=== PATIENT | male | born 1940 | race Caucasian/White ===

== ENCOUNTER 2018-12-28 01:49 | Inpatient (IN) | payer MEDICARE ==
[2018-12-28] MEDS ORDERED: Furosemide 40 MG/4 ML VIAL ONE (02:03)
[2018-12-28] MEDS ORDERED: Aspirin Chewable 81 MG TAB ONE (02:03)
[2018-12-28 02:07] LABS: Actual Bicarbonate (HCO3a) 22.3 mEq/L (22-28); Analyzer IN Cardio ER; Base Excess (BEa) -2.2 mEq/L (-2.0 to +3.0); CO2 Tension 37.5 mmHg (35.0-45.0); Calcium, Ionized 1.13 mmol/L (1.12-1.30); Carboxyhemoglobin (COHb) 0.7 gm% (0.0-3.0); O2 Tension (PaO2) 67.7 mmHg (> 70.0); Potassium - ABG Lab 4.01 mmol/L (3.70-5.30); pH, Arterial 7.39 (7.35-7.45)
[2018-12-28 02:10] LABS: ALV-art Gradient 134.975 (0-20); Puncture Site RRA
[2018-12-28 02:16] LABS: #Eosinphils 0.1 thou/uL (0.0-0.7); #Lymphocytes 1.1 thou/uL (1.20-3.40); #Monocytes 1.1 thou/uL (0.11-0.59); %Basophils 0.3 % (0.0-1.0); %Eosinophils 0.9 % (0.0-10.0); %Lymphocytes 10.3 % (21.0-51.0); %Monocytes 10.6 % (0.0-10.0); %Neutrophils 77.9 % (42.0-75.0); Hemoglobin 13.8 g/dL (14.0-18.0); Mean Corpuscular HGB CONC 33.7 g/dL (32.0-36.0); Mean Corpuscular Hemoglobin 34.3 pg (27.0-31.0); Mean Platelet Volume 7.3 fL (7.4-10.4); Platelet Count 270 thou/uL (130-400); RBC Distribution Width 12.3 % (11.5-14.5); Red Blood Cell (RBC) Count 4.01 mill/uL (4.70-6.10); White Blood Cell (WBC) Count 10.2 thou/uL (4.8-10.8)
[2018-12-28 02:34] LABS: ALT (SGPT) 30 U/L (8-55); AST (SGOT) 29 U/L (5-34); Albumin 3.3 g/dL (3.4-4.8); Alkaline Phosphatase 99 U/L (40-150); Anion Gap 15 mmol/L (10-20); BUN (Urea Nitrogen) 20 mg/dL (8.4-25.7); Bilirubin, Total 0.8 mg/dL (0.2-1.2); Calc. Creatinine Clearance 0 mL/min (70-130); Calcium 8.6 mg/dL (7.8-10.44); Carbon Dioxide 21 mmol/L (23-31); Chloride 99 mmol/L (98-107); Estimated GFR-MDRD 58; Globulin 2.6 g/dL (2.4-3.5); Glucose 185 mg/dL (83-110); Potassium 4.4 mmol/L (3.5-5.1); Protein, Total 5.9 g/dL (5.8-8.1); Sodium 131 mmol/L (136-145)
[2018-12-28] MEDS ORDERED: Enoxaparin Sodium 60 MG/0.6 ML SYRINGE ONE (02:55)
[2018-12-28] MEDS ORDERED: Enoxaparin Sodium 30 MG/0.3 ML SYRINGE ONE (02:55)
[2018-12-28 03:01] LABS: CKMB 2.1 ng/mL (0-6.6)
[2018-12-28] MEDS ORDERED: Acetaminophen 325 MG TAB PO PRN (03:49)
--- NOTE | 2018-12-28 04:17 | HP ---
CHIEF COMPLAINT: Shortness of breath. HISTORY OF PRESENT ILLNESS: The patient is a 78-year-old male with past medical history of hypertension and hyperlipidemia, who presents to the hospital with complaints of shortness of breath. The patient states that yesterday he started noticing worsening swelling to his bilateral lower extremities and also worsening shortness of breath. Denies any fevers or chills. He denies any chest pain or chest pressure. The patient states that he works as a security operations center operator and has had not been having any issues. Denies any orthopnea or PND. The patient did state that he has been having some shortness of breath on minimal exertion. PAST MEDICAL HISTORY: All from the records, hyperlipidemia and hypertension. PAST SURGICAL HISTORY: He has had some abdominal surgeries. SOCIAL HISTORY: He denies any alcohol use or drug use, however, occasionally smokes a cigar. The patient is a full code. Lives alone. FAMILY HISTORY: No history of heart disease or cancer. ALLERGIES: HE IS ALLERGIC TO MORPHINE. MEDICATIONS: The patient does not have a current medication list. I have asked him to bring a provider pharmacy, so we can get his medication list. REVIEW OF SYSTEMS: All negative except the ones mentioned above in the HPI. PHYSICAL EXAMINATION: VITAL SIGNS: Temperature 98.5, respirations of 20, blood pressure 120/61, pulse 69, oxygen saturation 96% while he was on BiPAP. GENERAL: He is awake, alert, and oriented x3. He is a little hard of hearing, appears in minimal distress. HEENT: Normocephalic, atraumatic. No lymphadenopathy noted. Pupils are equal and reactive to light. CV: S1 and S2 present. No murmurs, rubs, or gallops. LUNGS: Mild crackles to bilateral lower bases. ABDOMEN: Obese, soft. Bowel sounds are present x2. No pain upon palpation. EXTREMITIES: He has significant +2 to +3 pitting edema. NEUROVASCULAR: No focal deficits noted. SKIN: He has some chronic venous changes, otherwise no cuts, lesions, or bruises noted. LABORATORY RESULTS: WBCs of 10.2, hemoglobin 13.3, hematocrit of 40.8, platelets of 270. Chemistry; sodium of 131, potassium of 4.4, BUN of 20, creatinine 1.20. His troponin was 0.46. His BNP was 999. Chest x-ray indicated significant amount of fluid in the bilateral lung area. ASSESSMENT AND PLAN: The patient is a very pleasant 78-year-old male who presents to the hospital with shortness of breath. 1. Shortness of breath, most likely secondary to heart failure versus [id number] myocardial infarction. He does not have any acute EKG changes; however, does have an elevated troponin. The patient denies any chest pain or chest pressure. This could also could be secondary to demand ischemia from the heart failure. We will start the patient on IV Lasix. We will get an echocardiogram. Cardiology has been consulted. We will also check a TSH and continue to monitor. 2. Hypertension. We will continue his home medications. 3. Elevated troponins. This could be secondary to demand ischemia versus [id number] myocardial infarction. We will start the patient on Lovenox and also Cardiology has been consulted. 4. DVT prophylaxis. The patient is already on Lovenox for possible [id number] myocardial infarction. Job ID: [id number]
[2018-12-28 05:49] LABS: Troponin I 0.999 ng/mL (< 0.028)
--- NOTE | 2018-12-28 07:46 | RAD ---
EXAM: Single view of the chest HISTORY: Shortness of breath COMPARISON: 05/06/2005 FINDINGS: Single view of the chest shows an enlarged cardiomediastinal silhouette. Bilateral pulmonar y vascular congestion is seen with increased infiltrates in the perihilar region. A large calcified granuloma is seen in the right lung. There may be small bilateral pleural effusions blunting the cost ophrenic angles. IMPRESSION: Findings are most likely secondary to congestive heart failure with volume overload.
[2018-12-28] MEDS ORDERED: Allopurinol 300 MG TAB PO SCH (09:00)
[2018-12-28] MEDS ORDERED: Enoxaparin Sodium 100 MG/ML SYRINGE SC SCH (09:00)
[2018-12-28] MEDS ORDERED: Atenolol 50 MG TAB PO SCH (09:00)
[2018-12-28] MEDS ORDERED: Furosemide 40 MG/4 ML VIAL SLOW IVP SCH (09:00)
[2018-12-28 09:03] LABS: Troponin I 2.348 ng/mL (< 0.028)
[2018-12-28] MEDS ORDERED: Iopamidol 370 76% 100 ML VIAL ONE (09:13)
[2018-12-28] MEDS ORDERED: Atenolol 25 MG TAB PO SCH (09:45)
[2018-12-28] MEDS ORDERED: Labetalol HCl 100 MG/20 ML VIAL SLOW IVP PRN (09:49)
[2018-12-28] MEDS ORDERED: Carvedilol 3.125 MG TAB PO SCH (10:00)
[2018-12-28] MEDS: Allopurinol 300 MG TAB PO SCH (10:16)
[2018-12-28] MEDS ORDERED: Communication Order-Pharmacy FS SCH (13:00)
[2018-12-28] MEDS ORDERED: Fentanyl 100 MCG/2 ML VIAL ONE (13:40)
[2018-12-28] MEDS ORDERED: Midazolam HCl 2 mg/2 ml Vial ONE (13:40)
--- NOTE | 2018-12-28 13:46 | CON ---
DATE OF CONSULTATION: 12/28/2018 REASON FOR CONSULTATION: Non-STEMI. HISTORY OF PRESENT ILLNESS: Mr. Rao is a pleasant 78-year-old white gentleman, who comes to the hospital for shortness of breath. Yesterday, he suddenly started noticing lower extremity swelling and increased shortness of breath. He has had to come into the hospital, was found to be clinically in heart failure, given a dose of Lasix and admitted for further evaluation. He had troponins drawn and they did come to the positive range, so Cardiology is being consulted for all of this. Currently, Mr. Rao is pain-free. His shortness of breath is much better. PAST MEDICAL HISTORY: 1. Hyperlipidemia. 2. Hypertension. 3. Gout. PAST SURGICAL HISTORY: Abdominal surgeries in the past. SOCIAL HISTORY: No alcohol or drugs. Smokes a cigar occasionally. FAMILY HISTORY: No early coronary artery disease. OUTPATIENT MEDICATIONS: 1. Atenolol 50 mg a day. 2. Norvasc 10 mg a day. 3. Zocor half tablet a day. 4. Hydrochlorothiazide 25 mg a day. 5. Multivitamin daily. 6. daily. REVIEW OF SYSTEMS: A 12-point review of systems was done and was all negative unless stated in the history of present illness. PHYSICAL EXAMINATION: VITAL SIGNS: Temperature 97.9, pulse 61, respiratory rate 22, saturations 92% on 3 L, and blood pressure 124/60. GENERAL: Awake, alert, and oriented x3, in no distress. HEENT: Normocephalic and atraumatic. NECK: Supple. LUNGS: Clear. CARDIOVASCULAR: S1 and S2. No S3 or S4. No murmurs. ABDOMEN: Soft. Positive bowel sounds. EXTREMITIES: There is 2+ edema pitting edema. SKIN: Warm and dry. LABORATORY DATA: Laboratory work was reviewed. CBC with a white count of 10, hemoglobin 13, hematocrit 40, and platelet count of 270. ABG was reviewed. Chemistries were reviewed, unremarkable except for a sodium of 131. Troponin went from 0.46 to 0.99 to 2.3 and now 3.0 with a CK-MB of 2.1 up to 10. BNP was 999. Albumin of 3.3. EKG was reviewed. ASSESSMENT: 1. Yne-QA-zmwlpllcv myocardial infarction. 2. Tjizw-yg-ocscpsa systolic versus diastolic heart failure. 3. Hypertension. PLAN: 1. He is much better now. He is able to breathe better, able to lay flat. We will plan on further risk stratification with a heart catheterization. We spoke about the risks and benefits of the procedure. Risks included, but are not limited to stroke, RI, , bleeding, need for blood transfusion, limb loss, organ loss, need for emergent bypass surgery. The patient understands and verbalized understanding of this and agrees to proceed. We will do right groin access and drug-eluting stents if needed. 2. Further recommendations per results of coronary angiogram. 3. Echocardiogram, pending. Job ID: [id number]
[2018-12-28] MEDS ORDERED: Sodium Chloride 0.9% 200 ML IV PRN (14:00)
[2018-12-28] MEDS ORDERED: Nitroglycerin 0.4 MG TAB (25 Tab Bottle) SL PRN (14:15)
[2018-12-28] MEDS ORDERED: Sodium Chloride 0.9% 1,000 ML IV SCH (14:30)
--- NOTE | 2018-12-28 19:21 | CON ---
DATE OF CONSULTATION: 12/28/2018 PRIMARY CARE PHYSICIAN: Blake Osullivan MD CHIEF COMPLAINT: Shortness of breath. HISTORY OF PRESENT ILLNESS: The patient is a 78-year-old man who is a somewhat difficult historian in large part because of how hard of hearing he is. Apparently, over the last couple of weeks, he was noticed some chest discomfort and shortness of breath when he walks and over the last couple of days prior to presentation, he noticed that his legs were swelling. On the day of presentation, he had sudden onset of shortness of breath, and when EMS arrived, he was diaphoretic, and so-called tripoding. He had O2 sats in the low 90s and then improved to 100% on BiPAP. On presentation here, he had a chest x-ray consistent with florid pulmonary edema. He had a BNP of approximately 1000, and he had an elevated troponin that clarice slightly over the course of the ensuing 8 or 9 hours. He was given aspirin, Lovenox, and IV Lasix and has diuresed with some improvement in his breathing, although he remains orthopneic and has a dry cough. PAST MEDICAL HISTORY: Significant for hypertension and hyperlipidemia. He occasionally smokes cigars. MEDICATIONS: 1. Hydrochlorothiazide 25 mg a day. 2. Atenolol 50 mg a day. 3. Norvasc 10 mg a day. 4. Unspecified dose of Zocor and allopurinol and a multivitamin a day. 5. He currently is on Coreg 3.125 mg b.i.d. 6. Lisinopril 2.5 mg a day. 7. Adult aspirin a day. 8. Lipitor 40 mg at bedtime. 9. Allopurinol 150 mg a day. 10. His IV Lasix has been increased to 40 mg IV b.i.d. ALLERGIES: HE HAS AN UNSPECIFIED REACTION TO MORPHINE. REVIEW OF SYSTEMS: Notable for the sudden onset of shortness of breath consistent with PND with orthopnea and dependent edema and chest pain. PHYSICAL EXAMINATION: GENERAL: He is quite hard of hearing. He is 5 feet 7 inches, weighs 196.25 pounds. VITAL SIGNS: In the emergency room, his heart rate was 83, blood pressure 137/69, respirations are 24, 96% sat on 35% BiPAP, and temperature was 98.5. On the srivastava, his heart rate is now 62, blood pressure 137/66, temperature 98.4, respirations 20, and on 4 L nasal cannula, O2 saturation is in 92% to 93% range. NECK: He has no obvious JVD. No xanthelasma. No carotid bruits. CHEST: Clear to auscultation. HEART: He has regular rate and rhythm without murmur or gallops. ABDOMEN: Soft and nontender. EXTREMITIES: He has palpable radial, femoral, and dorsalis pedis pulses. He has 2+ or perhaps even 3+ pretibial edema. NEUROLOGIC: He is quite hard of hearing. Otherwise, neurologic exam is grossly normal. LABORATORY DATA: Showed a white count of 10.2, hemoglobin of 13.8, hematocrit of 40.8, and platelets of 270,000. Electrolytes were normal with the exception of a minimally depressed sodium at 131. Glucose is 185, BUN 20, creatinine 1.20, albumin 3.3, and calcium 8.6. LFTs were normal. His initial troponin was 0.466 that over the next 9 to 10 hours, clarice to 0.999 and then 2.348 and the last check was set about noon today 3.071. BNP was 999.2. Blood gas at 2 in the morning on 35% BiPAP. The pH is 7.39, pCO2 of 38, PO2 of 68, base excess of -2.2, and O2 sats calculated 92.6%. DIAGNOSTIC STUDIES: His EKG showed T-wave inversions and ST depressions in leads I, aVL, V4, V5, and V6. His chest x-ray shows florid pulmonary edema and small effusions bilaterally. Chest x-ray from about 2-1/2 years ago showed some prominent pulmonary markings and aortic knob calcifications, but a normal cardiac silhouette. His cardiac catheterization shows a right dominant system. He has a long high-grade left main lesion approaching 90% or 95%. He has irregularity in his LAD, but no obvious focal stenoses. He has high diagonal with an 80% to 90% ostial lesion in it. He has what appears to be a small ramus type OM with a high-grade lesion in the ostium, but appears arborized quickly into the tiny branches. He has a subtotal lesion on a fairly large circumflex that leads out to a bifurcated area approaching the apex, and he appears to have some disease at that bifurcation point. He has some very mild proximal RCA disease, but then he has proximal disease and branch vessels distally. His PDA appears to be somewhat small caliber. Dr. Mota told me that he was unable to negotiate a 5-Armenian catheter crossed the aortic valve to measure ventricular pressures or do a ventriculogram. Aortic pressure was 117/46 with a mean of 73 and 118/39 with a mean of 68. Echocardiography was suboptimal, but did not appear to show any significant aortic stenosis with a peak gradient being less than 10 and a calculated aortic valve gradient and calculated aortic valve area of 1.76 squared centimeter. IMPRESSION AND RECOMMENDATIONS: Left main coronary artery disease with overt failure. Left ventricular ejection fraction was estimated at 35% according to Dr. Mota's view of the echocardiogram, although calculation described, it is 21.4%. The patient has edema and failure such that he needs diuresis prior to considering revascularization. I am going to repeat a chest x-ray tomorrow to see how well he clears his edema. He may or may not be ready by Wednesday. My initial impression is that he probably does not need aortic valve replacement as well. Intraop RICKIE and perhaps intraop measurements of transvalvular gradients may be of some help in making that decision. Job ID: [id number]
[2018-12-28] MEDS: Atorvastatin Calcium 40 MG TAB PO SCH (20:09)
[2018-12-28] MEDS: Carvedilol 3.125 MG TAB PO SCH (20:09)
[2018-12-28] MEDS ORDERED: Atorvastatin Calcium 10 MG TAB PO SCH (21:00)
[2018-12-28] MEDS ORDERED: Simvastatin 40 MG TAB PO SCH (21:00)
[2018-12-29] MEDS: Furosemide 40 MG/4 ML VIAL SLOW IVP SCH ×2 (05:24→15:02)
[2018-12-29 05:27] LABS: #Eosinphils 0.1 thou/uL (0.0-0.7); #Lymphocytes 1.3 thou/uL (1.20-3.40); #Monocytes 1.2 thou/uL (0.11-0.59); #Neutrophils 7.6 thou/uL (1.40-6.50); %Basophils 0.2 % (0.0-1.0); %Eosinophils 1.3 % (0.0-10.0); %Lymphocytes 12.5 % (21.0-51.0); %Monocytes 11.6 % (0.0-10.0); %Neutrophils 74.4 % (42.0-75.0); Mean Corpuscular HGB CONC 33.2 g/dL (32.0-36.0); Mean Corpuscular Hemoglobin 33.6 pg (27.0-31.0); Mean Platelet Volume 7.4 fL (7.4-10.4); Platelet Count 264 thou/uL (130-400); RBC Distribution Width 12.6 % (11.5-14.5); Red Blood Cell (RBC) Count 3.86 mill/uL (4.70-6.10); White Blood Cell (WBC) Count 10.2 thou/uL (4.8-10.8)
[2018-12-29 05:41] LABS: ALT (SGPT) 23 U/L (8-55); AST (SGOT) 25 U/L (5-34); Albumin 2.9 g/dL (3.4-4.8); Alkaline Phosphatase 78 U/L (40-150); Anion Gap 12 mmol/L (10-20); BUN (Urea Nitrogen) 19 mg/dL (8.4-25.7); Bilirubin, Total 0.6 mg/dL (0.2-1.2); Calc. Creatinine Clearance 68 mL/min (70-130); Carbon Dioxide 27 mmol/L (23-31); Cardiac Risk 3.1 (Less than 4.5); Chloride 101 mmol/L (98-107); Cholesterol 113 mg/dl (< 200 Desired); Estimated GFR-MDRD 69; Globulin 2.8 g/dL (2.4-3.5); Glucose 96 mg/dL (83-110); HDL Cholesterol 37 mg/dL (>60 Neg Risk); LDL Cholesterol, Calculated 66 mg/dL; Potassium 3.9 mmol/L (3.5-5.1); Protein, Total 5.7 g/dL (5.8-8.1); Sodium 136 mmol/L (136-145); Triglycerides 50 mg/dL (Less than 150)
--- NOTE | 2018-12-29 08:04 | RAD ---
XR Chest Pa Lat STANDARD HISTORY: Shortness of breath COMPARISON: 07/10/2016 study also a 12/28/2018 study.. FINDINGS: Heart size is within normal limits there is marked improvement to the pulmonary edema corrales es as compared to the prior examination still with residual small effusions. IMPRESSION: Resolving pulmonary edema.
[2018-12-29] MEDS ORDERED: Communication Order-Pharmacy FS SCH (09:32)
[2018-12-29] MEDS: Lisinopril 2.5 MG TAB PO SCH (09:41)
[2018-12-29] MEDS: Allopurinol 300 MG TAB PO SCH (09:42)
[2018-12-29] MEDS: Aspirin 325 mg Enteric Coated Tablet PO SCH (09:43)
[2018-12-29] MEDS: Carvedilol 3.125 MG TAB PO SCH ×2 (09:43→21:31)
--- NOTE | 2018-12-29 11:58 | PDOC.CTH ---
Cardiology Progress Note - Subjective Doing better today. breathing better. - Objective Vital Signs Temp Pulse Resp BP BP Pulse Ox 12/29/18 11:31 97.9 F 63 20 130/57 L 95 12/29/18 09:41 62 12/29/18 07:25 98.7 F 65 20 147/65 H 93 L 12/29/18 03:41 97.9 F 63 16 143/60 H 93 L Weight 184 lb 12/28/18 12/29/18 12/30/18 06:59 06:59 06:59 Intake Total 0 910 Output Total 2310 285 Balance 0 -1400 -285 - Physical Examination General/Neuro: alert & oriented x3, NAD Neck: no JVD present Lungs: CTA, unlabored respirations Heart: RRR Abdomen: NT/ND Extremities: + edema B (trace) - Telemetry Telemetry Rhythm: NSR - Labs Result Diagrams: 12/29/18 05:10 12/29/18 05:10 Troponin/CKMB CK-MB (CK-2) 10.0 ng/mL (0-6.6) H* 12/28/18 11:52 Troponin I 3.071 ng/mL (< 0.028) H* 12/28/18 11:52 - Assessment/Plan 1. Severe multivessel CAD, including Left main. 2. Aortic stenosis. 3. NSTEMI PLAN: - Will get a repeat echo focused more on the Aortic valve. if cannot get an accurate assessment than will need RICKIE to evaluate to see if his AV needs replacement as well. - Plan to do CABG once his valve situation settled. - No PT or CR until after surgery. Bed rest with bathroom privileges for now.
--- NOTE | 2018-12-29 16:02 | PDOC.PN ---
- Subjective Encounter Start Date: 12/29/18 Encounter Start Time: 15:00 Patient seen and examined for CHF. No CP. SOB improving. No new complaints. No overnight events - Objective Resuscitation Status - Order Detail: 12/28/18 03:49 Resuscitation Status Routine Resuscitation Status: FULL: Full Resuscitation MAR Reviewed: Yes Vital Signs & Weight: Vital Signs (12 hours) Temp Pulse Pulse Pulse Resp BP BP 12/29/18 11:31 97.9 F 63 20 12/29/18 10:18 91 73 159/67 H 141/66 H 12/29/18 09:41 62 12/29/18 08:20 12/29/18 07:25 98.7 F 65 20 BP Pulse Ox 12/29/18 11:31 130/57 L 95 12/29/18 10:18 12/29/18 09:41 12/29/18 08:20 93 L 12/29/18 07:25 147/65 H 93 L Weight Weight 184 lb I&O: 12/28/18 12/29/18 12/30/18 06:59 06:59 06:59 Intake Total 0 910 480 Output Total 2310 285 Balance 0 -1400 195 Result Diagrams: 12/29/18 05:10 12/29/18 05:10 Radiology Reviewed by me: Yes (CXR - CHF) EKG Reviewed by me: Yes (Tele SR) Phys Exam - Physical Examination Constitutional: NAD Respiratory: no wheezing Bibasilar rales, few rhonchi at bases, Symmetrical Cardiovascular: RRR, no rub no heaves/pulsations Gastrointestinal: soft, non-tender, no distention, positive bowel sounds Musculoskeletal: pulses present, edema present (improving) Neurological: non-focal, normal sensation, moves all 4 limbs Psychiatric: normal affect, A&O x 3 Dx/Plan - Plan DVT proph w/SCDs IMPRESSION: Acute hypoxic respiratory failure s/p NIPPV Acute Systolic/Diastolic heart failure - ACC stage C NSTEMI HTN HLD Obesity BMI 30.7 CKD 3 Hyponatremia Macrocytic Anemia PLAN: Cont diuresis AM labs Cont ASA/BB/ACEI/Statins Cardio/CT following need CABG Review of Systems - Review of Systems Respiratory: negative: Cough, Dry, Shortness of Breath, Hemoptysis, SOB with Excertion, Pleuritic Pain, Sputum, Wheezing Cardiovascular: negative: chest pain, palpitations, orthopnea, paroxysmal nocturnal dyspnea, edema, light headedness, other - Medications/Allergies Allergies/Adverse Reactions: Allergies Allergy/AdvReac Type Severity Reaction Status Date / Time morphine Allergy Verified 12/28/18 05:18 Medications: Current Medications Acetaminophen (Tylenol) 650 mg PO Q4H PRN PRN Reason: Headache/Fever/Mild Pain (1-3) Stop: 12/30/18 08:59 Allopurinol (Zyloprim) 150 mg PO DAILY [facility] Stop: 12/30/18 08:59 Last Admin: 12/29/18 09:42 Dose: 150 mg Aspirin (Ecotrin) 325 mg PO DAILY [facility] Stop: 12/30/18 08:59 Last Admin: 12/29/18 09:43 Dose: 325 mg Atorvastatin Calcium (Lipitor) 40 mg PO HS [facility] Stop: 12/30/18 08:59 Last Admin: 12/28/18 20:09 Dose: 40 mg Carvedilol (Coreg) 3.125 mg PO BID [facility] Last Admin: 12/29/18 09:43 Dose: 3.125 mg Furosemide (Lasix) 40 mg SLOW IVP 0600,1400 [facility] Stop: 12/30/18 08:59 Last Admin: 12/29/18 15:02 Dose: 40 mg Sodium Chloride (Normal Saline 0.9%) 200 mls @ 0 mls/hr IV 1400 PRN PRN Reason: SBP < 90 Stop: 12/30/18 08:59 Cefazolin Sodium/Dextrose 2 gm (/ Device) 50 mls @ 100 mls/hr IVPB 0700 [facility] Stop: 12/30/18 12:00 Labetalol HCl (Normodyne) 10 mg SLOW IVP Q4H PRN PRN Reason: Systolic BP > 180 Stop: 12/30/18 08:59 Lisinopril (Zestril) 2.5 mg PO DAILY [facility] Last Admin: 12/29/18 09:41 Dose: 2.5 mg Miscellaneous Information (Communication Order-Pharmacy) 1 each FS ONE [facility] Stop: 12/30/18 12:00 Nitroglycerin (Nitrostat) 0.4 mg SL Q5MIN PRN PRN Reason: Chest Pain Stop: 12/30/18 08:59 Sodium Chloride (Flush - Normal Saline) 10 ml IVF Q12HR [facility] Stop: 12/30/18 08:59 Last Admin: 12/29/18 09:44 Dose: 10 ml Sodium Chloride (Flush - Normal Saline) 10 ml IVF PRN PRN PRN Reason: Saline Flush Stop: 12/30/18 08:59
[2018-12-29] MEDS: Atorvastatin Calcium 40 MG TAB PO SCH (21:31)
[2018-12-30 05:22] LABS: Anion Gap 11 mmol/L (10-20); BUN (Urea Nitrogen) 20 mg/dL (8.4-25.7); Calc. Creatinine Clearance 72 mL/min (70-130); Calcium 8.9 mg/dL (7.8-10.44); Carbon Dioxide 30 mmol/L (23-31); Chloride 99 mmol/L (98-107); Estimated GFR-MDRD 76; Glucose 91 mg/dL (83-110); Magnesium 1.8 mg/dL (1.6-2.6); Potassium 3.6 mmol/L (3.5-5.1); Sodium 136 mmol/L (136-145)
[2018-12-30] MEDS: Furosemide 40 MG/4 ML VIAL SLOW IVP SCH ×2 (05:44→14:01)
[2018-12-30] MEDS ORDERED: CEFAZOLIN 2 GM in Premix Bag 1 BAG IVPB SCH (07:00)
[2018-12-30] MEDS: Carvedilol 3.125 MG TAB PO SCH ×2 (09:24→20:49)
[2018-12-30] MEDS: Allopurinol 300 MG TAB PO SCH (09:24)
[2018-12-30] MEDS: Lisinopril 2.5 MG TAB PO SCH (09:24)
[2018-12-30] MEDS: Aspirin 325 mg Enteric Coated Tablet PO SCH (09:24)
--- NOTE | 2018-12-30 11:12 | PDOC.PN ---
- Subjective Encounter Start Date: 12/30/18 Encounter Start Time: 11:10 Mr. Rao was seen today in follow-up of CAD. He does not have any complaints today. He denies chest pain or shortness of breath. - Objective Resuscitation Status - Order Detail: 12/28/18 03:49 Resuscitation Status Routine Resuscitation Status: FULL: Full Resuscitation MAR Reviewed: Yes Vital Signs & Weight: Vital Signs (12 hours) Temp Pulse Resp BP BP Pulse Ox 12/30/18 09:24 57 L 124/59 L 12/30/18 07:51 97.9 F 57 L 16 124/59 L 95 12/30/18 07:20 95 12/30/18 04:00 97.9 F 60 16 148/64 H 94 L 12/29/18 23:34 97.8 F 64 16 129/60 94 L Weight Weight 180 lb 4.8 oz I&O: 12/29/18 12/30/18 12/31/18 06:59 06:59 06:59 Intake Total 910 1580 300 Output Total 2310 1185 950 Balance -1400 395 -650 Result Diagrams: 12/29/18 05:10 12/30/18 04:39 Phys Exam - Physical Examination HEENT: PERRLA Respiratory: no wheezing, no rales, no rhonchi Cardiovascular: RRR, no significant murmur, no rub Gastrointestinal: soft, non-tender, no distention, positive bowel sounds Musculoskeletal: pulses present, edema present trace pedal edema Dx/Plan (1) Unstable angina Status: Acute (2) Hypertension Code(s): I10 - ESSENTIAL (PRIMARY) HYPERTENSION Status: Chronic (3) Dyslipidemia Code(s): E78.5 - HYPERLIPIDEMIA, UNSPECIFIED Status: Chronic - Plan * Unstable Angina- patient is clinically stable at this time, Cardiology recommendations noted. He has multi-vessel CAD and mild- moderate * Plan is for CABG on Wednesday. * HTN- blood pressure is stable * Dyslipidemia- continue Lipitor
--- NOTE | 2018-12-30 13:47 | PRG ---
DATE OF SERVICE: 12/30/2018 SUBJECTIVE: Mr. Rao is doing well. He has no complaints. He is breathing okay. OBJECTIVE: VITAL SIGNS: His blood pressure is 119/56, pulse 60. LUNGS: Clear. CARDIAC: Normal S1, normal S2. ASSESSMENT: Multivessel coronary disease including left main stenosis. PLAN: Plan for surgery on Wednesday. Job ID: [id number]
[2018-12-30] MEDS: Atorvastatin Calcium 40 MG TAB PO SCH (20:49)
[2018-12-31 00:29] LABS: #Eosinphils 0.1 thou/uL (0.0-0.7); #Lymphocytes 1.1 thou/uL (1.20-3.40); #Monocytes 1.3 thou/uL (0.11-0.59); #Neutrophils 8.5 thou/uL (1.40-6.50); %Basophils 0.4 % (0.0-1.0); %Eosinophils 1.3 % (0.0-10.0); %Lymphocytes 10.3 % (21.0-51.0); %Monocytes 11.5 % (0.0-10.0); %Neutrophils 76.5 % (42.0-75.0); Hemoglobin 13.6 g/dL (14.0-18.0); Mean Corpuscular Hemoglobin 33.4 pg (27.0-31.0); Mean Platelet Volume 7.1 fL (7.4-10.4); Platelet Count 281 thou/uL (130-400); RBC Distribution Width 12.2 % (11.5-14.5); Red Blood Cell (RBC) Count 4.06 mill/uL (4.70-6.10); White Blood Cell (WBC) Count 11.1 thou/uL (4.8-10.8)
[2018-12-31 00:53] LABS: ALT (SGPT) 18 U/L (8-55); AST (SGOT) 23 U/L (5-34); Alkaline Phosphatase 78 U/L (40-150); Anion Gap 12 mmol/L (10-20); BUN (Urea Nitrogen) 26 mg/dL (8.4-25.7); Bilirubin, Total 0.4 mg/dL (0.2-1.2); Calc. Creatinine Clearance 68 mL/min (70-130); Carbon Dioxide 29 mmol/L (23-31); Chloride 98 mmol/L (98-107); Estimated GFR-MDRD 70; Glucose 92 mg/dL (83-110); Sodium 135 mmol/L (136-145)
[2018-12-31 05:20] LABS: Anion Gap 10 mmol/L (10-20); BUN (Urea Nitrogen) 23 mg/dL (8.4-25.7); Calc. Creatinine Clearance 76 mL/min (70-130); Carbon Dioxide 31 mmol/L (23-31); Chloride 99 mmol/L (98-107); Estimated GFR-MDRD 80; Glucose 93 mg/dL (83-110); Potassium 3.7 mmol/L (3.5-5.1); Sodium 136 mmol/L (136-145)
[2018-12-31] MEDS: Furosemide 40 MG/4 ML VIAL SLOW IVP SCH ×2 (06:44→13:11)
[2018-12-31] MEDS: Lisinopril 2.5 MG TAB PO SCH (08:56)
[2018-12-31] MEDS: Allopurinol 300 MG TAB PO SCH (08:56)
[2018-12-31] MEDS: Aspirin 325 mg Enteric Coated Tablet PO SCH (08:57)
[2018-12-31] MEDS: Carvedilol 3.125 MG TAB PO SCH ×2 (08:57→20:53)
--- NOTE | 2018-12-31 14:50 | PDOC.PN ---
- Subjective Encounter Start Date: 12/31/18 Encounter Start Time: 14:48 Mr. Rao was seen today in follow-up of Acute coronary syndrome. He does not have any complaints today He denies feeling short of breath, and denies chest pain. - Objective Resuscitation Status - Order Detail: 12/28/18 03:49 Resuscitation Status Routine Resuscitation Status: FULL: Full Resuscitation MAR Reviewed: Yes Vital Signs & Weight: Vital Signs (12 hours) Temp Pulse Resp BP Pulse Ox 12/31/18 11:49 99.2 F 63 16 131/60 98 12/31/18 08:56 66 12/31/18 08:00 96 12/31/18 07:34 97.8 F 66 18 143/67 H 96 12/31/18 04:00 97.7 F 64 18 129/61 98 Weight Weight 176 lb 9 oz I&O: 12/30/18 12/31/18 01/01/19 06:59 06:59 06:59 Intake Total 1580 1380 720 Output Total 1185 1650 1000 Balance 395 -270 -280 Result Diagrams: 12/31/18 00:15 12/31/18 04:48 Phys Exam - Physical Examination HEENT: PERRLA Respiratory: no wheezing, no rales, no rhonchi, clear to auscultation bilateral Cardiovascular: RRR, no significant murmur, no rub Gastrointestinal: soft, non-tender, no distention, positive bowel sounds Musculoskeletal: no edema, pulses present Dx/Plan (1) Unstable angina Status: Acute (2) Hypertension Code(s): I10 - ESSENTIAL (PRIMARY) HYPERTENSION Status: Chronic (3) Dyslipidemia Code(s): E78.5 - HYPERLIPIDEMIA, UNSPECIFIED Status: Chronic - Plan * Acute Coronary Syndrome/[place]- he was found to have 3 vessel CAD, and CABG is planned for Wednesday * HTN- blood pressure is stable * Dyslipidemia- Continue Lipitor.
[2018-12-31] MEDS: Atorvastatin Calcium 40 MG TAB PO SCH (20:53)
[2019-01-01] MEDS: Furosemide 40 MG/4 ML VIAL SLOW IVP SCH (07:07)
[2019-01-01] MEDS: Lisinopril 2.5 MG TAB PO SCH (10:49)
[2019-01-01] MEDS: Allopurinol 300 MG TAB PO SCH (10:50)
[2019-01-01] MEDS: Aspirin 325 mg Enteric Coated Tablet PO SCH (10:50)
[2019-01-01] MEDS: Carvedilol 3.125 MG TAB PO SCH ×2 (10:51→22:10)
--- NOTE | 2019-01-01 11:22 | PDOC.PN ---
- Subjective Encounter Start Date: 01/01/19 Encounter Start Time: 11:20 Mr. Rao was seen today in follow-up of acute coronary syndrome. He does not have any complaints this morning. - Objective Resuscitation Status - Order Detail: 12/28/18 03:49 Resuscitation Status Routine Resuscitation Status: FULL: Full Resuscitation MAR Reviewed: Yes Vital Signs & Weight: Vital Signs (12 hours) Temp Pulse Resp BP Pulse Ox 01/01/19 10:49 67 01/01/19 08:00 97.7 F 66 18 154/70 H 98 01/01/19 05:11 95 01/01/19 03:56 98.3 F 61 18 121/60 95 01/01/19 00:00 98.0 F 63 18 132/63 97 Weight Weight 172 lb 5 oz I&O: 12/31/18 01/01/19 01/02/19 06:59 06:59 06:59 Intake Total 1380 960 580 Output Total 1650 3300 Balance -270 -2340 580 Result Diagrams: 12/31/18 00:15 12/31/18 04:48 Phys Exam - Physical Examination HEENT: PERRLA Respiratory: no wheezing, no rales, no rhonchi, clear to auscultation bilateral Cardiovascular: RRR, no significant murmur, no rub Gastrointestinal: soft, non-tender, no distention, positive bowel sounds Musculoskeletal: no edema, pulses present Dx/Plan (1) Unstable angina Status: Acute (2) Hypertension Code(s): I10 - ESSENTIAL (PRIMARY) HYPERTENSION Status: Chronic (3) Dyslipidemia Code(s): E78.5 - HYPERLIPIDEMIA, UNSPECIFIED Status: Chronic - Plan * Acute Coronary Syndrome- plan is for CABG tomorrow * He was volume overloaded on admission, but now appears euvolemic- will discontinue IV Lasix, and re-start as needed after surgery * HTN- blood pressure is stable * Dyslipidemia- continue Lipitor.
[2019-01-01] MEDS: Atorvastatin Calcium 40 MG TAB PO SCH (22:10)
[2019-01-02] MEDS: Lisinopril 2.5 MG TAB PO SCH (05:59)
[2019-01-02] MEDS: Carvedilol 3.125 MG TAB PO SCH (05:59)
[2019-01-02] MEDS ORDERED: Heparin 10,000 UNITS/1 ML VIAL 30,000 UNITS in Sodium Chloride 0.9% 1,000 ML FS SCH (06:30)
[2019-01-02] MEDS ORDERED: Dexmedetomidine 200 MCG/2 ML VIAL ONE (06:33)
[2019-01-02] MEDS ORDERED: Midazolam HCl 5 mg/5 ml Vial ONE (06:33)
[2019-01-02] MEDS ORDERED: Midazolam HCl 2 mg/2 ml Vial ONE (06:33)
[2019-01-02] MEDS ORDERED: Vecuronium 10 MG VIAL ONE ×2 (06:33→11:45)
[2019-01-02] MEDS ORDERED: Fentanyl 100 MCG/2 ML VIAL ONE (06:33)
[2019-01-02] MEDS ORDERED: CEFAZOLIN 2 GM in Premix Bag 1 BAG IVPB SCH (07:00)
[2019-01-02] MEDS ORDERED: Insulin Regular 300 UNITS/3 ML VIAL ONE (10:52)
[2019-01-02] MEDS ORDERED: Albumin 5% 500 ML ONE (10:52)
[2019-01-02] MEDS ORDERED: Ketorolac Tromethamine 30 MG/ML VIAL ONE (11:45)
[2019-01-02] MEDS ORDERED: Cardioplegic Soln 1,000 ML BAG ONE (11:45)
[2019-01-02] MEDS ORDERED: Nitroglycerin 50 MG/250 ML BOT ONE (11:45)
[2019-01-02] MEDS ORDERED: Papaverine 60 MG/2 ML VIAL ONE (11:45)
[2019-01-02] MEDS ORDERED: Lidocaine 2% PF 100 mg/5 ml Syringe ONE (11:45)
[2019-01-02] MEDS ORDERED: PHENYLEPHRINE-NS 100 MCG/ML 10 ML SYRINGE ONE ×2 (11:45→12:03)
[2019-01-02] MEDS ORDERED: Protamine Sulfate 250 MG/25 ML VIAL ONE (11:45)
[2019-01-02] MEDS ORDERED: Thrombin 5000 UNITS/5 ML VIAL ONE (11:45)
[2019-01-02] MEDS ORDERED: Calcium Chloride 1 GM/10 ML Abboject SYRINGE ONE (11:45)
[2019-01-02] MEDS ORDERED: Heparin 5,000 UNITS/ML VIAL ONE (11:45)
[2019-01-02] MEDS ORDERED: Heparin 30,000 units/30 ml VIAL ONE (11:45)
[2019-01-02] MEDS ORDERED: Potassium Chloride 60 MEQ/30 ML VIAL ONE (11:45)
[2019-01-02] MEDS ORDERED: Ondansetron PF 4 MG/2 ML Vial ONE (11:45)
[2019-01-02] MEDS ORDERED: ePHEDrine 50 MG/ML VIAL ONE (11:45)
[2019-01-02] MEDS ORDERED: Magnesium 5 GM/10 ML VIAL ONE (11:45)
[2019-01-02] MEDS ORDERED: Aminocaproic Acid 5 GM/20 ML VIAL ONE (11:45)
[2019-01-02] MEDS ORDERED: Sodium Bicarb 50 MEQ/50 ML VIAL ONE (11:45)
[2019-01-02] MEDS ORDERED: Mannitol 12.5 GM/50 ML ONE (11:45)
[2019-01-02] MEDS ORDERED: Phenylephrine HCL 10 MG/ML VIAL ONE (13:06)
[2019-01-02] MEDS ORDERED: ePHEDrine/0.9% NaCl/PF SYRINGE 50 mg/10 ml ONE (13:06)
[2019-01-02] MEDS ORDERED: Promethazine HCl 25 MG/ML VIAL IM PRN (14:10)
[2019-01-02] MEDS ORDERED: Fentanyl 100 MCG/2 ML VIAL SLOW IVP PRN ×2 (14:10)
[2019-01-02] MEDS ORDERED: Mag-Al 1200 mg/1200 mg/30 ML UDCUP PO PRN (14:10)
[2019-01-02] MEDS ORDERED: Norepinephrine 8 MG/0.9% NS 250 ML IVPB PRN (14:10)
[2019-01-02] MEDS ORDERED: Acetaminophen 325 MG TAB PO PRN (14:10)
[2019-01-02] MEDS ORDERED: Ondansetron PF 4 MG/2 ML Vial IVP PRN (14:10)
[2019-01-02] MEDS ORDERED: Post-Op Insulin Drip Protocol IVPB ONE (14:10)
[2019-01-02] MEDS ORDERED: hydrALAZINE 20 MG/ML VIAL SLOW IVP PRN (14:10)
[2019-01-02] MEDS ORDERED: Bisacodyl 10 MG SUPP PR PRN (14:10)
[2019-01-02] MEDS ORDERED: Potassium Chloride 20 MEQ/100 ML PREMIX BAG IVPB PRN (14:10)
[2019-01-02] MEDS ORDERED: Hetastarch 6% 500 ML 500 ML IVPB PRN (14:10)
[2019-01-02] MEDS ORDERED: HYDROcodone/Acetaminophen 5/325 mg Tablet PO PRN (14:10)
[2019-01-02] MEDS ORDERED: Bisacodyl 5 MG TAB PO PRN (14:10)
[2019-01-02] MEDS ORDERED: Nitroglycerin 50 MG/250 ML BOT 250 ML IVPB PRN (14:10)
[2019-01-02] MEDS ORDERED: Guaifenesin DM 100-10/5 ML UDCUP PO PRN (14:10)
[2019-01-02] MEDS ORDERED: Dextrose 50% Abboject 50 ML SYRINGE SLOW IVP PRN (14:21)
[2019-01-02] MEDS ORDERED: Dextrose 5% in Water 1,000 ML IV PRN (14:21)
[2019-01-02] MEDS ORDERED: HUMULIN R 100 UNITS in Sodium Chloride 0.9% 100 ML IVPB SCH (14:21)
[2019-01-02 14:33] LABS: Hemoglobin 12.2 g/dL (14.0-18.0); Mean Corpuscular HGB CONC 32.3 g/dL (32.0-36.0); Mean Corpuscular Hemoglobin 32.9 pg (27.0-31.0); Mean Platelet Volume 7.1 fL (7.4-10.4); Platelet Count 232 thou/uL (130-400); RBC Distribution Width 11.9 % (11.5-14.5); Red Blood Cell (RBC) Count 3.72 mill/uL (4.70-6.10); White Blood Cell (WBC) Count 25.3 thou/uL (4.8-10.8)
[2019-01-02 14:36] LABS: PTT 30.1 SEC (22.9-36.1)
[2019-01-02 14:37] LABS: INR-International Normal Ratio 1.4; Prothrombin Time 17.1 SEC (12.0-14.7)
[2019-01-02 14:43] LABS: Anion Gap 13 mmol/L (10-20); BUN (Urea Nitrogen) 20 mg/dL (8.4-25.7); Calc. Creatinine Clearance 80 mL/min (70-130); Calcium 8.6 mg/dL (7.8-10.44); Carbon Dioxide 25 mmol/L (23-31); Chloride 105 mmol/L (98-107); Estimated GFR-MDRD 86; Glucose 137 mg/dL (83-110); Potassium 4.3 mmol/L (3.5-5.1); Sodium 139 mmol/L (136-145)
[2019-01-02] MEDS: Sodium Chloride 0.9% 1,000 ML IV SCH (14:43)
[2019-01-02 14:47] LABS: Band 21 % (5-11); Eosinophils 3 % (0-10); Lymphocytes 1 % (21-51); MDiff Complete? YES; Macrocytosis SLIGHT = 6-15 cells (100X) (0-5/hpf); Monocytes 6 % (0-10); Neutrophil 68 % (42-75); Platelet Morphology Comment Appears Adequate; Polychromasia SLIGHT = 2-3 cells (100X) (0-2/hpf); Reactive Lymphocytes 1 % (0-10)
[2019-01-02] MEDS: Insulin Regular 300 UNITS/3 ML VIAL SC PRN ×3 (14:48→20:21)
[2019-01-02 14:55] LABS: Actual Bicarbonate (HCO3a) 23.6 mEq/L (22-28); Analyzer IN Cardio OR; CO2 Tension 43.9 mmHg (35.0-45.0); Calcium, Ionized 1.17 mmol/L (1.12-1.30); Carboxyhemoglobin (COHb) 1.1 gm% (0.0-3.0); Hemoglobin (Hb) 12.6 g/dL (14.0-18.0); O2 Tension (PaO2) 121.6 mmHg (> 70.0); Potassium - ABG Lab 4.08 mmol/L (3.70-5.30); pH, Arterial 7.35 (7.35-7.45)
[2019-01-02 14:56] LABS: ALV-art Gradient 251.325 (0-20); Puncture Site ALINE
--- NOTE | 2019-01-02 14:57 | RAD ---
CHEST 1 VIEW: Date: 01/02/19 HISTORY: Post open heart surgery. COMPARISON: Radiograph dated 12/29/18. FINDINGS: Patient intubated; endotracheal tube tip just below level of clavicles in good position. Multiple med iastinal drains, left thoracostomy drain. Small effusions. Compressive atelectasis left lung base. No large pneumothorax. IMPRESSION: Expected postoperative findings without complication. POS: [facility]
[2019-01-02] MEDS: Ketorolac Tromethamine 30 MG/ML VIAL IVP SCH ×2 (15:53→20:20)
[2019-01-02 16:03] LABS: Actual Bicarbonate (HCO3a) 27.6 mEq/L (22-28); Analyzer IN Cardio OR; CO2 Tension 34.3 mmHg (35.0-45.0); Calcium, Ionized 1.17 mmol/L (1.12-1.30); Carboxyhemoglobin (COHb) 0.7 gm% (0.0-3.0); Hemoglobin (Hb) 14.2 g/dL (14.0-18.0); O2 Tension (PaO2) 382.7 mmHg (> 70.0); Potassium - ABG Lab 3.99 mmol/L (3.70-5.30); pH, Arterial 7.52 (7.35-7.45)
[2019-01-02 16:04] LABS: Actual Bicarbonate (HCO3a) 23.7 mEq/L (22-28); Analyzer IN Cardio OR; Base Excess (BEa) 1.9 mEq/L (-2.0 to +3.0); CO2 Tension 29.2 mmHg (35.0-45.0); Calcium, Ionized 1.13 mmol/L (1.12-1.30); Carboxyhemoglobin (COHb) 0.2 gm% (0.0-3.0); Hemoglobin (Hb) 13.7 g/dL (14.0-18.0); O2 Tension (PaO2) 273.8 mmHg (> 70.0); Potassium - ABG Lab 3.69 mmol/L (3.70-5.30); pH, Arterial 7.53 (7.35-7.45)
[2019-01-02 16:04] LABS: Actual Bicarbonate (HCO3a) 25.8 mEq/L (22-28); Analyzer IN Cardio OR; Base Excess (BEa) 3.1 mEq/L (-2.0 to +3.0); CO2 Tension 32.8 mmHg (35.0-45.0); Calcium, Ionized 0.92 mmol/L (1.12-1.30); Carboxyhemoglobin (COHb) 0.3 gm% (0.0-3.0); Hemoglobin (Hb) 10.4 g/dL (14.0-18.0); O2 Tension (PaO2) 469.3 mmHg (> 70.0); Potassium - ABG Lab 3.92 mmol/L (3.70-5.30); pH, Arterial 7.51 (7.35-7.45)
[2019-01-02 16:05] LABS: Actual Bicarbonate (HCO3v) 24 mEq/L (22-28); Analyzer IN Cardio OR; Base Excess 0.5 mEq/L (-2.0 to +3.0); Calcium, Ionized 1.02 mmol/L (1.16-1.32); Chloride (ABG LAB) 102 mmol/L (98-106); Hemoglobin (Hb) 10.2 g/dL (12.6-17.4); Potassium - ABG Lab 4.35 mmol/L (3.70-5.30); Sodium 133.9 mmol/L (133-146); pH (venous) 7.46 (7.32-7.43)
[2019-01-02 16:05] LABS: Actual Bicarbonate (HCO3a) 26.2 mEq/L (22-28); Analyzer IN Cardio OR; Base Excess (BEa) 1.6 mEq/L (-2.0 to +3.0); CO2 Tension 40.9 mmHg (35.0-45.0); Calcium, Ionized 1.03 mmol/L (1.12-1.30); Hemoglobin (Hb) 10.7 g/dL (14.0-18.0); Potassium - ABG Lab 4.26 mmol/L (3.70-5.30); pH, Arterial 7.42 (7.35-7.45)
[2019-01-02 16:05] LABS: Actual Bicarbonate (HCO3a) 23.7 mEq/L (22-28); Analyzer IN Cardio OR; Base Excess (BEa) 1.9 mEq/L (-2.0 to +3.0); CO2 Tension 27.9 mmHg (35.0-45.0); Carboxyhemoglobin (COHb) 0.3 gm% (0.0-3.0); Hemoglobin (Hb) 10.4 g/dL (14.0-18.0); Potassium - ABG Lab 4.37 mmol/L (3.70-5.30)
[2019-01-02 16:06] LABS: Actual Bicarbonate (HCO3a) 25.7 mEq/L (22-28); Analyzer IN Cardio OR; Base Excess (BEa) 0.9 mEq/L (-2.0 to +3.0); Calcium, Ionized 1.06 mmol/L (1.12-1.30); Hemoglobin (Hb) 9.6 g/dL (14.0-18.0); Potassium - ABG Lab 4.06 mmol/L (3.70-5.30); pH, Arterial 7.41 (7.35-7.45)
[2019-01-02 16:06] LABS: Puncture Site ALINE
[2019-01-02 16:06] LABS: Actual Bicarbonate (HCO3a) 25.9 mEq/L (22-28); Analyzer IN Cardio OR; Base Excess (BEa) 0.4 mEq/L (-2.0 to +3.0); CO2 Tension 45.3 mmHg (35.0-45.0); Calcium, Ionized 1.19 mmol/L (1.12-1.30); Carboxyhemoglobin (COHb) 0.5 gm% (0.0-3.0); Hemoglobin (Hb) 11.1 g/dL (14.0-18.0); O2 Tension (PaO2) 81.3 mmHg (> 70.0); Potassium - ABG Lab 4.05 mmol/L (3.70-5.30); pH, Arterial 7.38 (7.35-7.45)
[2019-01-02 16:07] LABS: Puncture Site ALINE
[2019-01-02 16:07] LABS: Puncture Site ALINE
[2019-01-02 16:08] LABS: pH, Arterial 7.55 (7.35-7.45)
[2019-01-02 16:09] LABS: O2 Tension (PaO2) 568.3 mmHg (> 70.0); Puncture Site ALINE
[2019-01-02 16:09] LABS: Puncture Site ALINE
[2019-01-02 16:10] LABS: Puncture Site ALINE
[2019-01-02 16:10] LABS: Puncture Site ALINE
--- NOTE | 2019-01-02 17:21 | PRG ---
PULMONARY CONSULT NOTE DATE OF SERVICE: 01/02/2019 SERVICE: Pulmonary Medicine. REASON FOR CONSULT: ICU patient. HISTORY OF PRESENT ILLNESS: The patient is a 78-year-old white male with past medical history significant for coronary artery disease. The patient presented to the hospital 3 days ago with shortness of breath. Ultimately, they were discovered to have non ST-elevation myocardial infarction. Subsequent evaluation demonstrated operable disease. The patient went up for a semi-urgent procedure this morning. He is postop day zero. He is currently intubated and cannot provide me with any additional elements of the history. PAST MEDICAL HISTORY: 1. Coronary artery disease. 2. Hypertension. 3. Dyslipidemia. PAST SURGICAL HISTORY: 1. Coronary artery bypass graft. 2. Abdominal surgeries, multiple. SOCIAL HISTORY: Negative for alcohol, tobacco, or illicit drug use. He will smoke occasional cigar but otherwise, he does not have an extensive pack-year history of smoking. FAMILY HISTORY: Noncontributory. ALLERGIES: MORPHINE. MEDICATIONS: List of the patient's inpatient medications were reviewed. No specific updates were made at this time. REVIEW OF SYSTEMS: General, head, ears, eyes, nose, throat, cardiovascular, respiratory, GI, , musculoskeletal, neurologic, and skin are negative except as mentioned in the HPI. PHYSICAL EXAMINATION: VITAL SIGNS: Afebrile, pulse 65, blood pressure 130/60, respirations 16, and saturation 97% on 2 L nasal cannula. GENERAL: The patient is awake and alert, in no apparent distress. LUNGS: Excellent air entry. No prolonged expiratory phase. There is no wheezing, crackles, or rhonchi. HEART: Normal rate, regular. ABDOMEN: Soft, nontender, and nondistended. Bowel sounds are positive. MUSCULOSKELETAL: No cyanosis or clubbing. No pitting in the bilateral lower extremities. NEUROLOGIC: Grossly nonfocal. LABORATORY DATA: WBC 25.3, hemoglobin 12.2, platelets 232,000. Neutrophil count is 68% on top of 21% bands. INR 1.4. PH 7.35, pCO2 of 43, PO2 of 121. Basic metabolic profile is completely unremarkable. Ionized calcium 1.02 intraoperatively. IMAGING: Echocardiogram demonstrates aortic valve area of 1.17 cm2. Mean gradient is 5 mmHg with a velocity of 1.5. AI is only mild. Chest x-ray demonstrates improving pulmonary edema. ASSESSMENT: 1. Acute hypoxic respiratory failure, improving. 2. Acute on chronic systolic and diastolic heart failure. 3. Coronary artery disease, status post coronary artery bypass graft. 4. Non ST-elevation myocardial infarction. DISCUSSION AND PLAN: We will give him a spontaneous breathing trial. If he meets criteria, extubation will be considered. Pulmonary Critical Care will continue to follow along while the patient remains in this location. CRITICAL CARE TIME: 30 minutes. Job ID: [id number] MTDD
--- NOTE | 2019-01-02 17:43 | PDOC.PN ---
- Subjective Encounter Start Date: 01/02/19 Encounter Start Time: 17:41 Mr. Rao was seen today in follow-up of acute coronary syndrome. He is s/p CABG. He is intubated. - Objective Resuscitation Status - Order Detail: 12/28/18 03:49 Resuscitation Status Routine Resuscitation Status: FULL: Full Resuscitation MAR Reviewed: Yes Vital Signs & Weight: Vital Signs (12 hours) Temp Pulse Resp BP 01/02/19 16:00 98.8 F 9 L 01/02/19 14:31 77 76/40 L 01/02/19 14:10 98.0 F 9 L 01/02/19 05:59 65 Weight Weight 179 lb 7 oz Most Recent Monitor Data Heart Rate from ECG 66 NIBP 99/52 NIBP BP-Mean 67 Respiration from ECG 13 SpO2 100 I&O: 01/01/19 01/02/19 01/03/19 06:59 06:59 06:59 Intake Total 960 1250 Output Total 3300 2600 600 Balance -2340 -1350 -600 Result Diagrams: 01/02/19 14:12 01/02/19 14:12 Additional Labs: Accuchecks 01/02/19 01/02/19 01/02/19 13:37 12:25 11:52 POC Glucose 136 H 133 H 136 H 01/02/19 01/02/19 01/02/19 11:12 10:59 10:27 POC Glucose 125 H 124 H 123 H 01/02/19 08:01 POC Glucose 103 Phys Exam - Physical Examination HEENT: PERRLA Respiratory: no wheezing, no rales, no rhonchi, clear to auscultation bilateral Cardiovascular: RRR, no significant murmur, no rub Gastrointestinal: soft, non-tender, positive bowel sounds Musculoskeletal: no edema, pulses present Dx/Plan (1) Unstable angina Status: Acute (2) Hypertension Code(s): I10 - ESSENTIAL (PRIMARY) HYPERTENSION Status: Chronic (3) Dyslipidemia Code(s): E78.5 - HYPERLIPIDEMIA, UNSPECIFIED Status: Chronic - Plan * Acute coronary syndrome- he is s/p CABG * He is hemodynamically stable * HTN- blood pressure is stable * Continue post-op management as per CV-surgery and PCCM.
--- NOTE | 2019-01-02 18:23 | PRG ---
DATE OF SERVICE: 01/02/2019 SUBJECTIVE: Mr. Rao did well with his coronary bypass grafting today. He is currently on the ventilator. OBJECTIVE: VITAL SIGNS: Blood pressure is in the one teens systolic, pulse is in the 70 range, sinus. LUNGS: Clear. CARDIAC: Normal S1, normal S2. ASSESSMENT: Status post coronary bypass grafting, doing well. PLAN: Continue supportive care. Dr. Mota to return tomorrow. Job ID: [id number]
[2019-01-02 19:54] LABS: Hemoglobin 10.9 g/dL (14.0-18.0)
[2019-01-02 20:11] LABS: Potassium 4.2 mmol/L (3.5-5.1)
[2019-01-02] MEDS: Famotidine/PF 20 mg/2ml Vial SLOW IVP SCH (20:19)
[2019-01-02 20:20] LABS: Actual Bicarbonate (HCO3a) 24.2 mEq/L (22-28); CO2 Tension 41.9 mmHg (35.0-45.0); Calcium, Ionized 1.15 mmol/L (1.12-1.30); Hemoglobin (Hb) 11.5 g/dL (14.0-18.0); O2 Tension (PaO2) 106.8 mmHg (> 70.0); Potassium - ABG Lab 4.18 mmol/L (3.70-5.30); pH, Arterial 7.38 (7.35-7.45)
[2019-01-02 20:52] LABS: ALV-art Gradient 90.375 (0-20); Puncture Site ALINE
[2019-01-02] MEDS: Atorvastatin Calcium 40 MG TAB PO SCH (20:54)
[2019-01-02] MEDS: Docusate 100 MG CAP PO SCH (20:54)
[2019-01-02] MEDS: HYDROcodone/Acetaminophen 5/325 mg Tablet PO PRN (23:30)
--- NOTE | 2019-01-03 01:25 | OP ---
DATE OF PROCEDURE: 01/02/2019 PROCEDURE PERFORMED: Coronary artery bypass grafting x5 with left internal mammary artery to the distal LAD and reverse greater saphenous vein graft from the aorta to the obtuse marginal, aorta to the PDA. Sequential reverse greater saphenous vein graft from the aorta to the ramus intermedius to the diagonal. PREOPERATIVE DIAGNOSES: Left main coronary artery disease, status post myocardial infarction with acute systolic heart failure. POSTOPERATIVE DIAGNOSES: Left main coronary artery disease, status post myocardial infarction with acute systolic heart failure. BOLT MACHINE OPERATOR: Dr. Marcial Ozuna. ANESTHESIA: General endotracheal anesthesia. INDICATIONS: The patient is a 78-year-old man with few days of dependent edema, who presented to the hospital significantly short of breath. He was found to be in florid pulmonary edema and had elevation of his troponin. Cardiac catheterization demonstrated severe coronary artery disease including a very high-grade left main lesion. He has been diuresed and is now taken to the operating room for revascularization. FINDINGS: Pump time 124 minutes. Cross-clamp time 52 minutes. Good quality ANDREA and saphenous vein. The LAD was about a 1.5 to 2 mm diffusely diseased vessel. The obtuse marginal was a diffusely diseased vessel. The posterior branch near terminal bifurcation was of fairly good quality and was about to 2 and 2.5 mm in diameter. The diagonal was about 1.5 to 2 mm. The ramus was about 2 mm. The PDA was about 1 to 1.5 mm. The pericardium was closed. DESCRIPTION OF PROCEDURE: After informed consent was obtained, the patient was taken to the operating room, placed in supine position on the operating table. After the induction of general anesthesia, the patient's left upper chest was prepped and draped in sterile fashion. A triple lumen central line kit was used to place a subclavian central line while the patient was in Trendelenburg. All 3 ports easily aspirated and flushed. The line was secured. Ultrasonographic mapping of the patient's left greater saphenous vein was then undertaken. The patient's torso, groins, and lower extremities were prepped and draped in sterile fashion. Saphenous vein was exposed a little above the left knee and isolated. It was then endoscopically dissected from that point up to the saphenofemoral junction. Upon initially dividing branches, a small arterial bleeder was encountered near the saphenofemoral junction that was controlled with direct pressure. While additional side branches were divided at about the mid thigh, another small arterial bleeder was encountered at that point, a small incision was made in the mid thigh and the vein exposed. The arterial bleeding was controlled with the electrocautery. An oblique incision was then made a little below the groin crease, exposing the saphenous near the saphenofemoral junction and a small arterial bleeder deep and medial to the saphenous vein was controlled with hemoclips. A few remaining side branches were ligated and divided. The vein was doubly ligated and divided at the saphenofemoral junction and withdrawn down to the groin wound. Blunt dissection down to the ankle had already been performed. It was harvested from a little above the ankle and delivered from the wound using a small stab wound distally. The vein was prepared for use as a graft and the harvest sites were closed in layers of subcutaneous and subcuticular Vicryl. A median sternotomy was performed and an initial attempt at extrapleural exposure of the mammary was undertaken, but the pleura was quite thin and it quickly became evident that it would not be feasible. The left ANDREA was mobilized as a skeletonized in-situ graft from the level of the xiphoid beyond the level of the subclavian vein. The patient was heparinized. The mammary was ligated and divided distally. There was good flow through the mammary which was then instilled intraluminally with papaverine solution. The mammary bed was inspected for hemostasis. The ANDREA retractor was replaced with a [place] retractor. The pericardium was opened and marsupialized. The aorta was palpated and was soft. A double concentric pursestring of 2-0 Eth[place] was placed in ascending aorta at the base of the arch. A single pursestring was placed in the right atrial appendage. Aortic and venous cannulae were inserted and secured by the pursestrings. Cardiopulmonary bypass was instituted and the patient was systemically cooled. The heart was examined and the vessel to be bypassed was identified. A longitudinal slit was made in the pericardium anterior to the left phrenic nerve through which the mammary could be passed. An aortic cross-clamp was applied and cardioplegia was administered through an aortic root needle. When arrest had been achieved, attention was turned to the circumflex system. The longer 2 terminal bifurcation branches that appeared to have minimal angiographic compromise from communicating with each other was a diffusely diseased hard vessel. The more posterior branch was fairly good size in fact probably larger caliber and was of good quality. It was opened with a [place] blade and [place] scissors and reverse greater saphenous vein was anastomosed there end-to-side with running Prolene. The PDA was then opened and grafted in a similar fashion. The ramus was opened and a [id number] anastomosis was constructed from the remaining vein to the ramus and then, the diagonal was opened and that vein graft was anastomosed end-to-side to the diagonal. The mammary was opened at a relative soft spot distally and the mammary was anastomosed there with running 7-0 Prolene and tacked to the epicardium. The aortic cross-clamp was replaced with partial occluding clamp and aortotomy was made in the ascending aorta with a scalpel and punch incorporating the root needle site into one of those aortotomies. The PDA graft was anastomosed to the most proximal aortotomy. The sequential ramus diagonal graft was anastomosed to the middle aortotomy and the OM graft to the distal aortotomy. The vein grafts were occluded and the partial occluding clamp was removed. The vein grafts were de-aired. The anastomoses were inspected for hemostasis. The sequential graft was slightly slack with the heart decompressed, but allowing the heart to fill up, became clear that it was rather tight. Full bypass was reinstituted and a segment of reserved vein was brought to the field. It measured about 3 or 3.5 cm in length. Orientation was confirmed. The ramus graft was isolated between bulldogs. Small venotomy was made and what would represent the reversed end of the vein was anastomosed there. In close proximity, a second venotomy was made and the other of that graft segment of vein was anastomosed there. The vein was divided between those 2 anastomoses and stumps oversewn in 2 layers of Prolene in effect creating an interposition graft lengthening the vein. It was de-aired and the bulldogs removed from them, and a test stripping of the graft showed flow through it. The patient was allowed to fill and graft length was acceptable. Posterior pericardial and left pleural drains were brought out through separate incisions and secured with suture. Right atrial and right ventricular temporary epicardial pacing wires were placed. The patient was then easily from cardiopulmonary bypass. Aortic and venous cannulae were removed and the pursestring secured. Protamine was administered. When hemostasis was adequate, an anterior mediastinal drain was placed. The pericardium was easily closed over with running Vicryl. The cut surfaces of the sternum were treated with vancomycin paste and platelet rich GPS. The sternum was then reapproximated with #7 stainless steel wires. The soft tissues were irrigated and treated with platelet poor GPS. The fascia was closed over the wires with #1 Vicryl. Subcutaneous tissue was reapproximated with 2-0 Vicryl and skin was closed with a 3-0 Vicryl subcuticular suture. The wounds were dressed and the patient was taken to the intensive care unit in stable condition. Job ID: [id number]
[2019-01-03] MEDS: Ketorolac Tromethamine 30 MG/ML VIAL IVP SCH ×3 (02:03→15:28)
[2019-01-03] MEDS: Sodium Chloride 0.9% 1,000 ML IV SCH (02:07)
[2019-01-03 03:36] LABS: #Lymphocytes 0.4 thou/uL (1.20-3.40); #Monocytes 0.9 thou/uL (0.11-0.59); #Neutrophils 12.8 thou/uL (1.40-6.50); %Eosinophils 0.1 % (0.0-10.0); %Lymphocytes 2.8 % (21.0-51.0); %Monocytes 6.6 % (0.0-10.0); %Neutrophils 90.5 % (42.0-75.0); Hemoglobin 9.7 g/dL (14.0-18.0); Mean Corpuscular HGB CONC 32.5 g/dL (32.0-36.0); Mean Corpuscular Hemoglobin 33.2 pg (27.0-31.0); Mean Platelet Volume 7.2 fL (7.4-10.4); Platelet Count 144 thou/uL (130-400); RBC Distribution Width 12.2 % (11.5-14.5); Red Blood Cell (RBC) Count 2.92 mill/uL (4.70-6.10); White Blood Cell (WBC) Count 14.2 thou/uL (4.8-10.8)
[2019-01-03 03:40] LABS: Anion Gap 13 mmol/L (10-20); BUN (Urea Nitrogen) 27 mg/dL (8.4-25.7); Calc. Creatinine Clearance 61 mL/min (70-130); Calcium 8.1 mg/dL (7.8-10.44); Carbon Dioxide 21 mmol/L (23-31); Chloride 107 mmol/L (98-107); Estimated GFR-MDRD 63; Glucose 124 mg/dL (83-110); Potassium 4.1 mmol/L (3.5-5.1); Sodium 137 mmol/L (136-145)
[2019-01-03] MEDS: Insulin Regular 300 UNITS/3 ML VIAL SC PRN (03:58)
[2019-01-03] MEDS ORDERED: Furosemide 40 MG/4 ML VIAL SLOW IVP SCH ×2 (07:45→17:15)
[2019-01-03] MEDS ORDERED: Metolazone 5 MG TAB PO SCH ×2 (07:45→17:00)
--- NOTE | 2019-01-03 08:04 | RAD ---
SINGLE VIEW OF THE CHEST: COMPARISON: 01/02/2019. HISTORY: Status post open heart surgery. FINDINGS: A single view of the chest shows an enlarged but stable cardiomediastinal silhouette. The patient is status post sternotomy. The central venous catheter is unchanged in position. The endotracheal tub e has been removed. There is a left-sided chest tube. No pneumothorax is seen. There is a large ca lcified granuloma projecting over the right thorax. IMPRESSION: Stable exam status post extubation. POS: OSWALDO
[2019-01-03] MEDS: Docusate 100 MG CAP PO SCH ×2 (09:03→19:50)
[2019-01-03] MEDS: Famotidine/PF 20 mg/2ml Vial SLOW IVP SCH (09:03)
[2019-01-03] MEDS: Aspirin 325 MG TAB PO SCH (09:03)
--- NOTE | 2019-01-03 13:27 | PRG ---
DATE OF SERVICE: 01/03/2019 SERVICE: Pulmonary Medicine. INTERVAL HISTORY: The patient is doing really well from a respiratory standpoint. He is actually recovering very nicely from his bypass graft. He had a little touch of delirium last night. At this point, he is confused and does not quite know where he is, but he is at least still pleasant. He denies any current fevers, chills, nausea, or vomiting. He is not coughing. He indicates having no discomfort with deep breathing or coughing. He continues to have chest tubes, Thomas catheter, and left subclavian central venous catheter in place. PHYSICAL EXAMINATION: VITAL SIGNS: Afebrile, pulse 82, blood pressure 104/73, respirations 24, saturation 96% on 2 L nasal cannula. GENERAL: The patient is awake and alert, in no apparent distress. LUNGS: Decent air entry. Minimal crackles are present in bibasilar region. No prolonged expiratory phase or wheezing is appreciated. HEART: Normal rate and regular. ABDOMEN: Soft, nontender, nondistended. Bowel sounds are positive. MUSCULOSKELETAL: No cyanosis or clubbing. There is trace pitting in the bilateral lower extremities. NEUROLOGIC: Grossly nonfocal. LABORATORY DATA: WBC 14.2, hemoglobin 9.7, and platelets 144,000. PH 7.3, pCO2 of 42, pO2 of 106. Creatinine 1.13, which is gently up trending. Basic metabolic profile is otherwise unremarkable. Bicarb 21. Blood cultures x2 are unremarkable to date. IMAGING DATA: Chest x-ray demonstrates stable exam. No infiltrate is noted. Mediastinal, and chest tube is in good position. Left subclavian is also in good position. Interval extubation has been performed. ASSESSMENT: 1. Acute hypoxic respiratory failure, improving. 2. [id number] systolic and diastolic heart failure. 3. Coronary artery disease, status post coronary artery bypass graft, postop day 1. 4. [id number] myocardial infarction. 5. Delirium. DISCUSSION AND PLAN: The patient is doing absolutely fantastic from a respiratory standpoint. We will initiate our mobilization efforts. I will give him p.r.n. Seroquel to be used at night just in case he has some increasing agitation this evening. He does have a delirium and hopefully, this will not prevent the patient from recovering expediently. We will try to minimize interventions through time, and distractions at night. We will promote mobility and wakefulness during the daytime. Job ID: [id number] MTDD
[2019-01-03] MEDS ORDERED: Bisacodyl 10 MG SUPP PR PRN (17:23)
[2019-01-03] MEDS ORDERED: Artificial Tears 18 DROP/0.9 ML EA EYE PRN (17:23)
[2019-01-03] MEDS ORDERED: diphenhydrAMINE 25 MG CAP PO PRN (17:23)
[2019-01-03] MEDS ORDERED: Mag-Al 1200 mg/1200 mg/30 ML UDCUP PO PRN (17:23)
[2019-01-03] MEDS ORDERED: Nitroglycerin 0.4 MG TAB (25 Tab Bottle) SL PRN (17:23)
[2019-01-03] MEDS ORDERED: Mineral Oil ENEMA PR PRN (17:23)
[2019-01-03] MEDS ORDERED: Guaifenesin DM 100-10/5 ML UDCUP PO PRN (17:23)
[2019-01-03] MEDS ORDERED: Bisacodyl 5 MG TAB PO PRN (17:23)
--- NOTE | 2019-01-03 18:32 | PDOC.CTH ---
Cardiology Progress Note - Subjective He had surgery yesterday and is doing well. He is passing gas but no BM yet. - Objective Vital Signs Temp Pulse Ox 01/03/19 16:00 98.0 F 01/03/19 11:51 97.9 F 01/03/19 08:00 98.0 F 94 L Weight 182 lb 5.156 oz 01/02/19 01/03/19 01/04/19 06:59 06:59 06:59 Intake Total 1250 2908 1146 Output Total 2600 1510 730 Balance -1350 1398 416 - Physical Examination General/Neuro: alert & oriented x3, NAD Neck: no JVD present Lungs: CTA, unlabored respirations Heart: RRR Abdomen: NT/ND Extremities: + edema B (1+) - Telemetry Telemetry Rhythm: NSR - Labs Result Diagrams: 01/03/19 03:06 01/03/19 03:06 Troponin/CKMB CK-MB (CK-2) 10.0 ng/mL (0-6.6) H* 12/28/18 11:52 Troponin I 3.071 ng/mL (< 0.028) H* 12/28/18 11:52 - Assessment/Plan 1. Severe multivessel CAD, including Left main. 2. Aortic stenosis, mild 3. NSTEMI 4. S/P CABG x 5, DENNIS to LAD, SVG to OM, SVg to PDA, SVG to Ramus sequential to Diagonal. PLAN: - Doing well. - Increase PT as tolerated. - ASA and statin for life. - BB and ACEI in next few days once BP allows. - Will follow.
[2019-01-03] MEDS: Atorvastatin Calcium 40 MG TAB PO SCH (19:50)
--- NOTE | 2019-01-03 20:01 | PDOC.PN ---
- Subjective Encounter Start Date: 01/03/19 Encounter Start Time: 10:30 Patient seen and examined for Resp failure/NSTEMI. No CP. No new complaints. No overnight events - Objective Resuscitation Status - Order Detail: 12/28/18 03:49 Resuscitation Status Routine Resuscitation Status: FULL: Full Resuscitation MAR Reviewed: Yes Vital Signs & Weight: Vital Signs (12 hours) Temp 01/03/19 19:00 98.3 F 01/03/19 16:00 98.0 F 01/03/19 11:51 97.9 F Weight Weight 182 lb 5.156 oz Most Recent Monitor Data Heart Rate from ECG 79 NIBP 106/57 NIBP BP-Mean 73 Respiration from ECG 18 SpO2 100 I&O: 01/02/19 01/03/19 01/04/19 06:59 06:59 06:59 Intake Total 1250 2908 1146 Output Total 2600 1510 815 Balance -1350 1398 331 Result Diagrams: 01/03/19 03:06 01/03/19 03:06 Additional Labs: Accuchecks 01/03/19 01/02/19 01/02/19 08:13 23:06 20:02 POC Glucose 132 H 104 131 H EKG Reviewed by me: Yes (Tele SR) Phys Exam - Physical Examination Constitutional: NAD Respiratory: no wheezing, no rhonchi Cardiovascular: RRR, no rub Gastrointestinal: soft, non-tender, positive bowel sounds Musculoskeletal: no edema Neurological: moves all 4 limbs Dx/Plan - Plan DVT proph w/SCDs IMPRESSION: Acute hypoxic respiratory failure s/p NIPPV Acute Systolic/Diastolic heart failure - ACC stage C NSTEMI/CAD s/p CABG 01/02 HTN HLD Obesity BMI 30.7 CKD 3 Hyponatremia Macrocytic Anemia PLAN: Cont ASA/Statins Cont supportive care AM labs Resume BB and Statins once BP improves Review of Systems - Review of Systems Respiratory: negative: Cough, Dry, Shortness of Breath, Hemoptysis, SOB with Excertion, Pleuritic Pain, Sputum, Wheezing Cardiovascular: negative: chest pain, palpitations, orthopnea, paroxysmal nocturnal dyspnea, edema, light headedness, other - Medications/Allergies Allergies/Adverse Reactions: Allergies Allergy/AdvReac Type Severity Reaction Status Date / Time morphine Allergy Verified 12/28/18 05:18 Medications: Current Medications Hydrocodone Bitart/Acetaminophen ([place] 5/325) 1 tab PO Q4H PRN PRN Reason: Moderate Pain (4-6) Last Admin: 01/02/19 23:30 Dose: 1 tab Hydrocodone Bitart/Acetaminophen ([place] 5/325) 2 tab PO Q4H PRN PRN Reason: Severe Pain (7-10) Al Hydroxide/Mg Hydroxide (Maalox) 30 ml PO Q4H PRN PRN Reason: Indigestion Albuterol/Ipratropium (Duoneb) 3 ml NEB [id number] PRN PRN Reason: SHORTNESS OF BREATH Artificial Tears (Tears Naturale) 0 drop EA EYE PRN PRN PRN Reason: Dry Eyes Aspirin (Aspirin) 325 mg PO DAILY [facility] Last Admin: 01/03/19 09:03 Dose: 325 mg Atorvastatin Calcium (Lipitor) 80 mg PO HS [facility] Last Admin: 01/03/19 19:50 Dose: 80 mg Bisacodyl (Dulcolax) 10 mg PO Q12H PRN PRN Reason: Constipation Bisacodyl (Dulcolax) 10 mg HI Q12H PRN PRN Reason: Constipation Diphenhydramine HCl (Benadryl) 25 mg PO Q6H PRN PRN Reason: Itching & Insomnia or Danny Gerson Docusate Sodium (Colace) 100 mg PO BID [facility] Last Admin: 01/03/19 19:50 Dose: 100 mg Guaifenesin/Dextromethorphan (Robitussin Dm) 15 ml PO Q4H PRN PRN Reason: Cough Mineral Oil (Fleet Mineral Oil) 133 ml HI DAILYPRN PRN PRN Reason: Constipation Nitroglycerin (Nitrostat) 0.4 mg SL Q5MIN PRN PRN Reason: Chest Pain Ondansetron HCl (Zofran) 4 mg IVP Q6H PRN PRN Reason: Nausea/Vomiting Promethazine HCl (Phenergan) 6.25 mg IM Q4H PRN PRN Reason: Nausea/Vomiting Quetiapine Fumarate (Seroquel) 25 mg PO HS PRN PRN Reason: Agitation Sodium Chloride (Flush - Normal Saline) 10 ml IVF Q12HR [facility] Last Admin: 01/03/19 09:03 Dose: 10 ml
[2019-01-03] MEDS ORDERED: Eucerin (Mineral Oil/Petrolatum,White) 30 gm Jar TOP PRN (20:06)
[2019-01-03] MEDS: Senokot S 8.6-50 MG TAB PO SCH (20:19)
--- NOTE | 2019-01-03 23:03 | EKG ---
Test Reason : POST CABG Blood Pressure : / mmHG Vent. Rate : 074 BPM Atrial Rate : 074 BPM P-R Int : 184 ms QRS Dur : 120 ms QT Int : 420 ms P-R-T Axes : 064 -59 089 degrees QTc Int : 466 ms Normal sinus rhythm Left axis deviation Pulmonary disease pattern Non-specific intra-ventricular conduction delay T wave abnormality, consider lateral ischemia Abnormal ECG When compared with ECG of 28-DEC-2018 10:43, (Unconfirmed) QRS duration has increased Confirmed by CASEY HERBERT ([id number]) on 01/03/2019 11:02:44 PM Referred By: SHEYLA Confirmed By:CASEY HERBERT
[2019-01-04] MEDS: HYDROcodone/Acetaminophen 5/325 mg Tablet PO PRN ×2 (00:26→22:01)
[2019-01-04 04:46] LABS: #Lymphocytes 0.6 thou/uL (1.20-3.40); #Monocytes 1.3 thou/uL (0.11-0.59); #Neutrophils 8.3 thou/uL (1.40-6.50); %Basophils 0.2 % (0.0-1.0); %Eosinophils 0.4 % (0.0-10.0); %Lymphocytes 5.8 % (21.0-51.0); %Monocytes 12.6 % (0.0-10.0); Hemoglobin 9.3 g/dL (14.0-18.0); Mean Corpuscular HGB CONC 33.2 g/dL (32.0-36.0); Mean Corpuscular Hemoglobin 33.6 pg (27.0-31.0); Mean Platelet Volume 8.2 fL (7.4-10.4); Platelet Count 132 thou/uL (130-400); RBC Distribution Width 12.1 % (11.5-14.5); Red Blood Cell (RBC) Count 2.77 mill/uL (4.70-6.10); White Blood Cell (WBC) Count 10.2 thou/uL (4.8-10.8)
[2019-01-04 05:09] LABS: Anion Gap 10 mmol/L (10-20); BUN (Urea Nitrogen) 45 mg/dL (8.4-25.7); Calc. Creatinine Clearance 31 mL/min (70-130); Carbon Dioxide 24 mmol/L (23-31); Chloride 99 mmol/L (98-107); Estimated GFR-MDRD 29; Glucose 110 mg/dL (83-110); Potassium 4.1 mmol/L (3.5-5.1); Sodium 129 mmol/L (136-145)
--- NOTE | 2019-01-04 07:48 | RAD ---
EXAM: CHEST ONE VIEW HISTORY: Post CABG. COMPARISON: 01/03/2019 FINDINGS: Postsurgical changes related to CABG are again noted. Left subclavian central venous catheter, medias tinal drains, and left-sided thoracostomy tube remain unchanged in position. The cardiac silhouette is magnified by projection but does appear enlarged. There is bibasilar atelec tasis present. No pneumothorax or pleural effusion is appreciated. Subcutaneous emphysema seen at the left lateral chest. There has been no significant interval change when compared to the prior exam. IMPRESSION: Stable chest with lines and tubes again noted in place.
[2019-01-04] MEDS: Docusate 100 MG CAP PO SCH ×2 (08:00→21:48)
[2019-01-04] MEDS: Senokot S 8.6-50 MG TAB PO SCH ×2 (08:00→21:48)
[2019-01-04] MEDS: Aspirin 325 MG TAB PO SCH (08:00)
[2019-01-04] MEDS ORDERED: Sodium Chloride 0.9% 1,000 ML IV SCH (08:15)
[2019-01-04] MEDS: Polyethylene Glycol 3350 17 GM Packet PO SCH (09:49)
--- NOTE | 2019-01-04 12:13 | PRG ---
DATE OF SERVICE: 01/04/2019 SUBJECTIVE: The patient is doing okay from respiratory standpoint. Denies any current chest discomfort, nausea, vomiting, fevers, or chills. Otherwise, there has been no interval change to his condition. He did not have any significant mentation issues overnight. He has chest tubes in place as well as a Thomas catheter. Interestingly, he does not have any discomfort associated with these things. OBJECTIVE: VITAL SIGNS: Afebrile, pulse 83, blood pressure 103/57, respirations 27, saturation 98% on 2 L nasal cannula. GENERAL: The patient is awake and alert, in no apparent distress. HEART: Normal rate. LUNGS: Excellent air entry. Dependent crackles are present. HEART: Normal rate. Regular. ABDOMEN: Soft, nontender, and nondistended. Bowel sounds are positive. MUSCULOSKELETAL: No cyanosis or clubbing. There is 1+ pitting in the bilateral lower extremities, which is increasing. NEUROLOGIC: Grossly nonfocal. LABORATORY DATA: WBC 10.2, hemoglobin 9.3, and platelets 132,000. Creatinine 2.22, BUN 45. Basic metabolic profile is otherwise unremarkable except for sodium of 129. Blood cultures x2 are unremarkable. IMAGING DATA: Chest x-ray demonstrates thoracostomy tube and mediastinal drain are in good position. Minimal pulmonary vascular cephalization is present. Low lung volumes are noted. Likely bilateral pleural effusions are small. Atelectasis is also present. Otherwise, tubes are stable. ASSESSMENT: 1. Acute hypoxic respiratory failure. 2. [id number] systolic and diastolic heart failure. 3. Coronary artery disease, status post coronary artery bypass graft, postop day #2. 4. [id number] myocardial infarction. 5. Acute kidney injury with improving urine output. DISCUSSION AND PLAN: The patient is currently volume up. If his oxygen requirement starts to go up, we should interrupt his IV fluids. The kidney injury is likely from the surgery than a couple of days ago, and is simply going to evolve through time. Pulmonary/Critical Care will continue to follow along. Once his kidney injury starts to improve, we will need to initiate diuretics. Job ID: [id number]
--- NOTE | 2019-01-04 16:22 | PDOC.PN ---
- Subjective Encounter Start Date: 01/04/19 Encounter Start Time: 09:45 Patient seen and examined for CAD/CABG. No new complaints. No overnight events - Objective Resuscitation Status - Order Detail: 12/28/18 03:49 Resuscitation Status Routine Resuscitation Status: FULL: Full Resuscitation MAR Reviewed: Yes Vital Signs & Weight: Vital Signs (12 hours) Pulse Pulse BP BP Pulse Ox Pulse Ox 01/04/19 14:11 78 72 118/62 107/52 L 91 L 01/04/19 09:48 83 81 97/57 L 94/50 L 99 95 Weight Weight 181 lb 7.047 oz Most Recent Monitor Data Heart Rate from ECG 78 NIBP 96/39 NIBP BP-Mean 58 Respiration from ECG 20 SpO2 95 I&O: 01/03/19 01/04/19 01/05/19 06:59 06:59 06:59 Intake Total 2908 1626 Output Total 1510 1575 Balance 1398 51 Result Diagrams: 01/05/19 04:00 01/05/19 04:00 EKG Reviewed by me: Yes (Tele SR) Phys Exam - Physical Examination Constitutional: NAD Respiratory: no wheezing, no rhonchi Cardiovascular: RRR, no rub Gastrointestinal: soft, non-tender, positive bowel sounds Musculoskeletal: no edema Neurological: moves all 4 limbs Dx/Plan - Plan DVT proph w/SCDs IMPRESSION: Acute hypoxic respiratory failure s/p NIPPV Acute Systolic/Diastolic heart failure - ACC stage C NSTEMI/CAD s/p CABG 01/02 HTN HLD Obesity BMI 30.7 ROBERT on CKD 3 Hyponatremia Macrocytic Anemia PLAN: Cont ASA Cont Statins Hold diuretics On Gentle IVF Cont supportive care AM labs Resume BB and ACEI once BP improves Review of Systems - Review of Systems Respiratory: negative: Cough, Dry, Shortness of Breath, Hemoptysis, SOB with Excertion, Pleuritic Pain, Sputum, Wheezing Cardiovascular: negative: chest pain, palpitations, orthopnea, paroxysmal nocturnal dyspnea, edema, light headedness, other - Medications/Allergies Allergies/Adverse Reactions: Allergies Allergy/AdvReac Type Severity Reaction Status Date / Time morphine Allergy Verified 12/28/18 05:18 Medications: Current Medications Hydrocodone Bitart/Acetaminophen ([place] 5/325) 1 tab PO Q4H PRN PRN Reason: Moderate Pain (4-6) Last Admin: 01/04/19 00:26 Dose: 1 tab Hydrocodone Bitart/Acetaminophen ([place] 5/325) 2 tab PO Q4H PRN PRN Reason: Severe Pain (7-10) Al Hydroxide/Mg Hydroxide (Maalox) 30 ml PO Q4H PRN PRN Reason: Indigestion Albuterol/Ipratropium (Duoneb) 3 ml NEB [id number] PRN PRN Reason: SHORTNESS OF BREATH Artificial Tears (Tears Naturale) 0 drop EA EYE PRN PRN PRN Reason: Dry Eyes Aspirin (Aspirin) 325 mg PO DAILY [facility] Last Admin: 01/04/19 08:00 Dose: 325 mg Atorvastatin Calcium (Lipitor) 80 mg PO HS [facility] Last Admin: 01/03/19 19:50 Dose: 80 mg Bisacodyl (Dulcolax) 10 mg PO Q12H PRN PRN Reason: Constipation Bisacodyl (Dulcolax) 10 mg OR Q12H PRN PRN Reason: Constipation Diphenhydramine HCl (Benadryl) 25 mg PO Q6H PRN PRN Reason: Itching & Insomnia or Danny Gerson Docusate Sodium (Colace) 100 mg PO BID [facility] Last Admin: 01/04/19 08:00 Dose: 100 mg Guaifenesin/Dextromethorphan (Robitussin Dm) 15 ml PO Q4H PRN PRN Reason: Cough Last Admin: 01/04/19 02:08 Dose: 15 ml Sodium Chloride (Normal Saline 0.9%) 1,000 mls @ 100 mls/hr IV .Q10H [facility] Last Admin: 01/04/19 08:25 Dose: 1,000 mls Mineral Oil (Fleet Mineral Oil) 133 ml OR DAILYPRN PRN PRN Reason: Constipation Mineral Oil/White Petrolatum (Eucerin Cream) 0 gm TOP BIDPRN PRN PRN Reason: Dry Skin Nitroglycerin (Nitrostat) 0.4 mg SL Q5MIN PRN PRN Reason: Chest Pain Ondansetron HCl (Zofran) 4 mg IVP Q6H PRN PRN Reason: Nausea/Vomiting Polyethylene Glycol (Miralax) 17 gm PO DAILY [facility] Last Admin: 01/04/19 09:49 Dose: Not Given Promethazine HCl (Phenergan) 6.25 mg IM Q4H PRN PRN Reason: Nausea/Vomiting Quetiapine Fumarate (Seroquel) 25 mg PO HS PRN PRN Reason: Agitation Senna/Docusate Sodium (Senokot S) 1 tab PO BID [facility] Last Admin: 01/04/19 08:00 Dose: 1 tab Sodium Chloride (Flush - Normal Saline) 10 ml IVF Q12HR [facility] Last Admin: 01/04/19 09:49 Dose: Not Given
--- NOTE | 2019-01-04 18:00 | PDOC.CTH ---
Cardiology Progress Note - Subjective No new issues. He is urinating better after IV fluids. Passing gas but no BM yet. No abdominal discomfort. - Objective Vital Signs Pulse Pulse BP BP Pulse Ox Pulse Ox 01/04/19 14:11 78 72 118/62 107/52 L 91 L 01/04/19 09:48 83 81 97/57 L 94/50 L 99 95 Weight 181 lb 7.047 oz 01/03/19 01/04/19 01/05/19 06:59 06:59 06:59 Intake Total 2908 1626 Output Total 1510 1575 Balance 1398 51 - Physical Examination General/Neuro: alert & oriented x3, NAD Neck: no JVD present Lungs: unlabored respirations, other: (Mild crackles at bases.) Heart: RRR Abdomen: NT/ND Extremities: + edema B (Trace) - Telemetry Telemetry Rhythm: NSR - Labs Result Diagrams: 01/04/19 04:23 01/04/19 04:23 Troponin/CKMB CK-MB (CK-2) 10.0 ng/mL (0-6.6) H* 12/28/18 11:52 Troponin I 3.071 ng/mL (< 0.028) H* 12/28/18 11:52 - Assessment/Plan 1. Severe multivessel CAD, including Left main. 2. Aortic stenosis, mild 3. NSTEMI 4. S/P CABG x 5, DENNIS to LAD, SVG to OM, SVg to PDA, SVG to Ramus sequential to Diagonal. 5. ROBERT on CKD. PLAN: - Increase PT as tolerated. - ASA and statin for life. - BB and ACEI in next few days once BP allows, currently still too low. - Will stop IV fluids. - Likely his creatinine bump related to episodes of low BP which are resolved now. - 30 min critical care time.
[2019-01-04] MEDS: Atorvastatin Calcium 40 MG TAB PO SCH (21:48)
[2019-01-05 04:17] LABS: #Eosinphils 0.1 thou/uL (0.0-0.7); #Lymphocytes 0.9 thou/uL (1.20-3.40); #Monocytes 1.2 thou/uL (0.11-0.59); #Neutrophils 5.8 thou/uL (1.40-6.50); %Basophils 0.3 % (0.0-1.0); %Lymphocytes 11.2 % (21.0-51.0); %Monocytes 14.5 % (0.0-10.0); %Neutrophils 72.9 % (42.0-75.0); Mean Corpuscular HGB CONC 33.2 g/dL (32.0-36.0); Mean Corpuscular Hemoglobin 33.4 pg (27.0-31.0); Mean Platelet Volume 8.3 fL (7.4-10.4); Platelet Count 140 thou/uL (130-400); RBC Distribution Width 12.1 % (11.5-14.5); White Blood Cell (WBC) Count 7.9 thou/uL (4.8-10.8)
[2019-01-05 04:38] LABS: Anion Gap 10 mmol/L (10-20); BUN (Urea Nitrogen) 50 mg/dL (8.4-25.7); Calc. Creatinine Clearance 35 mL/min (70-130); Calcium 7.7 mg/dL (7.8-10.44); Carbon Dioxide 24 mmol/L (23-31); Chloride 97 mmol/L (98-107); Estimated GFR-MDRD 33; Glucose 97 mg/dL (83-110); Potassium 3.8 mmol/L (3.5-5.1); Sodium 127 mmol/L (136-145)
[2019-01-05] MEDS ORDERED: Diltiazem HCl 125 MG, Admixture Fee 1 EACH in Sodium Chloride 0.9% 100 ML IVPB SCH (04:45)
--- NOTE | 2019-01-05 07:53 | RAD ---
Chest AP view INDICATION: Status post CABG COMPARISON: January 04, 2019 at 4:49 AM FINDINGS: Lungs:Central edema pattern has worsened. Cardiac silhouette pulmonary vasculature:There is worsening moderate cardiomegaly. There is worsening pulmonary vascular congestion. Pleural spaces: There are small bilateral pleural effusions. No pneumothorax. Upper abdomen:No abnormality seen. Osseous structures: Midline sternotomy changes are stable. Tubes and lines: Left-sided thoracostomy tube, left subclavian central venous catheter and midline me diastinal drain are unchanged. IMPRESSION: Worsening CHF or volume overload. No pneumothorax.
[2019-01-05] MEDS: Docusate 100 MG CAP PO SCH ×2 (08:11→20:00)
[2019-01-05] MEDS: HYDROcodone/Acetaminophen 5/325 mg Tablet PO PRN ×2 (08:11→19:58)
[2019-01-05] MEDS: Senokot S 8.6-50 MG TAB PO SCH ×2 (08:12→20:00)
[2019-01-05] MEDS: Polyethylene Glycol 3350 17 GM Packet PO SCH (08:12)
[2019-01-05] MEDS: Aspirin 325 MG TAB PO SCH (08:12)
[2019-01-05] MEDS ORDERED: Norepinephrine 8 MG/0.9% NS 250 ML ONE (10:45)
[2019-01-05] MEDS ORDERED: Norepinephrine 8 MG/250 ML BAG IVPB PRN (11:24)
--- NOTE | 2019-01-05 13:07 | PRG ---
DATE OF SERVICE: 01/05/2019 SERVICE: Pulmonary Medicine. INTERVAL HISTORY: The patient is doing okay from respiratory standpoint. Breathing comfortably. Denies any current chest pain, fevers, or chills. He went into atrial fibrillation with RVR, and got initiated on Cardizem drip. He subsequently converted back into sinus rhythm. Blood pressures were marginal, but adequate. Urine output has been okay. PHYSICAL EXAMINATION: VITAL SIGNS: Afebrile, pulse 86, blood pressure 109/57, respirations 17, and saturation 98% on 2 L nasal cannula. GENERAL: The patient is awake and alert, in no apparent distress. LUNGS: Decent air entry. There is no prolonged expiratory phase. Minimal dependent crackles are present. Rhonchi are also there, but clear with cough. No wheezing. HEART: Normal rate. Regular. ABDOMEN: Soft, nontender, and nondistended. Bowel sounds are positive. MUSCULOSKELETAL: No cyanosis or clubbing. There is 2 to 3+ pitting in the left lower extremity and 1+ pitting in the right lower extremity. NEUROLOGIC: Grossly nonfocal. LABORATORY DATA: WBC 7.9 and downtrending, hemoglobin 9.0 and stable, and platelets 140,000. INR 1.4. Creatinine 1.99, starting to trend downward, though the sodium is 127. IMAGING: Chest x-ray from this morning shows increasing pulmonary edema, and cephalization. Lung volumes remain quite small. Otherwise, mediastinal and thoracostomy tube are in good position and unchanged. ASSESSMENT: 1. Acute hypoxic respiratory failure, resolved. 2. Coronary artery disease status post coronary artery bypass graft, postop day 3. 3. Acute on chronic systolic and diastolic heart failure. 4. Atrial fibrillation with rapid ventricular rate, returned to normal sinus rhythm. 5. Non-ST elevation myocardial infarction. 6. Acute kidney injury, resolving. DISCUSSION AND PLAN: We will switch the Cardizem over to p.o., since the patient is back into a sinus rhythm. We will mobilize the patient as much as tolerated. Thomas catheter will be removed today if okay by Surgery. I will continue to follow so long as the patient remains in this location. Job ID: [id number] MTDD
--- NOTE | 2019-01-05 15:25 | EKG ---
Test Reason : SOB Blood Pressure : / mmHG Vent. Rate : 080 BPM Atrial Rate : 080 BPM P-R Int : 158 ms QRS Dur : 096 ms QT Int : 374 ms P-R-T Axes : 010 -55 142 degrees QTc Int : 431 ms Normal sinus rhythm Left axis deviation Marked ST abnormality, possible lateral subendocardial injury Abnormal ECG Confirmed by MAXIM BLACK D.O. ([id number]), manuscript editor DOROTHY SUNG ([id number] on 01/05/2019 3:24:41 PM Referred By: Confirmed By:MAXIM BLACK D.O.
--- NOTE | 2019-01-05 18:14 | PDOC.CTH ---
Cardiology Progress Note - Subjective He went into afib overnight. He was started on a diltiazem drip and his BP earlier this morning was low so this was stopped. He is currently back in sinus. - Objective Vital Signs Temp Pulse Pulse BP BP Pulse Ox Pulse Ox 01/05/19 16:00 97.9 F 01/05/19 13:31 89 78 112/55 L 98/46 L 99 96 01/05/19 12:00 97.9 F 01/05/19 09:42 76 83 97/44 L 104/56 L 92 L 100 01/05/19 07:00 98.6 F Weight 184 lb 4.903 oz 01/04/19 01/05/19 01/06/19 06:59 06:59 06:59 Intake Total 1626 2055 507.3 Output Total 1575 1915 1045 Balance 51 140 -537.7 - Physical Examination General/Neuro: alert & oriented x3, NAD Neck: no JVD present Lungs: unlabored respirations Heart: RRR Abdomen: NT/ND Extremities: + edema B (1+) - Telemetry Telemetry Rhythm: Afib --> NSR - Labs Result Diagrams: 01/05/19 04:00 01/05/19 04:00 Troponin/CKMB CK-MB (CK-2) 10.0 ng/mL (0-6.6) H* 12/28/18 11:52 Troponin I 3.071 ng/mL (< 0.028) H* 12/28/18 11:52 - Assessment/Plan 1. Severe multivessel CAD, including Left main. 2. Aortic stenosis, mild 3. NSTEMI 4. S/P CABG x 5, DENNIS to LAD, SVG to OM, SVg to PDA, SVG to Ramus sequential to Diagonal. 5. ROBERT on CKD. 6. Post op afib. PLAN: - Increase PT as tolerated. - ASA and statin for life. - Will stop diltiazem PO and start on amiodarone load. - Creatinine bump related to low BP, currently on levophed . - Wean levophed down as BP allows. - 45 min critical care time.
--- NOTE | 2019-01-05 19:14 | PDOC.PN ---
- Subjective Encounter Start Date: 01/05/19 Encounter Start Time: 11:00 Patient seen and examined for NSTEMI. No CP. No new complaints. No overnight events - Objective Resuscitation Status - Order Detail: 12/28/18 03:49 Resuscitation Status Routine Resuscitation Status: FULL: Full Resuscitation MAR Reviewed: Yes Vital Signs & Weight: Vital Signs (12 hours) Temp Pulse Pulse BP BP Pulse Ox Pulse Ox 01/05/19 16:00 97.9 F 01/05/19 13:31 89 78 112/55 L 98/46 L 99 01/05/19 12:00 97.9 F 01/05/19 09:42 76 83 97/44 L 104/56 L 92 L 01/05/19 09:30 98 Pulse Ox 01/05/19 16:00 01/05/19 13:31 96 01/05/19 12:00 01/05/19 09:42 100 01/05/19 09:30 Weight Weight 184 lb 4.903 oz Most Recent Monitor Data Heart Rate from ECG 70 NIBP 140/69 NIBP BP-Mean 92 Respiration from ECG 22 SpO2 95 I&O: 01/04/19 01/05/19 01/06/19 06:59 06:59 06:59 Intake Total 1626 2055 832.6 Output Total 1575 1915 1225 Balance 51 140 -392.4 Result Diagrams: 01/05/19 04:00 01/05/19 04:00 EKG Reviewed by me: Yes (Tele SR. Afib earlier) Phys Exam - Physical Examination Constitutional: NAD On Levophed drip Respiratory: no wheezing, no rhonchi chest tube+ Cardiovascular: RRR, no rub Gastrointestinal: soft, non-tender, positive bowel sounds Neurological: moves all 4 limbs Dx/Plan - Plan DVT proph w/SCDs IMPRESSION: Acute hypoxic respiratory failure s/p NIPPV Acute Systolic/Diastolic heart failure - ACC stage C NSTEMI/CAD s/p CABG 01/02 Post CABG transient Afib HTN HLD Obesity BMI 30.7 ROBERT on CKD 3 Hyponatremia Macrocytic Anemia PLAN: Cont ASA/Statins On Levophed drip Cardizem drip dced due to low BP Cont supportive care AM labs Resume BB and Statins once BP improves Review of Systems - Review of Systems Respiratory: negative: Cough, Dry, Shortness of Breath, Hemoptysis, SOB with Excertion, Pleuritic Pain, Sputum, Wheezing Cardiovascular: negative: chest pain, palpitations, orthopnea, paroxysmal nocturnal dyspnea, edema, light headedness, other - Medications/Allergies Allergies/Adverse Reactions: Allergies Allergy/AdvReac Type Severity Reaction Status Date / Time morphine Allergy Verified 12/28/18 05:18 Medications: Current Medications Hydrocodone Bitart/Acetaminophen ([place] 5/325) 1 tab PO Q4H PRN PRN Reason: Moderate Pain (4-6) Last Admin: 01/05/19 08:11 Dose: 1 tab Hydrocodone Bitart/Acetaminophen ([place] 5/325) 2 tab PO Q4H PRN PRN Reason: Severe Pain (7-10) Al Hydroxide/Mg Hydroxide (Maalox) 30 ml PO Q4H PRN PRN Reason: Indigestion Albuterol/Ipratropium (Duoneb) 3 ml NEB [id number] PRN PRN Reason: SHORTNESS OF BREATH Amiodarone HCl (Cordarone) 400 mg PO BID [facility] Artificial Tears (Tears Naturale) 0 drop EA EYE PRN PRN PRN Reason: Dry Eyes Aspirin (Aspirin) 325 mg PO DAILY [facility] Last Admin: 01/05/19 08:12 Dose: 325 mg Atorvastatin Calcium (Lipitor) 80 mg PO HS [facility] Last Admin: 01/04/19 21:48 Dose: 80 mg Bisacodyl (Dulcolax) 10 mg PO Q12H PRN PRN Reason: Constipation Bisacodyl (Dulcolax) 10 mg IA Q12H PRN PRN Reason: Constipation Diphenhydramine HCl (Benadryl) 25 mg PO Q6H PRN PRN Reason: Itching & Insomnia or Danny Gerson Docusate Sodium (Colace) 100 mg PO BID [facility] Last Admin: 01/05/19 08:11 Dose: 100 mg Guaifenesin/Dextromethorphan (Robitussin Dm) 15 ml PO Q4H PRN PRN Reason: Cough Last Admin: 01/04/19 02:08 Dose: 15 ml Norepinephrine Bitartrate (Levophed) 250 mls @ 0 mls/hr IVPB INF PRN; Protocol PRN Reason: Blood Pressure Mineral Oil (Fleet Mineral Oil) 133 ml IA DAILYPRN PRN PRN Reason: Constipation Mineral Oil/White Petrolatum (Eucerin Cream) 0 gm TOP BIDPRN PRN PRN Reason: Dry Skin Nitroglycerin (Nitrostat) 0.4 mg SL Q5MIN PRN PRN Reason: Chest Pain Ondansetron HCl (Zofran) 4 mg IVP Q6H PRN PRN Reason: Nausea/Vomiting Polyethylene Glycol (Miralax) 17 gm PO DAILY [facility] Last Admin: 01/05/19 08:12 Dose: 17 gm Promethazine HCl (Phenergan) 6.25 mg IM Q4H PRN PRN Reason: Nausea/Vomiting Quetiapine Fumarate (Seroquel) 25 mg PO HS PRN PRN Reason: Agitation Last Admin: 01/05/19 00:20 Dose: 25 mg Senna/Docusate Sodium (Senokot S) 1 tab PO BID [facility] Last Admin: 01/05/19 08:12 Dose: 1 tab Sodium Chloride (Flush - Normal Saline) 10 ml IVF Q12HR [facility] Last Admin: 01/05/19 08:12 Dose: 10 ml
[2019-01-05] MEDS: Atorvastatin Calcium 40 MG TAB PO SCH (20:00)
[2019-01-05] MEDS: Amiodarone 200 MG TAB PO SCH (20:00)
[2019-01-06 05:02] LABS: #Eosinphils 0.1 thou/uL (0.0-0.7); #Lymphocytes 0.9 thou/uL (1.20-3.40); #Monocytes 1.3 thou/uL (0.11-0.59); #Neutrophils 6.8 thou/uL (1.40-6.50); %Basophils 0.4 % (0.0-1.0); %Eosinophils 1.6 % (0.0-10.0); %Lymphocytes 9.2 % (21.0-51.0); %Monocytes 14.6 % (0.0-10.0); %Neutrophils 74.2 % (42.0-75.0); Hemoglobin 9.4 g/dL (14.0-18.0); Mean Corpuscular HGB CONC 33.3 g/dL (32.0-36.0); Mean Corpuscular Hemoglobin 33.4 pg (27.0-31.0); Mean Platelet Volume 8.3 fL (7.4-10.4); Platelet Count 179 thou/uL (130-400); Red Blood Cell (RBC) Count 2.81 mill/uL (4.70-6.10); White Blood Cell (WBC) Count 9.2 thou/uL (4.8-10.8)
[2019-01-06 05:27] LABS: Anion Gap 10 mmol/L (10-20); BUN (Urea Nitrogen) 50 mg/dL (8.4-25.7); Calc. Creatinine Clearance 47 mL/min (70-130); Calcium 7.9 mg/dL (7.8-10.44); Carbon Dioxide 25 mmol/L (23-31); Chloride 99 mmol/L (98-107); Estimated GFR-MDRD 45; Glucose 92 mg/dL (83-110); Magnesium 2.2 mg/dL (1.6-2.6); Sodium 130 mmol/L (136-145)
--- NOTE | 2019-01-06 07:17 | EKG ---
Test Reason : Blood Pressure : / mmHG Vent. Rate : 106 BPM Atrial Rate : 111 BPM P-R Int : 000 ms QRS Dur : 076 ms QT Int : 334 ms P-R-T Axes : 000 -45 153 degrees QTc Int : 443 ms Atrial fibrillation with rapid ventricular response Left axis deviation Low voltage QRS Inferior infarct , age undetermined Cannot rule out Anterior infarct , age undetermined Abnormal ECG When compared with ECG of 02-JAN-2019 14:22, Significant changes have occurred Confirmed by CASEY HERBERT ([id number]) on 01/06/2019 7:16:48 AM Referred By: ALEKSANDR Confirmed By:CASEY HERBERT
[2019-01-06] MEDS ORDERED: Furosemide 40 MG/4 ML VIAL SLOW IVP SCH ×2 (08:30→18:30)
[2019-01-06] MEDS ORDERED: Metolazone 5 MG TAB PO SCH (08:30)
[2019-01-06] MEDS: Amiodarone 200 MG TAB PO SCH ×2 (08:58→20:43)
[2019-01-06] MEDS: Aspirin 325 MG TAB PO SCH (08:59)
[2019-01-06] MEDS: Senokot S 8.6-50 MG TAB PO SCH ×2 (08:59→20:43)
[2019-01-06] MEDS: Polyethylene Glycol 3350 17 GM Packet PO SCH (08:59)
[2019-01-06] MEDS: Docusate 100 MG CAP PO SCH ×2 (08:59→20:43)
--- NOTE | 2019-01-06 09:11 | RAD ---
Portable frontal chest radiograph: 01/06/2019 COMPARISON: 01/05/2019 HISTORY: Evaluate chest following CABG FINDINGS: Stable left-sided chest tube. There is small volume subcutaneous gas within the left chest wall inferiorly. Stable left subclavian vascular catheter and midline sternotomy wires. Mild increased linear density noted in the medial right lung base. No lobar consolidation or alveolar edema. IMPRESSION: Lines and tubes as detailed above. No lobar consolidation or alveolar edema.
--- NOTE | 2019-01-06 12:57 | PRG ---
DATE OF SERVICE: 01/06/2019 SERVICE: Pulmonary Medicine. INTERVAL HISTORY: The patient is doing really well from respiratory standpoint. Breathing comfortably. Remains on room air. Denies any current chest pain, fevers, or chills. He is coughing a little bit, but not bringing up any sputum. He got multiple chest tubes out today and he feels significantly improved. He has one that remains in place. Thomas catheter is still present. He did not have any events overnight. His blood pressure seems to be firming up ever so slightly. PHYSICAL EXAMINATION: VITAL SIGNS: Afebrile, pulse 84, blood pressure 91/54, respirations 23, saturation 97% on room air. GENERAL: The patient is awake and alert, in no apparent distress. LUNGS: Decent air entry. Rhonchi and crackles are present. There is no prolonged expiratory phase or wheezing appreciated. HEART: Normal rate and regular. ABDOMEN: Soft, nontender, nondistended. Bowel sounds are positive. MUSCULOSKELETAL: No cyanosis or clubbing. There is 2 to 3+ pitting in the left lower extremity and 1+ pitting in the right lower extremity. : Thomas catheter in place. NEUROLOGIC: Grossly nonfocal. LABORATORY DATA: WBC 9.2, hemoglobin 9.4, platelets 179,000. INR 1.4. Creatinine 1.50 and downtrending. BUN 50. Basic metabolic profile is otherwise unremarkable. Sodium is improved to 130. IMAGING: Chest x-ray demonstrates stable findings. Subclavian line remains in good position. Lung volumes remain small. There is a left-sided chest tube in good position. The mediastinal tube appears to have been removed. ASSESSMENT: 1. Acute hypoxic respiratory failure, resolved. 2. Coronary artery disease, status post coronary artery bypass graft, postop day 4. 3. Acute on chronic systolic and diastolic heart failure. 4. Akx-HI-hzfytuxgp myocardial infarction. 5. Acute kidney injury, resolving. DISCUSSION AND PLAN: The patient is doing fine from a respiratory standpoint. He is having end-organ damage as expected. Pulmonary will continue to follow in this location, but when he lands on the floor, I will only see him intermittently. Please call with additional questions or concerns. Job ID: [id number] [facility]
[2019-01-06 13:11] VITALS: BMI 28.8
--- NOTE | 2019-01-06 16:21 | PDOC.CTH ---
Cardiology Progress Note - Subjective He is doing better. He hernandez snot been hypotensive and has been weaned off levophed. - Objective Vital Signs Temp Pulse Pulse BP BP Pulse Ox Pulse Ox 01/06/19 12:38 78 78 115/58 L 105/52 L 100 01/06/19 09:16 86 87 131/81 103/55 L 01/06/19 08:00 98.5 F 01/06/19 07:48 97 Admit Weight 196 lb 4 oz Weight 183 lb 13.848 oz 01/05/19 01/06/19 01/07/19 06:59 06:59 06:59 Intake Total 5 1124.6 480 Output Total 1915 3065 1295 Balance 140 -1940.4 -815 - Physical Examination General/Neuro: alert & oriented x3, NAD Neck: no JVD present Lungs: unlabored respirations, other: (Coarse naterior, a lot of upeer airway secretions. ) Heart: RRR Abdomen: soft Extremities: + edema B (1+) - Telemetry Telemetry Rhythm: NSR - Labs Result Diagrams: 01/06/19 04:45 01/06/19 04:45 Troponin/CKMB CK-MB (CK-2) 10.0 ng/mL (0-6.6) H* 12/28/18 11:52 Troponin I 3.071 ng/mL (< 0.028) H* 12/28/18 11:52 - Assessment/Plan 1. Severe multivessel CAD, including Left main. 2. Aortic stenosis, mild 3. NSTEMI 4. S/P CABG x 5, DENNIS to LAD, SVG to OM, SVg to PDA, SVG to Ramus sequential to Diagonal. 5. ROBERT on CKD. 6. Post op afib. 7. Hypotensiion, resolved. PLAN: - Increase PT as tolerated. - ASA and statin for life. - On PO amiodarone load. - Creatinine improving. - Levophed now off. - 30 min critical care time.
[2019-01-06] MEDS: Atorvastatin Calcium 40 MG TAB PO SCH (20:43)
--- NOTE | 2019-01-06 21:13 | PDOC.PN ---
- Subjective Encounter Start Date: 01/06/19 Encounter Start Time: 09:30 Patient seen and examined for NSTEMI and CAD s/p CABG. No new complaints. No overnight events - Objective Resuscitation Status - Order Detail: 12/28/18 03:49 Resuscitation Status Routine Resuscitation Status: FULL: Full Resuscitation MAR Reviewed: Yes Vital Signs & Weight: Vital Signs (12 hours) Temp Pulse Pulse BP BP Pulse Ox 01/06/19 19:00 97.6 F 01/06/19 16:00 98.6 F 01/06/19 12:38 78 78 115/58 L 105/52 L 100 01/06/19 09:16 86 87 131/81 103/55 L Weight Admit Weight 196 lb 4 oz Weight 183 lb 13.848 oz Most Recent Monitor Data Heart Rate from ECG 74 NIBP 112/49 NIBP BP-Mean 70 Respiration from ECG 18 SpO2 99 I&O: 01/05/19 01/06/19 01/07/19 06:59 06:59 06:59 Intake Total 2055 1124.6 1230 Output Total 1915 3065 4135 Balance 140 -1940.4 -2905 Result Diagrams: 01/06/19 04:45 01/06/19 04:45 EKG Reviewed by me: Yes (Tele SR) Phys Exam - Physical Examination Constitutional: NAD Respiratory: no wheezing, no rhonchi Dec AE at bases Cardiovascular: RRR, no rub Gastrointestinal: soft, non-tender, positive bowel sounds Musculoskeletal: edema present Dx/Plan - Plan DVT proph w/SCDs IMPRESSION: Acute hypoxic respiratory failure s/p NIPPV Acute Systolic/Diastolic heart failure - ACC stage C NSTEMI/CAD s/p CABG 01/02 Post CABG transient Afib HTN HLD Obesity BMI 30.7 ROBERT on CKD 3 Hyponatremia Macrocytic Anemia PLAN: Cont ASA/Statins On PO Amiodarone loading Off Levophed drip Cont other meds as below Resume BB and Statins once BP improves Review of Systems - Review of Systems Respiratory: negative: Cough, Dry, Shortness of Breath, Hemoptysis, SOB with Excertion, Pleuritic Pain, Sputum, Wheezing Cardiovascular: negative: chest pain, palpitations, orthopnea, paroxysmal nocturnal dyspnea, edema, light headedness, other - Medications/Allergies Allergies/Adverse Reactions: Allergies Allergy/AdvReac Type Severity Reaction Status Date / Time morphine Allergy Verified 12/28/18 05:18 Medications: Current Medications Hydrocodone Bitart/Acetaminophen ([place] 5/325) 1 tab PO Q4H PRN PRN Reason: Moderate Pain (4-6) Last Admin: 01/05/19 19:58 Dose: 1 tab Hydrocodone Bitart/Acetaminophen ([place] 5/325) 2 tab PO Q4H PRN PRN Reason: Severe Pain (7-10) Al Hydroxide/Mg Hydroxide (Maalox) 30 ml PO Q4H PRN PRN Reason: Indigestion Albuterol/Ipratropium (Duoneb) 3 ml NEB [id number] PRN PRN Reason: SHORTNESS OF BREATH Amiodarone HCl (Cordarone) 400 mg PO BID [facility] Last Admin: 01/06/19 20:43 Dose: 400 mg Artificial Tears (Tears Naturale) 0 drop EA EYE PRN PRN PRN Reason: Dry Eyes Aspirin (Aspirin) 325 mg PO DAILY [facility] Last Admin: 01/06/19 08:59 Dose: 325 mg Atorvastatin Calcium (Lipitor) 80 mg PO HS [facility] Last Admin: 01/06/19 20:43 Dose: 80 mg Bisacodyl (Dulcolax) 10 mg PO Q12H PRN PRN Reason: Constipation Bisacodyl (Dulcolax) 10 mg [place] Q12H PRN PRN Reason: Constipation Diphenhydramine HCl (Benadryl) 25 mg PO Q6H PRN PRN Reason: Itching & Insomnia or Danny Gerson Docusate Sodium (Colace) 100 mg PO BID [facility] Last Admin: 01/06/19 20:43 Dose: 100 mg Guaifenesin/Dextromethorphan (Robitussin Dm) 15 ml PO Q4H PRN PRN Reason: Cough Last Admin: 01/04/19 02:08 Dose: 15 ml Norepinephrine Bitartrate (Levophed) 250 mls @ 0 mls/hr IVPB INF PRN; Protocol PRN Reason: Blood Pressure Mineral Oil (Fleet Mineral Oil) 133 ml [place] DAILYPRN PRN PRN Reason: Constipation Mineral Oil/White Petrolatum (Eucerin Cream) 0 gm TOP BIDPRN PRN PRN Reason: Dry Skin Nitroglycerin (Nitrostat) 0.4 mg SL Q5MIN PRN PRN Reason: Chest Pain Ondansetron HCl (Zofran) 4 mg IVP Q6H PRN PRN Reason: Nausea/Vomiting Polyethylene Glycol (Miralax) 17 gm PO DAILY [facility] Last Admin: 01/06/19 08:59 Dose: 17 gm Promethazine HCl (Phenergan) 6.25 mg IM Q4H PRN PRN Reason: Nausea/Vomiting Quetiapine Fumarate (Seroquel) 25 mg PO HS PRN PRN Reason: Agitation Last Admin: 01/05/19 19:58 Dose: 25 mg Senna/Docusate Sodium (Senokot S) 1 tab PO BID [facility] Last Admin: 01/06/19 20:43 Dose: 1 tab Sodium Chloride (Flush - Normal Saline) 10 ml IVF Q12HR [facility] Last Admin: 01/06/19 20:44 Dose: 10 ml
[2019-01-07 06:23] LABS: Anion Gap 11 mmol/L (10-20); BUN (Urea Nitrogen) 46 mg/dL (8.4-25.7); Calc. Creatinine Clearance 48 mL/min (70-130); Carbon Dioxide 30 mmol/L (23-31); Chloride 97 mmol/L (98-107); Estimated GFR-MDRD 45; Glucose 95 mg/dL (83-110); Potassium 3.5 mmol/L (3.5-5.1); Sodium 134 mmol/L (136-145)
[2019-01-07] MEDS: Amiodarone 200 MG TAB PO SCH ×2 (08:57→20:31)
[2019-01-07] MEDS: Docusate 100 MG CAP PO SCH ×2 (08:57→20:32)
[2019-01-07] MEDS: Aspirin 325 MG TAB PO SCH (08:57)
[2019-01-07] MEDS: Senokot S 8.6-50 MG TAB PO SCH ×2 (08:57→20:32)
[2019-01-07] MEDS: Polyethylene Glycol 3350 17 GM Packet PO SCH (08:58)
--- NOTE | 2019-01-07 09:35 | RAD ---
PORTABLE CHEST: Date: 01/07/19 HISTORY: Post CABG follow-up. COMPARISON: 01/06/19. FINDINGS: Mild cardiomegaly with postop sternotomy change. Central line is unchanged. Left chest tube unchanged . Lungs are well aerated and clear. No acute finding or interval change. The large calcified nodule o verlying the right lower lung is again noted. IMPRESSION: No acute interval change. POS: OFF
--- NOTE | 2019-01-07 11:09 | PRG ---
DATE OF SERVICE: 01/07/2019 SERVICE: Pulmonary Medicine. INTERVAL HISTORY: The patient is doing okay from respiratory standpoint. Breathing comfortably. He has been able to walk with Physical Therapy on room air. Denies any current chest pain, fevers, or chills. Otherwise, there has been no interval change to his condition. There were no overnight events. PHYSICAL EXAMINATION: VITAL SIGNS: Afebrile, pulse 66, blood pressure 111/50, respirations 19, and saturation 95% on room air. GENERAL: The patient is awake and alert, in no apparent distress. LUNGS: Decent air entry. No prolonged expiratory phase or wheezing is appreciated. HEART: Normal rate, regular. ABDOMEN: Soft, nontender, and nondistended. Bowel sounds are positive. MUSCULOSKELETAL: No cyanosis or clubbing. There is 1+ pitting in the right lower extremity and trace pitting left lower extremity. GENITOURINARY: Thomas catheter in place. NEUROLOGIC: Grossly nonfocal. LABORATORY DATA: Sodium 134, potassium 3.5. Basic metabolic profile is otherwise unremarkable with an improving creatinine of 1.49. All culture results are negative to date. IMAGING DATA: Chest x-ray demonstrates stable left-sided chest tube. There is a left subclavian central venous catheter remaining in good position. Aeration of lung volume is improved. There is fluid in the fissure and bilateral effusions, which are small. Some subcu air is on the left. ASSESSMENT: 1. Acute hypoxic respiratory failure, resolved. 2. Coronary artery disease, status post coronary artery bypass graft, postop day #5. 3. Acute on chronic systolic and diastolic heart failure. 4. [id number] myocardial infarction. 5. Acute kidney injury, improving. DISCUSSION AND PLAN: The patient is doing fantastic from a respiratory standpoint. At this point, he is stable for transition out of the ICU to the telemetry unit. Potassium will be replaced today. When he arrives on the floor, he will have no further requirements per my opinion and I will sign off. Please call with additional questions or concerns through time. Job ID: [id number]
--- NOTE | 2019-01-07 17:30 | PDOC.PN ---
- Subjective Encounter Start Date: 01/07/19 Encounter Start Time: 09:30 Patient seen and examined for CHF/NSTEMI. No new complaints. No overnight events - Objective Resuscitation Status - Order Detail: 12/28/18 03:49 Resuscitation Status Routine Resuscitation Status: FULL: Full Resuscitation MAR Reviewed: Yes Vital Signs & Weight: Vital Signs (12 hours) Temp Pulse Pulse BP BP Pulse Ox 01/07/19 16:00 98.4 F 01/07/19 12:53 75 75 104/60 94/45 L 01/07/19 12:00 98.5 F 01/07/19 08:00 98.6 F 01/07/19 07:33 95 Weight Admit Weight 196 lb 4 oz Weight 184 lb 15.485 oz Most Recent Monitor Data Heart Rate from ECG 67 NIBP 117/51 NIBP BP-Mean 73 Respiration from ECG 20 SpO2 94 I&O: 01/06/19 01/07/19 01/08/19 06:59 06:59 06:59 Intake Total 1124.6 1330 600 Output Total 3065 6545 800 Balance -1940.4 -5215 -200 Result Diagrams: 01/06/19 04:45 01/07/19 05:45 Phys Exam - Physical Examination Constitutional: NAD Respiratory: no wheezing, no rhonchi Cardiovascular: RRR, no rub Gastrointestinal: soft, non-tender, positive bowel sounds Neurological: moves all 4 limbs Dx/Plan - Plan DVT proph w/SCDs IMPRESSION: Acute hypoxic respiratory failure s/p NIPPV Acute Systolic/Diastolic heart failure - ACC stage C NSTEMI/CAD s/p CABG 01/02 Post CABG transient Afib HTN HLD Obesity BMI 30.7 ROBERT on CKD 3 Hyponatremia Macrocytic Anemia PLAN: Cont ASA/Statins On oral Amiodarone loading for transient Afib Cont other meds as below Review of Systems - Review of Systems Respiratory: negative: Cough, Dry, Shortness of Breath, Hemoptysis, SOB with Excertion, Pleuritic Pain, Sputum, Wheezing Cardiovascular: negative: chest pain, palpitations, orthopnea, paroxysmal nocturnal dyspnea, edema, light headedness, other - Medications/Allergies Allergies/Adverse Reactions: Allergies Allergy/AdvReac Type Severity Reaction Status Date / Time morphine Allergy Verified 12/28/18 05:18 Medications: Current Medications Hydrocodone Bitart/Acetaminophen ([place] 5/325) 1 tab PO Q4H PRN PRN Reason: Moderate Pain (4-6) Last Admin: 01/05/19 19:58 Dose: 1 tab Hydrocodone Bitart/Acetaminophen ([place] 5/325) 2 tab PO Q4H PRN PRN Reason: Severe Pain (7-10) Al Hydroxide/Mg Hydroxide (Maalox) 30 ml PO Q4H PRN PRN Reason: Indigestion Albuterol/Ipratropium (Duoneb) 3 ml NEB [id number] PRN PRN Reason: SHORTNESS OF BREATH Amiodarone HCl (Cordarone) 400 mg PO BID [facility] Last Admin: 01/07/19 08:57 Dose: 400 mg Artificial Tears (Tears Naturale) 0 drop EA EYE PRN PRN PRN Reason: Dry Eyes Aspirin (Aspirin) 325 mg PO DAILY [facility] Last Admin: 01/07/19 08:57 Dose: 325 mg Atorvastatin Calcium (Lipitor) 80 mg PO HS [facility] Last Admin: 01/06/19 20:43 Dose: 80 mg Bisacodyl (Dulcolax) 10 mg PO Q12H PRN PRN Reason: Constipation Bisacodyl (Dulcolax) 10 mg [place] Q12H PRN PRN Reason: Constipation Diphenhydramine HCl (Benadryl) 25 mg PO Q6H PRN PRN Reason: Itching & Insomnia or Danny Gerson Docusate Sodium (Colace) 100 mg PO BID [facility] Last Admin: 01/07/19 08:57 Dose: 100 mg Finasteride (Proscar) 5 mg PO DAILY [facility] Guaifenesin/Dextromethorphan (Robitussin Dm) 15 ml PO Q4H PRN PRN Reason: Cough Last Admin: 01/04/19 02:08 Dose: 15 ml Norepinephrine Bitartrate (Levophed) 250 mls @ 0 mls/hr IVPB INF PRN; Protocol PRN Reason: Blood Pressure Mineral Oil (Fleet Mineral Oil) 133 ml [place] DAILYPRN PRN PRN Reason: Constipation Mineral Oil/White Petrolatum (Eucerin Cream) 0 gm TOP BIDPRN PRN PRN Reason: Dry Skin Nitroglycerin (Nitrostat) 0.4 mg SL Q5MIN PRN PRN Reason: Chest Pain Ondansetron HCl (Zofran) 4 mg IVP Q6H PRN PRN Reason: Nausea/Vomiting Polyethylene Glycol (Miralax) 17 gm PO DAILY [facility] Last Admin: 01/07/19 08:58 Dose: Not Given Promethazine HCl (Phenergan) 6.25 mg IM Q4H PRN PRN Reason: Nausea/Vomiting Quetiapine Fumarate (Seroquel) 25 mg PO HS PRN PRN Reason: Agitation Last Admin: 01/05/19 19:58 Dose: 25 mg Senna/Docusate Sodium (Senokot S) 1 tab PO BID [facility] Last Admin: 01/07/19 08:57 Dose: 1 tab Sodium Chloride (Flush - Normal Saline) 10 ml IVF Q12HR [facility] Last Admin: 01/07/19 08:58 Dose: 10 ml Tamsulosin HCl (Flomax) 0.4 mg PO DAILY [facility] Tamsulosin HCl (Flomax) 0.4 mg PO HS [facility]
[2019-01-07] MEDS: Atorvastatin Calcium 40 MG TAB PO SCH (20:31)
[2019-01-07] MEDS: Tamsulosin HCl 0.4 MG CAP PO SCH ×2 (20:32→20:35)
[2019-01-07] MEDS ORDERED: Mineral Oil ENEMA PR PRN (20:42)
[2019-01-07] MEDS ORDERED: Guaifenesin DM 100-10/5 ML UDCUP PO PRN (20:42)
[2019-01-07] MEDS ORDERED: Mag-Al 1200 mg/1200 mg/30 ML UDCUP PO PRN (20:42)
[2019-01-07] MEDS ORDERED: Bisacodyl 5 MG TAB PO PRN (20:42)
[2019-01-07] MEDS ORDERED: Acetaminophen 325 MG TAB PO PRN (20:42)
[2019-01-07] MEDS ORDERED: Bisacodyl 10 MG SUPP PR PRN (20:42)
[2019-01-07] MEDS ORDERED: Nitroglycerin 0.4 MG TAB (25 Tab Bottle) SL PRN (20:42)
[2019-01-07] MEDS ORDERED: Ibuprofen 200 MG TAB PO PRN (20:42)
[2019-01-07] MEDS ORDERED: traMADol HCl 50 MG TAB PO PRN (20:42)
[2019-01-07] MEDS ORDERED: Insulin Regular 300 UNITS/3 ML VIAL SC PRN (20:56)
[2019-01-07] MEDS ORDERED: Dextrose 50% Abboject 50 ML SYRINGE IVP PRN (20:58)
[2019-01-07] MEDS ORDERED: Dextrose 5% in Water 1,000 ML IV PRN (20:58)
[2019-01-08 05:04] LABS: Anion Gap 10 mmol/L (10-20); BUN (Urea Nitrogen) 36 mg/dL (8.4-25.7); Calc. Creatinine Clearance 63 mL/min (70-130); Calcium 7.1 mg/dL (7.8-10.44); Carbon Dioxide 27 mmol/L (23-31); Chloride 100 mmol/L (98-107); Estimated GFR-MDRD 63; Glucose 91 mg/dL (83-110); Potassium 3.3 mmol/L (3.5-5.1); Sodium 134 mmol/L (136-145)
[2019-01-08] MEDS: Famotidine 20 MG TAB PO SCH ×2 (06:00→20:54)
[2019-01-08] MEDS: Polyethylene Glycol 3350 17 GM Packet PO SCH (09:07)
[2019-01-08] MEDS: Furosemide 40 MG TAB PO SCH (09:10)
[2019-01-08] MEDS: Finasteride 5 MG TAB PO SCH (09:10)
[2019-01-08] MEDS: Aspirin 325 MG TAB PO SCH (09:10)
[2019-01-08] MEDS: Aspirin 325 mg Enteric Coated Tablet PO SCH (09:10)
[2019-01-08] MEDS: Amiodarone 200 MG TAB PO SCH ×2 (09:11→20:49)
[2019-01-08] MEDS: Potassium Chloride 10 MEQ TAB PO SCH (09:13)
--- NOTE | 2019-01-08 10:56 | PRG ---
DATE OF SERVICE: 01/08/2019 SERVICE: Pulmonary Medicine. INTERVAL HISTORY: The patient is doing outstanding from respiratory standpoint. Breathing comfortably. His strength is improving. He denies any shortness of breath or chest discomfort. Otherwise, he is returning to his usual state of health. PHYSICAL EXAMINATION: VITAL SIGNS: Afebrile, pulse 76, blood pressure 112/59, respirations 15, saturation 95% oxygen on 2 L nasal cannula. GENERAL: The patient is awake and alert, in no apparent distress. LUNGS: Decent air entry. Rhonchi and crackles are present. The rhonchi clear with cough. There is not really prolonged expiratory phase or wheezing appreciated. HEART: Normal rate, regular. ABDOMEN: Soft, nontender, and nondistended. Bowel sounds are positive. MUSCULOSKELETAL: No cyanosis or clubbing. There is no pitting in the bilateral lower extremities. NEUROLOGIC: Grossly nonfocal. LABORATORY DATA: Potassium 3.3. Basic metabolic profile is otherwise unremarkable with a creatinine that is improved to 1.13. ASSESSMENT: 1. Acute hypoxic respiratory failure, improving. 2. Coronary artery disease, status post coronary artery bypass graft, postoperative day 6. 3. Lxufy-hu-amjxcib systolic and diastolic heart failure. 4. [id number] myocardial infarction. 5. Acute kidney injury, improving. DISCUSSION AND PLAN: The patient remains a little volume overloaded. We will give him an additional dose of Lasix in the afternoon. Potassium will be replaced. I will check a magnesium with tomorrow morning's laboratories. He remained stable for transition out of the ICU to the floor. When he makes that transition, he will have no further requirements for inpatient Pulmonary/Critical Care opinion, and I will sign off. Please call with additional questions or concerns through time. Job ID: [id number]
[2019-01-08] MEDS: Potassium Chloride 20 MEQ TAB PO SCH ×2 (12:20→15:08)
[2019-01-08] MEDS ORDERED: Furosemide 40 MG/4 ML VIAL SLOW IVP SCH (15:00)
--- NOTE | 2019-01-08 19:50 | PDOC.PN ---
- Subjective Encounter Start Date: 01/08/19 Encounter Start Time: 09:00 Patient seen and examined for NSTEMI. No CP. No new complaints. No overnight events - Objective Resuscitation Status - Order Detail: 12/28/18 03:49 Resuscitation Status Routine Resuscitation Status: FULL: Full Resuscitation MAR Reviewed: Yes Vital Signs & Weight: Vital Signs (12 hours) Temp Pulse Pulse BP BP 01/08/19 16:00 98.4 F 01/08/19 15:18 74 72 111/51 L 104/59 L 01/08/19 15:16 73 76 130/78 122/67 01/08/19 12:00 98.7 F 01/08/19 08:00 98.3 F Weight Admit Weight 196 lb 4 oz Weight 184 lb 1.6 oz Most Recent Monitor Data Heart Rate from ECG 72 NIBP 128/55 NIBP BP-Mean 79 Respiration from ECG 24 SpO2 99 I&O: 01/07/19 01/08/19 01/09/19 06:59 06:59 06:59 Intake Total 1330 1240 980 Output Total 3188 1965 1720 Balance 5215 -725 -740 Result Diagrams: 01/06/19 04:45 01/08/19 04:10 EKG Reviewed by me: Yes (Tele SR) Phys Exam - Physical Examination Constitutional: NAD Respiratory: no wheezing, no rhonchi Cardiovascular: RRR, no rub Gastrointestinal: soft, non-tender, positive bowel sounds Neurological: moves all 4 limbs Dx/Plan - Plan DVT proph w/SCDs IMPRESSION: Acute hypoxic respiratory failure s/p NIPPV Acute Systolic/Diastolic heart failure - ACC stage C NSTEMI/CAD s/p CABG 01/02 Post CABG transient Afib HTN HLD Obesity BMI 30.7 ROBERT on CKD 3 Hyponatremia Macrocytic Anemia PLAN: Cont ASA/Statins On Amiodarone loading Cont other meds as below Await Tele bed Review of Systems - Review of Systems Respiratory: negative: Cough, Dry, Shortness of Breath, Hemoptysis, SOB with Excertion, Pleuritic Pain, Sputum, Wheezing Cardiovascular: negative: chest pain, palpitations, orthopnea, paroxysmal nocturnal dyspnea, edema, light headedness, other Gastrointestinal: negative: Nausea, Vomiting, Abdominal Pain, Diarrhea, Constipation, Melena, Hematochezia, Other - Medications/Allergies Allergies/Adverse Reactions: Allergies Allergy/AdvReac Type Severity Reaction Status Date / Time morphine Allergy Verified 12/28/18 05:18 Medications: Current Medications Acetaminophen (Tylenol) 650 mg PO Q6H PRN PRN Reason: Headache/Fever or Pain Al Hydroxide/Mg Hydroxide (Maalox) 30 ml PO Q4H PRN PRN Reason: Indigestion Albuterol/Ipratropium (Duoneb) 3 ml NEB Q6H PRN PRN Reason: Respiratory Distress Amiodarone HCl (Cordarone) 400 mg PO BID [facility] Last Admin: 01/08/19 09:11 Dose: 400 mg Aspirin (Ecotrin) 325 mg PO DAILY [facility] Last Admin: 01/08/19 09:10 Dose: 325 mg Atorvastatin Calcium (Lipitor) 80 mg PO HS [facility] Last Admin: 01/07/19 20:31 Dose: 80 mg Bisacodyl (Dulcolax) 10 mg PO Q12H PRN PRN Reason: Constipation Bisacodyl (Dulcolax) 10 mg [place] Q12H PRN PRN Reason: Constipation Famotidine (Pepcid) 20 mg PO Q24HR [facility] Last Admin: 01/08/19 06:00 Dose: Not Given Finasteride (Proscar) 5 mg PO DAILY [facility] Last Admin: 01/08/19 09:10 Dose: 5 mg Furosemide (Lasix) 40 mg PO DAILY [facility] Last Admin: 01/08/19 09:10 Dose: 40 mg Guaifenesin/Dextromethorphan (Robitussin Dm) 15 ml PO Q4H PRN PRN Reason: Cough Ibuprofen (Motrin) 200 mg PO Q4H PRN PRN Reason: Pain Insulin Human Regular (Humulin R) 0 units SC Q4H PRN; Protocol PRN Reason: POST OP SLIDING SCALE Mineral Oil (Fleet Mineral Oil) 133 ml [place] DAILYPRN PRN PRN Reason: Constipation Nitroglycerin (Nitrostat) 0.4 mg SL Q5MIN PRN PRN Reason: Chest Pain Polyethylene Glycol (Miralax) 17 gm PO DAILY [facility] Last Admin: 01/08/19 09:07 Dose: Not Given Potassium Chloride (Klor-Con 10) 10 meq PO QAM-WM [facility] Last Admin: 01/08/19 09:13 Dose: 10 meq Tamsulosin HCl (Flomax) 0.4 mg PO DAILY [facility] Last Admin: 01/07/19 20:32 Dose: 0.4 mg Tamsulosin HCl (Flomax) 0.4 mg PO HS [facility] Last Admin: 01/07/19 20:35 Dose: 0.4 mg Tramadol HCl (Ultram) 50 mg PO Q6H PRN PRN Reason: Moderate Pain (4-6)
[2019-01-08] MEDS: Tamsulosin HCl 0.4 MG CAP PO SCH (20:49)
[2019-01-08] MEDS: Atorvastatin Calcium 40 MG TAB PO SCH (20:49)
[2019-01-09 07:10] LABS: Anion Gap 10 mmol/L (10-20); BUN (Urea Nitrogen) 35 mg/dL (8.4-25.7); Calc. Creatinine Clearance 52 mL/min (70-130); Calcium 7.9 mg/dL (7.8-10.44); Carbon Dioxide 29 mmol/L (23-31); Chloride 95 mmol/L (98-107); Estimated GFR-MDRD 51; Glucose 94 mg/dL (83-110); Magnesium 1.8 mg/dL (1.6-2.6); Sodium 130 mmol/L (136-145)
[2019-01-09 07:50] VITALS: TEMP 98.4
[2019-01-09] MEDS: Aspirin 325 mg Enteric Coated Tablet PO SCH (08:41)
[2019-01-09] MEDS: Furosemide 40 MG TAB PO SCH (08:41)
[2019-01-09] MEDS: Finasteride 5 MG TAB PO SCH (08:41)
[2019-01-09] MEDS: Tamsulosin HCl 0.4 MG CAP PO SCH (08:41)
[2019-01-09] MEDS: Amiodarone 200 MG TAB PO SCH (08:41)
[2019-01-09] MEDS: Potassium Chloride 10 MEQ TAB PO SCH (08:41)
[2019-01-09] MEDS: Polyethylene Glycol 3350 17 GM Packet PO SCH (08:42)
[2019-01-09 15:09] VITALS: BP 98/35
--- NOTE | 2019-01-09 15:50 | PRG ---
DATE OF SERVICE: 01/09/2019 SERVICE: Pulmonary Medicine. INTERVAL HISTORY: The patient is doing really well from respiratory standpoint. Breathing comfortably. No complaints of chest pain, fevers, chills, nausea, or vomiting. There are no overnight events. Otherwise, he is in his usual state of health. PHYSICAL EXAMINATION: VITAL SIGNS: Afebrile, pulse 73, blood pressure 91/37, respirations 22, saturation 98% on room air. GENERAL: The patient is awake and alert, in no apparent distress. LUNGS: Excellent air entry. No prolonged expiratory phase, wheezing or crackles are appreciated. HEART: Normal rate and regular. ABDOMEN: Soft, nontender, nondistended. Bowel sounds are positive. MUSCULOSKELETAL: No cyanosis or clubbing. No pitting in the bilateral lower extremities. NEUROLOGIC: Grossly nonfocal. LABORATORY DATA: Creatinine 1.36, BUN 35, sodium is 130. Basic metabolic profile is otherwise unremarkable. Magnesium 1.8. ASSESSMENT: 1. Acute hypoxic respiratory failure, resolved. 2. Coronary artery disease, status post coronary artery bypass graft, postoperative day 7. 3. Acute on chronic systolic and diastolic heart failure. 4. [id number] myocardial infarction. 5. Acute kidney injury, improving. DISCUSSION AND PLAN: The patient is doing absolutely wonderful from respiratory standpoint. At this point, he is stable for transition out of the hospital, or to a rehabilitation facility. Pulmonary Critical Care will continue to follow while the patient remains in-house. When he leaves the ICU, he will have no further requirements for inpatient Pulmonary Critical Care opinion, and I will sign off. Please call with additional questions or concerns through time. Job ID: [id number]
--- NOTE | 2019-01-09 17:31 | PDOC.CTH ---
Cardiology Progress Note - Subjective He is doing better. He is having BM's. No other issues. - Objective Vital Signs Temp Pulse Pulse BP BP Pulse Ox 01/09/19 15:00 98.4 F 01/09/19 14:40 77 77 98/35 L 117/59 L 01/09/19 09:25 73 74 118/52 L 105/58 L 01/09/19 08:00 98 01/09/19 07:00 98.4 F Admit Weight 196 lb 4 oz Weight 184 lb 1.6 oz 01/08/19 01/09/19 01/10/19 06:59 06:59 06:59 Intake Total 1240 1300 360 Output Total 1965 2500 850 Balance -855 -7425 -490 - Physical Examination General/Neuro: alert & oriented x3, NAD Neck: no JVD present Lungs: CTA, unlabored respirations Heart: RRR Abdomen: NT/ND Extremities: + edema B (2+) - Telemetry Telemetry Rhythm: NSR - Labs Result Diagrams: 01/06/19 04:45 01/09/19 06:37 Troponin/CKMB CK-MB (CK-2) 10.0 ng/mL (0-6.6) H* 12/28/18 11:52 Troponin I 3.071 ng/mL (< 0.028) H* 12/28/18 11:52 - Assessment/Plan 1. Severe multivessel CAD, including Left main. 2. Aortic stenosis, mild 3. NSTEMI 4. S/P CABG x 5, DENNIS to LAD, SVG to OM, SVg to PDA, SVG to Ramus sequential to Diagonal. 5. ROBERT on CKD. 6. Post op afib. 7. Hypotensiion, resolved. PLAN: - Increase PT as tolerated. - ASA and statin for life. - Amiodarone 400 mg BID for 5 more days then 200 mg daily - May discharge to rehab. - Follow up in the office in 1 month.
--- NOTE | 2019-01-09 22:29 | DIS ---
DATE OF ADMISSION: 12/28/2018 DATE OF DISCHARGE: 01/09/2019 DISCHARGE DISPOSITION: Inpatient rehabilitation. ALLERGIES: THE PATIENT IS ALLERGIC TO MORPHINE. CODE STATUS: Full code. The patient was seen and examined on the day of discharge. Denies any new complaints. Shortness of breath has significantly improved. DISCHARGE MEDICATIONS: 1. Multivitamin one tablet daily. 2. Sublingual nitroglycerin as needed. 3. Pepcid 20 mg daily. 4. Tylenol as needed. 5. Amiodarone 400 mg twice daily for 5 days, then 200 mg daily. 6. Aspirin 325 mg daily. 7. Lipitor 80 mg at bedtime. 8. Finasteride 5 mg daily. 9. Lasix 40 mg daily. 10. Potassium chloride 10 mEq daily. 11. Flomax 0.4 mg at bedtime. 12. MiraLAX 17 g daily. 13. DuoNeb as needed. 14. Proscar 5 mg daily. Betablockers/ACEI/ARB can probably be added once his blood pressure improves. Will hold for now. INPATIENT FIELD AGRONOMIST: 1. Cardiology, Dr. Mota. 2. Cardiothoracic, Dr. Mcfadden. 3. Critical Care, Dr. Banks. BRIEF HOSPITAL COURSE: The patient is a 78-year-old male with hypertension and hyperlipidemia, presented to the hospital with shortness of breath. His workup was consistent with congestive heart failure exacerbation as well as non-ST elevation MS. His maximum troponin was 3.0 with CK-MB of 10. He required a transient noninvasive positive pressure ventilation for acute hypoxic respiratory failure. Echocardiogram showed ejection fraction of 30% to 35% with global hypokinesis and 3/3 diastolic dysfunction. He underwent cardiac catheterization that showed severe multivessel coronary artery disease including the left main. He underwent coronary artery bypass grafting on 01/02/2019. Left internal mammary artery to distal LAD and reverse greater saphenous vein graft from the aorta to obtuse marginal, aorta to PDA. Sequential reversed greater saphenous vein graft from the aorta to the ramus intermedius to the diagonal. He was monitored in the intensive care unit. Postoperatively, he developed atrial fibrillation that converted with amiodarone. He has been extensively counseled on congestive heart failure. He has been discharged to inpatient rehabilitation. FINAL DIAGNOSES: 1. Acute hypoxic respiratory failure, status post noninvasive positive pressure ventilation. 2. Acute systolic/diastolic heart failure. 3. Cjt-WE-[id number] myocardial infarction. 4. Coronary artery disease, status post CABG x5 on 01/02/2019. 5. Transient atrial fibrillation post CABG, converted to sinus rhythm. 6. Hypertension. 7. Hyperlipidemia. 8. Obesity with a BMI of 30.3. 9. Acute kidney injury on chronic kidney disease stage 3, improving. 10. Hyponatremia. 11. Hypokalemia. 12. Aortic stenosis. 13. Macrocytic anemia. SIGNIFICANT LABORATORY DATA: Creatinine at discharge is 1.36, on admission was 1.2. Maximum creatinine was 2.22. TIME SPENT: Total time coordinating the discharge of this patient was 38 minutes. PLAN: Plan of care was discussed with the patient in detail. He stated understanding. FOLLOWUP: Th patient will follow up with primary care physician, Dr. Blake Osullivan after 1 week. He was advised to follow up with primary cattle manager, Dr. Mota and Dr. Mcfadden in 1 to 2 weeks. Job ID: [id number] [facility]
== END 2019-01-09 19:33 | DRG 233 ==
LOC: ERS 01:49 → ERHOLD 02:54 → 2SE 04:35 → 2NO 01-01 20:50 → CCU 01-02 07:17
PROVIDERS: ADMIT Internal Medicine; ATTEND Internal Medicine
PROC: 4A023N7 Measurement of Cardiac Sampling and Pressure, Left Heart, Percutaneous Approach (ICD-10-PCS; 2018-12-28)
PROC: B2111ZZ Fluoroscopy of Multiple Coronary Arteries using Low Osmolar Contrast (ICD-10-PCS; 2018-12-28)
PROC: B2151ZZ Fluoroscopy of Left Heart using Low Osmolar Contrast (ICD-10-PCS; 2018-12-28)
PROC: 02100Z9 Bypass Coronary Artery, One Artery from Left Internal Mammary, Open Approach (ICD-10-PCS; principal; 2019-01-02)
PROC: 021309W Bypass Coronary Artery, Four or More Arteries from Aorta with Autologous Venous Tissue, Open Approach (ICD-10-PCS; 2019-01-02)
PROC: 06BQ4ZZ Excision of Left Saphenous Vein, Percutaneous Endoscopic Approach (ICD-10-PCS; 2019-01-02)
PROC: 5A1221Z Performance of Cardiac Output, Continuous (ICD-10-PCS; 2019-01-02)
DX: I21.4 Non-ST elevation (NSTEMI) myocardial infarction (principal); J96.01 Acute respiratory failure with hypoxia; I50.43 Acute on chronic combined systolic (congestive) and diastolic (congestive) heart failure; E87.1 Hypo-osmolality and hyponatremia; I13.0 Hypertensive heart and chronic kidney disease with heart failure and stage 1 through stage 4 chronic kidney disease, or unspecified chronic kidney disease; N17.9 Acute kidney failure, unspecified; E78.5 Hyperlipidemia, unspecified; E66.9 Obesity, unspecified; Z68.30 Body mass index [BMI] 30.0-30.9, adult; D53.9 Nutritional anemia, unspecified; I35.0 Nonrheumatic aortic (valve) stenosis; N18.3 Chronic kidney disease, stage 3 (moderate); I25.110 Atherosclerotic heart disease of native coronary artery with unstable angina pectoris; Z88.5 Allergy status to narcotic agent; I48.91 Unspecified atrial fibrillation
CPT/HCPCS: 36415; 36416; 36430; 71045; 71046; 80048; 80053; 80061; 82553; 82805; 83735; 83880; 84443; 84484; 85025; 85610; 85730; 86850; 86900; 86901; 87040; 87081; 93005; 93010; 93306; 93458; 93798; 94002; 94150; 94660; 94760; 96372; 96374; 99152; 99153; C1769; J0690; J1642; J1644; J1650; J1815; J1885; J1940; J2001; J2150; J2250; J2370; J2405; J2440; J2720; J3010; J3370; J3475; J3480; J3490; J7050; P9045; Q9967; S0017; S0028

== ENCOUNTER 2020-05-31 20:11 | Inpatient (IN) | payer MEDICARE, OTHER ==
--- NOTE | 2020-05-31 21:50 | RAD ---
XR Chest 1 View Portable History: Weakness and swelling Comparison: Radiograph December 2018 Findings: Large layering effusions. Heart size markedly enlarged. Large calcified granuloma right faustino g base. No pneumothorax. Multiple midline sternotomy wires. Impression: Decompensated congestive heart failure.
[2020-05-31 22:14] LABS: ALT (SGPT) 73 U/L (8-55); AST (SGOT) 81 U/L (5-34); Albumin 2.8 g/dL (3.4-4.8); Alkaline Phosphatase 106 U/L (40-110); Anion Gap 15 mmol/L (10-20); BUN (Urea Nitrogen) 29 mg/dL (8.4-25.7); Calc. Creatinine Clearance 0 mL/min (70-130); Carbon Dioxide 21 mmol/L (23-31); Chloride 100 mmol/L (98-107); Estimated GFR-MDRD 53; Globulin 2.4 g/dL (2.4-3.5); Glucose 170 mg/dL (83-110); Potassium 3.8 mmol/L (3.5-5.1); Protein, Total 5.2 g/dL (5.8-8.1); Sodium 132 mmol/L (136-145)
[2020-05-31 22:18] LABS: #Lymphocytes 0.3 thou/uL (1.20-3.40); #Monocytes 0.9 thou/uL (0.11-0.59); #Neutrophils 10.5 thou/uL (1.40-6.50); %Lymphocytes 2.7 % (21.0-51.0); %Monocytes 7.8 % (0.0-10.0); %Neutrophils 89.4 % (42.0-75.0); Crenated RBC SLIGHT = 1-5 cells (100X) (None Seen); Hemoglobin 12.9 g/dL (14.0-18.0); MDiff Complete? YES; Mean Corpuscular HGB CONC 32.5 g/dL (32.0-36.0); Mean Corpuscular Hemoglobin 32.7 pg (27.0-31.0); Mean Platelet Volume 9.9 fL (7.4-10.4); Platelet Count 92 thou/uL (130-400); Platelet Morphology Comment Appears Decreased; RBC Distribution Width 14.8 % (11.5-14.5); Red Blood Cell (RBC) Count 3.94 mill/uL (4.70-6.10); White Blood Cell (WBC) Count 11.8 thou/uL (4.8-10.8)
[2020-05-31 22:40] LABS: CKMB 7.1 ng/mL (0-6.6)
[2020-05-31] MEDS ORDERED: Furosemide 40 MG/4 ML VIAL ONE (22:46)
[2020-05-31] MEDS ORDERED: Aspirin Chewable 81 MG TAB ONE (22:46)
[2020-05-31] MEDS ORDERED: Labetalol HCl 100 MG/20 ML VIAL SLOW IVP PRN (23:12)
[2020-05-31] MEDS ORDERED: Ondansetron PF 4 MG/2 ML Vial IVP PRN (23:12)
[2020-05-31] MEDS ORDERED: cloNIDine 0.1 MG TAB PO PRN (23:12)
[2020-05-31] MEDS ORDERED: hydrALAZINE 20 MG/ML VIAL SLOW IVP PRN (23:12)
[2020-05-31] MEDS ORDERED: Guaifenesin DM 100-10/5 ML UDCUP PO PRN (23:12)
[2020-05-31] MEDS ORDERED: Promethazine HCl 12.5 MG in Sodium Chloride 0.9% 50 ML IVPB PRN (23:12)
--- NOTE | 2020-05-31 23:14 | PDOC.HHP ---
Hospitalist Results - Labs Result Diagrams: 05/31/20 21:37 05/31/20 21:37 Lab results: WBC 11.8 thou/uL (4.8-10.8) H 05/31/20 21:37 Hgb 12.9 g/dL (14.0-18.0) L 05/31/20 21:37 Hct 39.6 % (42.0-52.0) L 05/31/20 21:37 MCV 101.0 fL (78.0-98.0) H 05/31/20 21:37 Plt Count 92 thou/uL (130-400) L 05/31/20 21:37 Neutrophils % 89.4 % (42.0-75.0) H 05/31/20 21:37 Sodium 132 mmol/L (136-145) L 05/31/20 21:37 Potassium 3.8 mmol/L (3.5-5.1) 05/31/20 21:37 Chloride 100 mmol/L (98-107) 05/31/20 21:37 Carbon Dioxide 21 mmol/L (23-31) L 05/31/20 21:37 BUN 29 mg/dL (8.4-25.7) H 05/31/20 21:37 Creatinine 1.31 mg/dL (0.7-1.3) H 05/31/20 21:37 Glucose 170 mg/dL (83-110) H 05/31/20 21:37 Calcium 8.0 mg/dL (7.8-10.44) 05/31/20 21:37 Total Bilirubin 1.0 mg/dL (0.2-1.2) 05/31/20 21:37 AST 81 U/L (5-34) H 05/31/20 21:37 ALT 73 U/L (8-55) H 05/31/20 21:37 Alkaline Phosphatase 106 U/L (40-110) 05/31/20 21:37 CK-MB (CK-2) 7.1 ng/mL (0-6.6) H* 05/31/20 21:37 Troponin I 0.058 ng/mL (< 0.028) H 05/31/20 21:37 B-Natriuretic Peptide 22909.0 pg/mL (0-100) H 09/18/20 21:37 Serum Total Protein 5.2 g/dL (5.8-8.1) L 05/31/20 21:37 Albumin 2.8 g/dL (3.4-4.8) L 05/31/20 21:37
[2020-05-31] MEDS ORDERED: Electrolyte Replacement Protoc 1 EACH EACH FS SCH (23:15)
[2020-06-01 01:19] LABS: Troponin I 0.086 ng/mL (< 0.028)
[2020-06-01 05:32] LABS: #Lymphocytes 0.4 thou/uL (1.20-3.40); #Monocytes 0.8 thou/uL (0.11-0.59); %Basophils 0.1 % (0.0-1.0); %Eosinophils 0.1 % (0.0-10.0); %Lymphocytes 4.2 % (21.0-51.0); %Monocytes 8.3 % (0.0-10.0); %Neutrophils 87.2 % (42.0-75.0); Hemoglobin 12.8 g/dL (14.0-18.0); Mean Corpuscular HGB CONC 32.7 g/dL (32.0-36.0); Platelet Count 84 thou/uL (130-400); RBC Distribution Width 14.9 % (11.5-14.5); Red Blood Cell (RBC) Count 3.88 mill/uL (4.70-6.10); White Blood Cell (WBC) Count 9.1 thou/uL (4.8-10.8)
[2020-06-01 05:40] LABS: Anion Gap 13 mmol/L (10-20); BUN (Urea Nitrogen) 30 mg/dL (8.4-25.7); Calc. Creatinine Clearance 65 mL/min (70-130); Calcium 8.1 mg/dL (7.8-10.44); Carbon Dioxide 27 mmol/L (23-31); Chloride 99 mmol/L (98-107); Estimated GFR-MDRD 57; Glucose 130 mg/dL (83-110); Magnesium 2.2 mg/dL (1.6-2.6); Potassium 3.5 mmol/L (3.5-5.1); Sodium 135 mmol/L (136-145)
[2020-06-01 05:44] LABS: Troponin I 0.076 ng/mL (< 0.028)
[2020-06-01] MEDS ORDERED: Furosemide 40 MG/4 ML VIAL SLOW IVP SCH (06:00)
[2020-06-01] MEDS ORDERED: Potassium Chloride 20 MEQ TAB PO SCH (07:00)
[2020-06-01] MEDS: Famotidine 20 MG TAB PO SCH ×2 (09:35→21:23)
[2020-06-01] MEDS: Heparin 5,000 UNITS/ML VIAL SC SCH ×2 (09:35→21:23)
--- NOTE | 2020-06-01 12:12 | PDOC.HOSPP ---
- Subjective Encounter Date: 06/01/20 Encounter Time: 09:40 Subjective: pt is sleeping. His blood pressure is slightly higher. He is now admitted with a CHF exacerbation. He is not in any respiratory distress at this point. H & P pending. - Objective Vital Signs & Weight: Vital Signs (12 hours) Temp Pulse Resp BP BP Pulse Ox 06/01/20 11:45 59 L 17 163/93 H 96 06/01/20 08:04 97.6 F 52 L 18 154/79 H 97 06/01/20 08:00 97 06/01/20 04:00 97.5 F L 56 L 161/79 H 99 06/01/20 01:15 98 F 61 18 162/96 H 98 06/01/20 01:00 98 Weight Weight 208 lb 12.444 oz I&O: 05/31/20 06/01/20 06/02/20 06:59 06:59 06:59 Intake Total 100 Output Total 500 Balance -400 Result Diagrams: 06/01/20 04:05 06/01/20 04:05 Hospitalist ROS - Medication Medications: Active Medications Generic Name Dose Route Start Last Admin Trade Name Freq PRN Reason Stop Dose Admin Famotidine 20 mg 06/01/20 09:00 06/01/20 09:35 Famotidine 20 Mg Tab PO 20 mg BID NATASHA Administration Furosemide 40 mg 06/01/20 06:00 06/01/20 06:19 Furosemide 40 Mg/4 Ml Vial SLOW IVP 40 mg 0600,1400 NATASHA Administration Heparin Sodium (Porcine) 5,000 units 06/01/20 09:00 06/01/20 09:35 Heparin 5,000 Units/Ml Vial SC Not Given BID NATASHA - Exam General Appearance: NAD, awake alert Eye: PERRL ENT: normocephalic atraumatic Neck: supple Heart: RRR Respiratory: CTAB, normal chest expansion Gastrointestinal: normal bowel sounds Extremities: 2+ LE edema Hosp A/P - Plan Acute on chronic systolic CHF exacerbation. Upper extremity edema Hypoxia secondary to volume overload Pulmonary edema History of atrial fibrillation Hypertension Hyperlipidemia Aortic stenosis Type II metabolic mismatch NSTEMI -Aggressive diuresis as his BNP is over 10,000 -Request cardiology as well as Dr. Henriquez to be on board -Repeat the echo as his last echo is in December 2018 -Strict in and output and weight daily -restricted diet with the sodium less than 2 g.
[2020-06-01 14:50] LABS: SARS-CoV-2 MS2 Positive; SARS-CoV-2 N Gene Negative; SARS-CoV-2 S Gene Negative; SARS-CoV-2 by NAA Not Detected (NotDetected); SARS-CoV-2 orf1ab Negative
[2020-06-01] MEDS: Furosemide 40 MG/4 ML VIAL SLOW IVP SCH ×2 (15:53→21:23)
[2020-06-01] MEDS ORDERED: Spironolactone 25 MG TAB PO SCH (17:00)
[2020-06-01] MEDS ORDERED: Carvedilol 6.25 MG TAB PO SCH ×2 (17:00→21:00)
[2020-06-01 18:31] LABS: Bacteria/HPF None Seen HPF (None Seen); Bilirubin Negative (Negative); Blood, Urine Trace (Negative); Clarity Clear (Clear); Glucose, Urine (Dipstick) Normal (Negative); Ketone, Urine Negative (Negative); Leukocyte Negative Leu/uL (Negative); Nitrite Negative (Negative); Protein, Urine (Dipstick) 20 mg/dL (Neg-Trace); RBC/HPF 0-3 HPF (0-3); Specific Gravity, Urine 1.008 (1.002-1.036); Squamous Epithelial None Seen HPF (0-3); Urobilinogen Normal mg/dL (Less than 2); WBC/HPF 0-3 HPF (0-3)
[2020-06-01] MEDS ORDERED: Sacubitril 49 MG/Valsartan 51 MG TABLET PO SCH (21:00)
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
[2020-06-01] MEDS: Atorvastatin Calcium 40 MG TAB PO SCH (21:20)
[2020-06-01] MEDS: Tamsulosin HCl 0.4 MG CAP PO SCH (21:20)
[2020-06-01] MEDS: Sacubitril 49 MG/Valsartan 51 MG TABLET PO SCH (21:20)
[2020-06-01] MEDS: Carvedilol 6.25 MG TAB PO SCH (21:21)
[2020-06-01] MEDS: Finasteride 5 MG TAB PO SCH (21:23)
--- NOTE | 2020-06-01 22:22 | HP ---
CHIEF COMPLAINT: Shortness of breath. HISTORY OF PRESENT ILLNESS: This is an 79-year-old male, presented with weeping in his upper extremities. DICTATION ENDED HERE Job ID: [id number]
--- NOTE | 2020-06-01 22:58 | CON ---
DATE OF CONSULTATION: 06/01/2020 REASON FOR CONSULTATION: Urinary retention. CHIEF COMPLAINT: Swelling. HISTORY OF PRESENT ILLNESS: An 79-year-old male with a history of CHF, admitted late yesterday for exacerbation with bilateral lower extremity swelling. BNP was elevated. Bladder scans were monitored overnight showing 300 to 400. However, the decision was made to monitor this apparently. I was contacted this afternoon requesting Thomas catheter placement after nursing staff was unable to do so. In speaking with the patient, he has had catheters during hospitalizations, but has no history of acute retention or prior urologic surgery. He does not feel that he is retaining and denies urgency, frequency, weak stream, suprapubic pain, dysuria, hematuria, flank pain. PAST MEDICAL HISTORY: Congestive heart failure, atrial fibrillation, hypertension, hyperlipidemia, aortic stenosis. MT. PAST SURGICAL HISTORY: Heart surgery in 2019. As mentioned above, no prior urologic surgeries. SOCIAL HISTORY: Nonsmoker. No substance abuse. Lives alone. CURRENT MEDICATIONS: Reviewed. He is currently on tamsulosin and finasteride as far as urologic medications. ALLERGIES: INCLUDE MORPHINE. REVIEW OF SYSTEMS: A 12-point review of systems is performed, positive as mentioned in HPI, as well as lower extremity edema, shortness of breath. PHYSICAL EXAMINATION: VITAL SIGNS: Afebrile. Vitals stable. Urine output 500. GENERAL: No acute distress. Conversant. HEENT: Head, normocephalic and atraumatic. Extraocular movements intact. Sclerae nonicteric. NECK: Supple. Trachea midline. Unlabored breathing. Symmetric chest expansion. ABDOMEN: Soft, nontender, nondistended. No suprapubic tenderness. Bladder nonpalpable. Foreskin and scrotum, significantly edematous as are his bilateral lower extremities. I am unable to retract his foreskin due to edema. SKIN: Warm and dry. NEUROLOGIC: Alert and oriented x3. PSYCHIATRIC: Normal mood and affect. LABORATORY DATA: Reviewed. White count 9.1. Creatinine 1.2. BNP over 10,000. PROCEDURE: After multiple attempts, Thomas catheter was unable to be placed, at which point, I was consulted. The patient has deranged anatomy secondary to edema from his congestive heart failure. I cleaned the foreskin with Betadine and then with some difficulty was able to guide the catheter down towards his urethra and finally into his bladder. There was no significant urethral obstruction. Clear urine resulted. 10 mL were instilled in the balloon. It was connected to bag drainage. StatLock was deployed. ASSESSMENT AND PLAN: Urinary retention secondary to enlarged prostate. Routine catheter care daily. Once the patient is more stable and no longer requires strict intake and output monitoring, void trial can be considered. Please contact me at that point to manage this. Job ID: [id number]
[2020-06-02 04:34] LABS: #Lymphocytes 0.5 thou/uL (1.20-3.40); #Monocytes 0.8 thou/uL (0.11-0.59); #Neutrophils 11.9 thou/uL (1.40-6.50); %Basophils 0.2 % (0.0-1.0); %Eosinophils 0.2 % (0.0-10.0); %Lymphocytes 3.4 % (21.0-51.0); %Monocytes 5.9 % (0.0-10.0); %Neutrophils 90.2 % (42.0-75.0); Hemoglobin 13.2 g/dL (14.0-18.0); Mean Corpuscular HGB CONC 32.4 g/dL (32.0-36.0); Mean Corpuscular Hemoglobin 32.8 pg (27.0-31.0); Mean Platelet Volume 10.1 fL (7.4-10.4); Platelet Count 78 thou/uL (130-400); RBC Distribution Width 14.9 % (11.5-14.5); Red Blood Cell (RBC) Count 4.03 mill/uL (4.70-6.10); White Blood Cell (WBC) Count 13.2 thou/uL (4.8-10.8)
--- NOTE | 2020-06-02 04:49 | HP ---
CHIEF COMPLAINT: Shortness of breath and upper extremity as well as lower extremity edema. HISTORY OF PRESENT ILLNESS: An 79-year-old male with history of ischemic cardiomyopathy, hypertension, hyperlipidemia, and gout, presenting with a 3-week history of worsening of lower as well as upper extremity edema. One week ago, he ran out of the Lasix and since then his edema is worsening. He was admitted in December 2018 for NSTEMI and undergone CABG. He had echo that showed EF of 35% with global hypokinesia, and he had cardiac cath which showed severe multivessel coronary disease including left main. He had a CABG in December 2018. He also developed postprocedure atrial fibrillation and converted with amiodarone. I ordered echo today, which showed left ventricle dilatation with EF of 25% along with right ventricular dilatation and moderate mitral regurgitation. Creatinine is increased. He also had significant elevated BNP of 10,593. His troponin was quite elevated at 0.05, 0.08, and 0.07 respectively, with a CK-MB of 7.1. REVIEW OF SYSTEMS: Again as mentioned, pertinents addressed in the history of present illness. A 13-point review of systems reviewed. The rest are negative unless addressed above in the history of present illness. ALLERGIES: HE IS ALLERGIC TO MORPHINE. PAST MEDICAL HISTORY: Again, he had coronary artery disease, status post CABG in December 2018. Atrial fibrillation at that time that was resolved, hypertension, hyperlipidemia, acute kidney injury with chronic kidney disease stage 3, aortic stenosis, and macrocytic anemia. MEDICATIONS: 1. Flomax 0.4 mg daily. 2. Entresto twice a day. 3. Potassium chloride 20 mEq daily. 4. DuoNeb. 5. Lasix 40 mg daily. 6. Proscar 5 mg twice a day. 7. Coreg 12.5 mg twice a day. 8. Lipitor 80 mg at bedtime. SOCIAL HISTORY: No alcohol or drug use. Occasionally smokes a cigar. FAMILY HISTORY: Negative for heart disease and cancer. PHYSICAL EXAMINATION: VITAL SIGNS: Temperature is 97.6, pulse 56, and blood pressure is 179/82, satting 98% on room air. Non toxic, very hard of hearing. EXTREMITIES: The patient has edema in lower extremities. GENERAL: He is obese. He is not in any respiratory distress. CARDIOVASCULAR: Regular rate and rhythm without murmurs, rubs, or gallops. LUNGS: moderate air entry with auscultation bilaterally without wheezing but has rales and rhonchi. ABDOMEN: Soft, nontender, nondistended. Good bowel sounds. NEUROLOGIC: No focal deficits. LABORATORY DATA: Significant for abnormal troponin. BNP 10,593. Sodium 135, creatinine 1.22. CBC: WBC 9.1, hemoglobin 12.8, and platelet is 84,000. CXR - pulmonary congestion EKG interpreted by me - normal sinus rhythm with a rate of 65 beats per minute. There is a QTc interval of 416, left axis deviation, no ST-T wave changes. IMPRESSION AND PLAN: An 79-year-old male presenting with history of coronary artery disease, status post CABG last year, presenting with; 1. Acute on chronic systolic congestive heart failure, exacerbation. 2. Anasarca with both upper and lower extremity edema. 3. Hypoxia secondary to volume overload that is improved, accelerated hypertension secondary to volume expansion. 4. Hypertension. 5. Hyperlipidemia. 6. NSTEMI. 7. Acute on chronic Kidney disease,3. The patient will be aggressively diuresed. I believe his abnormal troponin is probably secondary to volume overload. However, ischemic workup needs to be addressed as well. His EKG showed normal sinus rhythm with a rate of 65 beats per minute. There is a QTc interval of 416, left axis deviation, no ST-T wave changes. We will continue with his home regimen of cardiac medications including Coreg, Lipitor, as well as Entresto. We will request both textile coating machine operator as well as CHF specialist and implement mechanic for their recommendation. I have obtained the echo for today. He would benefit with Milrinone if he is not responding well with the current treatment. 8. Hypertension. Continue home regimen and hydralazine p.r.n., which may not be helpful in his case as he is volume overloaded. I will put him on clonidine p.r.n. His pulse is also in the 50s range, so no BB PRN. . Rest of the management based on clinical course. Job ID: [id number] [facility]OSPITALMurtaza
[2020-06-02 04:52] LABS: Anion Gap 15 mmol/L (10-20); BUN (Urea Nitrogen) 32 mg/dL (8.4-25.7); Calc. Creatinine Clearance 61 mL/min (70-130); Calcium 7.9 mg/dL (7.8-10.44); Carbon Dioxide 29 mmol/L (23-31); Cardiac Risk 2.1 (Less than 4.5); Chloride 96 mmol/L (98-107); Cholesterol 114 mg/dl (< 200 Desired); Estimated GFR-MDRD 53; Glucose 116 mg/dL (83-110); HDL Cholesterol 54 mg/dL (>60 Neg Risk); LDL Cholesterol, Calculated 44 mg/dL; Magnesium 1.9 mg/dL (1.6-2.6); Potassium 3.5 mmol/L (3.5-5.1); Sodium 136 mmol/L (136-145); Triglycerides 78 mg/dL (Less than 150)
[2020-06-02] MEDS ORDERED: Potassium Chloride 20 MEQ TAB PO SCH ×2 (05:00→08:00)
[2020-06-02] MEDS ORDERED: Magnesium 2 GM/50 ML 2 GM in Premix Bag 1 BAG IVPB SCH (05:00)
[2020-06-02] MEDS: Famotidine 20 MG TAB PO SCH ×2 (08:28→20:42)
[2020-06-02] MEDS: Heparin 5,000 UNITS/ML VIAL SC SCH ×2 (08:28→20:43)
[2020-06-02] MEDS: Carvedilol 6.25 MG TAB PO SCH ×2 (08:29→20:41)
[2020-06-02] MEDS: Spironolactone 25 MG TAB PO SCH (08:30)
[2020-06-02] MEDS: Finasteride 5 MG TAB PO SCH ×2 (08:30→20:42)
[2020-06-02] MEDS: Sacubitril 49 MG/Valsartan 51 MG TABLET PO SCH ×2 (08:37→20:41)
[2020-06-02] MEDS ORDERED: Furosemide 40 MG TAB PO SCH (09:00)
[2020-06-02] MEDS ORDERED: Aspirin Chewable 81 MG TAB PO SCH (09:15)
[2020-06-02] MEDS: Furosemide 40 MG/4 ML VIAL SLOW IVP SCH (09:47)
--- NOTE | 2020-06-02 10:24 | PRG ---
DATE OF SERVICE: 06/02/2020 SERVICE: Advanced Heart Failure Cardiology Consulting Service. SUBJECTIVE: Mr. Kristian Rao had a good day. Due to inability to urinate correctly and wetting himself, a Thomas catheter was placed with the help of urologist and afterwards urine collection was able to be measured correctly and he stayed dry. He responded well to IV Lasix. He had greater than 3 L output. However, he still feels very edematous. However, he still has difficulty sitting up due to severe edema. He believes that his edema is decreasing a bit since yesterday. REVIEW OF SYSTEMS: GENERAL: There is no fever, chills, or productive cough. HEENT: There is no change in vision, hearing, or swallowing, however, he has chronic hard of hearing. It is very difficult to talk to him. He has difficulty hearing, but this is chronic. PULMONARY: There is no change. He is not severely short of breath. CARDIAC: There is no complaint of palpitation, chest pain, or syncope. GI: There is no nausea, vomiting, or diarrhea. : He has now Thomas catheter. MUSCULOSKELETAL: There is no complaint of joint or back pain. INTEGUMENT: There are no complaints of new skin breakdown. NEUROLOGIC: There are no new focal deficits or weaknesses. CURRENT MEDICATIONS: His current active medications that have cardiac effect include: 1. Atorvastatin 80 mg at bedtime. 2. Carvedilol 6.25 mg twice a day. 3. Lasix 40 mg IV t.i.d. 4. Oral Lasix 40 mg daily. 5. Potassium chloride 20 mEq daily. 6. Sacubitril/valsartan now is 97/103 now this is ordered as 2 tablets twice a day. 7. Spironolactone 25 mg daily. His telemetry was reviewed. He is mostly in sinus rhythm with occasional PVCs. There are no concerning arrhythmia. OBJECTIVE: VITAL SIGNS: Heart rate 62, blood pressure 160/74. His documented in's and out's yesterday are 800 in and 3750 out. GENERAL: He is alert and conversational, however, he was stuck in bed. I had to lower the legs and pull him out of bed. He is stuck due to severe edema. HEENT: Show EOMI. Oropharynx is benign with moist mucosa. NECK: Veins are still elevated about approximately 14 cm. PULMONARY: He has good air movement in bilateral upper lung koch, however, there are crackles at the right base. CARDIAC: Regular rate and rhythm with occasional irregularity. There is 2/6 holosystolic murmur near the apex. ABDOMEN: Soft, nontender. Positive bowel sounds, however, he has pitting edema at his back around his hip. EXTREMITIES: Lower extremity has severe approximately 2 cm pitting edema from his feet and it decreased down to 1 cm pitting edema all the way up to his thighs and into hips. His pitting edema is painful to push. LABORATORY VALUES: White cell count 13.2, hemoglobin 13.2, and platelets only 78. His chemistries are sodium 136, potassium 3.5, chloride of 96, bicarb at 29, BUN of 32, creatinine of 1.3. ASSESSMENT: 79-year-old gentleman most likely resides in [place] [employer] stage C, [place] [employer] Class IIIB heart failure with reduced ejection fraction. Per the echocardiogram from yesterday, he has both right ventricular and left ventricular failure. His right ventricle is bigger than the left with decreased contractility. His left ventricle is dilated and only has ejection fraction of about 25% with severely slowed e'.. So, this is a combined systolic and diastolic dysfunction heart failure also. Right now, he is still very much volume overloaded. At current urine output, his BUN and creatinine are within acceptable range. So, we will continue with this regimen. He is still a bit hypertensive. However, his Entresto was thus increased the last night. We will give a full day to see its effects. For his low EF and relative bradycardia at times, he can benefit from an pacer-AICD. Extensive conversation took place yesterday about AICD and long-term care. He is amenable to receiving an AICD. He understands that he may not be able to take care of himself, so consequently he will look into moving to [place] to live with his family, which is his niece after hospital discharge. Please see the following for more recommendations. RECOMMENDATIONS: 1. Stop oral Lasix now. 2. We will organize furosemide to 60 mg IV t.i.d. 3. Increase frequency of K-Dur to 20 mEq twice a day. 4. Please restart aspirin 81 mg daily. 5. EP consult for dual chamber pacemaker/AICD today. 6. We will inform Dr. Mota about his patient being in the hospital and after he is under volume control, one may need to consider catheterization to see if there are changes in his bypass graft. It has been a pleasure taking care of Mr. Rao. If you have any questions, please give me a call. The total visitation time is 35 minutes. This includes personally performing history and physical, reviewing data, coordinating care with the other consulting cardiac range mounter and the primary team, and direct patient interaction. Job ID: [id number] MTDD
--- NOTE | 2020-06-02 10:28 | CON ---
DATE OF CONSULTATION: 06/01/2020 SERVICE: Advanced Heart Failure Cardiology Consult Service. REASON FOR CONSULTATION: Management of acute on chronic heart failure. HISTORY OF PRESENT ILLNESS: Mr. Rao, 79-year-old gentleman with known history of coronary artery disease with 5-vessel bypass and ischemic cardiomyopathy, was admitted for acute on chronic heart failure. He presented with severe shortness of breath and pulmonary edema and found to have a left main blockage in 2019. He underwent the 5-vessel bypass. He said after bypass he improved significantly. As latest as 3 months ago, he said he was able to walk about half a block. Things began to turn worse about 3-1/2 weeks ago. He noticed that he has increased swelling from his feet to lower leg to the upper leg and eventually to near his waist and then he also has swelling in his arm to the point where the water was weeping. About a little less than a week ago, he ran out of furosemide. He noted that not taking his furosemide really accelerated this edema process. Eventually, the edema became quite intolerable. His exertional tolerance greatly decreased. Now, he can barely walk from his front door to his vehicle. Combination of greatly loss of exertional tolerance and extreme swelling to the point where he is weeping of fluid out his legs and the arms, that he decided to come in for help. PAST MEDICAL HISTORY: Significant for; 1. Coronary artery disease with CABG in 2019. This involved DENNIS to LAD, SVG to PDA, SVG to obtuse marginal, SVG to ramus intermedius, and also SVG to diagonal. 2. History of congestive heart failure with EF around 40%, but was stable at one time, but not today. 3. History of hypertension. 4. Hyperlipidemia. 5. Prostatic hypertrophy. SOCIAL HISTORY: He smoked cigars in the distant past, but there is no smoking history currently or recently. He has occasional use of alcohol, only once in the last 6 months. He denies any illicit drugs. Social situation, he lives by himself in a mobile home park in [place], [place]. His nearest relative is a niece, who lives in [place]. Thus, his social support is quite poor. FAMILY HISTORY: It is reported that his mother has hypertension and stroke. The father had hypertension, but being age 80, these are noncontributory at this point. MEDICATIONS: His current medications in the hospital consisted of; 1. Carvedilol 6.25 mg twice a day. 2. Furosemide 40 mg IV t.i.d. 3. Entresto 49/51 mg combination b.i.d. REVIEW OF SYSTEMS: GENERAL: He is fatigued and edematous. Please see HPI. HEENT: There is no change in vision, hearing, or swallowing. However, he has difficulty hearing, this has been chronic. PULMONARY: He does have shortness of breath. CARDIAC: Please see HPI. However, he denies palpitations or chest pain. GI: There is no nausea, vomiting, or diarrhea. : He said he had difficulty urinating for last several weeks. He has been wetting himself. MUSCULOSKELETAL: There are no complaints of joint pains. INTEGUMENT: There is no complaint of new skin breakdown. NEUROLOGIC: There are no complaints of new focal deficits or weaknesses. Telemetry was reviewed. He has predominantly sinus rhythm. There are occasional PVCs and PACs. There are no concerning arrhythmias. He did have lowest heart rate in the low 50s at first. PHYSICAL EXAMINATION: VITAL SIGNS: His latest vitals are heart rate 54, blood pressure 179/82. GENERAL: He is alert and conversational, but hard of hearing, he will respond correctly. HEENT: Showed EOMI. He has no temporalis wasting, so this failure is most likely fairly recent, not chronic. NECK: He has very elevated JVP, it is roughly 14 cm or higher. It is slightly above the earlobe. LUNGS: There is good air movement bilaterally, but diminished breath sounds at the bases. There are slight bibasilar crackles. Also, he has slight pulmonary edema and also pleural effusion. HEART: Normal rate and rhythm, normal S1 and S2. There is 2/6 holosystolic murmur right at the apex. This can be difficult to hear, but in the right spot, it is a 2/6 holosystolic murmur. ABDOMEN: Soft, nontender. Positive bowel sounds, but there is pitting edema at his hips. EXTREMITIES: There is severe amount of pitting edema from the feet all the way up to his hip. At some parts, there is greater than 2 cm pitting edema. There is also clear fluid weeping from his legs, thus he is in the state of anasarca. DIAGNOSTIC STUDIES: ECG was completed and reviewed. It shows sinus rhythm, left axis, rate of 60. The QRS width about 110. There is poor R-wave progression and nonspecific flattening in the ST-T segments. It is abnormal ECG. However, his QRS is not wide enough for COOK COLD MEAT-D. His echocardiogram from today was also reviewed. - His LVIDd is 6.35 cm, thus his LV is moderately dilated. - His LVEF is 25%. - He has moderate mitral regurgitation. - He has very slow E-prime of 0.4 m/sec, otherwise he has some significant amount of diastolic dysfunction. - He has severely dilated right ventricle. The right ventricle is bigger than the left ventricle. - His right ventricle also has decreased contractile function, thus he has a right ventricular dysfunction, perhaps right ventricular failure. The tricuspid regurgitation pressure gradient estimated at 36, however, this could be underestimated. ASSESSMENT: An 79-year-old gentleman has acute on chronic heart failure with reduced ejection fraction. He has both combined systolic and diastolic dysfunctions. He is currently severely volume overloaded. He is also hypertensive for his stay. So these will need to be corrected. He can benefit from combination of pacer- AICD. The AICD would help to prevent sudden cardiac with a pacemaker in place, then the carvedilol can be titrated up. Please see the following for more recommendations. METHODS AND PROCEDURES ANALYST COUNSELING Patient lives alone in a mobile home park. His nearest family member is a niece who lives [facility]. He now recognize that he will likely not able to live alone. Thus, he is considering moving in with his family after discharge. RECOMMENDATION 1. Agree with restarting carvedilol 6.25 mg b.i.d. 2. Agree with furosemide 40 mg IV t.i.d. for now. We will follow this, we might need to change later on. 3. I will monitor his BUN and creatinine, also urine output. If the BUN and creatinine suffers, then we will need to start milrinone to preserve his kidneys. We will hold off that for now. 4. Please start spironolactone 25 mg daily now. 5. With the blood pressure still high, let us increase his Entresto to the full dose of 97/103 twice a day. 6. Recommend that we consult scientific software developer, who will be willing to come see him on a weekend, so that way he can be started early in the process. I believe he will need combined pacemaker-AICD. In other words, he will need a dual-chamber AICD and atrial lead will allow titrate up the heart failure medication of carvedilol. 7. Porcelain Enamel Installer the patient to consider to move in with the relative once the hospital discharge takes place. 8. There is some chance of this can be stenosis in of one of the vessels. After the diuresis clears up, I will ask his normal physician representative, Dr. Suraj Mota of considering catheterization again. It has been a pleasure taking care of Mr. Rao. If you have any questions, please give me a call. This is an extensive initial consult. Total time is about 70 minutes. This includes personally performing H and P, reading ECG, reading echocardiogram, coordinating with Dr. Chou and urologist for placing the Thomas catheter, and greater than 50% of time was spent in direct patient interaction, including explanation, counseling, and forming a workable plan with the patient. Job ID: [id number] [facility] HOSPITALMurtaza
--- NOTE | 2020-06-02 12:26 | PDOC.HOSPP ---
- Subjective Encounter Date: 06/02/20 Encounter Time: 10:20 Subjective: Patient is resting. He does have a hard of hearing. His white count went up may be related to Thomas placement yesterday. He is afebrile.. His blood pressure has improvement. Discussed with Dr. Henriquez. - Objective Vital Signs & Weight: Vital Signs (12 hours) Temp Pulse Resp BP BP BP Pulse Ox 06/02/20 11:38 97.6 F 58 L 13 134/64 99 06/02/20 08:29 151/72 H 06/02/20 08:23 98.4 F 64 13 140/60 96 06/02/20 03:16 97.8 F 62 15 166/74 H 96 Weight Admit Weight 208 lb 12.432 oz Weight 205 lb 7.533 oz I&O: 06/01/20 06/02/20 06/03/20 06:59 06:59 06:59 Intake Total 800 Output Total 3750 Balance -2950 Result Diagrams: 06/02/20 04:02 06/02/20 04:02 Hospitalist ROS - Medication Medications: Active Medications Generic Name Dose Route Start Last Admin Trade Name Freq PRN Reason Stop Dose Admin Atorvastatin Calcium 80 mg 06/01/20 21:00 06/01/20 21:20 Atorvastatin Calcium 40 Mg Tab PO 80 mg HS NATASHA Administration Carvedilol 6.25 mg 06/01/20 21:00 06/02/20 08:29 Carvedilol 6.25 Mg Tab PO 6.25 mg BID NATASHA Administration Famotidine 20 mg 06/01/20 09:00 06/02/20 08:28 Famotidine 20 Mg Tab PO 20 mg BID NATASHA Administration Finasteride 5 mg 06/01/20 21:00 06/02/20 08:30 Finasteride 5 Mg Tab PO 5 mg BID NATASHA Administration Heparin Sodium (Porcine) 5,000 units 06/01/20 09:00 06/02/20 08:28 Heparin 5,000 Units/Ml Vial SC Not Given BID NATASHA Sacubitril/Valsartan 2 tab 06/01/20 21:00 06/02/20 08:37 Sacubitril 49 Mg/Valsartan 51 Mg Tablet PO 2 tab BID NATASHA Administration Sodium Chloride 10 ml 06/01/20 02:30 06/02/20 08:40 Flush - Normal Saline 10 Ml Syringe IVF 10 ml PRN PRN Administration Saline Flush Spironolactone 25 mg 06/02/20 08:00 06/02/20 08:30 Spironolactone 25 Mg Tab PO 25 mg QAM-WM NATASHA Administration Tamsulosin HCl 0.4 mg 06/01/20 21:00 06/01/20 21:20 Tamsulosin Hcl 0.4 Mg Cap PO 0.4 mg HS NATASHA Administration - Exam General Appearance: NAD, awake alert General - other findings: Hard of hearing Eye: PERRL ENT: normocephalic atraumatic Neck: supple Heart: RRR Respiratory: CTAB, normal chest expansion Gastrointestinal: soft, normal bowel sounds Extremities: 1+ LE edema Neurological: no new deficit Psychiatric: A&O x 3 Hosp A/P - Plan Acute on chronic systolic CHF exacerbation. Upper extremity edema Hypoxia secondary to volume overload Pulmonary edema Coronary artery disease status post CABG in December 2018 Ischemic cardiomyopathy with current EF of 25% History of atrial fibrillation, transient Hypertension Hyperlipidemia Aortic stenosis Type II metabolic mismatch NSTEMI -As above he is on Entresto full dose. -In addition to Coreg 2.25 twice a day. He is also started on Spironolactone 25 daily. --Plan is to get Dr. Chou's sewer pipe sorter to be involved for possible evaluation for AICD placement. -Dr. Platt is his extractor puller -Aggressive diuresis as his BNP is over 10,000 - cardiology and Dr. Henriquez on board -Nephrology consult placed given the patient needs ongoing aggressive diuresis and possible cath during this admission which also will put him at risk for contrast-induced nephropathy. -If BUN and creatinine does not go up further will allow the cardiac medications to be uptitrated. -Repeat the echo as his last echo is in December 2018 -Strict in and output and weight daily -restricted diet with the sodium less than 2 g. Leukocytosis- Due to ongoing aggressive diuresis Thomas placed. But it it was a difficult placement. Likely contributing to the acute stress causing demargination of white count. Clinically he does not appear infectious will monitor closely if continued high white count probably need to start him on empiric antibiotic. He is currently afebrile.
[2020-06-02] MEDS: Furosemide 100 MG/10 ML VIAL SLOW IVP SCH ×2 (16:02→21:35)
--- NOTE | 2020-06-02 19:01 | CON ---
DATE OF CONSULTATION: 06/02/2020 PRIMARY PRESS OPERATOR INSTANT PRINT SHOP: Suraj Mota MD REFERRING PRESS OPERATOR INSTANT PRINT SHOP: Gurjit Henriquez MD REASON FOR CONSULTATION: Congestive heart failure. Evaluate for ICD. HISTORY OF PRESENT ILLNESS: Mr. Rao is a pleasant 79-year-old white male with a history of chronic systolic heart failure dating back to 2011. He has a history of CABG in 2019, hypertension, dyslipidemia, and prostatic hypertrophy requiring Thomas catheter insertion this admission. He was out of his Lasix for about a week. He developed mild daily exertional dyspnea, improved with rest. He developed anasarca with significant edema of his lower and upper extremities. He was admitted, noted to have a BNP of 10,000. He has been diuresed with intravenous Lasix. Currently, he has mild orthopnea. He is able to speak in complete sentences. His edema is improved. Echocardiogram on June 01, 2020, normal left atrial size, ejection fraction 20% to 25%, severe mitral regurgitation, mild aortic stenosis, mild aortic regurgitation, [id number] tricuspid regurgitation, and left pleural effusion. PAST MEDICAL HISTORY: 1. Coronary artery disease with 5-vessel CABG in 2019. 2. Hypertension. 3. Benign prostatic hypertrophy requiring Thomas catheter insertion this admission. 4. Dyslipidemia. 5. Gout. PAST SURGICAL HISTORY: 1. CABG in 2019. 2. Abdominal surgery after trauma at age 7. ALLERGIES: MORPHINE. OUTPATIENT MEDICATIONS: 1. Aspirin 325 mg daily. 2. Atorvastatin 80 mg at bedtime. 3. Carvedilol 12.5 mg b.i.d. 4. Proscar 5 mg b.i.d. 5. Furosemide 40 mg daily. 6. DuoNebs p.r.n. 7. Potassium chloride 20 mEq daily. 8. Entresto 97/103 one half tablet b.i.d. 9. Flomax 0.4 mg at bedtime. SOCIAL HISTORY: He is single. No children. He lives here in [place]. He has nieces and nephews who live in [place]. No alcohol. Occasionally smokes a cigar. FAMILY HISTORY: Unremarkable. REVIEW OF SYSTEMS: Negative for seizures, stroke, syncope, melena, bright red blood per rectum, hematemesis, chest discomfort. All others negative. PHYSICAL EXAMINATION: VITAL SIGNS: Afebrile. Blood pressure 151/72, pulse 64, respiratory rate 12, 99% oxygen saturation on room air. In's and out's, he has had 3 L urine output today. GENERAL: Alert and oriented x4. No apparent distress. SKIN: No lesions. HEENT: Sclerae clear. NECK: No jugular venous distention. EXTREMITIES: 2+ edema bilaterally. IMAGING: EKG; normal sinus rhythm, left axis deviation, incomplete right bundle branch block. Nonspecific T-wave abnormality. RI interval 174 milliseconds, QRS duration 108 milliseconds. LABORATORY: WBC 11.8, hemoglobin 12.9, platelet 92,000. Sodium 135, potassium 3.5, BUN 30, creatinine 1.2. BNP 10,593. Troponin 0.086, which is indeterminate. IMPRESSION AND PLAN: 1. Acute exacerbation of chronic systolic heart failure. 2. Ischemic cardiomyopathy. 3. Benign prostatic hypertrophy, requiring Thomas catheter insertion. 4. Hypertension. 5. Indeterminate troponin. No evidence of myocardial infarction this admission. 6. He is greater than 90 days after revascularization. He has not had myocardial infarction in the past 40 days. He has [place] Heart Association class III symptoms of heart failure. RECOMMEND: We have discussed the risks, benefits, and alternatives of ICD implantation, which would be a dual-chamber ICD. He is leaning towards pursuing this. We will discuss again later this admission. I will discuss timing of ICD implantation with Dr. Mota. He will need to be tuned up from a heart failure standpoint prior to the procedure. Job ID: [id number]
[2020-06-02] MEDS ORDERED: Metolazone 5 MG TAB PO SCH (19:15)
--- NOTE | 2020-06-02 19:36 | CON ---
DATE OF CONSULTATION: CONSULTING PHYSICIAN: Rupesh Rosas MD. REQUESTING PHYSICIAN: Brock Avendano MD REASON FOR CONSULTATION: Hypervolemia in the patient with cardiac decompensation in need of diuresis. IMPRESSION: 1. Chronic kidney disease stage 3. This is likely in the context of cardiorenal and advanced age. 2. Hypervolemia in the context of congestive heart failure exacerbation. PLAN: 1. In support of parenteral diuresis at this point as congestive gastroenteropathy with oral diuretics. 2. We will try to augment the current IV diuretic regimen with zaroxolyn and monitor the input and output. 3. Follow the renal function closely. 4. Further management to be dependent on the clinical course. HISTORY: An 79-year-old gentleman with ischemic cardiomyopathy, status post 5-vessel coronary artery bypass surgery, who presented here with worsening fluid accumulation and exercise intolerance. The need for diuresis and monitoring of the renal function necessitated the consultation by the Medicine Team. PAST MEDICAL HISTORY: Significant for ischemic cardiomyopathy, status post 5-vessel bypass surgery, congestive heart failure, dyslipidemia, chronic kidney disease, stage III restenosis, and microcytic anemia. MEDICATION: Reviewed as documented on Flyr. SOCIAL HISTORY: No alcohol. No tobacco. The patient smokes a cigar. FAMILY HISTORY: No heart disease. No kidney disease. REVIEW OF SYSTEMS: Highly limited given the fact that this patient seems to be a little bit confused and very hard of hearing. PHYSICAL EXAMINATION: GENERAL: The patient was found to be very hard of hearing noted with the following vital signs. VITAL SIGNS: Afebrile, temperature 98.1, pulse 60, respiratory rate of 15, and O2 saturations are 99% with blood pressure /72. HEENT: Unremarkable. Moist oral mucosa. Neck was supple. No conjunctival injection. No icterus. CARDIOVASCULAR SYSTEM: First and second heart sounds were heard. RESPIRATORY SYSTEM: Clear to auscultation. DIGESTIVE SYSTEM: Revealed a benign abdomen with positive bowel sounds. EXTREMITIES: No peripheral edema. SKIN: No new gross rash. LYMPHATICS: No peripheral lymphadenopathy. SUMMARY: An 79-year-old gentleman with chronic kidney disease stage 3, who presented here with congestive heart failure exacerbation in need of diuresis. Thank you for this consultation. We will follow with you. Job ID: [id number]
[2020-06-02] MEDS: Atorvastatin Calcium 40 MG TAB PO SCH (20:41)
[2020-06-02] MEDS: Tamsulosin HCl 0.4 MG CAP PO SCH (20:42)
[2020-06-02] MEDS: Potassium Chloride 20 MEQ TAB PO SCH (20:42)
[2020-06-03 04:35] LABS: #Lymphocytes 0.5 thou/uL (1.20-3.40); #Monocytes 0.9 thou/uL (0.11-0.59); #Neutrophils 10.7 thou/uL (1.40-6.50); %Eosinophils 0.3 % (0.0-10.0); %Monocytes 7.4 % (0.0-10.0); %Neutrophils 88.3 % (42.0-75.0); Hemoglobin 12.5 g/dL (14.0-18.0); Mean Corpuscular Hemoglobin 32.1 pg (27.0-31.0); Platelet Count 82 thou/uL (130-400); RBC Distribution Width 14.9 % (11.5-14.5); Red Blood Cell (RBC) Count 3.89 mill/uL (4.70-6.10); White Blood Cell (WBC) Count 12.2 thou/uL (4.8-10.8)
[2020-06-03 04:53] LABS: Anion Gap 13 mmol/L (10-20); BUN (Urea Nitrogen) 33 mg/dL (8.4-25.7); Calc. Creatinine Clearance 57 mL/min (70-130); Calcium 7.7 mg/dL (7.8-10.44); Carbon Dioxide 30 mmol/L (23-31); Chloride 95 mmol/L (98-107); Estimated GFR-MDRD 52; Glucose 112 mg/dL (83-110); Sodium 135 mmol/L (136-145)
[2020-06-03] MEDS ORDERED: Magnesium 2 GM/50 ML 2 GM in Premix Bag 1 BAG IVPB SCH (06:30)
[2020-06-03] MEDS ORDERED: Potassium Chloride 20 MEQ TAB PO SCH ×4 (06:30→21:00)
[2020-06-03] MEDS: Sacubitril 49 MG/Valsartan 51 MG TABLET PO SCH ×2 (07:48→21:11)
[2020-06-03] MEDS: Carvedilol 6.25 MG TAB PO SCH ×2 (07:49→21:13)
[2020-06-03] MEDS: Famotidine 20 MG TAB PO SCH ×2 (07:49→21:11)
[2020-06-03] MEDS: Spironolactone 25 MG TAB PO SCH (07:50)
[2020-06-03] MEDS: Aspirin Chewable 81 MG TAB PO SCH (07:50)
[2020-06-03] MEDS: Potassium Chloride 20 MEQ TAB PO SCH (07:51)
[2020-06-03] MEDS: Finasteride 5 MG TAB PO SCH ×2 (07:51→21:13)
[2020-06-03] MEDS: Furosemide 100 MG/10 ML VIAL SLOW IVP SCH (07:51)
[2020-06-03] MEDS: Heparin 5,000 UNITS/ML VIAL SC SCH ×3 (07:59→21:13)
[2020-06-03] MEDS ORDERED: Metolazone 5 MG TAB PO SCH (08:30)
--- NOTE | 2020-06-03 08:58 | PRG ---
DATE OF SERVICE: 06/03/2020 SUBJECTIVE: Mr. Rao had a good day. He was able to walk with physical therapy. He was able to ambulate down to the nurses station and back. This is a significant improvement. He believes that he is breathing easier. He also believes that he is losing fluid from his abdomen and his legs. Generally, he is feeling platform loader and better. He is still contemplating about the pacer AICD. He is wondering about why his heart has gotten worse. REVIEW OF SYSTEMS: GENERAL: There is no fever, chills, or productive cough. HEENT: There is no change in vision, hearing, or swallowing. However, he has a difficult time hearing. His hard of hearing has been chronic. There is no change in vision or swallowing. PULMONARY: Please see HPI. CARDIAC: There are no chest pains or palpitations or syncope. GASTROINTESTINAL: There is no nausea, vomiting, or diarrhea. GENITOURINARY: He has a Thomas catheter. MUSCULOSKELETAL: There is no complaint. INTEGUMENT: There is no new skin breakdown. NEUROLOGIC: There are no focal deficits or weaknesses. MEDICATIONS: Cardiac medications in the patient are: 1. Aspirin 81 mg daily. 2. Atorvastatin 80 mg q.h.s. 3. Carvedilol currently at 6.25 mg twice per day. 4. Furosemide 60 mg IV 3 times a day. 5. There is newly scheduled metolazone 5 mg at 8:30. 6. K-Dur at 20 mEq b.i.d. 7. Entresto 49/51 combination at 2 tablets twice a day, so this is equivalent to 98/102. 8. Spironolactone at 25 mg daily. Telemetry was reviewed. He is generally in sinus rhythm. There is occasional PVC. Other than that, he does not has any significant arrhythmia. His heart rate tends to be on the lower side in the low to mid 50s. However, he has a wide QRS complex. This could be new or developed since admission, but he does appear to be in sinus rhythm per telemetry. PHYSICAL EXAMINATION: VITAL SIGNS: Heart rate 55, blood pressure 146/65. This is an improvement. GENERAL: He is alert and conversational, resting comfortably in bed, but he is very difficult in hearing, so conversation takes a very long time. HEENT: Shows EOMI. His oropharynx is benign with moist mucosa. NECK: JVP is about 13 cm with positive hepatojugular reflux. This is improvement from yesterday. PULMONARY: He has good air movement in upper lung koch. He has decreased breath sounds in lower lung koch. CARDIAC: Regular rate and rhythm. Normal S1 and S2. There is 2/6 holosystolic murmur at the apex with radiation to the left axilla. ABDOMEN: He has pitting edema about the abdomen. BACK: He has pitting edema in his back. EXTREMITIES: Lower extremity, he still has about 2 cm pitting edema from the feet up to the knees. He also has pitting edema about his thighs. LABORATORY DATA: His input and output consisted of 990 mL in, 7135 out. This is a lot of net negative out. His diuresis needs to be slowed down. CBC shows white cell count of 12.2, hemoglobin 11.5, platelets of 82. His chemistry showed sodium 135, potassium 3.0, chloride 95, bicarb is 30, BUN 33, creatinine 1.32. ASSESSMENT: 79-year-old gentleman resides in [place] Heart Association stage C and [place] heart Association class IIIB heart failure with reduced ejection fraction. He has combined systolic and diastolic dysfunction. It is likely to be ischemic cardiomyopathy. He has significantly improved from volume status. He has negative over 6 L. He is now also hypokalemic. Thus, his diuresis needs to be slowed down today, and electrolytes need to be supplemented. It is apparent that his QRS has widened. I have informed the EP software performance engineer, Dr. Chou. If this is confirmed on the ECG, perhaps a REFRIGERATOR ASSEMBLER-D would be a better option for him. We will continue to monitor the BUN and creatinine. If the BUN gets close to 40 or creatinine gets above 1.35, then we will need to start Milrinone to augment the heart to insure sustained diuresis. He has many more pounds of fluid loss. Please see the following for my recommendation. RECOMMENDATIONS: 1. Decrease frequency of Lasix to 60 mg IV b.i.d. 2. Stop metolazone for now. He has produced enough urine output, in fact too much, so an augmentation with metolazone is not needed. 3. Change K-Dur to 40 mEq p.o. t.i.d. for today and decrease to 40 mg b.i.d. tomorrow. 4. Please do ECG now to document QRS duration. 5. Please do urinalysis and urine culture because he may be developing a new UTI. It has been a pleasure taking care of Mr. Rao. If you have any questions, please give me a call. The total visitation time for this is 40 minutes today. This includes personally performing H and P, reviewing multiple data as well as coordinating care with multiple physicians, and greater than 50% of time was spent on direct patient interaction. Job ID: [id number] [facility]
--- NOTE | 2020-06-03 11:57 | PDOC.CPN ---
- Subjective Date: 06/03/20 Time: 11:48 Interval history: Denies chest pain, tightness, pressure SOB. Still significant edema. - Review of Systems General: denies: fever/chills, weight/appetite/sleep changes, night sweats, fatigue Respiratory: denies: cough, congestion, shortness of breath, exercise intolerance Cardiovascular: reports: edema. denies: chest pain, palpitation, paroxysmal nocturnal dyspnea, orthopnea Gastrointestinal: denies: nausea, vomiting, diarrhea, constipation, abd pain, GI bleeding Musculoskeletal: denies: pain, tenderness, stiffness, swelling, arthritis/arthralgias Neurological: denies: numbness, syncope, seizure, weakness - Objective Allergies/Adverse Reactions: Allergies Allergy/AdvReac Type Severity Reaction Status Date / Time morphine Allergy Verified 06/01/20 01:21 Visit Medications: Current Medications Acetaminophen (Acetaminophen 325 Mg Tab) 650 mg PO Q4H PRN PRN Reason: Headache/Fever/Mild Pain (1-3) Albuterol/Ipratropium (Ipratropium/Albuterol Sulfate 3 Ml Neb) 3 ml NEB Q6H PRN PRN Reason: Respiratory Distress Aspirin (Aspirin Chewable 81 Mg Tab) 81 mg PO DAILY [facility] Last Admin: 06/03/20 07:50 Dose: 81 mg Documented by: Atorvastatin Calcium (Atorvastatin Calcium 40 Mg Tab) 80 mg PO HS [facility] Last Admin: 06/02/20 20:41 Dose: 80 mg Documented by: Carvedilol (Carvedilol 6.25 Mg Tab) 6.25 mg PO BID [facility] Last Admin: 06/03/20 07:49 Dose: 6.25 mg Documented by: Clonidine (Clonidine 0.1 Mg Tab) 0.1 mg PO BID PRN PRN Reason: SBP > 160 use second Famotidine (Famotidine 20 Mg Tab) 20 mg PO BID [facility] Last Admin: 06/03/20 07:49 Dose: 20 mg Documented by: Finasteride (Finasteride 5 Mg Tab) 5 mg PO BID [facility] Last Admin: 06/03/20 07:51 Dose: 5 mg Documented by: Furosemide (Furosemide 100 Mg/10 Ml Vial) 60 mg SLOW IVP 0600,1400 [facility] Guaifenesin/Dextromethorphan (Guaifenesin Dm 100-10/5 Ml Udcup) 15 ml PO Q4H PRN PRN Reason: Cough Heparin Sodium (Porcine) (Heparin 5,000 Units/Ml Vial) 5,000 units SC BID [facility] Last Admin: 06/03/20 08:13 Dose: 5,000 units Documented by: Promethazine HCl 12.5 mg/ (Sodium Chloride) 50.5 mls @ 202 mls/hr IVPB Q6H PRN PRN Reason: Nausea/vomiting use second Miscellaneous Medication (Electrolyte Replacement Protoc 1 Each Each) 1 each FS ASDIR [facility] Ondansetron HCl (Ondansetron Pf 4 Mg/2 Ml Vial) 4 mg IVP Q6H PRN PRN Reason: Nausea/Vomiting use 1st Potassium Chloride (Potassium Chloride 20 Meq Tab) 20 meq PO BID [facility] Potassium Chloride (Potassium Chloride 20 Meq Tab) 20 meq PO TID [facility] Stop: 06/03/20 22:00 Last Admin: 06/03/20 08:18 Dose: Not Given Documented by: Sacubitril/Valsartan (Sacubitril 49 Mg/Valsartan 51 Mg Tablet) 2 tab PO BID [facility] Last Admin: 06/03/20 07:48 Dose: 2 tab Documented by: Sodium Chloride (Flush - Normal Saline 10 Ml Syringe) 10 ml IVF PRN PRN PRN Reason: Saline Flush Last Admin: 06/02/20 08:40 Dose: 10 ml Documented by: Spironolactone (Spironolactone 25 Mg Tab) 25 mg PO [facility] Last Admin: 06/03/20 07:50 Dose: 25 mg Documented by: Tamsulosin HCl (Tamsulosin Hcl 0.4 Mg Cap) 0.4 mg PO [facility] Last Admin: 06/02/20 20:42 Dose: 0.4 mg Documented by: Vital Signs & Weight: Vital Signs Temp Pulse Resp BP Pulse Ox 06/03/20 11:01 97.7 F 59 L 19 127/60 95 06/03/20 07:42 97.6 F 56 L 20 166/73 H 98 06/03/20 04:34 97.6 F 55 L 17 146/65 H 96 06/03/20 00:56 97.8 F Admit Weight 208 lb 12.432 oz Weight 198 lb 3.129 oz - Physical Exam General: alert & oriented x3 HEENT: mucus membranes moist, other (Hypoaccusia) Neck: supple neck Cardiac: regular rate and rhythm Lungs: normal breath sounds Neuro: grossly intact Abdomen: active bowel sounds Extremities: other: (3+ edema) Skin: clear Musculoskeletal: no pain - Labs Result Diagrams: 06/03/20 04:07 06/03/20 04:07 Troponin/CKMB CK-MB (CK-2) 7.1 ng/mL (0-6.6) H* 05/31/20 21:37 Troponin I 0.076 ng/mL (< 0.028) H 06/01/20 04:05 - Telemetry Sinus rhythms and dysrhythmias: sinus rhythm - Assessment/Plan Assessment/Plan: 1. Acute on chronic systolic heart failure 2. Ischemic CM 3. Reduced EF at 20-25% 4. S/P CABG 2018 5. Mild aortic stenosis PLAN: - Continue IV diuresis, still significant amount of edema. - Creatinine slowly creeping up. Continue to monitor, agree with Dr. Henriquez, may need innotropic support if creatinine continues to increase. - BP control. . - On BB/Entresto/Aldactone/ASA/Statin - Will need LHC in the next few days once more euvolemic and renal function stable.
--- NOTE | 2020-06-03 12:22 | PDOC.HOSPP ---
- Subjective Encounter Date: 06/03/20 Encounter Time: 10:40 Subjective: Patient is so hard of hearing. However he is amenable and cooperative. He says he feels okay he had his breakfast this morning. His lower extremity on the right side we have a dry gauze trying to help with the. Weeping leg. On the left leg he has a chronic venous stasis dermatitis. 2+ edema. We got about 6000 145 mL of urine output this morning. Inadvertently he is both on Lasix 60 mg 3 times daily as well as metolazone. Metolazone stopped. - Objective Vital Signs & Weight: Vital Signs (12 hours) Temp Pulse Resp BP Pulse Ox 06/03/20 11:01 97.7 F 59 L 19 127/60 95 06/03/20 07:42 97.6 F 56 L 20 166/73 H 98 06/03/20 04:34 97.6 F 55 L 17 146/65 H 96 06/03/20 00:56 97.8 F Weight Admit Weight 208 lb 12.432 oz Weight 198 lb 3.129 oz I&O: 06/02/20 06/03/20 06/04/20 06:59 06:59 06:59 Intake Total 800 990 Output Total 1950 4103 Balance -5230 -6675 Result Diagrams: 06/03/20 04:07 06/03/20 04:07 Hospitalist ROS - Medication Medications: Active Medications Generic Name Dose Route Start Last Admin Trade Name Freq PRN Reason Stop Dose Admin Aspirin 81 mg 06/03/20 09:00 06/03/20 07:50 Aspirin Chewable 81 Mg Tab PO 81 mg DAILY [facility] Administration Atorvastatin Calcium 80 mg 06/01/20 21:00 06/02/20 20:41 Atorvastatin Calcium 40 Mg Tab PO 80 mg HS [facility] Administration Carvedilol 6.25 mg 06/01/20 21:00 06/03/20 07:49 Carvedilol 6.25 Mg Tab PO 6.25 mg BID [facility] Administration Famotidine 20 mg 06/01/20 09:00 06/03/20 07:49 Famotidine 20 Mg Tab PO 20 mg BID [facility] Administration Finasteride 5 mg 06/01/20 21:00 06/03/20 07:51 Finasteride 5 Mg Tab PO 5 mg BID [facility] Administration Heparin Sodium (Porcine) 5,000 units 06/01/20:00 06/03/20 08:13 Heparin 5,000 Units/Ml Vial SC 5,000 units BID [facility] Administration Potassium Chloride 20 meq 06/03/20 09:00 06/03/20 08:18 Potassium Chloride 20 Meq Tab PO 06/03/20 22:00 Not Given TID [facility] Sacubitril/Valsartan 2 tab 06/01/20 21:00 06/03/20 07:48 Sacubitril 49 Mg/Valsartan 51 Mg Tablet PO 2 tab BID [facility] Administration Sodium Chloride 10 ml 06/01/20 02:30 06/02/20 08:40 Flush - Normal Saline 10 Ml Syringe IVF 10 ml PRN PRN Administration Saline Flush Spironolactone 25 mg 06/02/20 08:00 06/03/20 07:50 Spironolactone 25 Mg Tab PO 25 mg QAM-WM [facility] Administration Tamsulosin HCl 0.4 mg 06/01/20 21:00 06/02/20 20:42 Tamsulosin Hcl 0.4 Mg Cap PO 0.4 mg HS [facility] Administration - Exam General Appearance: NAD, awake alert Eye: PERRL ENT: normocephalic atraumatic Neck: supple Heart: RRR Respiratory: CTAB, normal chest expansion Gastrointestinal: soft, normal bowel sounds Extremities: 2+ LE edema Extremities - other findings: His lower extremity on the right side we have a dry guauze to help with Skin - other findings: Stasis dermatitis Psychiatric: A&O x 3 Hosp A/P - Plan Acute on chronic systolic CHF exacerbation. Upper extremity edema Hypoxia secondary to volume overload Pulmonary edema Coronary artery disease status post CABG in December 2018 Ischemic cardiomyopathy with current EF of 25% History of atrial fibrillation, transient Hypertension Hyperlipidemia Aortic stenosis Type II metabolic mismatch NSTEMI -As above he is on Entresto full dose. -In addition to Coreg 2.25 twice a day. He is also started on Spironolactone 25 daily. --Plan is to get Dr. Chou's icu tech to be involved for possible evaluation for AICD placement. -Dr. Platt is his client application support specialist -Aggressive diuresis as his BNP is over 10,000 - cardiology and Dr. Henriquez on board -Nephrology consult placed given the patient needs ongoing aggressive diuresis and possible cath during this admission which also will put him at risk for contrast-induced nephropathy. -If BUN and creatinine does not go up further will allow the cardiac medications to be uptitrated. -Repeat the echo as his last echo is in December 2018 -Strict in and output and weight daily -restricted diet with the sodium less than 2 g. Leukocytosis- Due to ongoing aggressive diuresis Thomas placed. But it it was a difficult placement. Likely contributing to the acute stress causing demargination of white count. Clinically he does not appear infectious will monitor closely if continued high white count probably need to start him on empiric antibiotic. He is currently afebrile. 21st We got about 6000 145 mL of urine output this morning. Inadvertently he is both on Lasix 60 mg 3 times daily as well as metolazone. Metolazone stopped. Lacey is probably due to Thomas insertion. And it is trending down. Hypokalemia--due to ongoing aggressive IV diuresis.--Being replaced. Also on scheduled twice daily potassium supplement. - may have to hold the scheduled potassium and will give as needed as patient's creatinine is increasing Acute kidney injury with diuresis.--Nephrology and Dr. Henriquez closely following. This may slow down plan for cardiac cath. Ischemic cardiomyopathy--AICD evaluation by Dr. Rodriguez, pending cardiac cath. BPH-patient on tamsulosin as well as finasteride. To ongoing aggressive cardiac work-up and his blood pressure is on the 120 range I am going to hold the tamsulosin but continue with the finasteride for now.
[2020-06-03 12:30] LABS: Bacteria/HPF 2+ HPF (None Seen); Bilirubin Negative (Negative); Blood, Urine 2+ (Negative); Clarity Turbid (Clear); Glucose, Urine (Dipstick) Normal (Negative); Ketone, Urine Negative (Negative); Leukocyte 75 Leu/uL (Negative); Nitrite Negative (Negative); Protein, Urine (Dipstick) Negative (Neg-Trace); Specific Gravity, Urine 1.006 (1.002-1.036); Squamous Epithelial 0-3 HPF (0-3); Urobilinogen Normal mg/dL (Less than 2)
--- NOTE | 2020-06-03 13:06 | PDOC.EP ---
- Subjective Date: 06/03/20 Time: 13:04 Interval History: Diuresing. Edema improving. No chest discomfort, syncope or falls. - Objective Allergies/Adverse Reactions: Allergies Allergy/AdvReac Type Severity Reaction Status Date / Time morphine Allergy Verified 06/01/20 01:21 Current Medications Acetaminophen (Acetaminophen 325 Mg Tab) 650 mg PO Q4H PRN PRN Reason: Headache/Fever/Mild Pain (1-3) Albuterol/Ipratropium (Ipratropium/Albuterol Sulfate 3 Ml Neb) 3 ml NEB Q6H PRN PRN Reason: Respiratory Distress Aspirin (Aspirin Chewable 81 Mg Tab) 81 mg PO DAILY [facility] Last Admin: 06/03/20 07:50 Dose: 81 mg Documented by: Atorvastatin Calcium (Atorvastatin Calcium 40 Mg Tab) 80 mg PO HS [facility] Last Admin: 06/02/20 20:41 Dose: 80 mg Documented by: Carvedilol (Carvedilol 6.25 Mg Tab) 6.25 mg PO BID [facility] Last Admin: 06/03/20 07:49 Dose: 6.25 mg Documented by: Clonidine (Clonidine 0.1 Mg Tab) 0.1 mg PO BID PRN PRN Reason: SBP > 160 use second Famotidine (Famotidine 20 Mg Tab) 20 mg PO BID [facility] Last Admin: 06/03/20 07:49 Dose: 20 mg Documented by: Finasteride (Finasteride 5 Mg Tab) 5 mg PO BID [facility] Last Admin: 06/03/20 07:51 Dose: 5 mg Documented by: Furosemide (Furosemide 100 Mg/10 Ml Vial) 60 mg SLOW IVP 0600,1400 [facility] Guaifenesin/Dextromethorphan (Guaifenesin Dm 100-10/5 Ml Udcup) 15 ml PO Q4H PRN PRN Reason: Cough Heparin Sodium (Porcine) (Heparin 5,000 Units/Ml Vial) 5,000 units SC BID [facility] Last Admin: 06/03/20 08:13 Dose: 5,000 units Documented by: Promethazine HCl 12.5 mg/ (Sodium Chloride) 50.5 mls @ 202 mls/hr IVPB Q6H PRN PRN Reason: Nausea/vomiting use second Miscellaneous Medication (Electrolyte Replacement Protoc 1 Each Each) 1 each FS ASDIR [facility] Ondansetron HCl (Ondansetron Pf 4 Mg/2 Ml Vial) 4 mg IVP Q6H PRN PRN Reason: Nausea/Vomiting use 1st Potassium Chloride (Potassium Chloride 20 Meq Tab) 20 meq PO BID [facility] Sacubitril/Valsartan (Sacubitril 49 Mg/Valsartan 51 Mg Tablet) 2 tab PO BID [facility] Last Admin: 06/03/20 07:48 Dose: 2 tab Documented by: Sodium Chloride (Flush - Normal Saline 10 Ml Syringe) 10 ml IVF PRN PRN PRN Reason: Saline Flush Last Admin: 06/02/20 08:40 Dose: 10 ml Documented by: Spironolactone (Spironolactone 25 Mg Tab) 25 mg PO QAM-WM [facility] Last Admin: 06/03/20 07:50 Dose: 25 mg Documented by: Vital Signs & Weight: Vital Signs Temp Pulse Resp BP Pulse Ox 06/03/20 11:01 97.7 F 59 L 19 127/60 95 06/03/20 07:42 97.6 F 56 L 20 166/73 H 98 06/03/20 04:34 97.6 F 55 L 17 146/65 H 96 Admit Weight 208 lb 12.432 oz Weight 198 lb 3.129 oz I/O: I/O 06/02/20 06/03/20 06/04/20 06:59 06:59 06:59 Intake Total 800 990 Output Total 8934 6858 Balance -7882 -6494 - Labs Result Diagrams: 06/03/20 04:07 06/03/20 04:07 - Assessment/Plan Assessment/Plan: Chronic systolic heart failure due to ischemic cardiomyopathy - QRS 114 msec on ECG today. Case discussed with Dr. Mota. Plan ICD prior to discharge once heart failure exacerbation improved. Elevated WBC - Work up in progress
[2020-06-03] MEDS ORDERED: Furosemide 100 MG/10 ML VIAL SLOW IVP SCH (14:00)
--- NOTE | 2020-06-03 15:49 | EKG ---
Test Reason : Blood Pressure : / mmHG Vent. Rate : 059 BPM Atrial Rate : 059 BPM P-R Int : 168 ms QRS Dur : 106 ms QT Int : 408 ms P-R-T Axes : 014 -62 169 degrees QTc Int : 403 ms Sinus bradycardia Left axis deviation Pulmonary disease pattern Incomplete right bundle branch block Nonspecific T wave abnormality Abnormal ECG When compared with ECG of 31-MAY-2020 21:46, (Unconfirmed) Nonspecific T wave abnormality now evident in Anterior leads Confirmed by DIVINA BRANDON M.D. ([id number] on 06/03/2020 3:48:38 PM Referred By: ANANDA Confirmed By:DIVINA BRANDON M.D.
[2020-06-03 16:59] LABS: Anion Gap 10 mmol/L (10-20); BUN (Urea Nitrogen) 33 mg/dL (8.4-25.7); Calc. Creatinine Clearance 58 mL/min (70-130); Calcium 7.9 mg/dL (7.8-10.44); Carbon Dioxide 35 mmol/L (23-31); Chloride 90 mmol/L (98-107); Estimated GFR-MDRD 54; Glucose 109 mg/dL (83-110); Potassium 3.7 mmol/L (3.5-5.1); Sodium 131 mmol/L (136-145)
--- NOTE | 2020-06-03 17:31 | PRG ---
DATE OF SERVICE: 06/03/2020 SUBJECTIVE: The patient was seen and examined, feeling much better, noted with the following vital signs. OBJECTIVE: VITAL SIGNS: Afebrile, temperature 97.6, pulse 58, respiratory rate of 16, O2 saturations of 99%, blood pressure 142/65. HEENT: Unremarkable. CARDIOVASCULAR SYSTEM: First and second heart sounds were heard. RESPIRATORY SYSTEM: Clear to auscultation. DIGESTIVE SYSTEM: Revealed a benign abdomen with positive bowel sounds. EXTREMITIES: Showed 2+ bilateral lower extremity edema. Input and output showed about 7 L of fluid over the past 24 hours. LABORATORY INVESTIGATION: Showed a potassium of 3.0, creatinine 1.32, BUN of 33. IMPRESSION: 1. Hypervolemia in the context of congestive heart failure exacerbation. 2. Congestive heart failure exacerbation. 3. Chronic kidney disease, stage 3. PLAN: 1. We will deescalate diuresis. Therefore, we will hold metolazone augmentation. 2. Replete electrolytes. 3. Further management to be dependent on the clinical course. Job ID: [id number]
[2020-06-03] MEDS: Milrinone Lactate/D5W 20 MG in Premix Bag 1 BAG IV SCH (19:51)
[2020-06-03] MEDS: Atorvastatin Calcium 40 MG TAB PO SCH (21:12)
[2020-06-03] MEDS ORDERED: Sodium Chloride 0.9% 250 ML IV SCH (22:30)
[2020-06-04 04:19] LABS: #Eosinphils 0.1 thou/uL (0.0-0.7); #Lymphocytes 0.7 thou/uL (1.20-3.40); #Neutrophils 7.7 thou/uL (1.40-6.50); %Basophils 0.1 % (0.0-1.0); %Eosinophils 0.6 % (0.0-10.0); %Lymphocytes 7.7 % (21.0-51.0); %Monocytes 10.6 % (0.0-10.0); %Neutrophils 80.9 % (42.0-75.0); Hemoglobin 12.5 g/dL (14.0-18.0); Mean Corpuscular HGB CONC 33.2 g/dL (32.0-36.0); Mean Corpuscular Hemoglobin 32.9 pg (27.0-31.0); Mean Platelet Volume 9.7 fL (7.4-10.4); Platelet Count 94 thou/uL (130-400); RBC Distribution Width 14.8 % (11.5-14.5); Red Blood Cell (RBC) Count 3.79 mill/uL (4.70-6.10); White Blood Cell (WBC) Count 9.5 thou/uL (4.8-10.8)
[2020-06-04 04:35] LABS: Anion Gap 12 mmol/L (10-20); BUN (Urea Nitrogen) 37 mg/dL (8.4-25.7); Calc. Creatinine Clearance 59 mL/min (70-130); Carbon Dioxide 35 mmol/L (23-31); Chloride 89 mmol/L (98-107); Estimated GFR-MDRD 55; Glucose 109 mg/dL (83-110); Potassium 3.5 mmol/L (3.5-5.1); Sodium 132 mmol/L (136-145)
[2020-06-04] MEDS ORDERED: Magnesium 2 GM/50 ML 2 GM in Premix Bag 1 BAG IVPB SCH (06:45)
[2020-06-04] MEDS ORDERED: Potassium Chloride 20 MEQ TAB PO SCH ×2 (07:00→09:00)
[2020-06-04] MEDS ORDERED: Clotrimazole 1% Cream 15 GM TUBE TOP SCH (09:00)
[2020-06-04] MEDS: Famotidine 20 MG TAB PO SCH ×2 (09:30→21:03)
[2020-06-04] MEDS: Potassium Chloride 20 MEQ TAB PO SCH ×2 (09:30→21:04)
[2020-06-04] MEDS: Aspirin Chewable 81 MG TAB PO SCH (09:30)
[2020-06-04] MEDS: AcetaZOLAMIDE 250 MG TAB PO SCH (09:30)
[2020-06-04] MEDS: Finasteride 5 MG TAB PO SCH ×2 (09:31→21:04)
[2020-06-04] MEDS: Acetaminophen 325 MG TAB PO PRN (09:31)
[2020-06-04] MEDS: Spironolactone 25 MG TAB PO SCH (09:31)
[2020-06-04] MEDS: cefTRIAXone\\ROCEPHIN 1 GM in Sodium Chloride 0.9% 100 ML IVPB SCH (09:31)
[2020-06-04] MEDS: Carvedilol 6.25 MG TAB PO SCH ×2 (09:31→21:06)
[2020-06-04] MEDS: Sacubitril 49 MG/Valsartan 51 MG TABLET PO SCH ×2 (09:44→21:03)
[2020-06-04] MEDS: Milrinone Lactate/D5W 20 MG in Premix Bag 1 BAG IV SCH (09:45)
[2020-06-04] MEDS: Clotrimazole 1 % Cream 30 GM TUBE TOP SCH ×2 (09:49→21:07)
[2020-06-04] MEDS: Heparin 5,000 UNITS/ML VIAL SC SCH ×2 (09:54→21:02)
--- NOTE | 2020-06-04 10:55 | PRG ---
DATE OF SERVICE: 06/04/2020 SERVICE: [facility]. SUBJECTIVE: Mr. Rao had a variable day. He felt weak throughout the day. He was able to walk few steps around the room with the nurse and the PT, but that was about it. Combination of metolazone and Lasix caused massive amount of urine output. He had over 8.3 L out. His sodium dropped from 135 down to 131 over 10 hours. In the same period of time, his chloride dropped from 95 down to 90. He also had contraction alkalosis. His bicarbonate value increased from about 29 to 35. His blood pressure went down. Furosemide was stopped. A small bolus of normal saline 250 mL was given. Milrinone was started and titrated to a lower dose. This is to maintain the cardiac output, maintain a forward flow without giving too much more fluid and also prevent reaccumulation and promote continued perfusion of kidneys to maintain and promote self-diuresis. Overall, he seems to be doing well from all the changes. He has complaints of right lower leg pain. He said that he scratched it and it looks like it became infected. He also has some itching on the left leg and also some in the groin area. REVIEW OF SYSTEMS: GENERAL: There is no fever, chills, or productive cough. HEENT: There is no change in vision, hearing, or swallowing. However, he is very hard of hearing. You will have to go next to him to speak so that he can understand. PULMONARY: He is breathing easy today. CARDIAC: There are no complaints of chest pains, palpitations, or syncope. GI: There is no nausea, vomiting, or diarrhea. : He has a Thomas catheter in place. MUSCULOSKELETAL: He is not complaining of joint pain. INTEGUMENT: Please see HPI. NEUROLOGIC: There are no new focal deficits or weaknesses. MEDICATIONS: His cardiac medications include; 1. Aspirin 81 mg daily. 2. Atorvastatin 80 mg at bedtime. 3. Carvedilol 6.25 mg twice a day. 4. Heparin 5000 units subcutaneous b.i.d. 5. Milrinone currently at 0.25 mcg/kg/minute. 6. He is on electrolyte replacement protocol. He also has potassium chloride at 20 mEq twice a day. 7. Sacubitril/valsartan, which is Entresto, now at 49/51 combination one tablet twice a day. 8. Spironolactone 25 mg daily. Telemetry was reviewed. He is mainly in sinus rhythm, but has occasional PVCs. His average rate is between 60 to 65. PHYSICAL EXAMINATION: VITAL SIGNS: Heart rate 63, blood pressure 117/59. GENERAL: He is alert, conversational, reclining comfortably in bed. HEENT: Shows EOMI. His oropharynx benign with moist mucosa. NECK: JVP is significantly reduced. It is about 11 cm with slight positive hepatojugular reflux. PULMONARY: He has good air movement. Clear to auscultation bilaterally today. CARDIAC: Regular rate and rhythm with normal S1, S2. There is 2/6 holosystolic murmur at the apex with radiation to the left axilla. ABDOMEN: Soft, nontender. Positive bowel sounds. EXTREMITIES: Groin area; there are erythematous rings with light colored center around the groin area. This could be simple tinea corporis fungal infection. He also has fungal infection like lesions on his left leg. He has red, erythematous region that is around the right lower leg, that is under bandage. He said it is painful to touch. He still has some slight pitting edema at hips and thighs. His lower extremity edema has greatly decreased. His lower extremity between the knee and feet is now soft. He still has at least 1 cm pitting edema, but it is much more so around the feet; however, it has greatly improved since yesterday and day before. LABORATORY DATA: His current laboratory values are white cell count 9.5, hemoglobin 12.5, platelets 94. His sodium has increased slightly to 132, potassium 3.5, it is after multiple potassium supplementation; chloride 89, bicarb 35. His BUN has risen slightly to 37 and creatinine is 1.26. His BNP has greatly decreased down to 3724. This has decreased from greater than 9000. ASSESSMENT: 79-year-old gentleman remains in [place] [employer] stage C, [place] [employer] Class IIIB heart failure with reduced ejection fraction. He has combined systolic and diastolic dysfunction. It is likely to be ischemic cardiomyopathy. He also has a right ventricular dysfunction, possibly right ventricular failure. He had a net negative of 6.6 L out yesterday. This is too much. So, diuresis needs to be slowed down a lot today. The electrolyte loss needs to be adjusted. However, his cardiac output need to be maintained or improved to prevent reaccumulation. Thus, milrinone was started to increase cardiac output to prevent reaccumulation and also promote self-diuresis without using loop diuretics today. He also has a contraction alkalosis. This will need to be addressed. He has tinea corporis and also a possible urinary tract infection seen on urinalysis. He also has a right lower leg cellulitis, so this also need to be addressed. Overall, he is improving. For now, we will hold off on loop diuretics to allow his body to readjust while maintaining sufficient cardiac output. Please see the following for my recommendations. RECOMMENDATIONS: 1. Discontinue oral loop diuretic such as Lasix today. 2. Continue milrinone at 0.25 mcg/kg/minute. 3. Acetazolamide 250 mg p.o. daily starting today. 4. Continue the reduced dose of Entresto of 49/51 twice a day. 5. Please treat his UTI. 6. Please treat his tinea corporis. It has been a pleasure taking care of Mr. Rao. If any questions, please give me a call. The total visitation time is about 55 minutes. This is extensive and multiple visits. This includes making multiple rounds, adjusting diuretics, starting and adjusting IV milrinone, following electrolytes, personally performing H and P, coordinating with multiple services and direct patient interaction. Job ID: [id number] MTDD
--- NOTE | 2020-06-04 12:36 | PDOC.HOSPP ---
- Subjective Encounter Date: 06/04/20 Encounter Time: 08:30 Subjective: Patient's legs have some rash. On the left leg all the way up to his thighs. It is papulous-does not appear miliary pattern. However it could be drug reaction as patient did not had any rash during the time of admission. He is on Entresto for a long time. Spironolactone starte, which could be a causative agent even though the rash is not widespread. Will monitor closely. He is hemodynamically stable at. It does not look like bullous pattern to be concerned for hypersensitivity reaction. His platelet counts are 90,000 range during this admission. His last platelets were in January 2019 and it was 300,000. - Objective Vital Signs & Weight: Vital Signs (12 hours) Temp Pulse Pulse Pulse Resp BP BP 06/04/20 11:18 97.7 F 65 17 06/04/20 08:54 69 59 L 107/51 L 102/59 L 06/04/20 07:18 97.5 F L 66 19 06/04/20 04:00 97.7 F 63 20 BP Pulse Ox 06/04/20 11:18 113/53 L 96 06/04/20 08:54 06/04/20 07:18 121/57 L 95 06/04/20 04:00 117/59 L 97 Weight Admit Weight 208 lb 12.432 oz Weight 181 lb 1.629 oz I&O: 06/03/20 06/04/20 06/05/20 06:59 06:59 06:59 Intake Total 990 1715.9 Output Total 5159 [id number] [facility] -[id number] -1129.1 Result Diagrams: 06/04/20 03:21 06/04/20 03:21 Hospitalist ROS - Medication Medications: Active Medications Generic Name Dose Route Start Last Admin Trade Name Freq PRN Reason Stop Dose Admin Acetaminophen 650 mg 05/31/20 23:12 06/04/20 09:31 Acetaminophen 325 Mg Tab PO 650 mg Q4H PRN Administration Headache/Fever/Mild Pain (1-3) Acetazolamide 250 mg 06/04/20 09:00 06/04/20 09:30 Acetazolamide 250 Mg Tab PO 250 mg DAILY NATASHA Administration Aspirin 81 mg 06/03/20 09:00 06/04/20 09:30 Aspirin Chewable 81 Mg Tab PO 81 mg DAILY NATASHA Administration Atorvastatin Calcium 80 mg 06/01/20 21:00 06/03/20 21:12 Atorvastatin Calcium 40 Mg Tab PO 80 mg HS NATASHA Administration Carvedilol 6.25 mg 06/01/20 21:00 06/04/20 09:31 Carvedilol 6.25 Mg Tab PO 6.25 mg BID NATASHA Administration Clotrimazole 0 gm 06/04/20 21:00 06/04/20 09:49 Clotrimazole 1 % Cream 30 Gm Tube TOP 1 applic BID NATASHA Administration Famotidine 20 mg 06/01/20 09:00 06/04/20 09:30 Famotidine 20 Mg Tab PO 20 mg BID NATASHA Administration Finasteride 5 mg 06/01/20 21:00 06/04/20 09:31 Finasteride 5 Mg Tab PO 5 mg BID NATASHA Administration Heparin Sodium (Porcine) 5,000 units 06/01/20 09:00 06/04/20 09:54 Heparin 5,000 Units/Ml Vial SC 5,000 units BID NATASHA Administration Milrinone Lactate/Dextrose 20 100 mls @ 6.743 mls/hr 06/03/20 19:00 06/04/20 09:45 mg/ Device IV 100 mls INF NATASHA Administration Protocol 0.25 MCG/KG/MIN Ceftriaxone Sodium 1 gm/ 100 mls @ 200 mls/hr 06/04/20 09:00 06/04/20 09:31 Sodium Chloride IVPB 100 mls Q24HR NATASHA Administration Potassium Chloride 20 meq 06/04/20 09:00 06/04/20 09:30 Potassium Chloride 20 Meq Tab PO 20 meq BID NATASHA Administration Sacubitril/Valsartan 1 tab 06/04/20 09:00 06/04/20 09:44 Sacubitril 49 Mg/Valsartan 51 Mg Tablet PO 1 tab BID NATASHA Administration Sodium Chloride 10 ml 06/01/20 02:30 06/02/20 08:40 Flush - Normal Saline 10 Ml Syringe IVF 10 ml PRN PRN Administration Saline Flush Spironolactone 25 mg 06/02/20 08:00 06/04/20 09:31 Spironolactone 25 Mg Tab PO 25 mg QAM-WM NATASHA Administration - Exam General Appearance: NAD, awake alert Eye: PERRL ENT: normocephalic atraumatic Neck: supple Heart: RRR Respiratory: normal chest expansion, rales, rhonchi Gastrointestinal: soft, normal bowel sounds Skin - other findings: Papulous rash without blisters more on the left leg Neurological: no focal deficits Psychiatric: A&O x 3 Hosp A/P - Plan Acute on chronic systolic CHF exacerbation. Upper extremity edema Hypoxia secondary to volume overload Pulmonary edema Coronary artery disease status post CABG in December 2018 Ischemic cardiomyopathy with current EF of 25% History of atrial fibrillation, transient Hypertension Hyperlipidemia Aortic stenosis Type II metabolic mismatch NSTEMI -As above he is on Entresto full dose. -In addition to Coreg 2.25 twice a day. He is also started on Spironolactone 25 daily. --Plan is to get Dr. Chou's booth supervisor to be involved for possible evaluation for AICD placement. -Dr. Platt is his critical systems technician -Aggressive diuresis as his BNP is over 10,000 - cardiology and Dr. Henriquez on board -Nephrology consult placed given the patient needs ongoing aggressive diuresis and possible cath during this admission which also will put him at risk for contrast-induced nephropathy. -If BUN and creatinine does not go up further will allow the cardiac medications to be uptitrated. -Repeat the echo as his last echo is in December 2018 -Strict in and output and weight daily -restricted diet with the sodium less than 2 g. Leukocytosis- Due to ongoing aggressive diuresis Thomas placed. But it it was a difficult placement. Likely contributing to the acute stress causing demargination of white count. Clinically he does not appear infectious will monitor closely if continued high white count probably need to start him on empiric antibiotic. He is currently afebrile. 21st We got about 6000 145 mL of urine output this morning. Inadvertently he is both on Lasix 60 mg 3 times daily as well as metolazone. Metolazone stopped. Lacey is probably due to Thomas insertion. And it is trending down. Hypokalemia--due to ongoing aggressive IV diuresis.--Being replaced. Also on scheduled twice daily potassium supplement. - may have to hold the scheduled potassium and will give as needed as patient's creatinine is increasing Acute kidney injury with diuresis.--Nephrology and Dr. Henriquez closely following. This may slow down plan for cardiac cath. Ischemic cardiomyopathy--AICD evaluation by Dr. Rodriguez, pending cardiac cath. BPH-patient on tamsulosin as well as finasteride. To ongoing aggressive cardiac work-up and his blood pressure is on the 120 range I am going to hold the tamsul osin but continue with the finasteride for now. 22nd Probable drug-induced reaction with Spironolactone versus other: Patient's legs have some rash. On the left leg all the way up to his thighs. I t is papulous-does not appear miliary pattern. However it could be drug reaction as patient did not had any rash during the time of admission. He is on Entresto for a long time. Spironolactone started vs.. ceftriaxone, which could be a causative agent even though the rash is not widespread. Will monitor closely. He is hemodynamically stable at. It does not look like bullous pattern to be concerned for hypersensitivity reaction. Combined systolic and diastolic CHF exacerbation -On milrinone, -Rest of the management per Dr. Henriquez Gram-negative urinary tract infection -Sensitivity pending -On ceftriaxone for now -If the rash worsening we may need to stop this antibiotic and start him on non- penicillin group. Tenia corporis -If I put him on any oral antifungal it is going to worsen his clinical situation and would not know which one is causing which in terms of rash. -He may benefit with topical antifungal rather than p.o. -I will defer putting him on antifungal at this point and request ID consult on board as well Thrombocytopenia His platelet counts are 90,000 range during this admission. His last platelets were in January 2019 and it was 300,000. He is on heparin twice daily for DVT prophylaxis. Continue with heparin unless the platelets dropped to less than 30,000. -Since it is more than 50% drop from his last platelet count in January 2019 I may have to get HIT to rule out for any induced thrombocytopenia. -If it comes back positive then I cannot even put him on Lovenox and a probable choice at that time would be Arixtra, if anticoagulation is needed.
[2020-06-04 13:40] LABS: INR-International Normal Ratio 1.2; Prothrombin Time 14.9 sec (12.0-14.7)
[2020-06-04 13:41] LABS: PTT 34.6 sec (22.9-36.1)
--- NOTE | 2020-06-04 17:52 | PDOC.CPN ---
- Subjective Date: 06/04/20 Time: 17:50 Interval history: He has diuresed very well and his edema is still present but significantly improved. - Review of Systems General: denies: fever/chills, weight/appetite/sleep changes, night sweats, fatigue Respiratory: denies: cough, congestion, shortness of breath, exercise intolerance Cardiovascular: reports: edema. denies: chest pain, palpitation, paroxysmal nocturnal dyspnea, orthopnea Gastrointestinal: denies: nausea, vomiting, diarrhea, constipation, abd pain, GI bleeding Musculoskeletal: denies: pain, tenderness, stiffness, swelling, arthritis/arthralgias Neurological: denies: numbness, syncope, seizure, weakness - Objective Allergies/Adverse Reactions: Allergies Allergy/AdvReac Type Severity Reaction Status Date / Time morphine Allergy Verified 06/01/20 01:21 Visit Medications: Current Medications Acetaminophen (Acetaminophen 325 Mg Tab) 650 mg PO Q4H PRN PRN Reason: Headache/Fever/Mild Pain (1-3) Last Admin: 06/04/20 09:31 Dose: 650 mg Documented by: Acetazolamide (Acetazolamide 250 Mg Tab) 250 mg PO DAILY [facility] Last Admin: 06/04/20 09:30 Dose: 250 mg Documented by: Albuterol/Ipratropium (Ipratropium/Albuterol Sulfate 3 Ml Neb) 3 ml NEB Q6H PRN PRN Reason: Respiratory Distress Aspirin (Aspirin Chewable 81 Mg Tab) 81 mg PO DAILY [facility] Last Admin: 06/04/20 09:30 Dose: 81 mg Documented by: Atorvastatin Calcium (Atorvastatin Calcium 40 Mg Tab) 80 mg PO HS [facility] Last Admin: 06/03/20 21:12 Dose: 80 mg Documented by: Carvedilol (Carvedilol 6.25 Mg Tab) 6.25 mg PO BID [facility] Last Admin: 06/04/20 09:31 Dose: 6.25 mg Documented by: Clonidine (Clonidine 0.1 Mg Tab) 0.1 mg PO BID PRN PRN Reason: SBP > 160 use second Clotrimazole (Clotrimazole 1 % Cream 30 Gm Tube) 0 gm TOP BID [facility] Last Admin: 06/04/20 09:49 Dose: 1 applic Documented by: Famotidine (Famotidine 20 Mg Tab) 20 mg PO BID [facility] Last Admin: 06/04/20 09:30 Dose: 20 mg Documented by: Finasteride (Finasteride 5 Mg Tab) 5 mg PO BID [facility] Last Admin: 06/04/20 09:31 Dose: 5 mg Documented by: Guaifenesin/Dextromethorphan (Guaifenesin Dm 100-10/5 Ml Udcup) 15 ml PO Q4H PRN PRN Reason: Cough Heparin Sodium (Porcine) (Heparin 5,000 Units/Ml Vial) 5,000 units SC BID [facility] Last Admin: 06/04/20 09:54 Dose: 5,000 units Documented by: Promethazine HCl 12.5 mg/ (Sodium Chloride) 50.5 mls @ 202 mls/hr IVPB Q6H PRN PRN Reason: Nausea/vomiting use second Milrinone Lactate/Dextrose 20 (mg/ Device) 100 mls @ 6.743 mls/hr IV INF [facility]; Protocol Last Admin: 06/04/20 09:45 Dose: 100 mls Documented by: Ceftriaxone Sodium 1 gm/ (Sodium Chloride) 100 mls @ 200 mls/hr IVPB Q24HR [facility] Last Admin: 06/04/20 09:31 Dose: 100 mls Documented by: Miscellaneous Medication (Electrolyte Replacement Protoc 1 Each Each) 1 each FS ASDIR [facility] Ondansetron HCl (Ondansetron Pf 4 Mg/2 Ml Vial) 4 mg IVP Q6H PRN PRN Reason: Nausea/Vomiting use 1st Potassium Chloride (Potassium Chloride 20 Meq Tab) 20 meq PO BID [facility] Last Admin: 06/04/20 09:30 Dose: 20 meq Documented by: Sacubitril/Valsartan (Sacubitril 49 Mg/Valsartan 51 Mg Tablet) 1 tab PO BID [facility] Last Admin: 06/04/20 09:44 Dose: 1 tab Documented by: Sodium Chloride (Flush - Normal Saline 10 Ml Syringe) 10 ml IVF PRN PRN PRN Reason: Saline Flush Last Admin: 06/02/20 08:40 Dose: 10 ml Documented by: Spironolactone (Spironolactone 25 Mg Tab) 25 mg PO QAM-WM [facility] Last Admin: 06/04/20 09:31 Dose: 25 mg Documented by: Vital Signs & Weight: Vital Signs Temp Pulse Pulse Pulse Resp BP BP 06/04/20 15:19 97.6 F 79 16 06/04/20 11:18 97.7 F 65 17 06/04/20 08:54 69 59 L 107/51 L 102/59 L 06/04/20 07:18 97.5 F L 66 19 BP Pulse Ox 06/04/20 15:19 141/64 H 96 06/04/20 11:18 113/53 L 96 06/04/20 08:54 06/04/20 07:18 121/57 L 95 Admit Weight 208 lb 12.432 oz Weight 181 lb 1.629 oz - Physical Exam General: alert & oriented x3 HEENT: mucus membranes moist Neck: supple neck Cardiac: regular rate and rhythm Lungs: normal breath sounds Neuro: grossly intact Abdomen: active bowel sounds Extremities: 2+ LE edema Skin: clear, rash Musculoskeletal: no pain - Labs Result Diagrams: 06/04/20 03:21 06/04/20 03:21 Troponin/CKMB CK-MB (CK-2) 7.1 ng/mL (0-6.6) H* 05/31/20 21:37 Troponin I 0.076 ng/mL (< 0.028) H 06/01/20 04:05 - Telemetry Sinus rhythms and dysrhythmias: sinus rhythm - Assessment/Plan Assessment/Plan: 1. Acute on chronic systolic heart failure 2. Ischemic CM 3. Reduced EF at 20-25% 4. S/P CABG 2019 5. Mild aortic stenosis 6. UTI 7. Rash. PLAN: - Continue diuresis. - Continue innotropes. - On BB/Entresto/Aldactone/ASA/Statin - Will need LHC in the next few days once more euvolemic and renal function stable. - Abx per primary team.
--- NOTE | 2020-06-04 18:58 | PRG ---
DATE OF SERVICE: 06/04/2020 SUBJECTIVE: The patient was seen and examined, noted with the following vital signs. OBJECTIVE: VITAL SIGNS: Afebrile, temperature 97.6, pulse 79, respiratory rate of 16, O2 saturations of 96%, and blood pressure 141/64. HEENT: Unremarkable. CARDIOVASCULAR SYSTEM: First and second heart sounds were heard. RESPIRATORY SYSTEM: Clear to auscultation. DIGESTIVE SYSTEM: Revealed a benign abdomen with positive bowel sounds. EXTREMITIES: No peripheral edema. SKIN: No new gross rash. LYMPHATICS: No peripheral lymphadenopathy. Input and output revealed the patient could have little over 8 L over the past 24 hours. IMPRESSION: 1. Acute on chronic systolic congestive heart failure. 2. Hypervolemia in the context of problem #1. 3. Mild hyponatremia with some contraction alkalosis secondary to diuresis. PLAN: 1. Deescalate diuretics. 2. Monitor the electrolytes closely. 3. Further management will be dependent on the clinical course. Job ID: [id number]
[2020-06-04] MEDS: Atorvastatin Calcium 40 MG TAB PO SCH (21:07)
[2020-06-05] MEDS: Milrinone Lactate/D5W 20 MG in Premix Bag 1 BAG IV SCH ×2 (00:01→19:43)
[2020-06-05 04:41] LABS: Anion Gap 11 mmol/L (10-20); BUN (Urea Nitrogen) 38 mg/dL (8.4-25.7); Calc. Creatinine Clearance 57 mL/min (70-130); Calcium 7.9 mg/dL (7.8-10.44); Carbon Dioxide 33 mmol/L (23-31); Chloride 90 mmol/L (98-107); Estimated GFR-MDRD 58; Glucose 122 mg/dL (83-110); Magnesium 2.3 mg/dL (1.6-2.6); Potassium 3.9 mmol/L (3.5-5.1); Sodium 130 mmol/L (136-145)
[2020-06-05 04:42] LABS: #Eosinphils 0.1 thou/uL (0.0-0.7); #Lymphocytes 0.7 thou/uL (1.20-3.40); #Monocytes 1.1 thou/uL (0.11-0.59); #Neutrophils 5.6 thou/uL (1.40-6.50); %Basophils 0.4 % (0.0-1.0); %Eosinophils 0.9 % (0.0-10.0); %Lymphocytes 9.3 % (21.0-51.0); %Monocytes 14.2 % (0.0-10.0); %Neutrophils 75.2 % (42.0-75.0); Mean Corpuscular HGB CONC 32.5 g/dL (32.0-36.0); Mean Corpuscular Hemoglobin 32.1 pg (27.0-31.0); Mean Corpuscular Volume 98.9 fL (78.0-98.0); Mean Platelet Volume 9.6 fL (7.4-10.4); Platelet Count 108 thou/uL (130-400); RBC Distribution Width 14.7 % (11.5-14.5); Red Blood Cell (RBC) Count 4.05 mill/uL (4.70-6.10); White Blood Cell (WBC) Count 7.4 thou/uL (4.8-10.8)
[2020-06-05] MEDS ORDERED: Sodium Chloride 0.9% 500 ML IVPB SCH (09:00)
[2020-06-05] MEDS: Aspirin Chewable 81 MG TAB PO SCH (09:17)
[2020-06-05] MEDS: Finasteride 5 MG TAB PO SCH ×2 (09:17→22:20)
[2020-06-05] MEDS: Carvedilol 6.25 MG TAB PO SCH ×2 (09:17→22:21)
[2020-06-05] MEDS: cefTRIAXone\\ROCEPHIN 1 GM in Sodium Chloride 0.9% 100 ML IVPB SCH (09:17)
[2020-06-05] MEDS: Spironolactone 25 MG TAB PO SCH (09:19)
[2020-06-05] MEDS: Heparin 5,000 UNITS/ML VIAL SC SCH ×2 (09:19→22:19)
[2020-06-05] MEDS: Sacubitril 49 MG/Valsartan 51 MG TABLET PO SCH (09:19)
[2020-06-05] MEDS: AcetaZOLAMIDE 250 MG TAB PO SCH (09:19)
[2020-06-05] MEDS: Clotrimazole 1 % Cream 30 GM TUBE TOP SCH ×2 (09:20→22:22)
[2020-06-05] MEDS: Potassium Chloride 20 MEQ TAB PO SCH ×2 (09:20→22:20)
[2020-06-05] MEDS: Famotidine 20 MG TAB PO SCH ×2 (09:20→22:20)
--- NOTE | 2020-06-05 10:36 | PRG ---
DATE OF SERVICE: 06/05/2020 SUBJECTIVE: Mr. Kristian Rao was transferred from 251 down to 266 because he was confused during the day. He can be oriented. He said that he is feeling weak and fatigued. He does have a problem with walking because of general weakness. However, he said he is breathing easy. He also said he believed he had some amount of fluid in the abdomen and legs that continued to decrease, so he feels better with that. He also had a good night sleep. REVIEW OF SYSTEMS: GENERAL: There is no fever, chills, productive cough, but there is some fatigue and weakness. HEENT: There is no change in vision, hearing or swallowing. However, he does have chronic hard of hearing. PULMONARY: Please see HPI. CARDIAC: There is no chest pains or palpitations. GI: There is no nausea, vomiting or diarrhea. : He has UTI also. MUSCULOSKELETAL: He does not complain any of muscle or joint pains. INTEGUMENT: There are no skin breakdown complaints. NEUROLOGIC: There are no new complaints of focal deficits or weaknesses. CURRENT MEDICATIONS: His current medications that may have cardiac effect include, 1. Acetazolamide 250 mg daily. 2. Aspirin 81 mg daily. 3. Atorvastatin 80 mg at bedtime. 4. Carvedilol 6.25 mg b.i.d. 5. Ceftriaxone 1 g daily. 6. Milrinone currently at 0.25 mcg/kg/min. 7. Potassium chloride K-Dur at 20 mEq b.i.d. 8. Entresto 49/51 combination one tablet twice a day. 9. Spironolactone 25 mg daily. His telemetry was reviewed. He was remaining in sinus rhythm. His 24-hour input and output despite without any diuretics, he has 1700 in and 3000 mol; thus, he still has a net negative of 1300 out without loop diuretics. PHYSICAL EXAMINATION: VITAL SIGNS: Systolic blood pressure ranged between 111 to 141. His diastolic pressure ranged between 67 to 72. GENERAL: He is sleepy, but easily arousable. Alert and will converse correctly. HEENT: EOMI. Oropharynx is benign with moist mucosa. NECK: His JVP is roughly about 10 cm. PULMONARY: He has good air movement in bilateral upper lung koch; however, he does have right lower lobe crackles. Also, he does have pulmonary edema. CARDIAC: Regular rate and rhythm with normal S1 and S2. There is 2/6 holosystolic murmur at the apex with radiation to the left axilla. ABDOMEN: Soft and nontender. Positive bowel sounds. EXTREMITIES: He has pitting edema still from his feet to hips; however, pitting has been significantly decreased. His calf is now soft, its pitting is about 1 cm. There is about 0.5 cm pitting about his thigh and his hips and lower way still. LABORATORY VALUES: White cell count 7 and hemoglobin 13 and platelet 108. His chemistry shows sodium of 130, potassium of 3.9, chloride of 90, bicarb of 33, BUN of 38, and creatinine at 1.21. Creatinine continues to decrease; however, BUN has increased a bit more. Thus, he is still having a little bit of clearance problem. ASSESSMENT: 79-year-old gentleman has acute on chronic heart failure with reduced ejection fraction. This is most likely to be long-term sequela of ischemic cardiomyopathy. He is still volume overloaded; however, his diuresis has slowed down enough such that he can be balanced better. He has multifactorial causes of hyponatremia. He still is mildly alkalotic. We will attempt to improve the cardiac output and give a combination of careful IV rehydration with normal saline followed by furosemide diuretics to correct his sodium. If it does not work, we will need to consider conivaptan tomorrow. We will defer to Dr. Mota for probable coronary angiogram when he is in better condition. Likely, he will need a dual-chamber AICD. Please see the following for my recommendations. RECOMMENDATIONS: 1. Please give normal saline IV fluids 500 mL over 8 hours only. Stop at 500 mL. 2. After the IV fluids, please give Lasix 40 mg IV one dose. This is to provide some temporary volume expansion and also correct the sodium because he will retain the higher sodium value where he will urinate out less than half NS, so he will increase sodium level. 3. I do not plan to keep him on chronic milrinone. this is a temporary. Eventually, milrinone will be titrated off. 4. Continue PT/OT. It has been a pleasure taking care of Mr. Rao, and if you have any question, please give me a call. The total time is about 35 minutes for this visit. This includes personally performing H and P, reviewing his data, coordinating care with multiple members and direct patient interaction which occupies more than 50% of the time. Job ID: [id number] YESSICA
--- NOTE | 2020-06-05 13:39 | PDOC.HOSPP ---
- Subjective Encounter Date: 06/05/20 Encounter Time: 10:40 Subjective: Patient has a significant hard of hearing. And nurse at the bedside. I requested them again to contact the family if there is hearing devices he should should benefit. rash on his legs looks much better. Lost 24 pounds so far. He is output today this morning 1300 mL. He is getting half a bag of NS fluid and then Lasix 40 mg x 1 IV. - Objective Vital Signs & Weight: Vital Signs (12 hours) Temp Pulse Resp BP BP Pulse Ox 06/05/20 11:01 98.0 F 72 16 97/50 L 97 06/05/20 08:12 97.9 F 72 20 113/63 95 06/05/20 03:34 97.8 F 68 20 111/62 Weight Admit Weight 208 lb 12.432 oz Weight 184 lb 10.067 oz I&O: 06/04/20 06/05/20 06/06/20 06:59 06:59 06:59 Intake Total 1715.9 1700 Output Total 8345 3000 Balance -6629.1 -1300 Result Diagrams: 06/05/20 03:55 06/05/20 03:55 Hospitalist ROS - Medication Medications: Active Medications Generic Name Dose Route Start Last Admin Trade Name Freq PRN Reason Stop Dose Admin Acetaminophen 650 mg 05/31/20 23:12 06/04/20 09:31 Acetaminophen 325 Mg Tab PO 650 mg Q4H PRN Administration Headache/Fever/Mild Pain (1-3) Acetazolamide 250 mg 06/04/20 09:00 06/05/20 09:19 Acetazolamide 250 Mg Tab PO 250 mg DAILY NATASHA Administration Aspirin 81 mg 06/03/20 09:00 06/05/20 09:17 Aspirin Chewable 81 Mg Tab PO 81 mg DAILY NATASHA Administration Atorvastatin Calcium 80 mg 06/01/20 21:00 06/04/20 21:07 Atorvastatin Calcium 40 Mg Tab PO 80 mg HS NATASHA Administration Carvedilol 6.25 mg 06/01/20 21:00 06/05/20 09:17 Carvedilol 6.25 Mg Tab PO 6.25 mg BID NATASHA Administration Clotrimazole 0 gm 06/04/20 21:00 06/05/20 09:20 Clotrimazole 1 % Cream 30 Gm Tube TOP 1 applic BID NATASHA Administration Famotidine 20 mg 06/01/20 09:00 06/05/20 09:20 Famotidine 20 Mg Tab PO 20 mg BID NATASHA Administration Finasteride 5 mg 06/01/20 21:00 06/05/20 09:17 Finasteride 5 Mg Tab PO 5 mg BID NATASHA Administration Heparin Sodium (Porcine) 5,000 units 06/01/20 09:00 06/05/20 09:19 Heparin 5,000 Units/Ml Vial SC 5,000 units BID NATASHA Administration Milrinone Lactate/Dextrose 20 100 mls @ 10.114 mls/hr 06/03/20 19:00 06/05/20 00:01 mg/ Device IV 100 mls INF NATASHA Administration Protocol 0.375 MCG/KG/MIN Ceftriaxone Sodium 1 gm/ 100 mls @ 200 mls/hr 06/04/20 09:00 06/05/20 09:17 Sodium Chloride IVPB 100 mls Q24HR NATASHA Administration Sodium Chloride 500 mls @ 62.5 mls/hr 06/05/20 09:00 06/05/20 09:22 Normal Saline 0.9% IVPB 06/05/20 16:59 500 mls NOW NATASHA Administration Ondansetron HCl 4 mg 05/31/20 23:12 06/05/20 09:18 Ondansetron Pf 4 Mg/2 Ml Vial IVP 4 mg Q6H PRN Administration Nausea/Vomiting use 1st Potassium Chloride 20 meq 06/04/20 09:00 06/05/20 09:20 Potassium Chloride 20 Meq Tab PO 20 meq BID NATASHA Administration Sacubitril/Valsartan 1 tab 06/04/20 09:00 06/05/20 09:19 Sacubitril 49 Mg/Valsartan 51 Mg Tablet PO 1 tab BID NATASHA Administration Sodium Chloride 10 ml 06/01/20 02:30 06/05/20 09:22 Flush - Normal Saline 10 Ml Syringe IVF 10 ml PRN PRN Administration Saline Flush Spironolactone 25 mg 06/02/20 08:00 06/05/20 09:19 Spironolactone 25 Mg Tab PO 25 mg QAM-WM NATASHA Administration - Exam General Appearance: NAD, awake alert Eye: PERRL ENT: normocephalic atraumatic Neck: supple Heart: RRR, no rubs Respiratory: CTAB Extremities: 1+ LE edema Neurological: no new deficit Psychiatric: A&O x 3 Hosp A/P - Plan Acute on chronic systolic CHF exacerbation. Upper extremity edema Hypoxia secondary to volume overload Pulmonary edema Coronary artery disease status post CABG in December 2018 Ischemic cardiomyopathy with current EF of 25% History of atrial fibrillation, transient Hypertension Hyperlipidemia Aortic stenosis Type II metabolic mismatch NSTEMI -As above he is on Entresto full dose. -In addition to Coreg 2.25 twice a day. He is also started on Spironolactone 25 daily. --Plan is to get Dr. Chou's morgue librarian to be involved for possible evaluation for AICD placement. -Dr. Platt is his system software developer -Aggressive diuresis as his BNP is over 10,000 - cardiology and Dr. Henriquez on board -Nephrology consult placed given the patient needs ongoing aggressive diuresis and possible cath during this admission which also will put him at risk for contrast-induced nephropathy. -If BUN and creatinine does not go up further will allow the cardiac medications to be uptitrated. -Repeat the echo as his last echo is in December 2018 -Strict in and output and weight daily -restricted diet with the sodium less than 2 g. Leukocytosis- Due to ongoing aggressive diuresis Thomas placed. But it it was a difficult placement. Likely contributing to the acute stress causing demargination of white count. Clinically he does not appear infectious will monitor closely if continued high white count probably need to start him on empiric antibiotic. He is currently afebrile. 21st We got about 6000 145 mL of urine output this morning. Inadvertently he is both on Lasix 60 mg 3 times daily as well as metolazone. Metolazone stopped. Lacey is probably due to Thomas insertion. And it is trending down. Hypokalemia--due to ongoing aggressive IV diuresis.--Being replaced. Also on scheduled twice daily potassium supplement. - may have to hold the scheduled potassium and will give as needed as patient's creatinine is increasing Acute kidney injury with diuresis.--Nephrology and Dr. Henriquez closely following. This may slow down plan for cardiac cath. Ischemic cardiomyopathy--AICD evaluation by Dr. Rodriguez, pending cardiac cath. BPH-patient on tamsulosin as well as finasteride. To ongoing aggressive cardiac work-up and his blood pressure is on the 120 range I am going to hold the tamsulosin but continue with the finasteride for now. 22nd Probable drug-induced reaction with Spironolactone versus other: Patient's legs have some rash. On the left leg all the way up to his thighs. It is papulous-does not appear miliary pattern. However it could be drug re action as patient did not had any rash during the time of admission. He is on Entresto for a long time. Spironolactone started vs.. ceftriaxone, which could be a causative agent even though the rash is not widespread. Will monitor closely. He is hemodynamically stable at. It does not look like bullous pattern to be concerned for hypersensitivity reaction. Combined systolic and diastolic CHF exacerbation -On milrinone, -Rest of the management per Dr. Henriquez Gram-negative urinary tract infection -Sensitivity pending -On ceftriaxone for now -If the rash worsening we may need to stop this antibiotic and start him on non- penicillin group. Tenia corporis -If I put him on any oral antifungal it is going to worsen his clinical situation and would not know which one is causing which in terms of rash. -He may benefit with topical antifungal rather than p.o. -I will defer putting him on antifungal at this point and request ID consult on board as well Thrombocytopenia His platelet counts are 90,000 range during this admission. His last platelets were in January 2019 and it was 300,000. He is on heparin twice daily for DVT prophylaxis. Continue with heparin unless the platelets dropped to less than 30,000. -Since it is more than 50% drop from his last platelet count in January 2019 I may have to get HIT to rule out for any induced thrombocytopenia. -If it comes back positive then I cannot even put him on Lovenox and a probable choice at that time would be Arixtra, if anticoagulation is needed. 23rd Weight loss with the aggressive diuresis about 23 pounds. -Backed off on the diuresis. Rash on his left leg improved --canceled ID consult. Urine culture grew Citrobacter which is sensitive to ceftriaxone and other medications including Macrobid Cipro and Levaquin. We will switch him to Macrobid. Continue PT OT
--- NOTE | 2020-06-05 16:06 | PDOC.PALCO ---
Palliative Care Consult - Consult Details Requesting Physician: Dr Avendano Reason for Consult: goals of care, advance directives assistance, complex decision-making - Pertinent HPI 79 year old gentleman who lives independently. Significant hearing deficit. Continues to drive. Presented to the emergency room secondary to weeping from upper extremities, with reported increase in edema over the past few weeks. Also confirms increase in shortness of breath. On presentation to the emergency room he was negative for fever, chills, nausea, vomiting. Elevated BNP in emergency room, admitted to telemetry for medical management of decompensated heart failure. His MPOA is his niece who lives in [place]. Noteworthy is his clothes he wore in smell of urine, appears to have had increasing difficulty in carrying out ADL in independent home setting. Further concern is patient continues to drive, hypotensive episodes in hospital paired with hearing loss pose elevated risk for injury. - Pertinent PMH CAD, S/P Cabg, HTN, HDL, ROBERT/CKD III, Aortic Stenosis, macrocytic anemia - Social History Smoking Status: Current some day smoker Smoking: cigar Alcohol Use: none Drug Use History: none Living Situation: independent - Medications MAR Reviewed: Yes - Allergies Allergies/Adverse Reactions: Allergies Allergy/AdvReac Type Severity Reaction Status Date / Time morphine Allergy Verified 06/01/20 01:21 - Subjective Awake, drifts to sleep easily, pronounced hearing loss, weakness, disheveled. - ROS Constitutional: alert, weight changes ENT: alteration in dentition, change in hearing Respiratory: shortness of breath with extertion Cardiology: other (Negative for sheat pain, palpitations) Gastrointestinal: other (Negative for nausea, vomiting) Genitourinary: frequency Musculoskeletal: other (Denies extremity pain) Skin: change in skin color, rash, texture changes - Objective Vital Signs: Vital Signs - Most Recent Temp Pulse Resp BP Pulse Ox 98.0 F 70 16 93/55 L 97 06/05/20 11:01 06/05/20 14:40 06/05/20 11:01 06/05/20 14:40 06/05/20 11:01 Palliative Performance Scale: 50 - Physical Exam Constitutional: ill appearing HEENT: moist MMs, sclera anicteric, poor dentition Deviation from normal: Clear upper lobes, mild crackles to bases bilaterally anterior Cardiovascular: RRR Deviation from normal: Murmur Gastrointestinal: soft, non-tender, positive bowel sounds Genitourinary: frequency, oleary catheter Musculoskeletal: edema present Neurology: moves all 4 limbs Skin: fragile, friable Psychiatric: A&O x 3 - Problem List (1) Chronic heart failure Code(s): I50.9 - HEART FAILURE, UNSPECIFIED Current Visit: Yes Status: Acute (2) Declining functional status Code(s): R53.81 - OTHER MALAISE Current Visit: Yes Status: Acute (3) Palliative care encounter Code(s): Z51.5 - ENCOUNTER FOR PALLIATIVE CARE Current Visit: Yes Status: Acute (4) Acute worsening of stage 3 chronic kidney disease Code(s): N18.3 - CHRONIC KIDNEY DISEASE, STAGE 3 (MODERATE) Current Visit: Yes Status: Acute (5) Hypertension Code(s): I10 - ESSENTIAL (PRIMARY) HYPERTENSION Current Visit: No Status: Chronic - Plan/Recommendations Plan: Introduced Palliative Care to patient. Initiated conversation in relation to Advanced directives and DNAR status. Will follow up 06/06/2020. Communicated with patient niece who is MPOA and only relative. Hope is to transition to rehab post discharge then to transition to [place] with her. PT worked with patient today, and confirmed weak status and inability to initially transition to independent home setting. Palliative Care will follow up with conversation 06/06/2020 to further discuss Goal of Care with Mr Rao [60] minutes spent on this encounter with >50% of the time in counseling and coordination of care. Thank you for this very appropriate consult.
[2020-06-05] MEDS ORDERED: Furosemide 40 MG/4 ML VIAL SLOW IVP SCH (17:00)
[2020-06-05] MEDS ORDERED: DOBUTamine 500 mg/250 ml 500 MG in Premix Bag 1 BAG IVPB SCH (17:45)
[2020-06-05 17:55] LABS: Hemoglobin 13.7 g/dL (14.0-18.0); Mean Corpuscular HGB CONC 31.8 g/dL (32.0-36.0); Mean Corpuscular Hemoglobin 31.7 pg (27.0-31.0); Mean Corpuscular Volume 99.6 fL (78.0-98.0); Platelet Count 114 thou/uL (130-400); RBC Distribution Width 14.7 % (11.5-14.5); Red Blood Cell (RBC) Count 4.31 mill/uL (4.70-6.10); White Blood Cell (WBC) Count 6.7 thou/uL (4.8-10.8)
[2020-06-05 18:09] LABS: Anion Gap 11 mmol/L (10-20); BUN (Urea Nitrogen) 39 mg/dL (8.4-25.7); Calc. Creatinine Clearance 58 mL/min (70-130); Calcium 7.7 mg/dL (7.8-10.44); Carbon Dioxide 28 mmol/L (23-31); Chloride 92 mmol/L (98-107); Estimated GFR-MDRD 58; Glucose 132 mg/dL (83-110); Magnesium 2.2 mg/dL (1.6-2.6); Potassium 4.4 mmol/L (3.5-5.1); Sodium 127 mmol/L (136-145)
[2020-06-05 18:17] LABS: Band 2 % (5-11); Burr Cells SLIGHT = 2-5 cells (100X) (0-1/hpf); Lymphocytes 5 % (21-51); MDiff Complete? YES; Monocytes 13 % (0-10); Neutrophil 80 % (42-75); Platelet Morphology Comment Appears Decreased; Polychromasia SLIGHT = 2-3 cells (100X) (0-2/hpf)
--- NOTE | 2020-06-05 18:31 | PDOC.CPN ---
- Subjective Date: 06/05/20 Time: 18:30 Interval history: He is having episodes of hypotension. No angina. no SOB. - Review of Systems General: denies: fever/chills, weight/appetite/sleep changes, night sweats, fatigue Respiratory: denies: cough, congestion, shortness of breath, exercise intolerance Cardiovascular: reports: edema. denies: chest pain, palpitation, paroxysmal nocturnal dyspnea, orthopnea Gastrointestinal: denies: nausea, vomiting, diarrhea, constipation, abd pain, GI bleeding Musculoskeletal: denies: pain, tenderness, stiffness, swelling, arthritis/arthralgias Neurological: denies: numbness, syncope, seizure, weakness - Objective Allergies/Adverse Reactions: Allergies Allergy/AdvReac Type Severity Reaction Status Date / Time morphine Allergy Verified 06/01/20 01:21 Visit Medications: Current Medications Acetaminophen (Acetaminophen 325 Mg Tab) 650 mg PO Q4H PRN PRN Reason: Headache/Fever/Mild Pain (1-3) Last Admin: 06/04/20 09:31 Dose: 650 mg Documented by: Acetazolamide (Acetazolamide 250 Mg Tab) 250 mg PO DAILY [facility] Last Admin: 06/05/20 09:19 Dose: 250 mg Documented by: Albuterol/Ipratropium (Ipratropium/Albuterol Sulfate 3 Ml Neb) 3 ml NEB Q6H PRN PRN Reason: Respiratory Distress Aspirin (Aspirin Chewable 81 Mg Tab) 81 mg PO DAILY [facility] Last Admin: 06/05/20 09:17 Dose: 81 mg Documented by: Atorvastatin Calcium (Atorvastatin Calcium 40 Mg Tab) 80 mg PO HS [facility] Last Admin: 06/04/20 21:07 Dose: 80 mg Documented by: Carvedilol (Carvedilol 6.25 Mg Tab) 6.25 mg PO BID [facility] Last Admin: 06/05/20 09:17 Dose: 6.25 mg Documented by: Clonidine (Clonidine 0.1 Mg Tab) 0.1 mg PO BID PRN PRN Reason: SBP > 160 use second Clotrimazole (Clotrimazole 1 % Cream 30 Gm Tube) 0 gm TOP BID [facility] Last Admin: 06/05/20 09:20 Dose: 1 applic Documented by: Famotidine (Famotidine 20 Mg Tab) 20 mg PO BID [facility] Last Admin: 06/05/20 09:20 Dose: 20 mg Documented by: Finasteride (Finasteride 5 Mg Tab) 5 mg PO BID [facility] Last Admin: 06/05/20 09:17 Dose: 5 mg Documented by: Furosemide (Furosemide 40 Mg/4 Ml Vial) 40 mg SLOW IVP 1700 NATASHA Stop: 06/05/20 20:00 Guaifenesin/Dextromethorphan (Guaifenesin Dm 100-10/5 Ml Udcup) 15 ml PO Q4H PRN PRN Reason: Cough Heparin Sodium (Porcine) (Heparin 5,000 Units/Ml Vial) 5,000 units SC BID [facility] Last Admin: 06/05/20 09:19 Dose: 5,000 units Documented by: Promethazine HCl 12.5 mg/ (Sodium Chloride) 50.5 mls @ 202 mls/hr IVPB Q6H PRN PRN Reason: Nausea/vomiting use second Dobutamine HCl/Dextrose 500 mg (/ Device) 250 mls @ 6.281 mls/hr IVPB INF NATASHA; Protocol Miscellaneous Medication (Electrolyte Replacement Protoc 1 Each Each) 1 each FS ASDIR [facility] Nitrofurantoin Macrocrystals (Nitrofurantoin Monohyd/M-Cryst 100 Mg Cap) 100 mg PO BID [facility] Ondansetron HCl (Ondansetron Pf 4 Mg/2 Ml Vial) 4 mg IVP Q6H PRN PRN Reason: Nausea/Vomiting use 1st Last Admin: 06/05/20 09:18 Dose: 4 mg Documented by: Potassium Chloride (Potassium Chloride 20 Meq Tab) 20 meq PO BID [facility] Last Admin: 06/05/20 09:20 Dose: 20 meq Documented by: Sacubitril/Valsartan (Sacubitril 24mg/Valsartan 26mg Tab) 1 tab PO BID [facility] Sodium Chloride (Flush - Normal Saline 10 Ml Syringe) 10 ml IVF PRN PRN PRN Reason: Saline Flush Last Admin: 06/05/20 09:22 Dose: 10 ml Documented by: Spironolactone (Spironolactone 25 Mg Tab) 25 mg PO QAM-WM [facility] Last Admin: 06/05/20 09:19 Dose: 25 mg Documented by: Vital Signs & Weight: Vital Signs Temp Pulse Pulse Pulse Resp BP BP 06/05/20 16:20 97.9 F 68 18 06/05/20 14:40 70 72 93/55 L 132/61 06/05/20 11:01 98.0 F 72 16 06/05/20 08:12 97.9 F 72 20 BP BP Pulse Ox 06/05/20 16:20 140/64 98 06/05/20 14:40 06/05/20 11:01 97/50 L 97 06/05/20 08:12 113/63 95 Admit Weight 208 lb 12.432 oz Weight 184 lb 10.067 oz - Physical Exam General: alert & oriented x3 HEENT: mucus membranes moist, other (Hypoaccusia) Neck: supple neck Cardiac: no murmur Lungs: normal breath sounds Neuro: grossly intact Abdomen: active bowel sounds Extremities: no edema, 1+ LE edema Skin: clear Musculoskeletal: no pain - Labs Result Diagrams: 06/05/20 17:46 06/05/20 17:46 Troponin/CKMB CK-MB (CK-2) 7.1 ng/mL (0-6.6) H* 05/31/20 21:37 Troponin I 0.076 ng/mL (< 0.028) H 06/01/20 04:05 - Telemetry Sinus rhythms and dysrhythmias: sinus rhythm - Assessment/Plan Assessment/Plan: 1. Acute on chronic systolic heart failure 2. Ischemic CM 3. Reduced EF at 20-25% 4. S/P CABG 2018 5. Mild aortic stenosis 6. UTI 7. Rash. PLAN: - Continue diuresis. - Will need LHC in the next few days once more euvolemic and renal function stable. - Abx per primary team. - Agree with transfer to ICU for closer observation given episodes of hypotension.
--- NOTE | 2020-06-05 19:47 | PRG ---
DATE OF SERVICE: SUBJECTIVE: The patient was seen and examined, subsequently transferred to ICU because of hypotension. OBJECTIVE: VITAL SIGNS: The patient noted with the following vital signs; afebrile, temperature 98, pulse 72, respiratory rate of 18, O2 saturation of 98%, blood pressure 93/55 to 140/64. HEENT: Unremarkable. CARDIOVASCULAR: First and second heart sounds were heard. RESPIRATORY: Clear to auscultation. DIGESTIVE: Revealed a benign abdomen. EXTREMITIES: No peripheral edema. SKIN: No new gross rash. LYMPHATICS: No peripheral lymphadenopathy. EXTREMITIES: Showed much improved lower extremity edema. LABORATORY INVESTIGATION: Showed a sodium of 127, BUN of 39 with a creatinine of 1.21, bicarb of 28. IMPRESSION: Labile hemodynamics in the context of recent massive diuresis and ischemic cardiomyopathy. PLAN: 1. Consider decreasing the dose of antihypertensive medication intake in this case sacubitril/ valsartan. Also, the possible decrease may include carvedilol. 2. Hyponatremia, this is likely in the context of intravascular dehydration from recent diuresis. We will allow the patient to replete the intravascular volume. Therefore, this hyponatremia is in the context of appropriate ADH secretion. 3. I will suggest discontinuation of acetazolamide as the contraction alkalosis in this patient is correlated and also can easily be corrected by intravascular depletion. 4. Further management to be dependent on the clinical course. Job ID: [id number]
[2020-06-05] MEDS ORDERED: Calcium Gluconate 4.6 MEQ in Sodium Chloride 0.9% 100 ML IVPB SCH (20:56)
[2020-06-05] MEDS: Atorvastatin Calcium 40 MG TAB PO SCH (22:20)
[2020-06-05] MEDS: Nitrofurantoin Monohyd/M-Cryst 100 MG CAP PO SCH (22:21)
--- NOTE | 2020-06-05 22:28 | PDOC.EP ---
- Subjective Date: 06/05/20 Time: 16:30 Interval History: Dyspnea persists. Hypotension. No arrhythmias - Objective Allergies/Adverse Reactions: Allergies Allergy/AdvReac Type Severity Reaction Status Date / Time morphine Allergy Verified 06/01/20 01:21 Current Medications Acetaminophen (Acetaminophen 325 Mg Tab) 650 mg PO Q4H PRN PRN Reason: Headache/Fever/Mild Pain (1-3) Last Admin: 06/04/20 09:31 Dose: 650 mg Documented by: Acetazolamide (Acetazolamide 250 Mg Tab) 250 mg PO DAILY [facility] Last Admin: 06/05/20 09:19 Dose: 250 mg Documented by: Albuterol/Ipratropium (Ipratropium/Albuterol Sulfate 3 Ml Neb) 3 ml NEB Q6H PRN PRN Reason: Respiratory Distress Aspirin (Aspirin Chewable 81 Mg Tab) 81 mg PO DAILY [facility] Last Admin: 06/05/20 09:17 Dose: 81 mg Documented by: Atorvastatin Calcium (Atorvastatin Calcium 40 Mg Tab) 80 mg PO HS [facility] Last Admin: 06/05/20 22:20 Dose: 80 mg Documented by: Carvedilol (Carvedilol 6.25 Mg Tab) 6.25 mg PO BID [facility] Last Admin: 06/05/20 22:21 Dose: Not Given Documented by: Clonidine (Clonidine 0.1 Mg Tab) 0.1 mg PO BID PRN PRN Reason: SBP > 160 use second Clotrimazole (Clotrimazole 1 % Cream 30 Gm Tube) 0 gm TOP BID [facility] Last Admin: 06/05/20 22:22 Dose: 1 applic Documented by: Famotidine (Famotidine 20 Mg Tab) 20 mg PO BID [facility] Last Admin: 06/05/20 22:20 Dose: 20 mg Documented by: Finasteride (Finasteride 5 Mg Tab) 5 mg PO BID [facility] Last Admin: 06/05/20 22:20 Dose: 5 mg Documented by: Guaifenesin/Dextromethorphan (Guaifenesin Dm 100-10/5 Ml Udcup) 15 ml PO Q4H PRN PRN Reason: Cough Heparin Sodium (Porcine) (Heparin 5,000 Units/Ml Vial) 5,000 units SC BID [facility] Last Admin: 06/05/20 22:19 Dose: 5,000 units Documented by: Promethazine HCl 12.5 mg/ (Sodium Chloride) 50.5 mls @ 202 mls/hr IVPB Q6H PRN PRN Reason: Nausea/vomiting use second Dobutamine HCl/Dextrose 500 mg (/ Device) 250 mls @ 6.281 mls/hr IVPB INF NATASHA; Protocol Milrinone Lactate/Dextrose 20 (mg/ Device) 100 mls @ 6.281 mls/hr IV INF NATASHA; Protocol Last Admin: 06/05/20 19:43 Dose: 100 mls Documented by: Calcium Gluconate 4.6 meq/ (Sodium Chloride) 110 mls @ 200 mls/hr IVPB NOW NATASHA Stop: 06/05/20 23:59 Last Admin: 06/05/20 22:19 Dose: 110 mls Documented by: Miscellaneous Medication (Electrolyte Replacement Protoc 1 Each Each) 1 each FS ASDIR NATASHA Nitrofurantoin Macrocrystals (Nitrofurantoin Monohyd/M-Cryst 100 Mg Cap) 100 mg PO BID [facility] Last Admin: 06/05/20 22:21 Dose: 100 mg Documented by: Ondansetron HCl (Ondansetron Pf 4 Mg/2 Ml Vial) 4 mg IVP Q6H PRN PRN Reason: Nausea/Vomiting use 1st Last Admin: 06/05/20 09:18 Dose: 4 mg Documented by: Potassium Chloride (Potassium Chloride 20 Meq Tab) 20 meq PO BID [facility] Last Admin: 06/05/20 22:20 Dose: 20 meq Documented by: Sacubitril/Valsartan (Sacubitril 24mg/Valsartan 26mg Tab) 1 tab PO BID [facility] Last Admin: 06/05/20 22:21 Dose: 1 tab Documented by: Sodium Chloride (Flush - Normal Saline 10 Ml Syringe) 10 ml IVF PRN PRN PRN Reason: Saline Flush Last Admin: 06/05/20 09:22 Dose: 10 ml Documented by: Spironolactone (Spironolactone 25 Mg Tab) 25 mg PO QAM-[facility] Last Admin: 06/05/20 09:19 Dose: 25 mg Documented by: Vital Signs & Weight: Vital Signs Temp Pulse Pulse Pulse Resp BP BP 06/05/20 22:21 92/49 L 06/05/20 19:22 98.0 F 06/05/20 16:20 97.9 F 68 18 06/05/20 14:40 70 72 93/55 L 06/05/20 11:01 98.0 F 72 16 BP BP Pulse Ox 06/05/20 22:21 06/05/20 19:22 06/05/20 16:20 140/64 98 06/05/20 14:40 132/61 06/05/20 11:01 97/50 L 97 Admit Weight 208 lb 12.432 oz Weight 186 lb 11.704 oz I/O: I/O 06/04/20 06/05/20 06/06/20 06:59 06:59 06:59 Intake Total 1715.9 1700 1340 Output Total 8345 3000 2024 [facility] -6629.1 -1300 -685 - Labs Result Diagrams: 06/05/20 17:46 06/05/20 17:46 - Assessment/Plan Assessment/Plan: Acute on chronic systolic heart failure. Will need at ICD at some point. Currently undergoing therapy for his acute heart failure. Discussed with patient
[2020-06-06 04:07] LABS: Anion Gap 10 mmol/L (10-20); BUN (Urea Nitrogen) 39 mg/dL (8.4-25.7); Calc. Creatinine Clearance 61 mL/min (70-130); Calcium 7.8 mg/dL (7.8-10.44); Carbon Dioxide 30 mmol/L (23-31); Chloride 94 mmol/L (98-107); Estimated GFR-MDRD 61; Glucose 120 mg/dL (83-110); Magnesium 2.2 mg/dL (1.6-2.6); Potassium 4.1 mmol/L (3.5-5.1); Sodium 130 mmol/L (136-145)
[2020-06-06 04:10] LABS: Band 3 % (5-11); Eosinophils 1 % (0-10); Hemoglobin 12.6 g/dL (14.0-18.0); Lymphocytes 15 % (21-51); MDiff Complete? YES; Mean Corpuscular HGB CONC 32.2 g/dL (32.0-36.0); Mean Corpuscular Volume 99.3 fL (78.0-98.0); Mean Platelet Volume 9.5 fL (7.4-10.4); Metamyelocyte 1 % (0-0); Monocytes 17 % (0-10); Neutrophil 63 % (42-75); Platelet Count 118 thou/uL (130-400); Platelet Morphology Comment Appears Decreased; RBC Distribution Width 14.8 % (11.5-14.5); Red Blood Cell (RBC) Count 3.93 mill/uL (4.70-6.10); White Blood Cell (WBC) Count 6.3 thou/uL (4.8-10.8)
[2020-06-06] MEDS: Aspirin Chewable 81 MG TAB PO SCH (09:32)
[2020-06-06] MEDS: Potassium Chloride 20 MEQ TAB PO SCH ×2 (09:32→21:08)
[2020-06-06] MEDS: Heparin 5,000 UNITS/ML VIAL SC SCH ×2 (09:33→21:08)
[2020-06-06] MEDS: AcetaZOLAMIDE 250 MG TAB PO SCH (09:33)
[2020-06-06] MEDS: Nitrofurantoin Monohyd/M-Cryst 100 MG CAP PO SCH ×2 (09:33→21:08)
[2020-06-06] MEDS: Finasteride 5 MG TAB PO SCH ×2 (09:33→21:08)
[2020-06-06] MEDS: Famotidine 20 MG TAB PO SCH ×2 (09:33→21:08)
[2020-06-06] MEDS: Spironolactone 25 MG TAB PO SCH (09:33)
[2020-06-06] MEDS: Clotrimazole 1 % Cream 30 GM TUBE TOP SCH ×2 (09:34→21:07)
[2020-06-06] MEDS: Milrinone Lactate/D5W 20 MG in Premix Bag 1 BAG IV SCH (09:44)
--- NOTE | 2020-06-06 10:55 | PRG ---
DATE OF SERVICE: 06/06/2020 SERVICE: Advanced Heart Failure Cardiology Consulting Service. SUBJECTIVE: Mr. Rao had a quite a day. The first he was doing well. He did appear to be tired and groggy. It was reported his systolic blood pressure dropped down to 70s at 3 measurements. This happened despite milrinone 0.375, which is a slight increase, and while being on normal saline IV fluids. Milrinone was stopped. His 500 mL bolus was also finishing. Temporary systolic blood pressure clarice back to about 125. Due to drop in his blood pressure,and hemodynamic instability, he was transferred to [facility]. His followup sodiums show sodium dropping from 130 down to 127 with increasing BUN. He then started to decline again. Dobutamine 2.5 mcg/kg/minute was started. Eventually, milrinone was slowly added back. Due to low blood pressure and relatively low heart rates, carvedilol was held and furthermore, Entresto was reduced down to 24/ b.i.d. combination. Eventually he settled on dobutamine 2.5 mcg/kg/minute and milrinone 0.25 mcg/kg/minute. Then, he had picked up his urine output. This morning, he says he feels more energetic, is more clear thinking. His sodium has increased from 127 to 130. His BUN has not increased and creatinine improved slightly from 1.21 down from 1.16. He also had negative output. Thus, all of these maneuvers were successful. REVIEW OF SYSTEMS: GENERAL: No fever, chills, productive cough. HEENT: There is no change in vision, hearing, or swallowing. However, he is chronically hard of hearing. He told me that he does not have hearing aids. PULMONARY: Please see HPI. CARDIAC: No palpitations, chest pain, or syncope. GASTROINTESTINAL: There is no nausea, vomiting, or diarrhea. GENITOURINARY: He has a Thomas catheter in. MUSCULOSKELETAL: There is no complaint of joint pains or back pain. INTEGUMENT: He still has a tinea corpora, but he is not complaining about his lower leg pains anymore. NEUROLOGIC: There is no focal deficits or weaknesses. CURRENT MEDICATIONS: His current cardiac medications include acetazolamide 250 mg daily; aspirin 81 mg daily; atorvastatin 80 mg at bedtime; carvedilol is listed as 6.25 b.i.d., was not given last night; dobutamine currently at 2.5 mcg/kg/minute; heparin 5000 units b.i.d. subcutaneous for DVT prophylaxis; milrinone 0.25 mcg/kg/minute. He is on electrolyte replacement protocol. He is on K-Dur 20 mEq b.i.d. He is on nitrofurantoin for a UTI, sacubitril 24/26 combination b.i.d., and spironolactone 25 mg daily. His telemetry was reviewed. He is in sinus rhythm. There is no concerning arrhythmias. His systolic blood pressure ranged between 94 to 140. It fluctuated throughout the night, his diastolic blood pressure ranged between 40 to 67. He has one dip, it came back up. Current vitals, heart rate 78, blood pressure 120/56. PHYSICAL EXAMINATION: GENERAL: He is alert and conversational, reclining in bed. He is looking for to eating his breakfast. He is still very hard of hearing. Again, he repeated to tell me that he does not have hearing aids. HEENT: Shows EOMI. Oropharynx is benign with moist mucosa. NECK: JVP is approximately 10 cm. PULMONARY: He has good air movement. At the left lung, there is no crackle. However, he has diminished breath sounds at the right base. CARDIAC: Regular rate and rhythm with normal S1, S2. There is 2/6 holosystolic murmur at the apex with radiation to left axilla. ABDOMEN: Soft, nontender. Positive bowel sounds. EXTREMITIES: He still has pitting edema about the hip, but this is much less so. He has some pitting edema in his thighs. He has a roughly 1 cm pitting edema from feet towards his knees, however, his skin is quite loose now and there are wrinkles. His overall anasarca has greatly decreased and continued to decrease. His 24-hour inputs and outputs are 1340 mL in, 3050 mL out. He has a net negative of 1710 mL out. 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 He has combined systolic and diastolic dysfunction. He also has a right ventricular dysfunction, possibly right ventricular failure. This biventricular failure makes the treatment difficult. Finally, he has arrived at a combination of medication that can sustain enough cardiac output and self diuresis to keep kidneys intact, remove fluid, and correct electrolytes. He likely has little to no cardiac reserve. Milrinone depends on existence of cyclic AMP intracellularly. Apparently, he does not have enough. The drop in blood pressure is likely due to milrinone's effect on cyclic GMP in the vascular smooth muscles. Without enough cardiac reserve, vasodilation exceeded contractility to cause significant drops in blood pressure. When milrinone was held temporarily, he quickly reaccumulated fluid. Thus dobutamine had to be started. His low blood pressure also necessitated decrease in Entresto and temporarily and holding the carvedilol. Eventually using dobutamine to stimulate beta-1 receptors to augment a cyclic AMP to increase contractility, he was able to produce more cardiac output to perfuse the kidneys and correct the sodium. At this point, we will leave him on this combination to allow his sodium to correct given his stable blood pressure. After one day of equilibration, then we will slowly titrate off the inotropes and we will add back on his oral heart failure medications. Please see the following for my recommendations: RECOMMENDATIONS 1. Continue dobutamine at 2.5 mcg/kg/minute. 2. Continue milrinone at 0.25 mcg/kg/minute. 3. Continue to hold carvedilol for today only. We will probably restart tomorrow when we titrate off dobutamine. 4. Continue reduced dose of Entresto at 24/26 for now, though we might increase back up in 2 days. 5. He is self diuresing, so he does not need loop diuretics today. He might need it again tomorrow or next day once inotropes are turn down. 6. Please continue with PT/OT to help the patient to mobilize and orient. 7. He will be on day-to-day adjustment of his cardiac medication due to the biventricular failure. It has been a pleasure taking care of Mr. Rao. If you have any questions, please give me a call. This is an extensive set of ICU visits that spans over half a day. The cumulative time is about 55 minutes. This consists of personally performing H and P, titrating inotropic drip in the ICU setting, helping to transfer patient, coordinating care among several physicians, and also direct patient interaction multiple times. Job ID: [id number] [facility]
--- NOTE | 2020-06-06 13:44 | PDOC.HOSPP ---
- Subjective Encounter Date: 06/06/20 Encounter Time: 12:10 Subjective: Patient is trying to have lunch. He is transferred to the IMCU due to low blood pressure.. Dobutamine helped to restore the hemodynamic stability. Entresto dose decreased temporarily. Her medications has been adjusted by Dr. Henriquez. - Objective Vital Signs & Weight: Vital Signs (12 hours) Temp Pulse Pulse BP BP Pulse Ox Pulse Ox 06/06/20 11:17 98.5 F 06/06/20 11:13 78 80 125/65 137/58 L 99 06/06/20 08:00 99 06/06/20 07:45 98.1 F 06/06/20 04:02 97.2 F L Pulse Ox 06/06/20 11:17 06/06/20 11:13 98 06/06/20 08:00 06/06/20 07:45 06/06/20 04:02 Weight Admit Weight 208 lb 12.432 oz Weight 186 lb 8.177 oz Most Recent Monitor Data Heart Rate from ECG 80 NIBP 137/58 NIBP BP-Mean 84 Respiration from ECG 17 SpO2 99 I&O: 06/05/20 06/06/20 06/07/20 06:59 06:59 06:59 Intake Total 1700 1340 Output Total 3000 3050 Balance -1300 -1710 Result Diagrams: 06/06/20 03:08 06/06/20 03:08 Hospitalist ROS - Medication Medications: Active Medications Generic Name Dose Route Start Last Admin Trade Name Freq PRN Reason Stop Dose Admin Acetaminophen 650 mg 05/31/20 23:12 06/04/20 09:31 Acetaminophen 325 Mg Tab PO 650 mg Q4H PRN Administration Headache/Fever/Mild Pain (1-3) Acetazolamide 250 mg 06/04/20 09:00 06/06/20 09:33 Acetazolamide 250 Mg Tab PO 250 mg DAILY NATASHA Administration Aspirin 81 mg 06/03/20 09:00 06/06/20 09:32 Aspirin Chewable 81 Mg Tab PO 81 mg DAILY NATASHA Administration Atorvastatin Calcium 80 mg 06/01/20 21:00 06/05/20 22:20 Atorvastatin Calcium 40 Mg Tab PO 80 mg HS NATASHA Administration Clotrimazole 0 gm 06/04/20 21:00 06/06/20 09:34 Clotrimazole 1 % Cream 30 Gm Tube TOP 1 applic BID NATASHA Administration Famotidine 20 mg 06/01/20 09:00 06/06/20 09:33 Famotidine 20 Mg Tab PO 20 mg BID NATASHA Administration Finasteride 5 mg 06/01/20 21:00 06/06/20 09:33 Finasteride 5 Mg Tab PO 5 mg BID NATASHA Administration Heparin Sodium (Porcine) 5,000 units 06/01/20 09:00 06/06/20 09:33 Heparin 5,000 Units/Ml Vial SC 5,000 units BID NATASHA Administration Milrinone Lactate/Dextrose 20 100 mls @ 6.281 mls/hr 06/05/20 19:15 06/06/20 09:44 mg/ Device IV 100 mls INF NATASHA Administration Protocol 0.25 MCG/KG/MIN Nitrofurantoin Macrocrystals 100 mg 06/05/20 21:00 06/06/20 09:33 Nitrofurantoin Monohyd/M-Cryst 100 Mg Cap PO 100 mg BID NATASHA Administration Ondansetron HCl 4 mg 05/31/20 23:12 06/05/20 09:18 Ondansetron Pf 4 Mg/2 Ml Vial IVP 4 mg Q6H PRN Administration Nausea/Vomiting use 1st Potassium Chloride 20 meq 06/04/20 09:00 06/06/20 09:32 Potassium Chloride 20 Meq Tab PO 20 meq BID NATASHA Administration Sacubitril/Valsartan 1 tab 06/05/20 21:00 06/06/20 09:33 Sacubitril 24mg/Valsartan 26mg Tab PO 1 tab BID NATASHA Administration Sodium Chloride 10 ml 06/01/20 02:30 06/05/20 09:22 Flush - Normal Saline 10 Ml Syringe IVF 10 ml PRN PRN Administration Saline Flush Spironolactone 25 mg 06/02/20 08:00 06/06/20 09:33 Spironolactone 25 Mg Tab PO 25 mg QAM-WM NATASHA Administration - Exam General Appearance: NAD, awake alert General - other findings: Doing well. He is having his lunch. Eye: PERRL ENT: normocephalic atraumatic Neck: supple Heart: RRR Respiratory: CTAB, normal chest expansion Gastrointestinal: soft, normal bowel sounds Psychiatric: A&O x 3 Hosp A/P - Plan Acute on chronic systolic CHF exacerbation. Upper extremity edema Hypoxia secondary to volume overload Pulmonary edema Coronary artery disease status post CABG in December 2018 Ischemic cardiomyopathy with current EF of 25% History of atrial fibrillation, transient Hypertension Hyperlipidemia Aortic stenosis Type II metabolic mismatch NSTEMI -As above he is on Entresto full dose. -In addition to Coreg 2.25 twice a day. He is also started on Spironolactone 25 daily. --Plan is to get Dr. Chou's professor of visual arts to be involved for possible evaluation for AICD placement. -Dr. Platt is his housecleaner -Aggressive diuresis as his BNP is over 10,000 - cardiology and Dr. Henriquez on board -Nephrology consult placed given the patient needs ongoing aggressive diuresis and possible cath during this admission which also will put him at risk for contrast-induced nephropathy. -If BUN and creatinine does not go up further will allow the cardiac medications to be uptitrated. -Repeat the echo as his last echo is in December 2018 -Strict in and output and weight daily -restricted diet with the sodium less than 2 g. Leukocytosis- Due to ongoing aggressive diuresis Thomas placed. But it it was a difficult placement. Likely contributing to the acute stress causing demargination of white count. Clinically he does not appear infectious will monitor closely if continued high white count probably need to start him on empiric antibiotic. He is currently afebrile. 21st We got about 6000 145 mL of urine output this morning. Inadvertently he is both on Lasix 60 mg 3 times daily as well as metolazone. Metolazone stopped. Lacey is probably due to Thomas insertion. And it is trending down. Hypokalemia--due to ongoing aggressive IV diuresis.--Being replaced. Also on scheduled twice daily potassium supplement. - may have to hold the scheduled potassium and will give as needed as patient's creatinine is increasing Acute kidney injury with diuresis.--Nephrology and Dr. Henriquez closely following. This may slow down plan for cardiac cath. Ischemic cardiomyopathy--AICD evaluation by Dr. Rodriguez, pending cardiac cath. BPH-patient on tamsulosin as well as finasteride. To ongoing aggressive cardiac work-up and his blood pressure is on the 120 range I am going to hold the tamsulosin but continue with the finasteride for now. Probable drug-induced reaction with Spironolactone versus other: Patient's legs have some rash. On the left leg all the way up to his thighs. It is papulous-does not appear miliary pattern. However it could be drug reaction as patient did not had any rash during the time of admission. He is on Entresto for a long time. Spironolactone started vs.. ceftriaxone, which could be a causative agent even though the rash is not widespread. Will monitor closely. He is hemodynamically stable at. It does not look like bullous pattern to be concerned for hypersensitivity reaction. Combined systolic and diastolic CHF exacerbation -On milrinone, -Rest of the management per Dr. Henriquez Gram-negative urinary tract infection -Sensitivity pending -On ceftriaxone for now -If the rash worsening we may need to stop this antibiotic and start him on non- penicillin group. Tenia corporis -If I put him on any oral antifungal it is going to worsen his clinical situation and would not know which one is causing which in terms of rash. -He may benefit with topical antifungal rather than p.o. -I will defer putting him on antifungal at this point and request ID consult on board as well Thrombocytopenia His platelet counts are 90,000 range during this admission. His last platelets were in January 2019 and it was 300,000. He is on heparin twice daily for DVT prophylaxis. Continue with heparin unless the platelets dropped to less than 30,000. -Since it is more than 50% drop from his last platelet count in January 2019 I may have to get HIT to rule out for any induced thrombocytopenia. -If it comes back positive then I cannot even put him on Lovenox and a probable choice at that time would be Arixtra, if anticoagulation is needed. 23 Weight loss with the aggressive diuresis about 23 pounds. -Backed off on the diuresis. Rash on his left leg improved --canceled ID consult. Urine culture grew Citrobacter which is sensitive to ceftriaxone and other medications including Macrobid Cipro and Levaquin. We will switch him to Macrobid. Continue PT OT Biventricular failure -Meds are all titrated by Dr. Henriquez and greatly appreciate his extensive involvement in this patient's care. Transient hypotension improved with holding Entresto and giving the dobutamine. Still on dobutamine drip. Coreg is on hold. - Hyponatremia Stable renal function Diuresis on hold due to low blood pressure as well as low sodium. Given the complexity of the medical management patient's CODE STATUS has to be addressed. We will request the palliative to step in and help us in that regard.
[2020-06-06 14:13] LABS: Heparin-Induced Ab (HITA) 0.215 OD (0.000-0.400)
--- NOTE | 2020-06-06 14:55 | PDOC.FMACP ---
Advance Care Planning - Problem (1) Chronic heart failure Status: Acute Code(s): I50.9 - HEART FAILURE, UNSPECIFIED (2) Declining functional status Status: Acute Code(s): R53.81 - OTHER MALAISE (3) Palliative care encounter Status: Acute Code(s): Z51.5 - ENCOUNTER FOR PALLIATIVE CARE (4) Acute worsening of stage 3 chronic kidney disease Status: Acute Code(s): N18.3 - CHRONIC KIDNEY DISEASE, STAGE 3 (MODERATE) (5) Hypertension Status: Chronic Code(s): I10 - ESSENTIAL (PRIMARY) HYPERTENSION - Note Participants: patient, palliative care Summary: Palliative Care initiated conversation in relation to Advanced Care Planning. The diagnosis, prognosis and goals of care were discussed. Appropriate forms and documentation to accomplish the goals of care were discussed. All questions were answered. Confirmed MPOA is his neice. Mr Rao has elected to transition to a DNAR status and complete an OOHDNAR. Dr Avendano notified for signature for OOHDNAR. Will continue to discuss Goal of Care. Please refer to Palliative Care notes in note section Time Spent (mins): 15
--- NOTE | 2020-06-06 18:37 | PRG ---
DATE OF SERVICE: 06/06/2020 SUBJECTIVE: The patient is seen and examined, noted with the following vital signs. OBJECTIVE: VITAL SIGNS: Hemodynamically stable with blood pressure 116/53, pulse 79, respiratory rate of 16, afebrile. HEENT: Unremarkable. CARDIOVASCULAR: First and second heart sounds were heard. RESPIRATORY: Clear to auscultation. DIGESTIVE: Benign abdomen. EXTREMITIES: Improved peripheral edema. SKIN: No new gross rash. LYMPHATICS: No peripheral lymphadenopathy. IMPRESSION: 1. [id number]-[id number] systolic congestive heart failure. 2. Hyponatremia in the context of intravascular depletion with appropriate . 3. Labile hemodynamics. PLAN: 1. De-escalate diuresis. 2. With improvement in the intravascular volume status, the patient's sodium level will normalize by shutting down the ADH secretion, therefore the patient does not need any tolvaptan or any anti-ADH medication for this. 3. Consider decreasing antihypertensive medications to optimize the hemodynamics of this patient. 4. Further management to be dependent on the clinical course. Job ID: [id number]
--- NOTE | 2020-06-06 19:04 | PDOC.CPN ---
- Subjective Date: 06/06/20 Time: 19:03 Interval history: He is resting comfortably. No new complaints. Had episodes of hypotension overnight. - Review of Systems General: denies: fever/chills, weight/appetite/sleep changes, night sweats, fatigue Respiratory: denies: cough, congestion, shortness of breath, exercise intolerance Cardiovascular: reports: edema. denies: chest pain, palpitation, paroxysmal nocturnal dyspnea, orthopnea Gastrointestinal: denies: nausea, vomiting, diarrhea, constipation, abd pain, GI bleeding Musculoskeletal: denies: pain, tenderness, stiffness, swelling, arthritis/arthralgias Neurological: denies: numbness, syncope, seizure, weakness - Objective Allergies/Adverse Reactions: Allergies Allergy/AdvReac Type Severity Reaction Status Date / Time morphine Allergy Verified 06/01/20 01:21 Visit Medications: Current Medications Acetaminophen (Acetaminophen 325 Mg Tab) 650 mg PO Q4H PRN PRN Reason: Headache/Fever/Mild Pain (1-3) Last Admin: 06/04/20 09:31 Dose: 650 mg Documented by: Acetazolamide (Acetazolamide 250 Mg Tab) 250 mg PO DAILY [facility] Last Admin: 06/06/20 09:33 Dose: 250 mg Documented by: Albuterol/Ipratropium (Ipratropium/Albuterol Sulfate 3 Ml Neb) 3 ml NEB Q6H PRN PRN Reason: Respiratory Distress Aspirin (Aspirin Chewable 81 Mg Tab) 81 mg PO DAILY [facility] Last Admin: 06/06/20 09:32 Dose: 81 mg Documented by: Atorvastatin Calcium (Atorvastatin Calcium 40 Mg Tab) 80 mg PO HS [facility] Last Admin: 06/05/20 22:20 Dose: 80 mg Documented by: Clonidine (Clonidine 0.1 Mg Tab) 0.1 mg PO BID PRN PRN Reason: SBP > 160 use second Clotrimazole (Clotrimazole 1 % Cream 30 Gm Tube) 0 gm TOP BID [facility] Last Admin: 06/06/20 09:34 Dose: 1 applic Documented by: Famotidine (Famotidine 20 Mg Tab) 20 mg PO BID [facility] Last Admin: 06/06/20 09:33 Dose: 20 mg Documented by: Finasteride (Finasteride 5 Mg Tab) 5 mg PO BID [facility] Last Admin: 06/06/20 09:33 Dose: 5 mg Documented by: Guaifenesin/Dextromethorphan (Guaifenesin Dm 100-10/5 Ml Udcup) 15 ml PO Q4H PRN PRN Reason: Cough Heparin Sodium (Porcine) (Heparin 5,000 Units/Ml Vial) 5,000 units SC BID [facility] Last Admin: 06/06/20 09:33 Dose: 5,000 units Documented by: Promethazine HCl 12.5 mg/ (Sodium Chloride) 50.5 mls @ 202 mls/hr IVPB Q6H PRN PRN Reason: Nausea/vomiting use second Dobutamine HCl/Dextrose 500 mg (/ Device) 250 mls @ 6.281 mls/hr IVPB INF NATASHA; Protocol Milrinone Lactate/Dextrose 20 (mg/ Device) 100 mls @ 6.281 mls/hr IV INF NATASHA; Protocol Last Admin: 06/06/20 09:44 Dose: 100 mls Documented by: Miscellaneous Medication (Electrolyte Replacement Protoc 1 Each Each) 1 each FS ASDIR NATASHA Nitrofurantoin Macrocrystals (Nitrofurantoin Monohyd/M-Cryst 100 Mg Cap) 100 mg PO BID [facility] Last Admin: 06/06/20 09:33 Dose: 100 mg Documented by: Ondansetron HCl (Ondansetron Pf 4 Mg/2 Ml Vial) 4 mg IVP Q6H PRN PRN Reason: Nausea/Vomiting use 1st Last Admin: 06/05/20 09:18 Dose: 4 mg Documented by: Potassium Chloride (Potassium Chloride 20 Meq Tab) 20 meq PO BID [facility] Last Admin: 06/06/20 09:32 Dose: 20 meq Documented by: Sacubitril/Valsartan (Sacubitril 24mg/Valsartan 26mg Tab) 1 tab PO BID [facility] Last Admin: 06/06/20 09:33 Dose: 1 tab Documented by: Sodium Chloride (Flush - Normal Saline 10 Ml Syringe) 10 ml IVF PRN PRN PRN Reason: Saline Flush Last Admin: 06/05/20 09:22 Dose: 10 ml Documented by: Spironolactone (Spironolactone 25 Mg Tab) 25 mg PO QAM-WM [facility] Last Admin: 06/06/20 09:33 Dose: 25 mg Documented by: Vital Signs & Weight: Vital Signs Temp Pulse Pulse BP BP Pulse Ox Pulse Ox 06/06/20 15:50 98.6 F 09/24/20 11:17 98.5 F 06/06/20 11:13 78 80 125/65 137/58 L 99 06/06/20 08:00 99 06/06/20 07:45 98.1 F Pulse Ox 06/06/20 15:50 06/06/20 11:17 06/06/20 11:13 98 06/06/20 08:00 06/06/20 07:45 Admit Weight 208 lb 12.432 oz Weight 186 lb 8.177 oz - Physical Exam General: no apparent distress HEENT: mucus membranes moist Neck: supple neck Cardiac: regular rate and rhythm Lungs: clear to auscultation Neuro: no lateralizing findings Abdomen: active bowel sounds Extremities: 1+ LE edema Skin: clear Musculoskeletal: no pain - Labs Result Diagrams: 06/06/20 03:08 06/06/20 03:08 Troponin/CKMB CK-MB (CK-2) 7.1 ng/mL (0-6.6) H* 05/31/20 21:37 Troponin I 0.076 ng/mL (< 0.028) H 06/01/20 04:05 - Telemetry Sinus rhythms and dysrhythmias: sinus rhythm - Assessment/Plan Assessment/Plan: 1. Acute on chronic systolic heart failure 2. Ischemic CM 3. Reduced EF at 20-25% 4. S/P CABG 2018 5. Mild aortic stenosis 6. UTI 7. Rash. PLAN: - Continue diuresis. - Abx per primary team. - Continue innotropic support. - Will follow
[2020-06-06] MEDS: Atorvastatin Calcium 40 MG TAB PO SCH (21:07)
[2020-06-07] MEDS: Milrinone Lactate/D5W 20 MG in Premix Bag 1 BAG IV SCH ×2 (01:46→15:38)
[2020-06-07 07:26] LABS: ALT (SGPT) 57 U/L (8-55); AST (SGOT) 48 U/L (5-34); Albumin 2.1 g/dL (3.4-4.8); Alkaline Phosphatase 94 U/L (40-110); Anion Gap 10 mmol/L (10-20); BUN (Urea Nitrogen) 44 mg/dL (8.4-25.7); Bilirubin, Total 0.5 mg/dL (0.2-1.2); Calc. Creatinine Clearance 56 mL/min (70-130); Calcium 7.8 mg/dL (7.8-10.44); Carbon Dioxide 28 mmol/L (23-31); Chloride 95 mmol/L (98-107); Estimated GFR-MDRD 54; Globulin 2.4 g/dL (2.4-3.5); Glucose 98 mg/dL (83-110); Hemoglobin 12.5 g/dL (14.0-18.0); Magnesium 2.2 mg/dL (1.6-2.6); Mean Corpuscular HGB CONC 33.5 g/dL (32.0-36.0); Mean Corpuscular Hemoglobin 33.3 pg (27.0-31.0); Mean Corpuscular Volume 99.4 fL (78.0-98.0); Mean Platelet Volume 8.5 fL (7.4-10.4); Platelet Count 125 thou/uL (130-400); Potassium 4.3 mmol/L (3.5-5.1); Protein, Total 4.5 g/dL (5.8-8.1); RBC Distribution Width 14.7 % (11.5-14.5); Red Blood Cell (RBC) Count 3.75 mill/uL (4.70-6.10); Sodium 129 mmol/L (136-145); White Blood Cell (WBC) Count 6.5 thou/uL (4.8-10.8)
[2020-06-07 08:50] LABS: Band 3 % (5-11); Burr Cells MODERATE= 6-15 cells (100X) (0-1/hpf); Eosinophils 4 % (0-10); Lymphocytes 18 % (21-51); MDiff Complete? YES; Monocytes 8 % (0-10); Neutrophil 65 % (42-75); Platelet Morphology Comment Appears Decreased; Polychromasia SLIGHT = 2-3 cells (100X) (0-2/hpf); Reactive Lymphocytes 2 % (0-10)
--- NOTE | 2020-06-07 09:00 | PRG ---
DATE OF SERVICE: 06/07/2020 SERVICE: Advanced Heart Failure Cardiology Consulting Service. SUBJECTIVE: Mr. Rao had a good day. He said he is breathing easy. He believes he is losing a little bit more fluid around his legs. He was able to ambulate with PT apparently one lap around the unit. It was reported that he was still having some low blood pressure in the 90s at evening around 7:00 p.m. However, his blood pressure steadily increased overnight to about 130s this morning. REVIEW OF SYSTEMS: GENERAL: There is no fever, chills, or productive cough. HEENT: There is no change in vision, hearing, or swallowing. However, he does have a very difficult time with hearing. He has chronic hearing deficit. He does not have any hearing aids. PULMONARY: Please see HPI. CARDIAC: There is no palpitation, chest pain, or syncope. GI: There is no complaint of nausea, vomiting, or diarrhea. : He has a Thomas catheter. MUSCULOSKELETAL: He is not complaining of joint or muscular pains. INTEGUMENT: There are no new skin breakdown reported, but he does have tinea. NEUROLOGIC: There are no new focal deficits or weaknesses. MEDICATIONS: That has cardiac effect includes: 1. Acetazolamide 250 mg daily. 2. Aspirin 81 mg daily. 3. Atorvastatin 80 mg at bedtime. 4. Dobutamine currently at 2.5 mcg/kg/min. 5. Milrinone currently at 0.25 mcg/kg/min. 6. Potassium chloride (K-Dur) 20 mEq b.i.d. 7. Sacubitril/valsartan, which is Entresto currently at 24/ combination once q.12 hours. 8. Spironolactone 25 mg daily. OBJECTIVE: Telemetry was reviewed. He is in sinus rhythm. Heart rate in the low 70s. LATEST VITAL SIGNS: Heart rate 72, blood pressure 139/60. GENERAL: He is alert, conversational, reclining comfortably in bed. HEENT: EOMI. He has a very hard time hearing, so one has to speak right next to his ear. NECK: His JVP still elevated about 12 cm with positive hepatojugular reflux. PULMONARY: There are decreased breath sounds, more prominent on the right side. However, his left lung has better air movement. CARDIAC: Regular rate and rhythm with normal S1 and S2. There are multiple murmurs. At right upper sternal border, there is 2/6 crescendo-decrescendo systolic murmur corresponding to aortic stenosis. There is also nearly 3/6 holosystolic murmur at the apex with radiation to the left axilla. There is also 2/6 holosystolic murmur at the left sternal border, so these consist of mitral regurgitation, tricuspid regurgitation, and aortic stenosis. ABDOMEN: Soft, nontender. Positive bowel sounds. However, he does have pitting edema about his abdominal fold. EXTREMITIES: He has dependent edema about his hips and upper thighs. His lower extremity edema has decreased. Edema about his knees have greatly decreased, but there is still pitting edema about his feet and ankle. Overall, even though he still has quite a bit of volume on board, his overall edema is steadily decreasing. His 24-hour I's recorded is 1790 mL in and 2775 mL out, so he had a net negative of 985 mL, thus he is still self diuresing. ASSESSMENT: 79-year-old gentleman is making slowly and steady progress from [id number] heart failure with reduced ejection fraction. It has combined systolic and diastolic dysfunctions. He also has a right ventricular failure. This biventricular failure makes it much more difficult to treat overall. Recovery of the blood pressure, continuation of self diuresis, these are excellent signs. However, there are no laboratory values this morning, so we cannot make a judgment on his electrolytes and renal function. With now adequate blood pressure and adequate for perfusion, we will attempt to titrate off dobutamine today. Once dobutamine titrated off, then carvedilol can be added back on tomorrow. Please see the following for my detailed recommendations. RECOMMENDATIONS: 1. Please do stat labs of CBC, complete metabolic panel, magnesium, and BNP. 2. He will need daily CBC and BMP and magnesium because we really need to know his electrolytes to titrate medications 3. Increase milrinone to 0.375 mcg/kg/min. 4. After 3 hours if systolic blood pressure is still above 100, decrease dobutamine to 1.25 mcg/kg/min. 5. If systolic blood pressure remains above 100 at the lower dose of dobutamine for 3 hours, then stop dobutamine altogether. 6. We will follow with the patient daily tomorrow. If he is able to go on milrinone only with adequate pressure and heart rate, then we will restart carvedilol. Depending on his urine output and electrolytes, we may need to restart loop diuretic again tomorrow. 7. We might be able to increase Entresto back. For now, he would be on a day by day titration. It has been a pleasure taking care of Mr. Rao. If you have any questions, please give me a call. Total ICU time for this is about 35 minutes. This includes a person performing H and P, reviewing data, and coordinating care and direct patient interaction. Job ID: [id number] MTDD
[2020-06-07] MEDS: AcetaZOLAMIDE 250 MG TAB PO SCH (09:26)
[2020-06-07] MEDS: Potassium Chloride 20 MEQ TAB PO SCH (09:26)
[2020-06-07] MEDS: Nitrofurantoin Monohyd/M-Cryst 100 MG CAP PO SCH ×2 (09:27→19:58)
[2020-06-07] MEDS: Aspirin Chewable 81 MG TAB PO SCH (09:27)
[2020-06-07] MEDS: Finasteride 5 MG TAB PO SCH ×2 (09:27→19:58)
[2020-06-07] MEDS: Spironolactone 25 MG TAB PO SCH (09:27)
[2020-06-07] MEDS: Famotidine 20 MG TAB PO SCH ×2 (09:27→19:58)
[2020-06-07] MEDS: Heparin 5,000 UNITS/ML VIAL SC SCH ×2 (09:28→19:58)
[2020-06-07] MEDS: Clotrimazole 1 % Cream 30 GM TUBE TOP SCH ×2 (09:38→20:04)
[2020-06-07] MEDS: Albumin 25% 25 GM/100 ML BOT IVPB SCH ×2 (13:00→17:18)
--- NOTE | 2020-06-07 14:01 | PDOC.CPN ---
- Subjective Date: 06/07/20 Time: 13:59 Interval history: No new issues. Edema significantly improved. - Review of Systems General: denies: fever/chills, weight/appetite/sleep changes, night sweats, fatigue Respiratory: denies: cough, congestion, shortness of breath, exercise intolerance Cardiovascular: denies: chest pain, palpitation, edema, paroxysmal nocturnal dyspnea, orthopnea Gastrointestinal: denies: nausea, vomiting, diarrhea, constipation, abd pain, GI bleeding Musculoskeletal: denies: pain, tenderness, stiffness, swelling, arthritis/arthralgias Neurological: denies: numbness, syncope, seizure, weakness - Objective Allergies/Adverse Reactions: Allergies Allergy/AdvReac Type Severity Reaction Status Date / Time morphine Allergy Verified 06/01/20 01:21 Visit Medications: Current Medications Acetaminophen (Acetaminophen 325 Mg Tab) 650 mg PO Q4H PRN PRN Reason: Headache/Fever/Mild Pain (1-3) Last Admin: 06/04/20 09:31 Dose: 650 mg Documented by: Albumin Human (Albumin 25% 25 Gm/100 Ml Bot) 25 gm IVPB Q6HR [facility] Stop: 06/08/20 12:01 Last Admin: 06/07/20 13:00 Dose: 25 gm Documented by: Albuterol/Ipratropium (Ipratropium/Albuterol Sulfate 3 Ml Neb) 3 ml NEB Q6H PRN PRN Reason: Respiratory Distress Aspirin (Aspirin Chewable 81 Mg Tab) 81 mg PO DAILY [facility] Last Admin: 06/07/20 09:27 Dose: 81 mg Documented by: Atorvastatin Calcium (Atorvastatin Calcium 40 Mg Tab) 80 mg PO HS [facility] Last Admin: 06/06/20 21:07 Dose: 80 mg Documented by: Clonidine (Clonidine 0.1 Mg Tab) 0.1 mg PO BID PRN PRN Reason: SBP > 160 use second Clotrimazole (Clotrimazole 1 % Cream 30 Gm Tube) 0 gm TOP BID [facility] Last Admin: 06/07/20 09:38 Dose: 1 applic Documented by: Famotidine (Famotidine 20 Mg Tab) 20 mg PO BID [facility] Last Admin: 06/07/20 09:27 Dose: 20 mg Documented by: Finasteride (Finasteride 5 Mg Tab) 5 mg PO BID [facility] Last Admin: 06/07/20 09:27 Dose: 5 mg Documented by: Guaifenesin/Dextromethorphan (Guaifenesin Dm 100-10/5 Ml Udcup) 15 ml PO Q4H PRN PRN Reason: Cough Heparin Sodium (Porcine) (Heparin 5,000 Units/Ml Vial) 5,000 units SC BID [facility] Last Admin: 06/07/20 09:28 Dose: 5,000 units Documented by: Promethazine HCl 12.5 mg/ (Sodium Chloride) 50.5 mls @ 202 mls/hr IVPB Q6H PRN PRN Reason: Nausea/vomiting use second Dobutamine HCl/Dextrose 500 mg (/ Device) 250 mls @ 6.281 mls/hr IVPB INF NATASHA; Protocol Last Admin: 06/07/20 06:25 Dose: 250 mls Documented by: Milrinone Lactate/Dextrose 20 (mg/ Device) 100 mls @ 9.421 mls/hr IV INF NATASHA; Protocol Miscellaneous Medication (Electrolyte Replacement Protoc 1 Each Each) 1 each FS ASDIR [facility] Nitrofurantoin Macrocrystals (Nitrofurantoin Monohyd/M-Cryst 100 Mg Cap) 100 mg PO BID [facility] Last Admin: 06/07/20 09:27 Dose: 100 mg Documented by: Ondansetron HCl (Ondansetron Pf 4 Mg/2 Ml Vial) 4 mg IVP Q6H PRN PRN Reason: Nausea/Vomiting use 1st Last Admin: 06/05/20 09:18 Dose: 4 mg Documented by: Sacubitril/Valsartan (Sacubitril 24mg/Valsartan 26mg Tab) 1 tab PO BID [facility] Last Admin: 06/07/20 09:38 Dose: Not Given Documented by: Sodium Chloride (Flush - Normal Saline 10 Ml Syringe) 10 ml IVF PRN PRN PRN Reason: Saline Flush Last Admin: 06/05/20 09:22 Dose: 10 ml Documented by: Spironolactone (Spironolactone 25 Mg Tab) 25 mg PO QAM[facility] Last Admin: 06/07/20 09:27 Dose: 25 mg Documented by: Vital Signs & Weight: Vital Signs Temp Pulse Pulse BP BP 06/07/20 11:31 97.3 F L 06/07/20 08:42 88 77 122/58 L 157/64 H 06/07/20 07:18 97.6 F 09/25/20 03:56 97.8 F Admit Weight 208 lb 12.432 oz Weight 189 lb 6.033 oz - Physical Exam General: no apparent distress HEENT: mucus membranes moist Neck: supple neck Cardiac: regular rate and rhythm Lungs: normal breath sounds Neuro: no lateralizing findings Abdomen: active bowel sounds Extremities: no edema Skin: clear Musculoskeletal: no pain - Labs Result Diagrams: 06/07/20 06:52 06/07/20 06:52 Troponin/CKMB CK-MB (CK-2) 7.1 ng/mL (0-6.6) H* 05/31/20 21:37 Troponin I 0.076 ng/mL (< 0.028) H 06/01/20 04:05 - Telemetry Sinus rhythms and dysrhythmias: sinus rhythm - Assessment/Plan Assessment/Plan: 1. Acute on chronic systolic heart failure 2. Ischemic CM 3. Reduced EF at 20-25% 4. S/P CABG 2018 5. Mild aortic stenosis 6. UTI 7. Rash. PLAN: - Continue diuresis. - Abx per primary team. - Will plan on [facility] once ready. Likely next week.
--- NOTE | 2020-06-07 14:51 | PDOC.HOSPP ---
- Subjective Encounter Date: 06/07/20 Encounter Time: 10:20 Subjective: Patient is still on dobutamine drip. He should be on fluid restriction. His sodium levels still remain the same or less. His BNP remarkably reduced to 424. He is output is around 1400. His weight more or less remains the same actually he gained 3 more pounds today compared to yesterday. - Objective Vital Signs & Weight: Vital Signs (12 hours) Temp Pulse Pulse BP BP 06/07/20 11:31 97.3 F L 06/07/20 08:42 88 77 122/58 L 157/64 H 06/07/20 07:18 97.6 F 06/07/20 03:56 97.8 F Weight Admit Weight 208 lb 12.432 oz Weight 189 lb 6.033 oz Most Recent Monitor Data Heart Rate from ECG 85 NIBP 103/49 NIBP BP-Mean 67 Respiration from ECG 16 SpO2 100 I&O: 06/06/20 06/07/20 06/08/20 06:59 06:59 06:59 Intake Total 1340 1790 720 Output Total 3050 2775 800 Balance -1710 -985 -80 Result Diagrams: 06/07/20 06:52 06/07/20 06:52 Hospitalist ROS - Medication Medications: Active Medications Generic Name Dose Route Start Last Admin Trade Name Freq PRN Reason Stop Dose Admin Acetaminophen 650 mg 05/31/20 23:12 06/04/20 09:31 Acetaminophen 325 Mg Tab PO 650 mg Q4H PRN Administration Headache/Fever/Mild Pain (1-3) Albumin Human 25 gm 06/07/20 12:00 06/07/20 13:00 Albumin 25% 25 Gm/100 Ml Bot IVPB 06/08/20 12:01 25 gm Q6HR NATASHA Administration Aspirin 81 mg 06/03/20 09:00 06/07/20 09:27 Aspirin Chewable 81 Mg Tab PO 81 mg DAILY NATASHA Administration Atorvastatin Calcium 80 mg 06/01/20 21:00 06/06/20 21:07 Atorvastatin Calcium 40 Mg Tab PO 80 mg HS NATASHA Administration Clotrimazole 0 gm 06/04/20 21:00 06/07/20 09:38 Clotrimazole 1 % Cream 30 Gm Tube TOP 1 applic BID NATASHA Administration Famotidine 20 mg 06/01/20 09:00 06/07/20 09:27 Famotidine 20 Mg Tab PO 20 mg BID NATASHA Administration Finasteride 5 mg 06/01/20 21:00 06/07/20 09:27 Finasteride 5 Mg Tab PO 5 mg BID NATASHA Administration Heparin Sodium (Porcine) 5,000 units 06/01/20 09:00 06/07/20 09:28 Heparin 5,000 Units/Ml Vial SC 5,000 units BID NATASHA Administration Dobutamine HCl/Dextrose 500 mg 250 mls @ 6.281 mls/hr 06/05/20 17:45 06/07/20 06:25 / Device IVPB 250 mls INF NATASHA Administration Protocol 2.5 MCG/KG/MIN Nitrofurantoin Macrocrystals 100 mg 06/05/20 21:00 06/07/20 09:27 Nitrofurantoin Monohyd/M-Cryst 100 Mg Cap PO 100 mg BID NATASHA Administration Ondansetron HCl 4 mg 05/31/20 23:12 06/05/20 09:18 Ondansetron Pf 4 Mg/2 Ml Vial IVP 4 mg Q6H PRN Administration Nausea/Vomiting use 1st Sacubitril/Valsartan 1 tab 06/05/20 21:00 06/07/20 09:38 Sacubitril 24mg/Valsartan 26mg Tab PO Not Given BID NATASHA Sodium Chloride 10 ml 06/01/20 02:30 06/05/20 09:22 Flush - Normal Saline 10 Ml Syringe IVF 10 ml PRN PRN Administration Saline Flush Spironolactone 25 mg 06/02/20 08:00 06/07/20 09:27 Spironolactone 25 Mg Tab PO 25 mg QAM-WM NATASHA Administration - Exam General Appearance: NAD, awake alert Eye: PERRL ENT: normocephalic atraumatic Neck: supple Heart: RRR Respiratory: CTAB Gastrointestinal: soft Extremities: 1+ LE edema Neurological: no focal deficits Psychiatric: A&O x 3 Hosp A/P - Plan Acute on chronic systolic CHF exacerbation. Upper extremity edema Hypoxia secondary to volume overload Pulmonary edema Coronary artery disease status post CABG in December 2018 Ischemic cardiomyopathy with current EF of 25% History of atrial fibrillation, transient Hypertension Hyperlipidemia Aortic stenosis Type II metabolic mismatch NSTEMI -As above he is on Entresto full dose. -In addition to Coreg 2.25 twice a day. He is also started on Spironolactone 25 daily. --Plan is to get Dr. Chou's corporate accounting manager to be involved for possible evaluation for AICD placement. -Dr. Platt is his kinesiology internship -Aggressive diuresis as his BNP is over 10,000 - cardiology and Dr. Henriquez on board -Nephrology consult placed given the patient needs ongoing aggressive diuresis and possible cath during this admission which also will put him at risk for contrast-induced nephropathy. -If BUN and creatinine does not go up further will allow the cardiac medications to be uptitrated. -Repeat the echo as his last echo is in December 2018 -Strict in and output and weight daily -restricted diet with the sodium less than 2 g. Leukocytosis- Due to ongoing aggressive diuresis Thomas placed. But it it was a difficult placement. Likely contributing to the acute stress causing demargination of white count. Clinically he does not appear infectious will monitor closely if continued high white count probably need to start him on empiric antibiotic. He is currently afebrile. We got about 6000 145 mL of urine output this morning. Inadvertently he is both on Lasix 60 mg 3 times daily as well as metolazone. Metolazone stopped. Lacey is probably due to Thomas insertion. And it is trending down. Hypokalemia--due to ongoing aggressive IV diuresis.--Being replaced. Also on scheduled twice daily potassium supplement. - may have to hold the scheduled potassium and will give as needed as patient's creatinine is increasing Acute kidney injury with diuresis.--Nephrology and Dr. Henriquez closely following. This may slow down plan for cardiac cath. Ischemic cardiomyopathy--AICD evaluation by Dr. Rodriguez, pending cardiac cath. BPH-patient on tamsulosin as well as finasteride. To ongoing aggressive cardiac work-up and his blood pressure is on the 120 range I am going to hold the tamsulosin but continue with the finasteride for now. Probable drug-induced reaction with Spironolactone versus other: Patient's legs have some rash. On the left leg all the way up to his thighs. It is papulous-does not appear miliary pattern. However it could be drug reaction as patient did not had any rash during the time of admission. He is on Entresto for a long time. Spironolactone started vs.. ceftriaxone, which could be a causative agent even though the rash is not widespread. Will monitor closely. He is hemodynamically stable at. It does not look like bullous pattern to be concerned for hypersensitivity reaction. Combined systolic and diastolic CHF exacerbation -On milrinone, -Rest of the management per Dr. Henriquez Gram-negative urinary tract infection -Sensitivity pending -On ceftriaxone for now -If the rash worsening we may need to stop this antibiotic and start him on non- penicillin group. Tenia corporis -If I put him on any oral antifungal it is going to worsen his clinical situation and would not know which one is causing which in terms of rash. -He may benefit with topical antifungal rather than p.o. -I will defer putting him on antifungal at this point and request ID consult on board as well Thrombocytopenia His platelet counts are 90,000 range during this admission. His last platelets were in January 2019 and it was 300,000. He is on heparin twice daily for DVT prophylaxis. Continue with heparin unless the platelets dropped to less than 30,000. -Since it is more than 50% drop from his last platelet count in January 2019 I may have to get HIT to rule out for any induced thrombocytopenia. -If it comes back positive then I cannot even put him on Lovenox and a probable choice at that time would be Arixtra, if anticoagulation is needed. 23rd Weight loss with the aggressive diuresis about 23 pounds. -Backed off on the diuresis. Rash on his left leg improved --canceled ID consult. Urine culture grew Citrobacter which is sensitive to ceftriaxone and other medications including Macrobid Cipro and Levaquin. We will switch him to Macrobid. Continue PT OT Biventricular failure -Meds are all titrated by Dr. Henriquez and greatly appreciate his extensive involvement in this patient's care. Transient hypotension improved with holding Entresto and giving the dobutamine. Still on dobutamine drip. Coreg is on hold. - Hyponatremia Stable renal function Diuresis on hold due to low blood pressure as well as low sodium. Given the complexity of the medical management patient's CODE STATUS has to be addressed. We will request the palliative to step in and help us in that regard. 25th Patient is still on dobutamine drip. He should be on fluid restriction. His sodium levels still remain the same or less. His BNP remarkably reduced to 424. He is output is around 1400. His weight more or less remains the same actually he gained 3 more pounds today compared to yesterday. With Macrobid for his urinary tract infection. Stop on . Clotrimazole topical His creatinine remained stable at 1.2 Plan for cath possibly next week.
--- NOTE | 2020-06-07 15:23 | PRG ---
DATE OF SERVICE: 06/07/2020 SUBJECTIVE: The patient is seen and examined during physical therapy, seems to be doing much better. OBJECTIVE: VITAL SIGNS: Afebrile. Blood pressure 103/49. GENERAL: Hemodynamically stable. HEENT: Unremarkable. CARDIOVASCULAR SYSTEM: First and heart sounds were heard. RESPIRATORY SYSTEM: Clear to auscultation. DIGESTIVE SYSTEM: Revealed a benign abdomen. Positive bowel sounds. EXTREMITIES: No peripheral edema. SKIN: No new gross rash. LYMPHATICS: No peripheral lymphadenopathy. LABORATORY INVESTIGATION: Showed sodium of 129, potassium of 4.3, creatinine 1.2, BUN of 44. IMPRESSION: 1. [id number] systolic heart failure. 2. Mild hyponatremia. 3. Chronic kidney disease, stage 3. PLAN: 1. Discontinue potassium supplementation, especially in this patient who is on Entresto and spironolactone. 2. I agree with de-escalation of diuretics. 3. Discontinue acetazolamide. 4. Further management to be dependent on the clinical course. Job ID: [id number]
[2020-06-07 17:40] LABS: Anion Gap 11 mmol/L (10-20); BUN (Urea Nitrogen) 47 mg/dL (8.4-25.7); Calc. Creatinine Clearance 60 mL/min (70-130); Calcium 8.2 mg/dL (7.8-10.44); Carbon Dioxide 28 mmol/L (23-31); Chloride 97 mmol/L (98-107); Estimated GFR-MDRD 58; Glucose 137 mg/dL (83-110); Potassium 4.8 mmol/L (3.5-5.1); Sodium 131 mmol/L (136-145)
[2020-06-07] MEDS: Atorvastatin Calcium 40 MG TAB PO SCH (19:58)
[2020-06-08] MEDS: Albumin 25% 25 GM/100 ML BOT IVPB SCH ×3 (00:26→11:33)
[2020-06-08 03:48] LABS: Anion Gap 9 mmol/L (10-20); BUN (Urea Nitrogen) 46 mg/dL (8.4-25.7); Calc. Creatinine Clearance 66 mL/min (70-130); Calcium 8.2 mg/dL (7.8-10.44); Carbon Dioxide 27 mmol/L (23-31); Chloride 97 mmol/L (98-107); Estimated GFR-MDRD 65; Glucose 103 mg/dL (83-110); Potassium 4.1 mmol/L (3.5-5.1); Sodium 129 mmol/L (136-145)
[2020-06-08 04:24] LABS: Band 3 % (5-11); Eosinophils 1 % (0-10); Hemoglobin 10.6 g/dL (14.0-18.0); Lymphocytes 13 % (21-51); MDiff Complete? YES; Mean Corpuscular HGB CONC 33.4 g/dL (32.0-36.0); Mean Corpuscular Hemoglobin 33.1 pg (27.0-31.0); Mean Corpuscular Volume 99.1 fL (78.0-98.0); Mean Platelet Volume 8.3 fL (7.4-10.4); Monocytes 9 % (0-10); Neutrophil 74 % (42-75); Platelet Count 114 thou/uL (130-400); Platelet Morphology Comment Appears Decreased; RBC Distribution Width 14.4 % (11.5-14.5); Red Blood Cell (RBC) Count 3.21 mill/uL (4.70-6.10); White Blood Cell (WBC) Count 5.2 thou/uL (4.8-10.8)
[2020-06-08] MEDS: Nitrofurantoin Monohyd/M-Cryst 100 MG CAP PO SCH ×2 (08:35→20:07)
[2020-06-08] MEDS: Clotrimazole 1 % Cream 30 GM TUBE TOP SCH ×2 (08:35→20:13)
[2020-06-08] MEDS: Aspirin Chewable 81 MG TAB PO SCH (08:36)
[2020-06-08] MEDS: Famotidine 20 MG TAB PO SCH ×2 (08:36→20:06)
[2020-06-08] MEDS: Heparin 5,000 UNITS/ML VIAL SC SCH ×2 (08:36→20:08)
[2020-06-08] MEDS: Spironolactone 25 MG TAB PO SCH (08:36)
[2020-06-08] MEDS: Finasteride 5 MG TAB PO SCH ×2 (08:36→20:06)
[2020-06-08] MEDS ORDERED: Carvedilol 6.25 MG TAB PO SCH (09:45)
[2020-06-08] MEDS: Milrinone Lactate/D5W 20 MG in Premix Bag 1 BAG IV SCH ×2 (11:31→20:09)
[2020-06-08] MEDS: Nystatin Powder 15 GM BOT TOP PRN ×2 (11:34→20:14)
--- NOTE | 2020-06-08 15:46 | RAD ---
CHEST ONE VIEW: 06/08/20 INDICATION: History of pulmonary edema. COMPARISON: Prior exam dated 05/21/20. FINDINGS: The cardiomegaly is mildly improved. The pulmonary vascular congestion is less prominent. There is im provement of the central edema pattern. The bilateral pleural effusions are smaller. Tiny residual ef fusions remain. No pneumothorax is evident. IMPRESSION: Improving CHF. POS: BH
--- NOTE | 2020-06-08 15:57 | PDOC.HOSPP ---
- Subjective Encounter Date: 06/08/20 Encounter Time: 15:57 Subjective: The patient states his shortness of breath is a bit better. No cough or chest pain. He has oleary in place, there is question about whether urology had to place this in due to difficulty - Objective Vital Signs & Weight: Vital Signs (12 hours) Temp Pulse Pulse BP BP BP Pulse Ox 06/08/20 15:19 99.3 F 06/08/20 14:38 105 H 87 179/69 H 153/54 H 06/08/20 11:29 97.3 F L 06/08/20 10:20 173/69 H 06/08/20 07:45 99 06/08/20 07:04 98.4 F Weight Admit Weight 208 lb 12.432 oz Weight 189 lb 9.561 oz Most Recent Monitor Data Heart Rate from ECG 88 NIBP 179/69 NIBP BP-Mean 105 Respiration from ECG 18 SpO2 99 I&O: 06/07/20 06/08/20 06/09/20 06:59 06:59 06:59 Intake Total 1790 860 625 Output Total 4105 3650 1450 Balance -985 -2790 -825 Result Diagrams: 06/08/20 03:15 06/08/20 03:15 Hospitalist ROS - Review of Systems Constitutional: denies: fever, chills - Medication Medications: Active Medications Generic Name Dose Route Start Last Admin Trade Name Freq PRN Reason Stop Dose Admin Acetaminophen 650 mg 05/31/20 23:12 06/04/20 09:31 Acetaminophen 325 Mg Tab PO 650 mg Q4H PRN Administration Headache/Fever/Mild Pain (1-3) Aspirin 81 mg 06/03/20 09:00 06/08/20 08:36 Aspirin Chewable 81 Mg Tab PO 81 mg DAILY NATASHA Administration Atorvastatin Calcium 80 mg 06/01/20 21:00 06/07/20 19:58 Atorvastatin Calcium 40 Mg Tab PO 80 mg HS NATASHA Administration Clotrimazole 0 gm 06/04/20 21:00 06/08/20 08:35 Clotrimazole 1 % Cream 30 Gm Tube TOP 1 applic BID NATASHA Administration Famotidine 20 mg 06/01/20 09:00 06/08/20 08:36 Famotidine 20 Mg Tab PO 20 mg BID NATASHA Administration Finasteride 5 mg 06/01/20 21:00 06/08/20 08:36 Finasteride 5 Mg Tab PO 5 mg BID NATASHA Administration Heparin Sodium (Porcine) 5,000 units 06/01/20 09:00 06/08/20 08:36 Heparin 5,000 Units/Ml Vial SC 5,000 units BID NATASHA Administration Dobutamine HCl/Dextrose 500 mg 250 mls @ 6.281 mls/hr 06/05/20 17:45 06/07/20 06:25 / Device IVPB 250 mls INF NATASHA Administration Protocol 2.5 MCG/KG/MIN Milrinone Lactate/Dextrose 20 100 mls @ 9.421 mls/hr 06/07/20 08:45 06/08/20 11:31 mg/ Device IV 100 mls INF NATASHA Administration Protocol 0.375 MCG/KG/MIN Nitrofurantoin Macrocrystals 100 mg 06/05/20 21:00 06/08/20 08:35 Nitrofurantoin Monohyd/M-Cryst 100 Mg Cap PO 100 mg BID NATASHA Administration Nystatin 0 gm 06/08/20 09:50 06/08/20 11:34 Nystatin Powder 15 Gm Bot TOP 1 applic BID PRN Administration Topical Irritations Ondansetron HCl 4 mg 05/31/20 23:12 06/05/20 09:18 Ondansetron Pf 4 Mg/2 Ml Vial IVP 4 mg Q6H PRN Administration Nausea/Vomiting use 1st Sodium Chloride 10 ml 06/01/20 02:30 06/07/20 19:58 Flush - Normal Saline 10 Ml Syringe IVF 10 ml PRN PRN Administration Saline Flush Spironolactone 25 mg 06/02/20 08:00 06/08/20 08:36 Spironolactone 25 Mg Tab PO 25 mg QAM-WM NATASHA Administration - Exam General Appearance: NAD, awake alert Eye: PERRL, anicteric sclera ENT: normocephalic atraumatic, no oropharyngeal lesions Neck: no JVD Heart: RRR, no murmur, no gallops, no rubs Respiratory: CTAB, no wheezes, no rales, no ronchi Gastrointestinal: soft, non-tender, non-distended, normal bowel sounds Extremities: 2+ LE edema Skin: normal turgor, no lesions, no rashes Hosp A/P - Plan ECHO: EF 20-25%, mild , moderate TR, mild AR Chest Xray: CHF Chest X ray 06/08: mild CHF This is an 79 year old male with past medical history of heart failure who presented with generalized anasarca and BNP > 65086 Acute systolic heart failure - ECHO shows EF 20-25%. CHF noted on admission chest X ray, repeat chest X ray shows improvement - on milrinone 0.375 mcg, continue dcurrent dose for now. BNP was 424 yesterday. Has 2+ edema today - continue with PT - continue entresto, coreg, spironolactone Hyponatremia - sodium down to 129. Per DR. Henriquez, continue milrinone for now, if sodium con tinues to drop lasix to be resumed Citrobacter UTI - on bactrim day 4 - has oleary in place, consider removal Hypertension - started on entresto, coreg increased today - continue spironolactone CAD - continue aspirin, statin
[2020-06-08] MEDS: Carvedilol 6.25 MG TAB PO SCH (20:05)
[2020-06-08] MEDS: Acetaminophen 325 MG TAB PO PRN (20:05)
[2020-06-08] MEDS: Atorvastatin Calcium 40 MG TAB PO SCH (20:06)
[2020-06-08] MEDS: Sacubitril 49 MG/Valsartan 51 MG TABLET PO SCH (20:08)
[2020-06-09 03:59] LABS: Anion Gap 10 mmol/L (10-20); BUN (Urea Nitrogen) 41 mg/dL (8.4-25.7); Calc. Creatinine Clearance 72 mL/min (70-130); Calcium 8.2 mg/dL (7.8-10.44); Carbon Dioxide 24 mmol/L (23-31); Chloride 100 mmol/L (98-107); Estimated GFR-MDRD 74; Glucose 113 mg/dL (83-110); Potassium 4.1 mmol/L (3.5-5.1); Sodium 130 mmol/L (136-145)
[2020-06-09 04:39] LABS: Band 12 % (5-11); Hemoglobin 10.5 g/dL (14.0-18.0); Lymphocytes 11 % (21-51); MDiff Complete? YES; Mean Corpuscular HGB CONC 33.7 g/dL (32.0-36.0); Mean Corpuscular Hemoglobin 33.2 pg (27.0-31.0); Mean Corpuscular Volume 98.5 fL (78.0-98.0); Mean Platelet Volume 7.9 fL (7.4-10.4); Monocytes 12 % (0-10); Neutrophil 65 % (42-75); Platelet Count 105 thou/uL (130-400); Platelet Morphology Comment Appears Decreased; RBC Distribution Width 14.2 % (11.5-14.5); Red Blood Cell (RBC) Count 3.17 mill/uL (4.70-6.10); White Blood Cell (WBC) Count 5.9 thou/uL (4.8-10.8)
[2020-06-09] MEDS: Milrinone Lactate/D5W 20 MG in Premix Bag 1 BAG IV SCH ×2 (04:54→15:55)
--- NOTE | 2020-06-09 08:23 | PRG ---
DATE OF SERVICE: 06/08/2020 SERVICE: [facility]. SUBJECTIVE: Mr. Kristian Rao had a good day. Again, he was able to walk around the unit at least one lap. He feels like he is breathing easy. He believes that his fluid level is coming down. He can see his abdomen getting smaller, his leg swelling, especially around his thighs is getting less. It was reported that he ate his meals very well yesterday, thus this would not be a reason for his low albumin level. Potassium chloride supplement was stopped due to rising potassium levels. Acetazolamide was stopped due to resolution of contraction alkalosis. However, his albumin was really low at 2.1, thereby necessitating albumin supplement to increase his intravascular volume. REVIEW OF SYSTEMS: GENERAL: There is no fever, chills, or productive cough. HEENT: Showed there is no change in vision, hearing, or swallowing. PULMONARY: He is breathing easy. CARDIAC: There is no complaint of palpitations, chest pain, or syncope. GI: He is not complaining of nausea, vomiting, or diarrhea. : He is still on a Thomas catheter. MUSCULOSKELETAL: There are no complaints of severe muscle or joint pains today. However, he does complain of crick in the neck from not sleeping well. INTEGUMENT: He said that he has a red rash around his arms, around his leg and groin area for quite a while now. It occurred before the admission. NEUROLOGIC: There are no new focal deficits or weaknesses. MEDICATIONS: That have cardiac effect include; 1. Albumin 25 g IV q.6 hours. 2. Aspirin 81 mg daily. 3. Atorvastatin 80 mg at bedtime. 4. Heparin 5000 units b.i.d. 5. Milrinone currently at 0.375 mcg/kg per minute. 6. He is taking nitrofurantoin 100 mg b.i.d. 7. Sacubitril/valsartan which is Entresto combination one tablet twice a day. 8. Spironolactone 25 mg daily. The telemetry was reviewed. It was sinus rhythm with occasional PVC. There are no concerning arrhythmias. PHYSICAL EXAMINATION: VITAL SIGNS: In the low 100s, but then overnight, his systolic blood pressure increased. The last one according to the system, heart rate 81, blood pressure 149/71. But, systolic blood pressure then came down to about 130. His in's and out's are 860 in and 3650 out, so this suggests that he is net negative at 2790 mL from yesterday. GENERAL: He is alert and conversational, sitting up in chair and relaxed. This is the best I have seen him in many days. HEENT: Showed EOMI. Oropharynx is benign with moist mucosa. NECK: His JVP is about 11 cm with positive hepatojugular reflux, thus he is still volume overloaded by that exam. PULMONARY: There is good air movement in bilateral upper lung koch; however, he has bibasilar crackles. CARDIAC: Regular rate and rhythm with occasional irregularities. There is 2/6 holosystolic murmur at the apex with radiation to the left axilla. ABDOMEN: Soft, nontender. Positive bowel sounds. EXTREMITIES: There is still some pitting edema around his waist and thighs, but then this is less than what it was. He still has tinea corporis around his groin and more concentrated on the left leg, but since starting clotrimazole this has decreased. The area affected is less and the erythema intensity has decreased. His lower extremities still have at least 1.5 cm pitting edema from the feet up towards knees about 2/[address] and there is still some pitting edema in his thighs. LABORATORY DATA: His lab values show white cell count 5.2, hemoglobin 10.6, platelets 114. His chemistry shows sodium 129, potassium 4.1, chloride 97, bicarb at 27, BUN has decreased a bit to 46 and creatinine is 1.09, thus this is one of his best renal function yet. ASSESSMENT: 79-year-old gentleman is making slow but steady progress to improve from his combined biventricular failure. It is acute on chronic heart failure with reduced ejection fraction with combined systolic and diastolic dysfunction. He also has a right ventricular dysfunction with a right ventricular failure, leading to anasarca. Currently, milrinone 0.375 mcg/kg is providing enough cardiac output. His albumin value of 2.1 is contributing to his edema. With albumin falling below 2.4, then that will cause tissue edema due to the decreased osmotic forces inside blood vessels. Thus, albumin supplementation will be needed. It also needs to be investigated, it could be poor nutrition, it could be liver dysfunction due to chronic liver congestion, or it may be due to some level of nephrotic syndrome. For now, with adequate urine output and increasing blood pressure and consolidation of dobutamine to just milrinone only, then we can restart carvedilol. This will provide further cardiac protection. Please see the following for today's recommendations. RECOMMENDATIONS: 1. Start carvedilol 6.25 mg p.o. q.12 hours. 2. Continue milrinone at 0.25 mcg/kg per minute. 3. Continue albumin 25 g IV q.6 hours. 4. We will avoid loop diuretics again today because the increased cardiac output, increasing intravascular osmolarity seem to be having good effect in causing diuresis. 5. We will follow his electrolytes and replace as needed. 6. Please consider investigation for nephrotic syndrome if warranted. It has been a pleasure taking care of Mr. Rao. If you have any questions, please give me a call. This ICU visitation time took about 40 minutes. This includes personally performing H and P, reviewing data, coordinating care, and direct patient interaction and also titration of drips from weaning off dobutamine and increasing milrinone to 0.375 mcg/kg per minute to stabilize situation. Job ID: [id number] MTDD
[2020-06-09] MEDS: Folic Acid 1 MG TAB PO SCH (09:05)
[2020-06-09] MEDS: Famotidine 20 MG TAB PO SCH ×2 (09:05→21:26)
[2020-06-09] MEDS: Clotrimazole 1 % Cream 30 GM TUBE TOP SCH ×2 (09:05→21:29)
[2020-06-09] MEDS: Carvedilol 6.25 MG TAB PO SCH ×2 (09:05→21:25)
[2020-06-09] MEDS: Nystatin Powder 15 GM BOT TOP PRN (09:05)
[2020-06-09] MEDS: Nitrofurantoin Monohyd/M-Cryst 100 MG CAP PO SCH ×2 (09:05→21:26)
[2020-06-09] MEDS: Heparin 5,000 UNITS/ML VIAL SC SCH ×2 (09:05→21:30)
[2020-06-09] MEDS: Sacubitril 49 MG/Valsartan 51 MG TABLET PO SCH ×2 (09:05→21:26)
[2020-06-09] MEDS: Finasteride 5 MG TAB PO SCH ×2 (09:05→21:25)
[2020-06-09] MEDS: Aspirin Chewable 81 MG TAB PO SCH (09:05)
[2020-06-09] MEDS: Spironolactone 25 MG TAB PO SCH (09:05)
--- NOTE | 2020-06-09 09:42 | RAD ---
Chest AP view INDICATION: Follow-up pulmonary edema COMPARISON: Single view of the chest dated June 08, 2020 FINDINGS: Lungs: Bibasilar atelectasis Cardiac silhouette: Stable mild cardiomegaly Pulmonary vasculature: Stable mild pulmonary vascular congestion Pleural spaces: Slightly increased small bilateral pleural effusions Upper abdomen: No abnormality seen. Osseous structures: Midline sternotomy changes are stable. Calcifications of the right upper quadran t suspicious for cholelithiasis is again seen. Additional findings: None. IMPRESSION: Slightly increased small bilateral pleural effusions with findings of mild CHF or volume overload
[2020-06-09 10:10] LABS: ALT (SGPT) 41 U/L (8-55); AST (SGOT) 31 U/L (5-34); Albumin 3.1 g/dL (3.4-4.8); Alkaline Phosphatase 87 U/L (40-110); Anion Gap 11 mmol/L (10-20); BUN (Urea Nitrogen) 38 mg/dL (8.4-25.7); Calc. Creatinine Clearance 72 mL/min (70-130); Calcium 8.5 mg/dL (7.8-10.44); Carbon Dioxide 24 mmol/L (23-31); Chloride 100 mmol/L (98-107); Estimated GFR-MDRD 74; Globulin 2.2 g/dL (2.4-3.5); Glucose 141 mg/dL (83-110); Potassium 3.9 mmol/L (3.5-5.1); Protein, Total 5.3 g/dL (5.8-8.1); Sodium 131 mmol/L (136-145)
--- NOTE | 2020-06-09 10:42 | EKG ---
Test Reason : Blood Pressure : / mmHG Vent. Rate : 058 BPM Atrial Rate : 058 BPM P-R Int : 182 ms QRS Dur : 114 ms QT Int : 454 ms P-R-T Axes : 021 -45 192 degrees QTc Int : 445 ms Sinus bradycardia Left axis deviation T wave abnormality, consider anterolateral ischemia Abnormal ECG Confirmed by ELAINE ROBERTS MD ([id number] on 06/09/2020 10:42:06 AM Referred By: ANANDA Confirmed By:ELAINE ROBERTS MD
--- NOTE | 2020-06-09 14:52 | PDOC.HOSPP ---
- Subjective Encounter Date: 06/09/20 Encounter Time: 13:30 Subjective: The patient states he feels okay. He has a dry cough and has some shortness of breath. Still has some edema. No chest pain He states he sleeps on two pillows and has been doing that for years - Objective Vital Signs & Weight: Vital Signs (12 hours) Temp BP Pulse Ox 06/09/20 11:15 98.3 F 06/09/20 09:05 173/72 H 06/09/20 08:55 99 06/09/20 07:18 97.4 F L 06/09/20 03:52 97.1 F L Weight Admit Weight 208 lb 12.432 oz Weight 184 lb 8.43 oz Most Recent Monitor Data Heart Rate from ECG 80 NIBP 127/56 NIBP BP-Mean 79 Respiration from ECG 17 SpO2 100 I&O: 06/08/20 06/09/20 06/10/20 06:59 06:59 06:59 Intake Total 860 1597.8 Output Total 3650 4000 Balance -2240 -2402.2 Result Diagrams: 06/09/20 03:32 06/09/20 09:27 Hospitalist ROS - Review of Systems Constitutional: denies: fever, chills - Medication Medications: Active Medications Generic Name Dose Route Start Last Admin Trade Name Booq PRN Reason Stop Dose Admin Acetaminophen 650 mg 05/31/20 23:12 06/08/20 20:05 Acetaminophen 325 Mg Tab PO 650 mg Q4H PRN Administration Headache/Fever/Mild Pain (1-3) Aspirin 81 mg 06/03/20 09:00 06/09/20 09:05 Aspirin Chewable 81 Mg Tab PO 81 mg DAILY NATASHA Administration Atorvastatin Calcium 80 mg 06/01/20 21:00 06/08/20 20:06 Atorvastatin Calcium 40 Mg Tab PO 80 mg HS NATASHA Administration Carvedilol 6.25 mg 06/08/20 21:00 06/09/20 09:05 Carvedilol 6.25 Mg Tab PO 6.25 mg Q12HR NATASHA Administration Clotrimazole 0 gm 06/04/20 21:00 06/09/20 09:05 Clotrimazole 1 % Cream 30 Gm Tube TOP 1 applic BID NATASHA Administration Famotidine 20 mg 06/01/20 09:00 06/09/20 09:05 Famotidine 20 Mg Tab PO 20 mg BID NATASHA Administration Finasteride 5 mg 06/01/20 21:00 06/09/20 09:05 Finasteride 5 Mg Tab PO 5 mg BID NATASHA Administration Folic Acid 1 mg 06/09/20 09:00 06/09/20 09:05 Folic Acid 1 Mg Tab PO 1 mg DAILY NATASHA Administration Heparin Sodium (Porcine) 5,000 units 06/01/20 09:00 06/09/20 09:05 Heparin 5,000 Units/Ml Vial SC 5,000 units BID NATASHA Administration Dobutamine HCl/Dextrose 500 mg 250 mls @ 6.281 mls/hr 06/05/20 17:45 06/07/20 06:25 / Device IVPB 250 mls INF NATASHA Administration Protocol 2.5 MCG/KG/MIN Milrinone Lactate/Dextrose 20 100 mls @ 9.421 mls/hr 06/07/20 08:45 06/09/20 04:54 mg/ Device IV 100 mls INF NATASHA Administration Protocol 0.375 MCG/KG/MIN Nitrofurantoin Macrocrystals 100 mg 06/05/20 21:00 06/09/20 09:05 Nitrofurantoin Monohyd/M-Cryst 100 Mg Cap PO 100 mg BID NATASHA Administration Nystatin 0 gm 06/08/20 09:50 06/09/20 09:05 Nystatin Powder 15 Gm Bot TOP 1 applic BID PRN Administration Topical Irritations Ondansetron HCl 4 mg 05/31/20 23:12 06/05/20 09:18 Ondansetron Pf 4 Mg/2 Ml Vial IVP 4 mg Q6H PRN Administration Nausea/Vomiting use 1st Sacubitril/Valsartan 1 tab 06/08/20 21:00 06/09/20 09:05 Sacubitril 49 Mg/Valsartan 51 Mg Tablet PO 1 tab BID NATASHA Administration Sodium Chloride 10 ml 06/01/20 02:30 06/07/20 19:58 Flush - Normal Saline 10 Ml Syringe IVF 10 ml PRN PRN Administration Saline Flush Spironolactone 25 mg 06/02/20 08:00 06/09/20 09:05 Spironolactone 25 Mg Tab PO 25 mg QAM-WM NATASHA Administration - Exam General Appearance: NAD, awake alert Eye: PERRL, anicteric sclera ENT: normocephalic atraumatic, no oropharyngeal lesions Neck: no JVD Heart: RRR, no murmur, no gallops, no rubs Respiratory - other findings: slightly diminished at the bases Gastrointestinal: soft, non-tender, non-distended, normal bowel sounds Extremities: no cyanosis, no clubbing, no edema Hosp A/P - Plan ECHO: EF 20-25%, mild , moderate TR, mild AR Chest Xray: CHF Chest X ray 06/08: mild CHF Chest X ray 06/09: slight increase in CHF This is an 79 year old male with past medical history of heart failure who presented with generalized anasarca and BNP > 84007 #Acute systolic heart failure #Hypertension - ECHO shows EF 20-25%. Chest X ray with pulmonary edema. BNP has increased from 424 to 3000 - continue milrinone 0.25 mcg/kg/ minute - continue entresto, coreg and spironolactone - plan to hopefully get AICD and cath on Wednesday when he is more euvolemic Hyponatremia - improved to 131. Continue milrinone and albumin #Citrobacter UTI #History of urethral stricture - on bactrim day 6. Continue for one more day Hypertension - started on entresto, coreg increased today - continue spironolactone CAD - continue aspirin, statin Dispo: pending improvement in edema, needs AICD and cath when patient more euvolemic
[2020-06-09] MEDS: Atorvastatin Calcium 40 MG TAB PO SCH (21:25)
[2020-06-10] MEDS: Milrinone Lactate/D5W 20 MG in Premix Bag 1 BAG IV SCH ×3 (02:08→23:28)
[2020-06-10 04:32] LABS: Anion Gap 10 mmol/L (10-20); BUN (Urea Nitrogen) 36 mg/dL (8.4-25.7); Calc. Creatinine Clearance 77 mL/min (70-130); Calcium 8.5 mg/dL (7.8-10.44); Carbon Dioxide 23 mmol/L (23-31); Chloride 101 mmol/L (98-107); Estimated GFR-MDRD 80; Glucose 95 mg/dL (83-110); Potassium 4.2 mmol/L (3.5-5.1); Sodium 130 mmol/L (136-145)
[2020-06-10 04:51] LABS: #Lymphocytes 0.7 thou/uL (1.20-3.40); #Monocytes 0.7 thou/uL (0.11-0.59); #Neutrophils 3.8 thou/uL (1.40-6.50); %Basophils 0.8 % (0.0-1.0); %Eosinophils 0.7 % (0.0-10.0); %Lymphocytes 13.2 % (21.0-51.0); %Monocytes 14.1 % (0.0-10.0); %Neutrophils 71.2 % (42.0-75.0); Hemoglobin 11.1 g/dL (14.0-18.0); Mean Corpuscular HGB CONC 32.8 g/dL (32.0-36.0); Mean Corpuscular Hemoglobin 32.8 pg (27.0-31.0); Mean Corpuscular Volume 99.9 fL (78.0-98.0); Platelet Count 119 thou/uL (130-400); RBC Distribution Width 14.1 % (11.5-14.5); Red Blood Cell (RBC) Count 3.39 mill/uL (4.70-6.10); White Blood Cell (WBC) Count 5.3 thou/uL (4.8-10.8)
[2020-06-10 04:52] LABS: MDiff Complete? YES; Platelet Morphology Comment Appears Decreased
--- NOTE | 2020-06-10 07:09 | PRG ---
DATE OF SERVICE: 06/09/2020 SUBJECTIVE: Mr. Rao had a good day. He said that he was breathing easy. He feels like that he is getting a little bit stronger. He said he was able to walk further yesterday. It sounds like he walks between 1 to 2 laps. He became much more hypertensive during the day. This is a big shift. So, in afternoon, his Entresto was increased from 24/26 combination to 49/51 combination. After that, overnight, his blood pressure did come back down. This morning, he is sleepy, but easily awake. He is now eating breakfast. REVIEW OF SYSTEMS: GENERAL: There is no fever, chills or productive cough. HEENT: There is no change in vision, hearing or swallowing; however, he is very hard of hearing. We have to speak very loudly to his ear. PULMONARY: Please see HPI. CARDIAC: There is no palpitation, chest pain or syncope. GI: There is no nausea, vomiting or diarrhea. : He has a Thomas catheter in place, that is because he has been incontinent. MUSCULOSKELETAL: There is no complaining of pains. INTEGUMENT: He has chronic tinea corporis, that has been going on for several months before he was admitted. This has been improving with treatment. NEUROLOGIC: There are no focal deficits or weaknesses. MEDICATIONS: His medications with cardiac effect include, 1. Aspirin 81 mg daily. 2. Atorvastatin 80 mg at bedtime. 3. Carvedilol 6.25 mg q.12 hours. 4. Milrinone currently at 0.375 mcg/kg/min. 5. Nitrofurantoin for UTI. 6. Sacubitril/valsartan, which is Entresto, now at 49/51 combination. 7. Spironolactone 25 mg daily. The telemetry was reviewed. He is in sinus rhythm, rate about 60 to 70s, and there are a few PVCs. There are no concerning arrhythmia. PHYSICAL EXAMINATION: VITAL SIGNS: Latest vitals; heart rate is at 75 and blood pressure 143/59. GENERAL: He is alert and conversational, very hard of hearing. HEENT: EOMI. Oropharynx is benign with moist mucosa. NECK: His JVP is about 12 cm with positive hepatojugular reflux. LUNGS: There is better air movement on the right side. There are decreased breath sounds at the left base. CARDIAC: Regular rate and rhythm with normal S1 and S2. There is a loud 3/6 holosystolic murmur at the apex with radiation to the left axilla. ABDOMEN: Soft and nontender. Positive bowel sounds. There is persistent pitting edema about the hip. There is also pitting edema at the lower abdomen. Overall, this pitting edema has been decreasing. EXTREMITIES: His lower extremities are warm and well perfused. There is at least 1 cm pitting edema from his feet up towards his knees, and there is slight pitting edema about his thighs. He is still in state of large volume overload, but overall he has been getting much better. His I's and O's over the last 24 hours are 1597 mL in and 4000 mL out, so he has a net -2400 mL out. This is a sufficient diuresis. ASSESSMENT: This 79-year-old gentleman is making slow but steady improvement from his acute on chronic heart failure with reduced ejection fraction. With milrinone reaching effective dose and albumin correcting for his hypoalbuminemia of 2.1, he was able to have strong effective diuresis. The net -2.4 L without loop diuretics attests to this fact. He also returned to hypertensive state, thus the Entresto will need to be titrated back up as already done. So, hemodynamically, he is heading back toward his baseline. He should be ready for left heart catheterization with coronary angiogram soon. Overall, he resides in [place] [employer] stage C [place] heart [employer] class IIIB heart failure with reduced ejection fraction. He has combined systolic and diastolic dysfunction. He is still volume overloaded. He will need to continued milrinone therapy until he is euvolemic. At that point, then we can titrate off the milrinone. Please see the following for my recommendations. RECOMMENDATIONS: 1. Continue milrinone 0.375 mcg/kg/min. This has been providing effective diuresis. We will titrate this off once he reaches euvolemic state. 2. Please perform 24-hour urine collection for protein, sodium and potassium, and urine osmolality, the reason why to see if he has nephrotic syndrome. It is surprising to have a serum albumin of 2.1. Without this being corrected, he will be edematous from an osmolarity point of view. 3. Continue with Entresto 49/51 combination. He will take three doses before we can see the full effect, so we will not titrate this up for at least a day or two. 4. He is currently on carvedilol 6.25 mg twice a day. After one day of stability, if he has significant higher blood pressure, we can also titrate carvedilol. 5. We will contact Dr. Mota informing him that the patient is getting to the near point where coronary angiogram could be done. It has been a pleasure taking care of Mr. Rao. If you have any questions, please give me a call. The total ICU time for this visit is about 35 minutes. This includes personally performing H and P, reviewing data, coordinating with other service, and direct patient interaction with the patient who is very difficult to hear, needing many repeated questions and answering time. Job ID: [id number] MTDD
[2020-06-10 08:06] LABS: Urine Total Volume 2650 mL (250-2400)
[2020-06-10 08:23] LABS: Potassium, Urine 21.7 mmol/L
[2020-06-10 08:25] LABS: 24 Hr Sodium 161.7 mmol/24h (40-220)
[2020-06-10 08:30] LABS: Protein - 24 Hr 1219 mg/24 hr (Less than 300); Protein, Urine 46 mg/dL (1-14); Protein, Urine Random Quant 46 mg/dL (1-14)
[2020-06-10] MEDS: Carvedilol 6.25 MG TAB PO SCH ×2 (09:00→20:19)
[2020-06-10] MEDS: Heparin 5,000 UNITS/ML VIAL SC SCH ×2 (09:00→20:56)
[2020-06-10] MEDS: Nitrofurantoin Monohyd/M-Cryst 100 MG CAP PO SCH ×2 (09:02→20:19)
[2020-06-10] MEDS: Famotidine 20 MG TAB PO SCH ×2 (09:02→20:19)
[2020-06-10] MEDS: Spironolactone 25 MG TAB PO SCH (09:02)
[2020-06-10] MEDS: Finasteride 5 MG TAB PO SCH ×2 (09:02→20:20)
[2020-06-10] MEDS: Folic Acid 1 MG TAB PO SCH (09:02)
[2020-06-10] MEDS: Nystatin Powder 15 GM BOT TOP PRN (09:02)
[2020-06-10] MEDS: Aspirin Chewable 81 MG TAB PO SCH (09:02)
[2020-06-10] MEDS: Sacubitril 49 MG/Valsartan 51 MG TABLET PO SCH ×2 (09:02→20:18)
--- NOTE | 2020-06-10 09:38 | PRG ---
DATE OF SERVICE: 06/10/2020 SERVICE: [facility]. SUBJECTIVE: Mr. Rao had a generally good day. He was able to walk again. Apparently, he ate well. The nurses reported that he did not able to sleep well last night at all. He does all kinds of things at night, watch TV once he got up, eventually went to bed around 4 a.m. Apparently, this is his usual routine. He said that he was breathing well this morning. No shortness of breath or chest pain. Today is the first time that he can able to lie flat and not feel short of breath. REVIEW OF SYSTEMS: GENERAL: There is no fever, chills, or productive cough. HEENT: There is no change in vision, hearing, or swallowing. He is very hard of hearing, you have to talk to his ear directly. PULMONARY: Please see HPI. CARDIAC: There is no palpitation, chest pain, or syncope. GI: There is no nausea, vomiting, or diarrhea. : He has his Thomas catheter in. MUSCULOSKELETAL: He is not complaining of any pain in the muscle joints. INTEGUMENT: There is no new skin breakdown, but he does have chronic tinea corporis. NEUROLOGIC: There are no focal deficits or weaknesses. MEDICATIONS: That have cardiac effect include; 1. Aspirin 81 mg daily. 2. Atorvastatin 80 mg at bedtime. 3. Carvedilol 6.25 mg q.12 hours. 4. Milrinone currently at 0.375 mcg/kg per minute. 5. Nitrofurantoin 100 mg b.i.d. 6. Sacubitril/valsartan (Entresto) 49/51 tablet b.i.d. 7. Spironolactone 25 mg daily. DIAGNOSTIC STUDIES: Telemetry was reviewed. He is in sinus rhythm without any concerning arrhythmia. PHYSICAL EXAMINATION: VITAL SIGNS: Systolic pressure has been high. It is very variable. It really depends on how he holds his arm, that is how it is reported. The most reliable systolic blood pressure is around 140s. Currently, his heart rate is 78, blood pressure 149/63. GENERAL: He is alert and conversational, relaxing in an inclined position. When I lay him down flat, he is able to breathe without difficulties, so he is able to undergo cath. HEENT: Shows EOMI. Oropharynx benign with moist mucosa. NECK: JVP is 13 cm or higher with positive hepatojugular reflux. PULMONARY: He has good air movement bilaterally. Today, the lung sounds are clear to auscultation bilaterally. CARDIAC: Regular rate and rhythm with 3/6 holosystolic murmur at the apex with radiation to the left axilla. ABDOMEN: Soft, nontender. Positive bowel sounds, but it is mildly distended with some pitting edema on the abdominal folds. He has some pitting edema around his hips. EXTREMITIES: He has about 1.5 cm edema from the feet detention toward his knees, so his pitting edema also is much better than last week that has not changed much since yesterday. In's and out's recorded as he has 732 mL in and 1060 mL out. This may not be accurate since it is on the smaller side. ASSESSMENT: 79-year-old gentleman has acute on chronic heart failure with reduced ejection fraction due to likely ischemic cardiomyopathy. He has combination of systolic and diastolic dysfunctions. He is still volume overloaded. With continued increases of blood pressure and self-diuresing, it was felt that he is recovering his intravascular volume, this is also evidenced by his steady decreasing BUN. At this point, with urine output reducing significantly, self-diuresis has came to an end, so loop diuretics need to be restarted today. With persistent high blood pressure, he will be able to tolerate the maximum dose of Entresto. He is about to ready for left heart cardiac catheterization/coronary angiogram. Please see the following for my recommendations. RECOMMENDATIONS: 1. Increase Entresto to 97/103 combination, first dose today b.i.d. 2. We will give Lasix 40 mg IV once daily starting today at noon. We will monitor the urine output to see how much more diuretics that he needs. 3. We will contact Dr. Mota about the readiness of the patient being ready for catheterization if that needs to be done. We will be careful on the diuresis on the day of the catheterization. 4. If the coronary showed that there is no significant blockage that can be intervened on, then the patient will need an AICD implanted EP cloth winder Dr. Francis Chou. 5. It will take some time for the patient to get his edematous state to euvolemic. Milrinone will be kept on for diuresis. After the patient has become near euvolemic, then we will titrate off the Milrinone and find an oral dose that could be maintained. It has been a pleasure taking care of Mr. Rao. If you have any questions, please give me a call. The total ICU time is about 40 minutes. This includes personally performing history and physical, it takes a long time to do the physical exam in this patient because he is hard of hearing and difficult to maneuver him, reviewing data, coordinating care and direct patient interaction. Job ID: [id number] MTDD
[2020-06-10] MEDS ORDERED: Furosemide 40 MG/4 ML VIAL SLOW IVP SCH (12:00)
[2020-06-10] MEDS: Clotrimazole 1 % Cream 30 GM TUBE TOP SCH ×2 (12:13→20:20)
--- NOTE | 2020-06-10 15:26 | PRG ---
DATE OF SERVICE: 06/10/2020 SUBJECTIVE: The patient is seen and examined, noted with the following vital signs. OBJECTIVE: VITAL SIGNS: Afebrile, blood pressure 155/69, pulse 78, respiratory rate of 15, O2 saturations are 100%. HEENT: Unremarkable. CARDIOVASCULAR: First and second heart sounds were heard. RESPIRATORY: Clear to auscultation. DIGESTIVE: Revealed a benign abdomen. EXTREMITIES: Showed some peripheral edema. SKIN: No new gross rash. GENITOURINARY: Thomas bag revealed evidence of hematuria. LABORATORY INVESTIGATION: Creatinine of 0.91, sodium of 130. IMPRESSION: 1. Hyponatremia in the context of diuresis, which seems to be stable. 2. Hypervolemia . 3. Cardiac failure. PLAN: 1. The patient still maintains negative in terms of I's and O's after 24 hours. Gentle diuresis with . 2. Traumatic hematuria. This is likely in the context of pulling on the Thomas catheter. We will observe closely, and if need be, involve Urology if patient begins to have significant gross hematuria. 3. Further management to be dependent on the clinical course. Job ID: [id number]
--- NOTE | 2020-06-10 17:22 | PDOC.CPN ---
- Subjective Date: 06/10/20 Time: 17:19 Interval history: He is doing much better. Able to lay flat. Creatinine stable and normal. - Review of Systems General: denies: fever/chills, weight/appetite/sleep changes, night sweats, fatigue Respiratory: denies: cough, congestion, shortness of breath, exercise intolerance Cardiovascular: denies: chest pain, palpitation, edema, paroxysmal nocturnal dyspnea, orthopnea Gastrointestinal: denies: nausea, vomiting, diarrhea, constipation, abd pain, GI bleeding Musculoskeletal: denies: pain, tenderness, stiffness, swelling, arthritis/arthralgias Neurological: denies: numbness, syncope, seizure, weakness - Objective Allergies/Adverse Reactions: Allergies Allergy/AdvReac Type Severity Reaction Status Date / Time morphine Allergy Verified 06/01/20 01:21 Visit Medications: Current Medications Acetaminophen (Acetaminophen 325 Mg Tab) 650 mg PO Q4H PRN PRN Reason: Headache/Fever/Mild Pain (1-3) Last Admin: 06/08/20 20:05 Dose: 650 mg Documented by: Albuterol/Ipratropium (Ipratropium/Albuterol Sulfate 3 Ml Neb) 3 ml NEB Q6H PRN PRN Reason: Respiratory Distress Aspirin (Aspirin Chewable 81 Mg Tab) 81 mg PO DAILY [facility] Last Admin: 06/10/20 09:02 Dose: 81 mg Documented by: Atorvastatin Calcium (Atorvastatin Calcium 40 Mg Tab) 80 mg PO HS [facility] Last Admin: 06/09/20 21:25 Dose: 80 mg Documented by: Carvedilol (Carvedilol 6.25 Mg Tab) 6.25 mg PO Q12HR [facility] Last Admin: 06/10/20 09:00 Dose: 6.25 mg Documented by: Clonidine (Clonidine 0.1 Mg Tab) 0.1 mg PO BID PRN PRN Reason: SBP > 160 use second Clotrimazole (Clotrimazole 1 % Cream 30 Gm Tube) 0 gm TOP BID [facility] Last Admin: 06/10/20 12:13 Dose: 1 applic Documented by: Famotidine (Famotidine 20 Mg Tab) 20 mg PO BID [facility] Last Admin: 06/10/20 09:02 Dose: 20 mg Documented by: Finasteride (Finasteride 5 Mg Tab) 5 mg PO BID [facility] Last Admin: 06/10/20 09:02 Dose: 5 mg Documented by: Folic Acid (Folic Acid 1 Mg Tab) 1 mg PO DAILY [facility] Last Admin: 06/10/20 09:02 Dose: 1 mg Documented by: Furosemide (Furosemide 40 Mg/4 Ml Vial) 40 mg SLOW IVP 1200 [facility] Last Admin: 06/10/20 12:12 Dose: 40 mg Documented by: Guaifenesin/Dextromethorphan (Guaifenesin Dm 100-10/5 Ml Udcup) 15 ml PO Q4H PRN PRN Reason: Cough Heparin Sodium (Porcine) (Heparin 5,000 Units/Ml Vial) 5,000 units SC BID [facility] Last Admin: 06/10/20 09:00 Dose: 5,000 units Documented by: Promethazine HCl 12.5 mg/ (Sodium Chloride) 50.5 mls @ 202 mls/hr IVPB Q6H PRN PRN Reason: Nausea/vomiting use second Dobutamine HCl/Dextrose 500 mg (/ Device) 250 mls @ 6.281 mls/hr IVPB INF [facility]; Protocol Last Admin: 06/07/20 06:25 Dose: 250 mls Documented by: Milrinone Lactate/Dextrose 20 (mg/ Device) 100 mls @ 9.421 mls/hr IV INF [facility]; Protocol Last Admin: 06/10/20 13:22 Dose: 100 mls Documented by: Miscellaneous Medication (Electrolyte Replacement Protoc 1 Each Each) 1 each FS ASDIR [facility] Nitrofurantoin Macrocrystals (Nitrofurantoin Monohyd/M-Cryst 100 Mg Cap) 100 mg PO BID [facility] Last Admin: 06/10/20 09:02 Dose: 100 mg Documented by: Nystatin (Nystatin Powder 15 Gm Bot) 0 gm TOP BID PRN PRN Reason: Topical Irritations Last Admin: 06/10/20 09:02 Dose: 1 applic Documented by: Ondansetron HCl (Ondansetron Pf 4 Mg/2 Ml Vial) 4 mg IVP Q6H PRN PRN Reason: Nausea/Vomiting use 1st Last Admin: 06/05/20 09:18 Dose: 4 mg Documented by: Sacubitril/Valsartan (Sacubitril 49 Mg/Valsartan 51 Mg Tablet) 2 tab PO BID [facility] Last Admin: 06/10/20 09:02 Dose: 2 tab Documented by: Sodium Chloride (Flush - Normal Saline 10 Ml Syringe) 10 ml IVF PRN PRN PRN Reason: Saline Flush Last Admin: 06/07/20 19:58 Dose: 10 ml Documented by: Spironolactone (Spironolactone 25 Mg Tab) 25 mg PO QAM-WM [facility]AS[facility] Last Admin: 06/10/20 09:02 Dose: 25 mg Documented by: Vital Signs & Weight: Vital Signs Temp Pulse Pulse BP BP BP Pulse Ox 06/10/20 15:26 98.6 F 06/10/20 11:00 98.0 F 06/10/20 09:39 100 75 185/78 H 165/60 H 06/10/20 09:00 135/52 L 06/10/20 08:00 100 06/10/20 07:33 97.7 F Pulse Ox 06/10/20 15:26 06/10/20 11:00 06/10/20 09:39 100 06/10/20 09:00 06/10/20 08:00 06/10/20 07:33 Admit Weight 208 lb 12.432 oz Weight 183 lb 6.4 oz - Physical Exam General: alert & oriented x3 HEENT: mucus membranes moist Neck: supple neck Cardiac: regular rate and rhythm Lungs: normal breath sounds Neuro: grossly intact Abdomen: active bowel sounds Extremities: other: (Trace edema.) Skin: clear Musculoskeletal: no pain - Labs Result Diagrams: 06/10/20 03:47 06/10/20 03:47 Troponin/CKMB CK-MB (CK-2) 7.1 ng/mL (0-6.6) H* 05/31/20 21:37 Troponin I 0.076 ng/mL (< 0.028) H 06/01/20 04:05 - Telemetry Sinus rhythms and dysrhythmias: sinus rhythm - Assessment/Plan Assessment/Plan: 1. Acute on chronic systolic heart failure 2. Ischemic CM 3. Reduced EF at 20-25% 4. S/P CABG 2019 5. Mild aortic stenosis 6. UTI 7. Rash. PLAN: - Will plan on scheduling [facility] for tomorrow morning. We spoke about risks and benefits. Risks include but not limited to Stroke, AL, , bleeding and need for blood transfusion, limb loss, organ loss. He understands and verbalizes understanding of this and agrees to proceed. He also agrees to rescind his DNR DNI for procedure and this was witnessed by 2 nurses. Difficult consent due to severe hypo-accusia but he was able to understand and he agreed to proceed.
[2020-06-10] MEDS ORDERED: Communication Order-Pharmacy FS SCH (17:30)
--- NOTE | 2020-06-10 18:09 | PDOC.HOSPP ---
- Subjective Encounter Date: 06/10/20 Encounter Time: 16:00 Subjective: The patient is doing okay. He has mild dry cough. No significant SOB. No chest pain. - Objective Vital Signs & Weight: Vital Signs (12 hours) Temp Pulse Pulse BP BP BP Pulse Ox 06/10/20 15:26 98.6 F 06/10/20 11:00 98.0 F 06/10/20 09:39 100 75 185/78 H 165/60 H 06/10/20 09:00 135/52 L 06/10/20 08:00 100 06/10/20 07:33 97.7 F Pulse Ox 06/10/20 15:26 06/10/20 11:00 06/10/20 09:39 100 06/10/20 09:00 06/10/20 08:00 06/10/20 07:33 Weight Admit Weight 208 lb 12.432 oz Weight 183 lb 6.4 oz Most Recent Monitor Data Heart Rate from ECG 83 NIBP 124/51 NIBP BP-Mean 75 Respiration from ECG 15 SpO2 100 I&O: 06/09/20 06/10/20 06/11/20 06:59 06:59 06:59 Intake Total 1597.8 1188.8 Output Total 4000 2260 1300 Balance -2402.2 -1071.2 -1300 Result Diagrams: 06/10/20 03:47 06/10/20 03:47 Hospitalist ROS - Review of Systems Constitutional: denies: fever, chills - Medication Medications: Active Medications Generic Name Dose Route Start Last Admin Trade Name Freq PRN Reason Stop Dose Admin Acetaminophen 650 mg 05/31/20 23:12 06/08/20 20:05 Acetaminophen 325 Mg Tab PO 650 mg Q4H PRN Administration Headache/Fever/Mild Pain (1-3) Aspirin 81 mg 06/03/20 09:00 06/10/20 09:02 Aspirin Chewable 81 Mg Tab PO 81 mg DAILY [facility] Administration Atorvastatin Calcium 80 mg 06/01/20 21:00 06/09/20 21:25 Atorvastatin Calcium 40 Mg Tab PO 80 mg HS [facility] Administration Carvedilol 6.25 mg 06/08/20 21:00 06/10/20 09:00 Carvedilol 6.25 Mg Tab PO 6.25 mg Q12HR [facility] Administration Clotrimazole 0 gm 06/04/20 21:00 06/10/20 12:13 Clotrimazole 1 % Cream 30 Gm Tube TOP 1 applic BID [facility] Administration Famotidine 20 mg 06/01/20 09:00 06/10/20 09:02 Famotidine 20 Mg Tab PO 20 mg BID [facility] Administration Finasteride 5 mg 06/01/20 21:00 06/10/20 09:02 Finasteride 5 Mg Tab PO 5 mg BID [facility] Administration Folic Acid 1 mg 06/09/20 09:00 06/10/20 09:02 Folic Acid 1 Mg Tab PO 1 mg DAILY [facility] Administration Furosemide 40 mg 06/10/20 12:00 06/10/20 12:12 Furosemide 40 Mg/4 Ml Vial SLOW IVP 40 mg 1200 [facility] Administration Heparin Sodium (Porcine) 5,000 units 06/01/20 09:00 06/10/20 09:00 Heparin 5,000 Units/Ml Vial SC 5,000 units BID [facility] Administration Dobutamine HCl/Dextrose 500 mg 250 mls @ 6.281 mls/hr 06/05/20 17:45 06/07/20 06:25 / Device IVPB 250 mls INF [facility] Administration Protocol 2.5 MCG/KG/MIN Milrinone Lactate/Dextrose 20 100 mls @ 9.421 mls/hr 06/07/20 08:45 06/10/20 13:22 mg/ Device IV 100 mls INF [facility] Administration Protocol 0.375 MCG/KG/MIN Nitrofurantoin Macrocrystals 100 mg 06/05/20 21:00 06/10/20 09:02 Nitrofurantoin Monohyd/M-Cryst 100 Mg Cap PO 100 mg BID [facility] Administration Nystatin 0 gm 06/08/20 09:50 06/10/20 09:02 Nystatin Powder 15 Gm Bot TOP 1 applic BID PRN Administration Topical Irritations Ondansetron HCl 4 mg 05/31/20 23:12 06/05/20 09:18 Ondansetron Pf 4 Mg/2 Ml Vial IVP 4 mg Q6H PRN Administration Nausea/Vomiting use 1st Sacubitril/Valsartan 2 tab 06/10/20 09:00 06/10/20 09:02 Sacubitril 49 Mg/Valsartan 51 Mg Tablet PO 2 tab BID [facility] Administration Sodium Chloride 10 ml 06/01/20 02:30 06/07/20 19:58 Flush - Normal Saline 10 Ml Syringe IVF 10 ml PRN PRN Administration Saline Flush Spironolactone 25 mg 06/02/20 08:00 06/10/20 09:02 Spironolactone 25 Mg Tab PO 25 mg QAM-WM [facility]ASHA Administration - Exam General Appearance: NAD, awake alert Eye: PERRL, anicteric sclera ENT: normocephalic atraumatic, no oropharyngeal lesions Neck: no JVD Heart: RRR, no murmur, no gallops, no rubs Respiratory: CTAB, no wheezes, no rales, no ronchi Gastrointestinal: soft, non-tender, non-distended, normal bowel sounds, no hepatomegaly Extremities: no cyanosis, no clubbing, 1+ LE edema Skin: normal turgor, no lesions, no rashes Neurological: cranial nerve grossly intact, normal sensation to touch, no focal deficits, no new deficit Hosp A/P - Plan ECHO: EF 20-25%, mild , moderate TR, mild AR Chest Xray: CHF Chest X ray 06/08: mild CHF Chest X ray 06/09: slight increase in CHF This is an 79 year old male with past medical history of heart failure who presented with generalized anasarca and BNP > [id number] #Acute systolic heart failure #Hypertension - ECHO shows EF 20-25%. Chest X ray with pulmonary edema. BNP has increased from 424 to 3000 - continue milrinone, lasix 40 mg IV once to be given today 06/10 - continue entresto, coreg and spironolactone - plan for cath and AICD on Wednesday per Dr. Mota Hyponatremia - improved to 130. Give additional lasix 40 mg IV x 1. Continue milrinone and albumin #Citrobacter UTI #History of urethral stricture - on bactrim day 7. Discontinue after today Hypertension - BP 120-150. Entresto was increased, continue coreg 6.25 mg q12 hours - continue spironolactone CAD - continue aspirin, statin Dispo: AICD and cath possibly Wednesday
[2020-06-10] MEDS: Atorvastatin Calcium 40 MG TAB PO SCH (20:20)
[2020-06-10 23:23] LABS: Bacteria/HPF None Seen HPF (None Seen); Bilirubin Negative (Negative); Blood, Urine 3+ (Negative); Clarity Turbid (Clear); Glucose, Urine (Dipstick) Normal (Negative); Ketone, Urine Negative (Negative); Leukocyte 25 Leu/uL (Negative); Nitrite Negative (Negative); Protein, Urine (Dipstick) 50 mg/dL (Neg-Trace); RBC/HPF Greater than 50 HPF (0-3); Specific Gravity, Urine 1.013 (1.002-1.036); Squamous Epithelial None Seen HPF (0-3); Urobilinogen Normal mg/dL (Less than 2); pH, Urine 6.5 (5.0-9.0)
[2020-06-11 04:02] LABS: #Lymphocytes 0.7 thou/uL (1.20-3.40); #Monocytes 0.7 thou/uL (0.11-0.59); #Neutrophils 3.3 thou/uL (1.40-6.50); %Basophils 0.3 % (0.0-1.0); %Eosinophils 0.8 % (0.0-10.0); %Neutrophils 69.8 % (42.0-75.0); Hemoglobin 10.4 g/dL (14.0-18.0); Mean Corpuscular HGB CONC 34.1 g/dL (32.0-36.0); Mean Corpuscular Hemoglobin 33.7 pg (27.0-31.0); Mean Corpuscular Volume 98.9 fL (78.0-98.0); Mean Platelet Volume 8.3 fL (7.4-10.4); Platelet Count 129 thou/uL (130-400); RBC Distribution Width 14.2 % (11.5-14.5); Red Blood Cell (RBC) Count 3.08 mill/uL (4.70-6.10); White Blood Cell (WBC) Count 4.7 thou/uL (4.8-10.8)
[2020-06-11 04:24] LABS: Anion Gap 9 mmol/L (10-20); BUN (Urea Nitrogen) 35 mg/dL (8.4-25.7); Calc. Creatinine Clearance 79 mL/min (70-130); Calcium 8.1 mg/dL (7.8-10.44); Carbon Dioxide 24 mmol/L (23-31); Chloride 102 mmol/L (98-107); Estimated GFR-MDRD 83; Glucose 102 mg/dL (83-110); Potassium 4.1 mmol/L (3.5-5.1); Sodium 131 mmol/L (136-145)
[2020-06-11] MEDS ORDERED: Lidocaine 1% (PF) 30 ML VIAL ONE (06:42)
[2020-06-11] MEDS: Spironolactone 25 MG TAB PO SCH (07:09)
[2020-06-11] MEDS: Sacubitril 49 MG/Valsartan 51 MG TABLET PO SCH ×2 (07:09→21:13)
[2020-06-11] MEDS: Carvedilol 6.25 MG TAB PO SCH (07:10)
[2020-06-11] MEDS: Finasteride 5 MG TAB PO SCH ×2 (07:10→21:12)
[2020-06-11] MEDS: Aspirin Chewable 81 MG TAB PO SCH (07:10)
[2020-06-11] MEDS: Folic Acid 1 MG TAB PO SCH (07:10)
[2020-06-11] MEDS: Famotidine 20 MG TAB PO SCH ×2 (07:10→21:12)
[2020-06-11] MEDS ORDERED: Midazolam HCl 2 mg/2 ml Vial ONE (07:45)
[2020-06-11] MEDS ORDERED: Fentanyl 100 MCG/2 ML VIAL ONE (07:45)
[2020-06-11] MEDS ORDERED: Sodium Chloride 0.9% 1,000 ML IV SCH (08:00)
[2020-06-11] MEDS ORDERED: Heparin 10,000 UNITS/ 10 ML VIAL ONE (08:13)
[2020-06-11] MEDS ORDERED: TICAGRELOR 90 MG TABLET ONE (08:30)
[2020-06-11] MEDS ORDERED: Sodium Chloride 0.9% 250 ML IV SCH (08:45)
[2020-06-11] MEDS ORDERED: Iopamidol 370 76% 100 ML VIAL ONE (09:36)
[2020-06-11] MEDS ORDERED: Iopamidol 370 76% 50 ML VIAL FS ONE (09:36)
--- NOTE | 2020-06-11 09:43 | PRG ---
DATE OF SERVICE: 06/11/2020 SERVICE: Advanced Heart Failure [facility]. SUBJECTIVE: Mr. Rao had a good day. He did not complain of any problems. He is breathing easy. He is able to lay flat. He does remember talking to Dr. Mota about the need for coronary angiogram. His coronary angiogram has been scheduled for this morning. We talked over the need for it and potential risks with it. He consented to the procedure and he has agreed to go. REVIEW OF SYSTEMS: GENERAL: There is no fever, chills, or productive cough. HEENT: There is no change in vision, hearing, or swallowing. However, he is very hard of hearing. PULMONARY: Please see HPI. CARDIAC: There is no chest pain, palpitations, or syncope. GI: There is no nausea, vomiting, or diarrhea. : It is reported that he might have pulled his Thomas last night to cause the hematuria, but then it cleared up this morning. MUSCULOSKELETAL: He is not complaining of muscle or joint pains. INTEGUMENT: He has tinea corporis. This has been ongoing for months before his admission. It is receding with treatment. NEUROLOGIC: There are no focal deficits or weaknesses. MEDICATIONS: His medications that have cardiac effect include; 1. Aspirin 81 mg daily. 2. Atorvastatin 80 mg at bedtime. 3. Carvedilol 6.25 mg q.12 hours. 4. Lasix 40 mg IV daily at noon. 5. Milrinone 0.375 mcg/kg/minute. 6. Nitrofurantoin 100 mg b.i.d. 7. Sacubitril/valsartan 49/51, it is given at two tablets twice a day. 8. Spironolactone 25 mg daily. His telemetry was reviewed. It shows sinus rhythm at a rate between 60 and 70. PHYSICAL EXAMINATION: VITAL SIGNS: The systolic blood pressure came down with increasing dose of sacubitril/valsartan, it is around 130 to 140 systolic. His current vitals were heart rate 64, blood pressure 131/56. GENERAL: He is alert and conversational, lying comfortably in bed. HEENT: Show EOMI. Oropharynx is benign with moist mucosa. NECK: His JVP is still elevated about 12 cm with positive hepatojugular reflux, it is lower than yesterday. PULMONARY: He has good air movement. It is clear to auscultation bilaterally. CARDIAC: Regular rate and rhythm with 3/6 holosystolic murmur at the apex with radiation to the left axilla. EXTREMITIES: He has only slight pitting edema about the hips and thighs. It has greatly diminished. He has a strong right femoral pulse without bruit. He has a weak left femoral pulse without bruit. His lower extremities are now very much loose, but there is no edema in his thighs and that his pitting edema around the feet has decreased about 0.5 cm from the feet to above his ankles. It has greatly decreased. Thus overall his volume status has improved. LABORATORY VALUES: Shows white cell count 4.7, hemoglobin 10.4, platelet 129. His chemistry shows sodium 131, potassium 4.1, chloride 102, bicarbonate 24, BUN is 35, creatinine 0.88, and glucose of 102. His 24-hour I's and O's, 1189 in and 2260 out. He has a net negative of 1071 mL. 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 ASSESSMENT: This 79-year-old gentleman is making steady progress, recovering from acute on chronic heart failure with reduced ejection fraction and likely to reside in [place] Heart Association stage C, [place] Heart Association class IIIB heart failure with reduced ejection fraction with combined systolic and diastolic dysfunction. It is an ischemic cardiomyopathy. The reduction in ejection fraction can be due to blockage in his bypass graft, thus coronary angiogram today can settle this issue. If there is no blockage that can be intervened on, then he will need a dual-chamber AICD. Currently, he is demonstrating he needs maximum dose Entresto of 97/103, this will be continued. After the catheterization, to protect the kidneyS, we will give him 6 hours of normal saline of 70 mL/hour. We will restart oral diuretics tomorrow. After that, we will titrate off the milrinone. Please see the following for my recommendations. RECOMMENDATIONS: 1. Proceed with coronary angiogram today. 2. Continue milrinone at 0.375 mcg/kg/minute. 3. Discontinue furosemide today. 4. Post catheterization , please give him normal saline 70 mL/hour for 6 hours to clear his kidneys. 5. Restart diuretics with torsemide 20 mg twice a day tomorrow. 6. We will inform Dr. Francis Chou about the outcome of coronary angiogram. 7. We may still need to increase the dose of carvedilol to 12.5 mg in the next several days. 8. We will titrate off milrinone within a week. It has been a pleasure taking care of Mr. Rao. If you have any questions, please give me a call. The total visitation time is 45 minutes. This including personally performing H and P, reviewing data, consenting patient, coordinating care with other medical specialty services, and direct patient interaction. Job ID: [id number] MTDD
[2020-06-11] MEDS: Heparin 5,000 UNITS/ML VIAL SC SCH ×2 (12:56→21:13)
[2020-06-11] MEDS: Clotrimazole 1 % Cream 30 GM TUBE TOP SCH ×2 (12:56→21:14)
[2020-06-11] MEDS: Clopidogrel Bisulfate 75 MG TAB PO SCH (12:56)
[2020-06-11] MEDS: Nitrofurantoin Monohyd/M-Cryst 100 MG CAP PO SCH (12:57)
--- NOTE | 2020-06-11 16:29 | EKG ---
Test Reason : POST STENTS X 2-RCA Blood Pressure : / mmHG Vent. Rate : 069 BPM Atrial Rate : 069 BPM P-R Int : 208 ms QRS Dur : 110 ms QT Int : 402 ms P-R-T Axes : 054 -50 117 degrees QTc Int : 430 ms Normal sinus rhythm Non-specific intra-ventricular conduction delay Left axis deviation Nonspecific T wave abnormality Abnormal ECG Confirmed by OJ LOFTON ([id number]) on 06/11/2020 4:28:52 PM Referred By: ALEKSANDR Confirmed By:OJ LOFTON
--- NOTE | 2020-06-11 19:51 | PDOC.HOSPP ---
- Subjective Encounter Date: 06/11/20 Encounter Time: 20:05 Subjective: THE patient had cardiac cath today and underwent stent placement. HE Denies pain. He denies SOB - Objective Vital Signs & Weight: Vital Signs (12 hours) Temp Pulse Ox 06/11/20 19:13 98.1 F 06/11/20 15:35 98.2 F 06/11/20 08:00 97 Weight Admit Weight 208 lb 12.432 oz Weight 178 lb 11.2 oz Most Recent Monitor Data Heart Rate from ECG 72 NIBP 160/77 NIBP BP-Mean 104 Respiration from ECG 15 SpO2 100 I&O: 06/10/20 06/11/20 06/12/20 06:59 06:59 06:59 Intake Total 1188.8 350 950 Output Total 2260 2500 1650 Balance -1071.2 -2150 -700 Result Diagrams: 06/11/20 03:29 06/11/20 03:29 Hospitalist ROS - Review of Systems Constitutional: denies: fever, chills - Medication Medications: Active Medications Generic Name Dose Route Start Last Admin Trade Name Freq PRN Reason Stop Dose Admin Acetaminophen 650 mg 05/31/20 23:12 06/08/20 20:05 Acetaminophen 325 Mg Tab PO 650 mg Q4H PRN Administration Headache/Fever/Mild Pain (1-3) Aspirin 81 mg 06/03/20 09:00 06/11/20 07:10 Aspirin Chewable 81 Mg Tab PO 81 mg DAILY NATASHA Administration Atorvastatin Calcium 80 mg 06/01/20 21:00 06/10/20 20:20 Atorvastatin Calcium 40 Mg Tab PO 80 mg HS [facility]HA Administration Carvedilol 6.25 mg 06/08/20 21:00 06/11/20 07:10 Carvedilol 6.25 Mg Tab PO 6.25 mg Q12HR [facility]ASHA Administration Clopidogrel Bisulfate 75 mg 06/11/20 09:00 06/11/20 12:56 Clopidogrel Bisulfate 75 Mg Tab PO Not Given DAILY [facility] Clotrimazole 0 gm 06/04/20 21:00 06/11/20 12:56 Clotrimazole 1 % Cream 30 Gm Tube TOP Not Given BID [facility] Famotidine 20 mg 06/01/20 09:00 06/11/20 07:10 Famotidine 20 Mg Tab PO 20 mg BID [facility] Administration Finasteride 5 mg 06/01/20 21:00 06/11/20 07:10 Finasteride 5 Mg Tab PO 5 mg BID [facility] Administration Folic Acid 1 mg 06/09/20 09:00 06/11/20 07:10 Folic Acid 1 Mg Tab PO 1 mg DAILY [facility] Administration Heparin Sodium (Porcine) 5,000 units 06/01/20 09:00 06/11/20 12:56 Heparin 5,000 Units/Ml Vial SC Not Given BID [facility]HA Dobutamine HCl/Dextrose 500 mg 250 mls @ 6.281 mls/hr 06/05/20 17:45 06/07/20 06:25 / Device IVPB 250 mls INF [facility] Administration Protocol 2.5 MCG/KG/MIN Milrinone Lactate/Dextrose 20 100 mls @ 9.421 mls/hr 06/07/20 08:45 06/10/20 23:28 mg/ Device IV 100 mls INF [facility] Administration Protocol 0.375 MCG/KG/MIN Nitrofurantoin Macrocrystals 100 mg 06/05/20 21:00 06/11/20 12:57 Nitrofurantoin Monohyd/M-Cryst 100 Mg Cap PO Not Given BID [facility] Nystatin 0 gm 06/08/20 09:50 06/10/20 09:02 Nystatin Powder 15 Gm Bot TOP 1 applic BID PRN Administration Topical Irritations Ondansetron HCl 4 mg 05/31/20 23:12 06/05/20 09:18 Ondansetron Pf 4 Mg/2 Ml Vial IVP 4 mg Q6H PRN Administration Nausea/Vomiting use 1st Sacubitril/Valsartan 2 tab 06/10/20 09:00 06/11/20 07:09 Sacubitril 49 Mg/Valsartan 51 Mg Tablet PO 2 tab BID NATASHA Administration Sodium Chloride 10 ml 06/01/20 02:30 06/07/20 19:58 Flush - Normal Saline 10 Ml Syringe IVF 10 ml PRN PRN Administration Saline Flush Spironolactone 25 mg 06/02/20 08:00 06/11/20 07:09 Spironolactone 25 Mg Tab PO 25 mg QAM-WM NATASHA Administration - Exam General Appearance: NAD, awake alert Eye: PERRL, anicteric sclera ENT: normocephalic atraumatic, no oropharyngeal lesions Neck: no JVD Heart: RRR, no murmur, no gallops, no rubs Respiratory: CTAB, no wheezes, no rales, no ronchi Gastrointestinal: soft, non-tender, non-distended, normal bowel sounds Extremities: 1+ LE edema Skin: normal turgor, no lesions, no rashes Neurological: cranial nerve grossly intact, normal sensation to touch, no focal deficits, no new deficit Hosp A/P - Plan ECHO: EF 20-25%, mild , moderate TR, mild AR Chest Xray: CHF Chest X ray 06/08: mild CHF Chest X ray 06/09: slight increase in CHF Cath report: SVG to PDA 90%, occluded proximal LAD and left circumflex This is an 79 year old male with past medical history of heart failure who presented with generalized anasarca and BNP > 94914 #Acute systolic heart failure #Hypertension - ECHO shows EF 20-25%. Chest X ray with pulmonary edema. BNP has increased from 424 to 3000, recheck tomorrow - held lasix today since patient underwent cardiac cath . He had stent placement to SVG to PDA - continue milrinone, plan to wean off gradually - per DR. Henriquez, hold off on AICD in case heart function improves Hyponatremia - stable at 131 #Citrobacter UTI #History of urethral stricture - on bactrim day 7. Discontinued Hypertension - BP 120-150. Entresto was increased. BP 170, will increase coreg to 12.5 mg bid - continue entresto CAD - continue aspirin, statin Dispo: plan to wean off milrinone drip
[2020-06-11] MEDS: Atorvastatin Calcium 40 MG TAB PO SCH (21:12)
[2020-06-11] MEDS: Milrinone Lactate/D5W 20 MG in Premix Bag 1 BAG IV SCH (23:06)
[2020-06-12 03:40] LABS: #Lymphocytes 0.6 thou/uL (1.20-3.40); #Monocytes 0.6 thou/uL (0.11-0.59); #Neutrophils 4.6 thou/uL (1.40-6.50); %Basophils 0.2 % (0.0-1.0); %Eosinophils 0.4 % (0.0-10.0); %Lymphocytes 9.5 % (21.0-51.0); %Monocytes 10.5 % (0.0-10.0); %Neutrophils 79.4 % (42.0-75.0); Mean Corpuscular HGB CONC 33.7 g/dL (32.0-36.0); Mean Corpuscular Hemoglobin 33.2 pg (27.0-31.0); Mean Corpuscular Volume 98.4 fL (78.0-98.0); Mean Platelet Volume 7.7 fL (7.4-10.4); Platelet Count 165 thou/uL (130-400); RBC Distribution Width 14.2 % (11.5-14.5); White Blood Cell (WBC) Count 5.8 thou/uL (4.8-10.8)
[2020-06-12 04:05] LABS: ALT (SGPT) 32 U/L (8-55); AST (SGOT) 30 U/L (5-34); Albumin 2.8 g/dL (3.4-4.8); Alkaline Phosphatase 98 U/L (40-110); Anion Gap 11 mmol/L (10-20); BUN (Urea Nitrogen) 29 mg/dL (8.4-25.7); Calc. Creatinine Clearance 83 mL/min (70-130); Calcium 8.3 mg/dL (7.8-10.44); Carbon Dioxide 23 mmol/L (23-31); Chloride 101 mmol/L (98-107); Estimated GFR-MDRD Greater than 90; Globulin 2.5 g/dL (2.4-3.5); Glucose 89 mg/dL (83-110); Potassium 4.2 mmol/L (3.5-5.1); Protein, Total 5.3 g/dL (5.8-8.1); Sodium 131 mmol/L (136-145)
[2020-06-12] MEDS ORDERED: Milrinone Lactate/D5W 20 MG in Premix Bag 1 BAG IV SCH ×2 (09:15→18:00)
[2020-06-12] MEDS: Milrinone Lactate/D5W 20 MG in Premix Bag 1 BAG IV SCH (09:46)
[2020-06-12] MEDS: Folic Acid 1 MG TAB PO SCH (09:47)
[2020-06-12] MEDS: Carvedilol 6.25 MG TAB PO SCH ×2 (09:47→17:26)
[2020-06-12] MEDS: Famotidine 20 MG TAB PO SCH ×2 (09:47→20:34)
[2020-06-12] MEDS: Torsemide 20 MG TAB PO SCH ×2 (09:47→15:22)
[2020-06-12] MEDS: Clopidogrel Bisulfate 75 MG TAB PO SCH (09:47)
[2020-06-12] MEDS: Sacubitril 49 MG/Valsartan 51 MG TABLET PO SCH ×2 (09:47→20:34)
[2020-06-12] MEDS: Aspirin Chewable 81 MG TAB PO SCH (09:48)
[2020-06-12] MEDS: Finasteride 5 MG TAB PO SCH ×2 (09:48→20:34)
[2020-06-12] MEDS: Spironolactone 25 MG TAB PO SCH (09:49)
[2020-06-12] MEDS: Clotrimazole 1 % Cream 30 GM TUBE TOP SCH ×2 (09:49→20:34)
[2020-06-12] MEDS: Heparin 5,000 UNITS/ML VIAL SC SCH ×2 (09:50→20:34)
--- NOTE | 2020-06-12 11:12 | PRG ---
DATE OF SERVICE: 06/11/2020 OBJECTIVE: VITAL SIGNS: The patient noted with the following vital signs, blood pressure of 151/66 to 177/80, heart rate of 74, afebrile, O2 saturations of 100%. HEENT: Examination unremarkable. CARDIOVASCULAR SYSTEM: First and second heart sounds were heard. RESPIRATORY SYSTEM: Clear to auscultation. DIGESTIVE SYSTEM: Revealed a benign abdomen. EXTREMITIES: Showed minimal edema. IMPRESSION: 1. Hyponatremia, which is stable. 2. Hypervolemia responding to diuresis. 3. Advanced cardiomyopathy. PLAN: 1. We will discontinue IV fluid on this patient, who is on diuretics, does not really make a lot of clinical sense giving this patient IV fluid while undergoing diuresis. 2. Adjust cardiac medications to optimize hemodynamics. 3. Further management to be dependent on the clinical course. Job ID: [id number]
--- NOTE | 2020-06-12 11:31 | PRG ---
DATE OF SERVICE: 06/12/2020 SERVICE: Advanced Heart Failure Cardiology Consult Service. SUBJECTIVE: Mr. Rao had an excellent day. He went down to the catheterization lab. Left heart catheterization with coronary angiogram showed that he had 99% stenosis at the SVG graft to posterior descending artery. Two drug-eluting stents were placed to open that blockage. His other graft was reported to be open. However, his distal [place] arteries have significant disease burden. He tolerated the procedure without any problems. He says that he feels good today. Breathing easy. Now he wants to walk today. REVIEW OF SYSTEMS: GENERAL: There is no fever, chills, or productive cough. HEENT: There is no change in vision, hearing, or swallowing. He is chronically hard hearing. PULMONARY: Please see HPI. CARDIAC: There are no palpitations, chest pain, or syncope. GI: There is no nausea, vomiting, or diarrhea. : He has Thomas catheter placed. MUSCULOSKELETAL: There is no complaint of muscle or joint pains. INTEGUMENT: There is no new skin breakdown. NEUROLOGIC: There are no new focal deficits or weaknesses. MEDICATIONS: Medications that have cardiac effect consist of 1. Aspirin 81 mg daily. 2. Atorvastatin 80 mg p.o. at bedtime. 3. Carvedilol 6.25 mg b.i.d. 4. Plavix 75 mg daily. 5. Finasteride 5 mg b.i.d. 6. Milrinone 0.375 mcg/kg per minute. 7. Nystatin powder topical twice a day. 8. Sacubitril and valsartan which is Entresto 49/51 combination, 2 tablets twice per day. 9. Spironolactone 25 mg daily. 10. Torsemide, has been started today at 20 mg b.i.d. PHYSICAL EXAMINATION: Telemetry was reviewed. It shows sinus rhythm with heart rate in the 70s. VITAL SIGNS: He has a range of systolic blood pressures as low as 123 and high as 169. His latest vitals are heart rate 84, blood pressure 159/60. GENERAL: Alert and conversational, more energetic today, eating breakfast. HEENT: EOMI. Oropharynx benign. NECK: His JVP is about 11 cm. PULMONARY: There is good air movement bilaterally, clear to auscultation bilaterally. CARDIAC: Regular rate and rhythm with normal S1, S2, there is 2/6 holosystolic murmur at the apex with radiation to the left axilla. ABDOMEN: Soft, nontender. Positive bowel sounds. His pitting edema around the abdomen is essentially gone. HIPS: He has a slight pitting edema. EXTREMITIES: He has about 0.5 to 1 cm pitting edema from feet about residential to his knees, again this is a significant improvement. LABORATORY DATA: White cell count 5.8, hemoglobin 11, and platelets 165. His chemistry shows sodium 131, potassium 4.2, chloride 101, bicarb of 23, BUN 29, creatinine 0.8. His 24 hour I and O show 1663 in and 3100 out, is net negative at 1437. ASSESSMENT: 79-year-old gentleman is progressing well. It is likely that critical 99% blockage between his SVG to PDA caused his acute on chronic heart failure with reduced ejection fraction. He has ischemic cardiomyopathy. With successful stent reopening, there is a chance that his heart can get better. However, his heart failure therapy also need to be maximized. He resides in [place] Heart Association stage C, [place] Heart Association class III heart failure with reduced ejection fraction due to ischemic cardiomyopathy. He has both systolic and diastolic dysfunction. He has severe coronary artery disease. He also has severe hypertension and protein inducing renal dysfunction. Due to the multiple problems, it would not be safe for him to live alone. This was discussed. He is considering moving in with his family in the future. RECOMMENDATIONS: 1. Increase carvedilol to 12.5 mg p.o. q.12 hours. 2. We will start titrating milrinone down today, decrease milrinone to 0.25 mcg/kg/minute tonight at 6 p.m. 3. Start torsemide 20 mg p.o. twice a day as planned. 4. Will also continue to discuss with patient long-term care. 5. Since the patient is living alone and he has ischemic cardiomyopathy with EF around 20% to 25%, then it would be a good idea to provide a LifeVest for him. So, we will do a LifeVest consult. It has been a pleasure taking care of Mr. Rao. If any questions, please give me a call. The ICU time is 35 minutes today. This includes personally performing history and physical, reviewing data, coordinating care, and direct patient interaction. Job ID: [id number] [facility] HOSPITALMurtaza
--- NOTE | 2020-06-12 12:55 | PDOC.CPN ---
- Subjective Date: 06/12/20 Time: 12:52 Interval history: He had his LHC yesterday and had a severe lesion on his SVG to the RPDA. He underwent RADHA to this graft with good results. He is doing well this morning. No chest pain. - Review of Systems General: denies: fever/chills, weight/appetite/sleep changes, night sweats, fatigue Respiratory: denies: cough, congestion, shortness of breath, exercise intolerance Cardiovascular: denies: chest pain, palpitation, edema, paroxysmal nocturnal dyspnea, orthopnea Gastrointestinal: denies: nausea, vomiting, diarrhea, constipation, abd pain, GI bleeding Musculoskeletal: denies: pain, tenderness, stiffness, swelling, arthritis/arthralgias Neurological: denies: numbness, syncope, seizure, weakness - Objective Allergies/Adverse Reactions: Allergies Allergy/AdvReac Type Severity Reaction Status Date / Time morphine Allergy Verified 06/01/20 01:21 Visit Medications: Current Medications Acetaminophen (Acetaminophen 325 Mg Tab) 650 mg PO Q4H PRN PRN Reason: Headache/Fever/Mild Pain (1-3) Last Admin: 06/08/20 20:05 Dose: 650 mg Documented by: Albuterol/Ipratropium (Ipratropium/Albuterol Sulfate 3 Ml Neb) 3 ml NEB Q6H PRN PRN Reason: Respiratory Distress Aspirin (Aspirin Chewable 81 Mg Tab) 81 mg PO DAILY [facility] Last Admin: 06/12/20 09:48 Dose: 81 mg Documented by: Atorvastatin Calcium (Atorvastatin Calcium 40 Mg Tab) 80 mg PO HS [facility] Last Admin: 06/11/20 21:12 Dose: 80 mg Documented by: Carvedilol (Carvedilol 6.25 Mg Tab) 12.5 mg PO BID-[facility] Last Admin: 06/12/20 09:47 Dose: 12.5 mg Documented by: Clonidine (Clonidine 0.1 Mg Tab) 0.1 mg PO BID PRN PRN Reason: SBP > 160 use second Clopidogrel Bisulfate (Clopidogrel Bisulfate 75 Mg Tab) 75 mg PO DAILY [facility] Last Admin: 06/12/20 09:47 Dose: 75 mg Documented by: Clotrimazole (Clotrimazole 1 % Cream 30 Gm Tube) 0 gm TOP BID [facility] Last Admin: 06/12/20 09:49 Dose: 1 applic Documented by: Famotidine (Famotidine 20 Mg Tab) 20 mg PO BID [facility] Last Admin: 06/12/20 09:47 Dose: 20 mg Documented by: Finasteride (Finasteride 5 Mg Tab) 5 mg PO BID [facility] Last Admin: 06/12/20 09:48 Dose: 5 mg Documented by: Folic Acid (Folic Acid 1 Mg Tab) 1 mg PO DAILY [facility] Last Admin: 06/12/20 09:47 Dose: 1 mg Documented by: Guaifenesin/Dextromethorphan (Guaifenesin Dm 100-10/5 Ml Udcup) 15 ml PO Q4H PRN PRN Reason: Cough Heparin Sodium (Porcine) (Heparin 5,000 Units/Ml Vial) 5,000 units SC BID [facility] Last Admin: 06/12/20 09:50 Dose: 5,000 units Documented by: Promethazine HCl 12.5 mg/ (Sodium Chloride) 50.5 mls @ 202 mls/hr IVPB Q6H PRN PRN Reason: Nausea/vomiting use second Milrinone Lactate/Dextrose 20 (mg/ Device) 100 mls @ 9.421 mls/hr IV INF [facility]; Protocol Stop: 06/12/20 18:00 Last Admin: 06/12/20 09:46 Dose: 100 mls Documented by: Milrinone Lactate/Dextrose 20 (mg/ Device) 100 mls @ 6.281 mls/hr IV INF [facility]; Protocol Miscellaneous Medication (Electrolyte Replacement Protoc 1 Each Each) 1 each FS ASDIR [facility] Nystatin (Nystatin Powder 15 Gm Bot) 0 gm TOP BID PRN PRN Reason: Topical Irritations Last Admin: 06/10/20 09:02 Dose: 1 applic Documented by: Ondansetron HCl (Ondansetron Pf 4 Mg/2 Ml Vial) 4 mg IVP Q6H PRN PRN Reason: Nausea/Vomiting use 1st Last Admin: 06/05/20 09:18 Dose: 4 mg Documented by: Sacubitril/Valsartan (Sacubitril 49 Mg/Valsartan 51 Mg Tablet) 2 tab PO BID [facility] Last Admin: 06/12/20 09:47 Dose: 2 tab Documented by: Sodium Chloride (Flush - Normal Saline 10 Ml Syringe) 10 ml IVF PRN PRN PRN Reason: Saline Flush Last Admin: 06/07/20 19:58 Dose: 10 ml Documented by: Spironolactone (Spironolactone 25 Mg Tab) 25 mg PO QAM-WM [facility] Last Admin: 06/12/20 09:49 Dose: 25 mg Documented by: Torsemide (Torsemide 20 Mg Tab) 20 mg PO 0900,1400 [facility] Last Admin: 06/12/20 09:47 Dose: 20 mg Documented by: Vital Signs & Weight: Vital Signs Temp Pulse Pulse BP BP BP Pulse Ox 06/12/20 11:50 68 67 108/48 L 104/49 L 06/12/20 11:00 98.6 F 06/12/20 09:47 149/85 H 06/12/20 08:00 99 06/12/20 07:36 98.2 F 06/12/20 04:01 97.6 F Admit Weight 208 lb 12.432 oz Weight 175 lb 1 oz - Physical Exam General: alert & oriented x3 HEENT: mucus membranes moist Neck: supple neck Cardiac: regular rate and rhythm Lungs: normal breath sounds Neuro: grossly intact Abdomen: active bowel sounds Extremities: 1+ LE edema Skin: clear Musculoskeletal: no pain - Labs Result Diagrams: 06/12/20 03:29 06/12/20 03:29 Troponin/CKMB CK-MB (CK-2) 7.1 ng/mL (0-6.6) H* 05/31/20 21:37 Troponin I 0.076 ng/mL (< 0.028) H 06/01/20 04:05 - Telemetry Sinus rhythms and dysrhythmias: sinus rhythm - Assessment/Plan Assessment/Plan: 1. Acute on chronic systolic heart failure 2. Ischemic CM 3. Reduced EF at 20-25% 4. S/P CABG 2019 5. Mild aortic stenosis 6. UTI 7. Rash. PLAN: - Continue Plavix and Aspirin - EF was close to 40% on [facility] but this was on milrinone so may be falsely elvevated due innotropic support. Needs echo off innotropes. - CHF meds adjusted per Dr. Henriquez.
--- NOTE | 2020-06-12 15:09 | EKG ---
Test Reason : Blood Pressure : / mmHG Vent. Rate : 067 BPM Atrial Rate : 202 BPM P-R Int : 000 ms QRS Dur : 106 ms QT Int : 398 ms P-R-T Axes : 000 -56 112 degrees QTc Int : 420 ms Normal sinus rhythm Left axis deviation Inferior infarct , age undetermined cannot be excluded Abnormal ECG Confirmed by OJ LOFTON ([id number]) on 06/12/2020 3:09:07 PM Referred By: ALEKSANDR Confirmed By:OJ LOFTON
--- NOTE | 2020-06-12 18:47 | PDOC.HOSPP ---
- Subjective Encounter Date: 06/12/20 Encounter Time: 14:00 Subjective: The patient is doing better. No chest pain. He does get SOB on exertion. Patient states he thinks he will improve when he gets more exercise. He is discussing moving in with his niece on discharge. I spoke with niece and updated her on plan of care, she has no questions currently - Objective Vital Signs & Weight: Vital Signs (12 hours) Temp Pulse Pulse BP BP BP Pulse Ox 06/12/20 17:26 149/85 H 06/12/20 15:43 98.4 F 06/12/20 11:50 68 67 108/48 L 104/49 L 06/12/20 11:01 82 116/52 L 122/55 L 06/12/20 11:00 98.6 F 06/12/20 09:47 149/85 H 06/12/20 08:00 99 06/12/20 07:36 98.2 F Weight Admit Weight 208 lb 12.432 oz Weight 175 lb 1 oz Most Recent Monitor Data Heart Rate from ECG 66 NIBP 125/52 NIBP BP-Mean 76 Respiration from ECG 16 SpO2 100 I&O: 06/11/20 06/12/20 06/13/20 06:59 06:59 06:59 Intake Total 350 1662.8 1500 Output Total 2500 3100 1850 Balance -2150 -1437.2 -350 Result Diagrams: 06/12/20 03:29 06/12/20 03:29 Hospitalist ROS - Review of Systems Constitutional: denies: fever, chills - Medication Medications: Active Medications Generic Name Dose Route Start Last Admin Trade Name Lauren PRN Reason Stop Dose Admin Acetaminophen 650 mg 05/31/20 23:12 06/08/20 20:05 Acetaminophen 325 Mg Tab PO 650 mg Q4H PRN Administration Headache/Fever/Mild Pain (1-3) Aspirin 81 mg 06/03/20 09:00 06/12/20 09:48 Aspirin Chewable 81 Mg Tab PO 81 mg DAILY [facility] Administration Atorvastatin Calcium 80 mg 06/01/20 21:00 06/11/20 21:12 Atorvastatin Calcium 40 Mg Tab PO 80 mg HS [facility] Administration Carvedilol 12.5 mg 06/12/20 08:00 06/12/20 17:26 Carvedilol 6.25 Mg Tab PO 12.5 mg BID-WM [facility] Administration Clopidogrel Bisulfate 75 mg 06/11/20 09:00 06/12/20 09:47 Clopidogrel Bisulfate 75 Mg Tab PO 75 mg DAILY [facility] Administration Clotrimazole 0 gm 06/04/20 21:00 06/12/20 09:49 Clotrimazole 1 % Cream 30 Gm Tube TOP 1 applic BID [facility] Administration Famotidine 20 mg 06/01/20 09:00 06/12/20 09:47 Famotidine 20 Mg Tab PO 20 mg BID [facility] Administration Finasteride 5 mg 06/01/20 21:00 06/12/20 09:48 Finasteride 5 Mg Tab PO 5 mg BID [facility] Administration Folic Acid 1 mg 06/09/20 09:00 06/12/20 09:47 Folic Acid 1 Mg Tab PO 1 mg DAILY [facility] Administration Heparin Sodium (Porcine) 5,000 units 06/01/20 09:00 06/12/20 09:50 Heparin 5,000 Units/Ml Vial SC 5,000 units BID [facility] Administration Nystatin 0 gm 06/08/20 09:50 06/10/20 09:02 Nystatin Powder 15 Gm Bot TOP 1 applic BID PRN Administration Topical Irritations Ondansetron HCl 4 mg 05/31/20 23:12 06/05/20 09:18 Ondansetron Pf 4 Mg/2 Ml Vial IVP 4 mg Q6H PRN Administration Nausea/Vomiting use 1st Sacubitril/Valsartan 2 tab 06/10/20 09:00 06/12/20 09:47 Sacubitril 49 Mg/Valsartan 51 Mg Tablet PO 2 tab BID [facility] Administration Sodium Chloride 10 ml 06/01/20 02:30 06/07/20 19:58 Flush - Normal Saline 10 Ml Syringe IVF 10 ml PRN PRN Administration Saline Flush Spironolactone 25 mg 06/02/20 08:00 06/12/20 09:49 Spironolactone 25 Mg Tab PO 25 mg QAM-WM [facility] Administration Torsemide 20 mg 06/12/20 09:00 06/12/20 15:22 Torsemide 20 Mg Tab PO 20 mg 0900,1400 [facility] Administration - Exam General Appearance: NAD, awake alert Eye: PERRL, anicteric sclera ENT: normocephalic atraumatic, no oropharyngeal lesions Neck: no JVD Heart: RRR, no murmur, no gallops, no rubs Respiratory: CTAB, no wheezes, no rales, no ronchi Gastrointestinal: soft, non-tender, non-distended, normal bowel sounds Extremities: no cyanosis, no clubbing, 2+ LE edema Skin: normal turgor, no lesions, no rashes Neurological: cranial nerve grossly intact, normal sensation to touch, no focal deficits, no new deficit Hosp A/P - Plan ECHO: EF 20-25%, mild , moderate TR, mild AR Chest Xray: CHF Chest X ray 06/08: mild CHF Chest X ray 06/09: slight increase in CHF Cath report: SVG to PDA 90%, occluded proximal LAD and left circumflex This is an 79 year old male with past medical history of heart failure who presented with generalized anasarca and BNP > 09027 #Acute systolic heart failure #Hypertension - ECHO shows EF 20-25%. Chest X ray with pulmonary edema. BNP has increased from 424 to 3000, recheck tomorrow - held lasix today since patient underwent cardiac cath . He had stent placement to SVG to PDA on 06/11 - weaning off milrinone today starting at 6:00 pm. Goal is to have it weaned off by Hyponatremia - stable at 131 #Citrobacter UTI #History of urethral stricture - s/p 7 days of bactrim. Hypertension - BP 117-120. Continue entresto and coreg 12.5 mg bid - continue entresto CAD - continue aspirin, statin Dispo: plan to wean off milrinone drip by Wednesday. Will place case management consult in anticipation of possible rehab
[2020-06-12] MEDS: Atorvastatin Calcium 40 MG TAB PO SCH (20:34)
[2020-06-13 03:47] LABS: Anion Gap 10 mmol/L (10-20); BUN (Urea Nitrogen) 27 mg/dL (8.4-25.7); Calc. Creatinine Clearance 75 mL/min (70-130); Calcium 8.1 mg/dL (7.8-10.44); Carbon Dioxide 26 mmol/L (23-31); Chloride 100 mmol/L (98-107); Estimated GFR-MDRD 83; Glucose 109 mg/dL (83-110); Potassium 3.8 mmol/L (3.5-5.1); Sodium 132 mmol/L (136-145)
[2020-06-13] MEDS: Carvedilol 6.25 MG TAB PO SCH ×2 (09:03→18:57)
[2020-06-13] MEDS: Spironolactone 25 MG TAB PO SCH (09:03)
[2020-06-13] MEDS: Aspirin Chewable 81 MG TAB PO SCH (09:05)
[2020-06-13] MEDS: Finasteride 5 MG TAB PO SCH ×2 (09:05→20:10)
[2020-06-13] MEDS: Folic Acid 1 MG TAB PO SCH (09:05)
[2020-06-13] MEDS: Famotidine 20 MG TAB PO SCH ×2 (09:05→20:10)
[2020-06-13] MEDS: Clopidogrel Bisulfate 75 MG TAB PO SCH (09:05)
[2020-06-13] MEDS: Clotrimazole 1 % Cream 30 GM TUBE TOP SCH ×2 (09:06→20:11)
[2020-06-13] MEDS: Heparin 5,000 UNITS/ML VIAL SC SCH ×2 (09:06→20:11)
[2020-06-13] MEDS: Torsemide 20 MG TAB PO SCH ×2 (09:06→15:08)
[2020-06-13] MEDS: Sacubitril 49 MG/Valsartan 51 MG TABLET PO SCH ×2 (09:06→20:10)
[2020-06-13] MEDS ORDERED: Milrinone Lactate/D5W 20 MG in Premix Bag 1 BAG IV SCH (09:15)
--- NOTE | 2020-06-13 09:19 | PDOC.EP ---
- Subjective Date: 06/13/20 Time: 09:17 Interval History: PCI yesterday. No chest discomfort, syncope or falls. Dyspnea improved. - Objective Allergies/Adverse Reactions: Allergies Allergy/AdvReac Type Severity Reaction Status Date / Time morphine Allergy Verified 06/01/20 01:21 Current Medications Acetaminophen (Acetaminophen 325 Mg Tab) 650 mg PO Q4H PRN PRN Reason: Headache/Fever/Mild Pain (1-3) Last Admin: 06/08/20 20:05 Dose: 650 mg Documented by: Albuterol/Ipratropium (Ipratropium/Albuterol Sulfate 3 Ml Neb) 3 ml NEB Q6H PRN PRN Reason: Respiratory Distress Aspirin (Aspirin Chewable 81 Mg Tab) 81 mg PO DAILY [facility] Last Admin: 06/13/20 09:05 Dose: 81 mg Documented by: Atorvastatin Calcium (Atorvastatin Calcium 40 Mg Tab) 80 mg PO HS [facility] Last Admin: 06/12/20 20:34 Dose: 80 mg Documented by: Carvedilol (Carvedilol 6.25 Mg Tab) 12.5 mg PO BID-WM [facility] Last Admin: 06/13/20 09:03 Dose: 12.5 mg Documented by: Clonidine (Clonidine 0.1 Mg Tab) 0.1 mg PO BID PRN PRN Reason: SBP > 160 use second Clopidogrel Bisulfate (Clopidogrel Bisulfate 75 Mg Tab) 75 mg PO DAILY [facility] Last Admin: 06/13/20 09:05 Dose: 75 mg Documented by: Clotrimazole (Clotrimazole 1 % Cream 30 Gm Tube) 0 gm TOP BID [facility] Last Admin: 06/13/20 09:06 Dose: 1 applic Documented by: Famotidine (Famotidine 20 Mg Tab) 20 mg PO BID [facility] Last Admin: 06/13/20 09:05 Dose: 20 mg Documented by: Finasteride (Finasteride 5 Mg Tab) 5 mg PO BID [facility] Last Admin: 06/13/20 09:05 Dose: 5 mg Documented by: Folic Acid (Folic Acid 1 Mg Tab) 1 mg PO DAILY [facility] Last Admin: 06/13/20 09:05 Dose: 1 mg Documented by: Guaifenesin/Dextromethorphan (Guaifenesin Dm 100-10/5 Ml Udcup) 15 ml PO Q4H PRN PRN Reason: Cough Heparin Sodium (Porcine) (Heparin 5,000 Units/Ml Vial) 5,000 units SC BID [facility] Last Admin: 06/13/20 09:06 Dose: 5,000 units Documented by: Promethazine HCl 12.5 mg/ (Sodium Chloride) 50.5 mls @ 202 mls/hr IVPB Q6H PRN PRN Reason: Nausea/vomiting use second Milrinone Lactate/Dextrose 20 (mg/ Device) 100 mls @ 3.14 mls/hr IV INF [facility]; Protocol Stop: 06/13/20 18:00 Miscellaneous Medication (Electrolyte Replacement Protoc 1 Each Each) 1 each FS ASDIR [facility] Nystatin (Nystatin Powder 15 Gm Bot) 0 gm TOP BID PRN PRN Reason: Topical Irritations Last Admin: 06/10/20 09:02 Dose: 1 applic Documented by: Ondansetron HCl (Ondansetron Pf 4 Mg/2 Ml Vial) 4 mg IVP Q6H PRN PRN Reason: Nausea/Vomiting use 1st Last Admin: 06/05/20 09:18 Dose: 4 mg Documented by: Potassium Chloride (Potassium Chloride 20 Meq Tab) 20 meq PO DAILY [facility] Sacubitril/Valsartan (Sacubitril 49 Mg/Valsartan 51 Mg Tablet) 2 tab PO BID [facility] Last Admin: 06/13/20 09:06 Dose: 2 tab Documented by: Sodium Chloride (Flush - Normal Saline 10 Ml Syringe) 10 ml IVF PRN PRN PRN Reason: Saline Flush Last Admin: 06/07/20 19:58 Dose: 10 ml Documented by: Spironolactone (Spironolactone 25 Mg Tab) 25 mg PO QAM-WM [facility] Last Admin: 06/13/20 09:03 Dose: 25 mg Documented by: Torsemide (Torsemide 20 Mg Tab) 20 mg PO 0900,1400 [facility] Last Admin: 06/13/20 09:06 Dose: 20 mg Documented by: Vital Signs & Weight: Vital Signs Temp BP 06/13/20 09:03 143/64 H 06/13/20 08:00 97.1 F L 06/13/20 03:00 96.8 F L 06/13/20 00:00 97.1 F L Admit Weight 208 lb 12.432 oz Weight 172 lb I/O: I/O 06/12/20 06/13/20 06/14/20 06:59 06:59 06:59 Intake Total 1662.8 1926 Output Total 3100 4400 Balance -1437.2 -2474 - Labs Result Diagrams: 06/12/20 03:29 06/13/20 03:18 - Assessment/Plan Assessment/Plan: Chronic systolic heart failure - PCI yesterday. EF 40% on milrinone (LV gram). Plan is to repeat echocardiogram in 3 months. Consider ICD if EF remains less than or equal to 35%. Discussed with Dr. Henriquez.
[2020-06-13] MEDS: Potassium Chloride 20 MEQ TAB PO SCH (09:50)
[2020-06-13 11:55] VITALS: BMI 26.9
--- NOTE | 2020-06-13 12:33 | PRG ---
DATE OF SERVICE: 06/13/2020 SUBJECTIVE: Mr. Rao had an excellent day. He said he felt good. Breathes easily. He was able to walk with physical therapy. It sounds like he did a lap around the unit. He was able to maintain systolic blood pressure with increased doses of carvedilol and Entresto. He seemed to be tolerating down-titration of milrinone without difficulty. REVIEW OF SYSTEMS: GENERAL: There is no fever, chills, productive cough. HEENT: There is no change in vision, hearing, or swallowing. However, he does have chronic difficulty hearing. PULMONARY: Please see HPI. CARDIAC: There are no chest pains, palpitations, or syncope. GI: There is no nausea, vomiting, diarrhea. : He has a Thomas catheter in. MUSCULOSKELETAL: He does not complain of any pain. INTEGUMENT: There is no skin breakdown. NEUROLOGIC: There are no new focal deficits or weaknesses. MEDICATIONS: His medications that have cardiac effect include 1. Aspirin 81 mg daily. 2. Atorvastatin 80 mg at bedtime. 3. Carvedilol 12.5 mg b.i.d. 4. Plavix 75 mg daily. 5. Milrinone currently at 0.25 mcg/kg/minute. 6. 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 7. Sacubitril and valsartan 49/51, two tablets twice a day, so this will correspond to 97/103 combination. 8. Spironolactone 25 mg daily. 9. Torsemide 20 mg b.i.d. His telemetry was reviewed. He is in sinus rhythm. There are no concerning arrhythmia. PHYSICAL EXAMINATION: VITAL SIGNS: He has his range of systolic blood pressure between 97 to 147. His diastolic pressure ranged between 53 to 64. GENERAL: He is alert and conversational. Reclining comfortably in bed. HEENT: EOMI. Oropharynx benign. NECK: His JVP is about 10 cm with positive hepatojugular reflux. PULMONARY: He has good air movement and lungs clear to auscultation bilaterally. CARDIAC: Regular rate and rhythm with normal S1, S2. There is 2/6 holosystolic murmur at the apex with radiation to the left axilla. ABDOMEN: Soft, nontender. Positive bowel sounds. EXTREMITIES: His thighs have slight pitting edema. He has 0.5 cm pitting edema from feet to about a third way up towards knees. In general, his edematous state has greatly decreased. He is approaching point of euvolemia. His 24 hour I and O was 1900 in and 4400 mL out. LABORATORY DATA: His CBC show white cell count 5.1, hemoglobin 11, and platelets 155. His blood chemistry shows sodium 132, potassium 3.8, chloride 100, bicarb 26, BUN 27, creatinine 0.88 and glucose 109. His BNP has reduced down to 737. ASSESSMENT: 79-year-old gentleman who has made great progress on acute on chronic heart failure with reduced ejection fraction. It is an ischemic cardiomyopathy. This is shown by diffuse arterial disease distal to grafts. Correction of the SVG to PDA 99% stenosis with drug-eluting stents helped him significantly. It is hoped that his heart will restore function. He currently lies in [place] Heart Association stage C and [place] Heart Association class III heart failure with reduced ejection fraction with combined diastolic and systolic dysfunction. He will continue to need to be diuresed but with oral diuretics at a sustainable rate. His milrinone is ready to be turned off today. If all works out, there is a chance that he will be discharged tomorrow. Discussion also took place. He understands that he should move in with his relatives instead of living by himself. RECOMMENDATIONS: 1. Decrease milrinone down to 0.125 mcg/kg/minute. At 6 p.m., please stop the milrinone. 2. Please provide K-Dur 20 mEq daily, first dose now. 3. We will call Urology in assisting with removing the Thomas and re-train his bladder. 4. We will look for LifeVest. Combination of currently living alone, ischemic cardiomyopathy, and low EF combine to suggest that he can benefit from a LifeVest. He still has quite a bit of functional life left. It has been a pleasure taking care of Mr. Kristian Rao. If any questions, please give me a call. The total ICU time is 35 minutes today. This includes personally performing history and physical, reviewing data, coordinating care and direct patient interaction. Job ID: [id number] [id number]
--- NOTE | 2020-06-13 16:40 | PDOC.HOSPP ---
- Subjective Encounter Date: 06/13/20 Encounter Time: 08:00 Subjective: The patient reports that he is doing okay. He ambulated a few feet with PT. The patient states he would rather go home instead of wanting rehab. He states he plans to move in with his niece There is plan to wean off milrinone drip by 6 pm today. - Objective Vital Signs & Weight: Vital Signs (12 hours) Temp BP 06/13/20 15:35 98.1 F 06/13/20 11:30 98.0 F 06/13/20 09:03 143/64 H 06/13/20 08:00 97.1 F L Weight Admit Weight 208 lb 12.432 oz Weight 172 lb Most Recent Monitor Data Heart Rate from ECG 67 NIBP 119/57 NIBP BP-Mean 77 Respiration from ECG 11 SpO2 89 I&O: 06/12/20 06/13/20 06/14/20 06:59 06:59 06:59 Intake Total 1662.8 1926 Output Total 3100 4400 775 Balance -1437.2 -2474 -775 Result Diagrams: 06/12/20 03:29 06/13/20 03:18 Hospitalist ROS - Review of Systems Constitutional: denies: fever, chills - Medication Medications: Active Medications Generic Name Dose Route Start Last Admin Trade Name Freq PRN Reason Stop Dose Admin Acetaminophen 650 mg 05/31/20 23:12 06/08/20 20:05 Acetaminophen 325 Mg Tab PO 650 mg Q4H PRN Administration Headache/Fever/Mild Pain (1-3) Aspirin 81 mg 06/03/20 09:00 06/13/20 09:05 Aspirin Chewable 81 Mg Tab PO 81 mg DAILY NATASHA Administration Atorvastatin Calcium 80 mg 06/01/20 21:00 06/12/20 20:34 Atorvastatin Calcium 40 Mg Tab PO 80 mg HS NATASHA Administration Carvedilol 12.5 mg 06/12/20 08:00 06/13/20 09:03 Carvedilol 6.25 Mg Tab PO 12.5 mg BID-WM NATASHA Administration Clopidogrel Bisulfate 75 mg 06/11/20 09:00 06/13/20 09:05 Clopidogrel Bisulfate 75 Mg Tab PO 75 mg DAILY NATASHA Administration Clotrimazole 0 gm 06/04/20 21:00 06/13/20 09:06 Clotrimazole 1 % Cream 30 Gm Tube TOP 1 applic BID NATASHA Administration Famotidine 20 mg 06/01/20 09:00 06/13/20 09:05 Famotidine 20 Mg Tab PO 20 mg BID NATASHA Administration Finasteride 5 mg 06/01/20 21:00 06/13/20 09:05 Finasteride 5 Mg Tab PO 5 mg BID NATASHA Administration Folic Acid 1 mg 06/09/20 09:00 06/13/20 09:05 Folic Acid 1 Mg Tab PO 1 mg DAILY NATASHA Administration Heparin Sodium (Porcine) 5,000 units 06/01/20 09:00 06/13/20 09:06 Heparin 5,000 Units/Ml Vial SC 5,000 units BID NATASHA Administration Nystatin 0 gm 06/08/20 09:50 06/10/20 09:02 Nystatin Powder 15 Gm Bot TOP 1 applic BID PRN Administration Topical Irritations Ondansetron HCl 4 mg 05/31/20 23:12 06/05/20 09:18 Ondansetron Pf 4 Mg/2 Ml Vial IVP 4 mg Q6H PRN Administration Nausea/Vomiting use 1st Potassium Chloride 20 meq 06/13/20 09:00 06/13/20 09:50 Potassium Chloride 20 Meq Tab PO 20 meq DAILY NATASHA Administration Sacubitril/Valsartan 2 tab 06/10/20 09:00 06/13/20 09:06 Sacubitril 49 Mg/Valsartan 51 Mg Tablet PO 2 tab BID NATASHA Administration Sodium Chloride 10 ml 06/01/20 02:30 06/07/20 19:58 Flush - Normal Saline 10 Ml Syringe IVF 10 ml PRN PRN Administration Saline Flush Spironolactone 25 mg 06/02/20 08:00 06/13/20 09:03 Spironolactone 25 Mg Tab PO 25 mg QAM-WM NATASHA Administration Torsemide 20 mg 06/12/20 09:00 06/13/20 15:08 Torsemide 20 Mg Tab PO 20 mg 0900,1400 NATASHA Administration - Exam General Appearance: NAD, awake alert Eye: PERRL ENT: normocephalic atraumatic, no oropharyngeal lesions Neck: no JVD Heart: RRR, no murmur, no gallops, no rubs Respiratory: CTAB, no wheezes, no rales, no ronchi Gastrointestinal: soft, non-tender, non-distended, normal bowel sounds Extremities: no cyanosis, no clubbing, no edema Skin: normal turgor, no lesions, no rashes Neurological: cranial nerve grossly intact, normal sensation to touch, no focal deficits, no new deficit Musculoskeletal: normal tone, normal strength, no muscle wasting Psychiatric: A&O x 3 Hosp A/P - Plan ECHO: EF 20-25%, mild , moderate TR, mild AR Chest Xray: CHF Chest X ray 06/08: mild CHF Chest X ray 06/09: slight increase in CHF Cath report: SVG to PDA 90%, occluded proximal LAD and left circumflex This is an 79 year old male with past medical history of heart failure who presented with generalized anasarca and BNP > 69060 #Acute systolic heart failure #Hypertension - ECHO shows EF 20-25%. Chest X ray with pulmonary edema. BNP has improved to 737 from 3000 - he is being weaned off milrinone drip - he had cardiac cath with stent placement SVG to PDA 06/11 - hopefully can d/c tomorrow Hyponatremia -improved to 132 #Citrobacter UTI #History of urethral stricture - s/p 7 days of bactrim. Hypertension - BP 117-120. Continue entresto and coreg 12.5 mg bid - continue entresto CAD - continue aspirin, statin Dispo: plan to wean off milrinone drip tomorrow, hopefully d/c tomorrow, rehab vs home
--- NOTE | 2020-06-13 16:46 | PDOC.CPN ---
- Subjective Date: 06/13/20 Time: 16:44 Interval history: He is doing well. No chest pain. - Review of Systems General: denies: fever/chills, weight/appetite/sleep changes, night sweats, fatigue Respiratory: denies: cough, congestion, shortness of breath, exercise intolerance Cardiovascular: denies: chest pain, palpitation, edema, paroxysmal nocturnal dyspnea, orthopnea Gastrointestinal: denies: nausea, vomiting, diarrhea, constipation, abd pain, GI bleeding Musculoskeletal: denies: pain, tenderness, stiffness, swelling, arthritis/arthralgias Neurological: denies: numbness, syncope, seizure, weakness - Objective Allergies/Adverse Reactions: Allergies Allergy/AdvReac Type Severity Reaction Status Date / Time morphine Allergy Verified 06/01/20 01:21 Visit Medications: Current Medications Acetaminophen (Acetaminophen 325 Mg Tab) 650 mg PO Q4H PRN PRN Reason: Headache/Fever/Mild Pain (1-3) Last Admin: 06/08/20 20:05 Dose: 650 mg Documented by: Albuterol/Ipratropium (Ipratropium/Albuterol Sulfate 3 Ml Neb) 3 ml NEB Q6H PRN PRN Reason: Respiratory Distress Aspirin (Aspirin Chewable 81 Mg Tab) 81 mg PO DAILY [facility] Last Admin: 06/13/20 09:05 Dose: 81 mg Documented by: Atorvastatin Calcium (Atorvastatin Calcium 40 Mg Tab) 80 mg PO HS [facility] Last Admin: 06/12/20 20:34 Dose: 80 mg Documented by: Carvedilol (Carvedilol 6.25 Mg Tab) 12.5 mg PO BID-[facility] Last Admin: 06/13/20 09:03 Dose: 12.5 mg Documented by: Clonidine (Clonidine 0.1 Mg Tab) 0.1 mg PO BID PRN PRN Reason: SBP > 160 use second Clopidogrel Bisulfate (Clopidogrel Bisulfate 75 Mg Tab) 75 mg PO DAILY [facility] Last Admin: 06/13/20 09:05 Dose: 75 mg Documented by: Clotrimazole (Clotrimazole 1 % Cream 30 Gm Tube) 0 gm TOP BID [facility] Last Admin: 06/13/20 09:06 Dose: 1 applic Documented by: Famotidine (Famotidine 20 Mg Tab) 20 mg PO BID [facility] Last Admin: 06/13/20 09:05 Dose: 20 mg Documented by: Finasteride (Finasteride 5 Mg Tab) 5 mg PO BID [facility] Last Admin: 06/13/20 09:05 Dose: 5 mg Documented by: Folic Acid (Folic Acid 1 Mg Tab) 1 mg PO DAILY [facility] Last Admin: 06/13/20 09:05 Dose: 1 mg Documented by: Guaifenesin/Dextromethorphan (Guaifenesin Dm 100-10/5 Ml Udcup) 15 ml PO Q4H PRN PRN Reason: Cough Heparin Sodium (Porcine) (Heparin 5,000 Units/Ml Vial) 5,000 units SC BID [facility] Last Admin: 06/13/20 09:06 Dose: 5,000 units Documented by: Promethazine HCl 12.5 mg/ (Sodium Chloride) 50.5 mls @ 202 mls/hr IVPB Q6H PRN PRN Reason: Nausea/vomiting use second Milrinone Lactate/Dextrose 20 (mg/ Device) 100 mls @ 3.14 mls/hr IV INF [facility]; Protocol Stop: 06/13/20 18:00 Miscellaneous Medication (Electrolyte Replacement Protoc 1 Each Each) 1 each FS ASDIR [facility] Nystatin (Nystatin Powder 15 Gm Bot) 0 gm TOP BID PRN PRN Reason: Topical Irritations Last Admin: 06/10/20 09:02 Dose: 1 applic Documented by: Ondansetron HCl (Ondansetron Pf 4 Mg/2 Ml Vial) 4 mg IVP Q6H PRN PRN Reason: Nausea/Vomiting use 1st Last Admin: 06/05/20 09:18 Dose: 4 mg Documented by: Potassium Chloride (Potassium Chloride 20 Meq Tab) 20 meq PO DAILY [facility] Last Admin: 06/13/20 09:50 Dose: 20 meq Documented by: Sacubitril/Valsartan (Sacubitril 49 Mg/Valsartan 51 Mg Tablet) 2 tab PO BID [facility] Last Admin: 06/13/20 09:06 Dose: 2 tab Documented by: Sodium Chloride (Flush - Normal Saline 10 Ml Syringe) 10 ml IVF PRN PRN PRN Reason: Saline Flush Last Admin: 06/07/20 19:58 Dose: 10 ml Documented by: Spironolactone (Spironolactone 25 Mg Tab) 25 mg PO QAM-WM [facility] Last Admin: 06/13/20 09:03 Dose: 25 mg Documented by: Torsemide (Torsemide 20 Mg Tab) 20 mg PO 0900,1400 NATASHA Last Admin: 06/13/20 15:08 Dose: 20 mg Documented by: Vital Signs & Weight: Vital Signs Temp BP 06/13/20 15:35 98.1 F 06/13/20 11:30 98.0 F 06/13/20 09:03 143/64 H 06/13/20 08:00 97.1 F L Admit Weight 208 lb 12.432 oz Weight 172 lb - Physical Exam General: no apparent distress HEENT: mucus membranes moist Neck: supple neck Cardiac: regular rate and rhythm Lungs: clear to auscultation Neuro: no lateralizing findings Abdomen: active bowel sounds Extremities: no edema Skin: clear Musculoskeletal: no pain - Labs Result Diagrams: 06/12/20 03:29 06/13/20 03:18 Troponin/CKMB CK-MB (CK-2) 7.1 ng/mL (0-6.6) H* 05/31/20 21:37 Troponin I 0.076 ng/mL (< 0.028) H 06/01/20 04:05 - Telemetry Sinus rhythms and dysrhythmias: sinus rhythm - Assessment/Plan Assessment/Plan: 1. Acute on chronic systolic heart failure 2. Ischemic Dilated CM 3. EF at 20-25% 4. S/P CABG 2018 5. Mild aortic stenosis 6. UTI 7. Rash. PLAN: - Continue Plavix and Aspirin - EF severely reduced, will need lifevest before discharge and will re evaluate EF in 3 months and will consider AICD if under 35% at that point. - CHF meds adjusted per Dr. Henriquez.
[2020-06-13] MEDS: Atorvastatin Calcium 40 MG TAB PO SCH (20:10)
[2020-06-14 07:25] LABS: #Basophils 0.1 thou/uL (0.0-0.2); #Lymphocytes 1.1 thou/uL (1.20-3.40); #Monocytes 0.7 thou/uL (0.11-0.59); #Neutrophils 3.7 thou/uL (1.40-6.50); %Basophils 0.9 % (0.0-1.0); %Eosinophils 0.7 % (0.0-10.0); %Lymphocytes 19.6 % (21.0-51.0); %Monocytes 12.6 % (0.0-10.0); %Neutrophils 66.1 % (42.0-75.0); Hemoglobin 9.9 g/dL (14.0-18.0); Mean Corpuscular HGB CONC 33.5 g/dL (32.0-36.0); Mean Corpuscular Hemoglobin 33.2 pg (27.0-31.0); Mean Corpuscular Volume 98.9 fL (78.0-98.0); Mean Platelet Volume 7.2 fL (7.4-10.4); Platelet Count 175 thou/uL (130-400); RBC Distribution Width 14.3 % (11.5-14.5); Red Blood Cell (RBC) Count 2.99 mill/uL (4.70-6.10); White Blood Cell (WBC) Count 5.7 thou/uL (4.8-10.8)
[2020-06-14 07:48] LABS: Anion Gap 10 mmol/L (10-20); BUN (Urea Nitrogen) 30 mg/dL (8.4-25.7); Calc. Creatinine Clearance 64 mL/min (70-130); Calcium 8.1 mg/dL (7.8-10.44); Carbon Dioxide 25 mmol/L (23-31); Chloride 101 mmol/L (98-107); Estimated GFR-MDRD 73; Glucose 97 mg/dL (83-110); Magnesium 2.1 mg/dL (1.6-2.6); Sodium 132 mmol/L (136-145)
[2020-06-14] MEDS: Clopidogrel Bisulfate 75 MG TAB PO SCH (08:45)
[2020-06-14] MEDS: Famotidine 20 MG TAB PO SCH ×2 (08:45→22:49)
[2020-06-14] MEDS: Torsemide 20 MG TAB PO SCH ×2 (08:45→16:08)
[2020-06-14] MEDS: Spironolactone 25 MG TAB PO SCH (08:46)
[2020-06-14] MEDS: Aspirin Chewable 81 MG TAB PO SCH (08:46)
[2020-06-14] MEDS: Folic Acid 1 MG TAB PO SCH (08:46)
[2020-06-14] MEDS: Sacubitril 49 MG/Valsartan 51 MG TABLET PO SCH ×2 (08:46→22:49)
[2020-06-14] MEDS: Finasteride 5 MG TAB PO SCH ×2 (08:46→22:49)
[2020-06-14] MEDS: Potassium Chloride 20 MEQ TAB PO SCH (08:46)
[2020-06-14] MEDS: Heparin 5,000 UNITS/ML VIAL SC SCH ×2 (08:47→22:49)
[2020-06-14] MEDS: Clotrimazole 1 % Cream 30 GM TUBE TOP SCH ×2 (08:48→22:50)
[2020-06-14] MEDS: Carvedilol 6.25 MG TAB PO SCH ×2 (08:49→16:08)
--- NOTE | 2020-06-14 10:19 | PRG ---
DATE OF SERVICE: 06/14/2020 SERVICE: Advanced Heart Failure Cardiology Consult Service. SUBJECTIVE: Mr. Kristian Rao had a good day. He was breathing easy, able to ambulate. His Thomas was taken out. After his Thomas was taken out, he was observed to be able to empty the bladder essentially completely. So, he is able to urinate on his own. He did not have the palpitations or chest pain. His edema continued to decrease. He feels very good about this. He is ready to go home. However, he understands that he can not and should not live alone at this point. He will be talking to his niece about moving in. During the day, he is able to urinate on his own. However, overnight he has wet his bed again, so apparently, he has overnight enuresis. REVIEW OF SYSTEMS: GENERAL: There is no fever, chills, or productive cough. HEENT: There is no change in vision, hearing, or swallowing. He is chronic hard of hearing. PULMONARY: See HPI. CARDIAC: There is no chest pain, palpitation, or syncope. GI: There is no nausea, vomiting, or diarrhea. : Please see HPI. MUSCULOSKELETAL: There are no muscle or joint pains. INTEGUMENT: There is no new skin breakdown. NEUROLOGIC: There are no focal deficits or weaknesses. ACTIVE MEDICATIONS: That have cardiac effect include: 1. Aspirin 81 mg daily. 2. Atorvastatin 80 mg p.o. at bedtime. 3. Carvedilol 12.5 mg b.i.d. 4. Clopidogrel 75 mg daily. 5. Nystatin topical twice per day. 6. Potassium chloride 20 mEq daily. 7. Sacubitril/valsartan 49/51 tablet 2 tablets b.i.d. this translates to Entresto 97/103 combination twice a day. 8. Spironolactone 25 mg daily. 9. Torsemide 20 mg twice a day. Telemetry was reviewed. He is in sinus rhythm with heart rate in the mid 60 to mid 70s. There are no concerning arrhythmias. PHYSICAL EXAMINATION: LATEST VITAL SIGNS: Heart rate 80, blood pressure 132/54. His net input and output for last 24 hours was not accurate. It is saying he only took in 240 and output 3325. He most likely had greater than 240 input. GENERAL: He is alert and conversational, but very hard of hearing and energetic. HEENT: Show EOMI. Oropharynx is benign with moist mucosa. NECK: His JVP is about 10 cm with positive hepatojugular reflux. PULMONARY: He has good air movement bilaterally. Clear to auscultation bilaterally. CARDIAC: Regular rate and rhythm with 3/6 holosystolic murmur at the apex with radiation to the left axilla. ABDOMEN: Soft, nontender. Positive bowel sounds. EXTREMITIES: His hip and thigh edema are all gone. The lower extremities were warm and well perfused. 0.5 cm pitting edema from feet to a third way above his ankle, this has greatly reduced since his admission. LABORATORY VALUES: From this morning are white cell count 5.7, hemoglobin 9.9, platelet 175. His chemistry shows sodium 132, potassium 4.0, chloride 101, bicarb 25, BUN 30, creatinine 0.99, and glucose at 97. ASSESSMENT: 79-year-old gentleman who has recovered well from his [id number] heart failure with reduced ejection fraction. It is an ischemic cardiomyopathy with combined systolic and diastolic dysfunction. 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 This has been stented with drug-eluting stents. Since then, he has a better heart rate. Milrinone assisted diuresis has decreased his weight by over 30 pounds. If his documented weight is correct, he decreased from 208 pounds down to 167 pounds and that is 41 pounds decrease. His renal function has remained intact. At this point, we can slow down diuretics a bit and he is ready to be discharged. If needed, he can go to rehab. However, I do advise the patient should not be living by himself for long-term. Please see the following for my recommendations. RECOMMENDATIONS: 1. Continue the current cardiac regimen. 2. Decrease torsemide 20 mg twice a day down to torsemide 20 mg daily after 7 more days. Please ensure that the patient has a LifeVest before he leaves. If needed, the patient can go to rehabilitation to regain strength and function before going home. 3. Please, if at all possible, assist the patient in moving back with family instead of living alone. It has been a pleasure taking care of Mr. Rao. If you have any questions, please give me a call. The total ICU time is about 35 minutes. This includes personally performing history and physical, reviewing data, coordinating care, and direct patient interaction. Job ID: [id number] MTDD
--- NOTE | 2020-06-14 14:20 | PDOC.CPN ---
- Subjective Date: 06/14/20 Time: 14:18 Interval history: No new issues. Lifevest in place. - Review of Systems General: denies: fever/chills, weight/appetite/sleep changes, night sweats, fatigue Respiratory: denies: cough, congestion, shortness of breath, exercise intolerance Cardiovascular: denies: chest pain, palpitation, edema, paroxysmal nocturnal dyspnea, orthopnea Gastrointestinal: denies: nausea, vomiting, diarrhea, constipation, abd pain, GI bleeding Musculoskeletal: denies: pain, tenderness, stiffness, swelling, arthritis/arthralgias Neurological: denies: numbness, syncope, seizure, weakness - Objective Allergies/Adverse Reactions: Allergies Allergy/AdvReac Type Severity Reaction Status Date / Time morphine Allergy Verified 06/01/20 01:21 Visit Medications: Current Medications Acetaminophen (Acetaminophen 325 Mg Tab) 650 mg PO Q4H PRN PRN Reason: Headache/Fever/Mild Pain (1-3) Last Admin: 06/08/20 20:05 Dose: 650 mg Documented by: Albuterol/Ipratropium (Ipratropium/Albuterol Sulfate 3 Ml Neb) 3 ml NEB Q6H PRN PRN Reason: Respiratory Distress Aspirin (Aspirin Chewable 81 Mg Tab) 81 mg PO DAILY [facility] Last Admin: 06/14/20 08:46 Dose: 81 mg Documented by: Atorvastatin Calcium (Atorvastatin Calcium 40 Mg Tab) 80 mg PO HS [facility] [place] Last Admin: 06/13/20 20:10 Dose: 80 mg Documented by: Carvedilol (Carvedilol 6.25 Mg Tab) 12.5 mg PO BID-WM [facility] Last Admin: 06/14/20 08:49 Dose: 12.5 mg Documented by: Clonidine (Clonidine 0.1 Mg Tab) 0.1 mg PO BID PRN PRN Reason: SBP > 160 use second Clopidogrel Bisulfate (Clopidogrel Bisulfate 75 Mg Tab) 75 mg PO DAILY [facility] [place] Last Admin: 06/14/20 08:45 Dose: 75 mg Documented by: Clotrimazole (Clotrimazole 1 % Cream 30 Gm Tube) 0 gm TOP BID [facility] Last Admin: 06/14/20 08:48 Dose: 1 applic Documented by: Famotidine (Famotidine 20 Mg Tab) 20 mg PO BID [facility] Last Admin: 06/14/20 08:45 Dose: 20 mg Documented by: Finasteride (Finasteride 5 Mg Tab) 5 mg PO BID [facility] Last Admin: 06/14/20 08:46 Dose: 5 mg Documented by: Folic Acid (Folic Acid 1 Mg Tab) 1 mg PO DAILY [facility] [place] Last Admin: 06/14/20 08:46 Dose: 1 mg Documented by: Guaifenesin/Dextromethorphan (Guaifenesin Dm 100-10/5 Ml Udcup) 15 ml PO Q4H PRN PRN Reason: Cough Heparin Sodium (Porcine) (Heparin 5,000 Units/Ml Vial) 5,000 units SC BID [facility] [place] Last Admin: 06/14/20 08:47 Dose: 5,000 units Documented by: Promethazine HCl 12.5 mg/ (Sodium Chloride) 50.5 mls @ 202 mls/hr IVPB Q6H PRN PRN Reason: Nausea/vomiting use second Miscellaneous Medication (Electrolyte Replacement Protoc 1 Each Each) 1 each FS ASDIR [facility] [place] Nystatin (Nystatin Powder 15 Gm Bot) 0 gm TOP BID PRN PRN Reason: Topical Irritations Last Admin: 06/10/20 09:02 Dose: 1 applic Documented by: Ondansetron HCl (Ondansetron Pf 4 Mg/2 Ml Vial) 4 mg IVP Q6H PRN PRN Reason: Nausea/Vomiting use 1st Last Admin: 06/05/20 09:18 Dose: 4 mg Documented by: Potassium Chloride (Potassium Chloride 20 Meq Tab) 20 meq PO DAILY [facility] [place] Last Admin: 06/14/20 08:46 Dose: 20 meq Documented by: Sacubitril/Valsartan (Sacubitril 49 Mg/Valsartan 51 Mg Tablet) 2 tab PO BID [facility] Last Admin: 06/14/20 08:46 Dose: 2 tab Documented by: Sodium Chloride (Flush - Normal Saline 10 Ml Syringe) 10 ml IVF PRN PRN PRN Reason: Saline Flush Last Admin: 06/07/20 19:58 Dose: 10 ml Documented by: Spironolactone (Spironolactone 25 Mg Tab) 25 mg PO QAM-WM [facility] [place] Last Admin: 06/14/20 08:46 Dose: 25 mg Documented by: Torsemide (Torsemide 20 Mg Tab) 20 mg PO 0900,1400 [facility] Last Admin: 06/14/20 08:45 Dose: 20 mg Documented by: Vital Signs & Weight: Vital Signs Temp BP 06/14/20 11:55 98.8 F 06/14/20 08:49 120/63 06/14/20 07:27 97.2 F L 06/14/20 03:59 97.8 F Admit Weight 208 lb 12.432 oz Weight 167 lb - Physical Exam General: no apparent distress HEENT: mucus membranes moist Neck: supple neck Cardiac: regular rate and rhythm Lungs: normal breath sounds Neuro: no lateralizing findings Abdomen: active bowel sounds Extremities: no edema Skin: clear Musculoskeletal: no pain - Labs Result Diagrams: 06/14/20 07:14 06/14/20 07:14 Troponin/CKMB CK-MB (CK-2) 7.1 ng/mL (0-6.6) H* 05/31/20 21:37 Troponin I 0.076 ng/mL (< 0.028) H 06/01/20 04:05 - Telemetry Sinus rhythms and dysrhythmias: sinus rhythm - Assessment/Plan Assessment/Plan: 1. Acute on chronic systolic heart failure 2. Ischemic Dilated CM 3. EF at 20-25% 4. S/P CABG 2018 5. Mild aortic stenosis 6. UTI 7. Rash. PLAN: - Continue Plavix and Aspirin - LIfevest in place. - CHF meds adjusted per Dr. Henriquez. - CV stable at this time. May discharge at any time from cardiac perspective.
[2020-06-14 16:08] VITALS: BP 120/63
--- NOTE | 2020-06-14 16:16 | PDOC.HOSPP ---
- Subjective Encounter Date: 06/14/20 Encounter Time: 09:00 Subjective: The patient is doing well with no complaints. No chest pain or SOB. Spoke with niece. SHe states she can take patient to her house, but she lives in [place] and is not sure how the patient would take care of his affairs, such as selling his trailer, etc. SHe feels she cannot supervise him for another few weeks, asked about rehab. Patient is agreeable to rehab. - Objective Vital Signs & Weight: Vital Signs (12 hours) Temp Pulse Pulse BP BP BP 06/14/20 16:08 120/63 06/14/20 15:38 98.4 F 06/14/20 13:50 63 59 L 136/78 120/63 06/14/20 11:55 98.8 F 06/14/20 08:49 120/63 06/14/20 07:27 97.2 F L Weight Admit Weight 208 lb 12.432 oz Weight 167 lb Most Recent Monitor Data Heart Rate from ECG 57 NIBP 135/59 NIBP BP-Mean 84 Respiration from ECG 13 SpO2 98 I&O: 06/13/20 06/14/20 06/15/20 06:59 06:59 06:59 Intake Total 1926 240 Output Total 1834 6042 517 Balance -7111 -5512 -600 Result Diagrams: 06/14/20 07:14 06/14/20 07:14 Hospitalist ROS - Review of Systems Constitutional: denies: fever, chills Eyes: denies: pain, vision change - Medication Medications: Active Medications Generic Name Dose Route Start Last Admin Trade Name Booq PRN Reason Stop Dose Admin Acetaminophen 650 mg 05/31/20 23:12 06/08/20 20:05 Acetaminophen 325 Mg Tab PO 650 mg Q4H PRN Administration Headache/Fever/Mild Pain (1-3) Aspirin 81 mg 06/03/20 09:00 06/14/20 08:46 Aspirin Chewable 81 Mg Tab PO 81 mg DAILY [facility] Administration Atorvastatin Calcium 80 mg 06/01/20 21:00 06/13/20 20:10 Atorvastatin Calcium 40 Mg Tab PO 80 mg HS [facility]ASHA Administration Carvedilol 12.5 mg 06/12/20 08:00 06/14/20 16:08 Carvedilol 6.25 Mg Tab PO Not Given BID-WM [facility] Clopidogrel Bisulfate 75 mg 06/11/20 09:00 06/14/20 08:45 Clopidogrel Bisulfate 75 Mg Tab PO 75 mg DAILY [facility] Administration Clotrimazole 0 gm 06/04/20 21:00 06/14/20 08:48 Clotrimazole 1 % Cream 30 Gm Tube TOP 1 applic BID [facility]ASHA Administration Famotidine 20 mg 06/01/20 09:00 06/14/20 08:45 Famotidine 20 Mg Tab PO 20 mg BID NATASHA Administration Finasteride 5 mg 06/01/20 21:00 06/14/20 08:46 Finasteride 5 Mg Tab PO 5 mg BID NATASHA Administration Folic Acid 1 mg 06/09/20 09:00 06/14/20 08:46 Folic Acid 1 Mg Tab PO 1 mg DAILY [facility] Administration Heparin Sodium (Porcine) 5,000 units 06/01/20 09:00 06/14/20 08:47 Heparin 5,000 Units/Ml Vial SC 5,000 units BID [facility] Administration Nystatin 0 gm 06/08/20 09:50 06/10/20 09:02 Nystatin Powder 15 Gm Bot TOP 1 applic BID PRN Administration Topical Irritations Ondansetron HCl 4 mg 05/31/20 23:12 06/05/20 09:18 Ondansetron Pf 4 Mg/2 Ml Vial IVP 4 mg Q6H PRN Administration Nausea/Vomiting use 1st Potassium Chloride 20 meq 06/13/20 09:00 06/14/20 08:46 Potassium Chloride 20 Meq Tab PO 20 meq DAILY [facility] Administration Sacubitril/Valsartan 2 tab 06/10/20 09:00 06/14/20 08:46 Sacubitril 49 Mg/Valsartan 51 Mg Tablet PO 2 tab BID [facility] Administration Sodium Chloride 10 ml 06/01/20 02:30 06/07/20 19:58 Flush - Normal Saline 10 Ml Syringe IVF 10 ml PRN PRN Administration Saline Flush Spironolactone 25 mg 06/02/20 08:00 06/14/20 08:46 Spironolactone 25 Mg Tab PO 25 mg QAM-WM [facility]ASHA Administration Torsemide 20 mg 06/12/20 09:00 06/14/20 16:08 Torsemide 20 Mg Tab PO 20 mg 0900,1400 NATASHA Administration - Exam General Appearance: NAD, awake alert Eye: PERRL, anicteric sclera ENT: normocephalic atraumatic, no oropharyngeal lesions Neck: no JVD Heart: RRR, no murmur, no gallops, no rubs Respiratory: CTAB, no wheezes, no rales, no ronchi Gastrointestinal: soft, non-tender, non-distended, normal bowel sounds Extremities: no cyanosis, no clubbing, 1+ LE edema Skin: normal turgor, no lesions, no rashes Neurological: cranial nerve grossly intact, normal sensation to touch, no focal deficits, no new deficit Hosp A/P - Plan ECHO: EF 20-25%, mild , moderate TR, mild AR Chest Xray: CHF Chest X ray 06/08: mild CHF Chest X ray 06/09: slight increase in CHF Cath report: SVG to PDA 90%, occluded proximal LAD and left circumflex This is an 79 year old male with past medical history of heart failure who presented with generalized anasarca and BNP > 53916 #Acute systolic heart failure #Hypertension - ECHO shows EF 20-25%. Chest X ray with pulmonary edema. BNP has improved to 737 from 3000. He was on milrinone drip and weaned off. - he had cardiac cath with stent placement SVG to PDA 06/11 - transition to torsemide 20 mg bid starting today - Life-vest has been fitted today. PLan to dc to [facility] when bed available Hyponatremia -stable, sodium 132 #Citrobacter UTI #History of urethral stricture - s/p 7 days of bactrim. Hypertension - BP 117-120. Continue entresto and coreg 12.5 mg bid - continue entresto CAD - continue aspirin, statin Dispo: plan for discharge to rehab when bed available, possibly tomorrow
--- NOTE | 2020-06-14 16:30 | PRG ---
DATE OF SERVICE: SUBJECTIVE: The patient is seen and examined. Noted to be hemodynamically stable, doing very well and feeling good, noted with the following vital signs. OBJECTIVE: VITAL SIGNS: Blood pressure 132/54 with pulse rate of 80. HEENT: Unremarkable. CARDIOVASCULAR: First and second heart sounds were heard. RESPIRATORY: Clear to auscultation. DIGESTIVE: Revealed benign abdomen. EXTREMITIES: Show no peripheral edema. SKIN: No new gross rash. LYMPHATICS: No peripheral lymphadenopathy. IMPRESSION: 1. Advanced cardiomyopathy, doing much better now, status post cardiac cath with stent placement. 2. Hypervolemia responding with diuresis. PLAN: 1. The patient to continue with current regimen. 2. From the renal standpoint, the patient is good for discharge. 3. Further management to be dependent on the clinical course. Job ID: [id number]
--- NOTE | 2020-06-14 17:21 | RAD ---
RADIOGRAPH CHEST 1 VIEW: Date: 06/14/20 Time: 4:42 p.m. HISTORY: 79-year-old male with bilateral pleural effusions. COMPARISON: 06/09/20. FINDINGS: Again demonstrated are bilateral small pleural effusions. The previously demonstrated pulmonary paren chymal densities at the bilateral lung bases, have either completely or almost completely resolved, a t least on frontal projection. No cardiomegaly. No pulmonary edema, consolidation, or pneumothorax. S ternotomy wires. IMPRESSION: 1. Small bilateral pleural effusions. 2. No pulmonary edema. JN [] POS: JIN
[2020-06-14] MEDS: Atorvastatin Calcium 40 MG TAB PO SCH (22:48)
[2020-06-15 06:56] LABS: #Eosinphils 0.1 thou/uL (0.0-0.7); #Lymphocytes 0.8 thou/uL (1.20-3.40); #Monocytes 0.6 thou/uL (0.11-0.59); #Neutrophils 3.4 thou/uL (1.40-6.50); %Basophils 0.8 % (0.0-1.0); %Eosinophils 1.1 % (0.0-10.0); %Lymphocytes 15.7 % (21.0-51.0); %Monocytes 12.4 % (0.0-10.0); %Neutrophils 70.1 % (42.0-75.0); Hemoglobin 9.7 g/dL (14.0-18.0); Mean Corpuscular HGB CONC 32.8 g/dL (32.0-36.0); Mean Corpuscular Hemoglobin 32.1 pg (27.0-31.0); Mean Platelet Volume 7.5 fL (7.4-10.4); Platelet Count 181 thou/uL (130-400); RBC Distribution Width 14.4 % (11.5-14.5); Red Blood Cell (RBC) Count 3.01 mill/uL (4.70-6.10); White Blood Cell (WBC) Count 4.8 thou/uL (4.8-10.8)
[2020-06-15 07:18] LABS: ALT (SGPT) 63 U/L (8-55); AST (SGOT) 51 U/L (5-34); Albumin 2.7 g/dL (3.4-4.8); Alkaline Phosphatase 102 U/L (40-110); Anion Gap 11 mmol/L (10-20); BUN (Urea Nitrogen) 34 mg/dL (8.4-25.7); Bilirubin, Total 0.7 mg/dL (0.2-1.2); Calc. Creatinine Clearance 71 mL/min (70-130); Carbon Dioxide 26 mmol/L (23-31); Chloride 100 mmol/L (98-107); Estimated GFR-MDRD 80; Globulin 2.3 g/dL (2.4-3.5); Glucose 91 mg/dL (83-110); Potassium 4.1 mmol/L (3.5-5.1); Sodium 133 mmol/L (136-145)
[2020-06-15] MEDS ORDERED: Magnesium 2 GM/50 ML 2 GM in Premix Bag 1 BAG IVPB SCH (07:45)
[2020-06-15] MEDS: Finasteride 5 MG TAB PO SCH (08:40)
[2020-06-15] MEDS: Spironolactone 25 MG TAB PO SCH (08:40)
[2020-06-15] MEDS: Potassium Chloride 20 MEQ TAB PO SCH (08:40)
[2020-06-15] MEDS: Torsemide 20 MG TAB PO SCH ×2 (08:40→15:32)
[2020-06-15] MEDS: Sacubitril 49 MG/Valsartan 51 MG TABLET PO SCH (08:40)
[2020-06-15] MEDS: Famotidine 20 MG TAB PO SCH (08:40)
[2020-06-15] MEDS: Aspirin Chewable 81 MG TAB PO SCH (08:41)
[2020-06-15] MEDS: Carvedilol 6.25 MG TAB PO SCH (08:41)
[2020-06-15] MEDS: Clotrimazole 1 % Cream 30 GM TUBE TOP SCH (08:41)
[2020-06-15] MEDS: Folic Acid 1 MG TAB PO SCH (08:41)
[2020-06-15] MEDS: Clopidogrel Bisulfate 75 MG TAB PO SCH (08:41)
[2020-06-15] MEDS: Heparin 5,000 UNITS/ML VIAL SC SCH (08:41)
--- NOTE | 2020-06-15 08:48 | PDOC.CPN ---
- Subjective Date: 06/15/20 Time: 08:45 Interval history: Pt is doing well No current complaints Feels he is breathing well - Objective Allergies/Adverse Reactions: Allergies Allergy/AdvReac Type Severity Reaction Status Date / Time morphine Allergy Verified 06/01/20 01:21 Visit Medications: Current Medications Acetaminophen (Acetaminophen 325 Mg Tab) 650 mg PO Q4H PRN PRN Reason: Headache/Fever/Mild Pain (1-3) Last Admin: 06/08/20 20:05 Dose: 650 mg Documented by: Albuterol/Ipratropium (Ipratropium/Albuterol Sulfate 3 Ml Neb) 3 ml NEB Q6H PRN PRN Reason: Respiratory Distress Aspirin (Aspirin Chewable 81 Mg Tab) 81 mg PO DAILY [facility] Last Admin: 06/14/20 08:46 Dose: 81 mg Documented by: Atorvastatin Calcium (Atorvastatin Calcium 40 Mg Tab) 80 mg PO HS [facility] Last Admin: 06/14/20 22:48 Dose: 80 mg Documented by: Carvedilol (Carvedilol 6.25 Mg Tab) 12.5 mg PO BID-[facility] Last Admin: 06/14/20 16:08 Dose: Not Given Documented by: Clonidine (Clonidine 0.1 Mg Tab) 0.1 mg PO BID PRN PRN Reason: SBP > 160 use second Clopidogrel Bisulfate (Clopidogrel Bisulfate 75 Mg Tab) 75 mg PO DAILY [facility] Last Admin: 06/14/20 08:45 Dose: 75 mg Documented by: Clotrimazole (Clotrimazole 1 % Cream 30 Gm Tube) 0 gm TOP BID [facility] Last Admin: 06/14/20 22:50 Dose: 1 applic Documented by: Famotidine (Famotidine 20 Mg Tab) 20 mg PO BID [facility] Last Admin: 06/14/20 22:49 Dose: 20 mg Documented by: Finasteride (Finasteride 5 Mg Tab) 5 mg PO BID [facility] Last Admin: 06/14/20 22:49 Dose: 5 mg Documented by: Folic Acid (Folic Acid 1 Mg Tab) 1 mg PO DAILY [facility] Last Admin: 06/14/20 08:46 Dose: 1 mg Documented by: Guaifenesin/Dextromethorphan (Guaifenesin Dm 100-10/5 Ml Udcup) 15 ml PO Q4H PRN PRN Reason: Cough Heparin Sodium (Porcine) (Heparin 5,000 Units/Ml Vial) 5,000 units SC BID [facility] Last Admin: 06/14/20 22:49 Dose: 5,000 units Documented by: Promethazine HCl 12.5 mg/ (Sodium Chloride) 50.5 mls @ 202 mls/hr IVPB Q6H PRN PRN Reason: Nausea/vomiting use second Magnesium Sulfate 2 gm/ Device 50 mls @ 100 mls/hr IVPB NOW [facility] Stop: 06/15/20 11:00 Miscellaneous Medication (Electrolyte Replacement Protoc 1 Each Each) 1 each FS ASDIR [facility] Nystatin (Nystatin Powder 15 Gm Bot) 0 gm TOP BID PRN PRN Reason: Topical Irritations Last Admin: 06/10/20 09:02 Dose: 1 applic Documented by: Ondansetron HCl (Ondansetron Pf 4 Mg/2 Ml Vial) 4 mg IVP Q6H PRN PRN Reason: Nausea/Vomiting use 1st Last Admin: 06/05/20 09:18 Dose: 4 mg Documented by: Potassium Chloride (Potassium Chloride 20 Meq Tab) 20 meq PO DAILY [facility] Last Admin: 06/14/20 08:46 Dose: 20 meq Documented by: Sacubitril/Valsartan (Sacubitril 49 Mg/Valsartan 51 Mg Tablet) 2 tab PO BID [facility] Last Admin: 06/14/20 22:49 Dose: 2 tab Documented by: Sodium Chloride (Flush - Normal Saline 10 Ml Syringe) 10 ml IVF PRN PRN PRN Reason: Saline Flush Last Admin: 06/14/20 22:50 Dose: 10 ml Documented by: Spironolactone (Spironolactone 25 Mg Tab) 25 mg PO QAM-WM [facility] Last Admin: 06/14/20 08:46 Dose: 25 mg Documented by: Torsemide (Torsemide 20 Mg Tab) 20 mg PO 0900,1400 [facility] Last Admin: 06/14/20 16:08 Dose: 20 mg Documented by: Vital Signs & Weight: Vital Signs Temp 06/15/20 07:17 97.2 F L 06/15/20 04:49 97.3 F L 06/14/20 23:49 97.8 F Admit Weight 208 lb 12.432 oz Weight 171 lb 3.2 oz - Physical Exam General: alert & oriented x3 Neck: supple neck Cardiac: no murmur, regular rate, regular rhythm Lungs: normal exam Neuro: grossly intact - Labs Result Diagrams: 06/15/20 06:50 06/15/20 06:50 Troponin/CKMB CK-MB (CK-2) 7.1 ng/mL (0-6.6) H* 05/31/20 21:37 Troponin I 0.076 ng/mL (< 0.028) H 06/01/20 04:05 - Assessment/Plan Assessment/Plan: 06/15 1. Acute on chronic systolic heart failure 2. Ischemic Dilated CM 3. EF at 20-25% 4. S/P CABG 2018 5. Mild aortic stenosis 6. UTI 7. Rash. Severe CAD s/p stent to SVG to RCA graft EF 20-25% CV stable On ASA, storvastatin, entresto, coreg, plavix DC soon
--- NOTE | 2020-06-15 08:53 | PRG ---
DATE OF SERVICE: 06/15/2020 SERVICE: Advanced Heart Failure Cardiology Consulting Service. SUBJECTIVE: Mr. Rao had a good day. He was able to ambulate around his room. He was able to ambulate towards the hallways and some bit about the IMCU unit. He felt well. He is not short of breath. However, he did sundown overnight. He is confused. He had to be redirected. He is better this morning. His niece came in and saw him last night. They believe that he is not appropriate to go home. They request him to be placed in rehabilitation. They agree that he should not live alone that he will eventually move in with his niece because that is closest family. REVIEW OF SYSTEMS: GENERAL: There is no fever, chills, productive cough. HEENT: There is no change in vision, hearing, or swallowing. He is very hard of hearing that is chronic. PULMONARY: Please see HPI. CARDIAC: There are no chest pain, palpitations, syncope. GI: He is eating well. There is no nausea, vomiting, or diarrhea. : He is able to urinate on his own without Thomas catheter; however, he incontinent overnight, in other words, he bed wets. MUSCULOSKELETAL: He does not complain of joint muscle pains today. INTEGUMENT: There is no new skin breakdown. He does have chronic tinea corpora but is getting better with treatment. NEUROLOGIC: There are no focal deficits or weaknesses. MEDICATIONS: Include, 1. Aspirin 81 mg daily. 2. Atorvastatin 80 mg q.h.s. 3. Carvedilol 12.5 b.i.d. 4. Plavix 75 mg daily. 5. Famotidine at 20 mg p.o. b.i.d. 6. Finasteride 5 mg b.i.d. 7. Folic acid 1 mg daily. 8. Heparin 5000 units b.i.d. for DVT prophylaxis. 9. He has just received magnesium sulfate 2 g IV. 10. Potassium chloride 20 mEq daily. 11. Sacubitril/valsartan 49/51 tablet 2 tablets twice a day. 12. Spironolactone 25 mg daily. 13. Torsemide 20 mg b.i.d. Telemetry was reviewed. Mr. Rao has sinus rhythm. He remains in sinus rhythm. There are very minor PVCs. There is no concerning arrhythmia. PHYSICAL EXAMINATION: VITAL SIGNS: His current vitals are heart rate 70, blood pressure 144/64. However, his blood pressure has been in the normal range of 115 and 117 at midnight 1 o'clock this morning. GENERAL: He is alert, conversational, sitting comfortably in chair, eating breakfast. HEENT: EOMI. Oropharynx is benign with moist mucosa. His JVP is about 10 cm. PULMONARY: There is good air movement bilaterally, which is clear to auscultation bilaterally. CARDIAC: Regular rate and rhythm with normal S1-S2. There is 2/6 holosystolic murmur at the apex with radiation to the left axilla. ABDOMEN: Soft, nontender. Positive bowel sounds. EXTREMITIES: His thighs have some slight pitting edema. He has 0.5 cm pitting edema from his feet to group home up towards knees. His edema has greatly reduced since admission; however, it is still significant, so he will need to continue diuretics. LABORATORY DATA: Laboratory values show WBC 4.9, hemoglobin 9.7, platelet at 181. His chemistry shows sodium 133 still improving, potassium 4.1, chloride 100, bicarb is 26, BUN at 34, and creatinine 0.91. ASSESSMENT: 79-year-old gentleman continues to recover from acute on chronic heart failure with reduced ejection fraction. This is caused by ischemic cardiomyopathy with combined systolic and diastolic dysfunction. He is currently well compensated without inotropic support and he is heading towards euvolemia; however, he will need continued diuretics to get him there. He has coronary artery disease with near closure of the SVG to PDA graft. This is the ischemic cause of his acute on chronic heart failure with reduced ejection fraction. This has been stented. Thus, he will need Plavix for at least 6 months to a year and also aggressive treatment for his cholesterol. He is still volume overloaded. Consequently, torsemide 20 mg b.i.d., should be continued for about a week before reducing it down to just once a day. Overall, he is doing well. He is ready to be discharged or transitioned to rehabilitation. Please see the following for my recommendations. RECOMMENDATIONS: 1. Continue the current cardiac regimen. 2. Continue torsemide 20 mg b.i.d. for at least a week before switching to just once daily. 3. The patient needs to be followed up closely, he needs lab weekly at first and please have this patient be seen in Heart Failure Clinic by Aminata Gonzalez. At that time, further medication adjustments may be needed. 4. It is good that the patient has LifeVest. Please ensure the patient is discharged with LifeVest. 5. Completely support the family for eventually moving the patient in with his Niece, which is his closest family member. With his age and heart condition, it is not safe to be living alone. It has been a pleasure taking care of Mr. Rao. If any questions, please give me a call. The total ICU time is about 30 minutes. This includes the personally performing history and physical, coordinating care, and direct patient interaction. Job ID: [id number] [facility]
[2020-06-15 11:28] VITALS: TEMP 98.8
--- NOTE | 2020-06-15 16:59 | DIS ---
DATE OF ADMISSION: 05/31/2020 DATE OF DISCHARGE: 06/15/2020 DISCHARGE DIAGNOSES: 1. Acute on chronic systolic heart failure exacerbation. 2. Hypertension. 3. Hyponatremia. 4. Citrobacter urinary tract infection. 5. History of urethral stricture, requiring Thomas placement by urologist. 6. Hypertension. 7. Coronary artery disease. 3. Hypoxia secondary to volume overload. 4. Upper extremity edema. 5. Coronary artery disease, status post CABG in December 2018. 6. History of atrial fibrillation, transient. 7. Hypertension and hyperlipidemia. 8. Aortic stenosis. 9. Type 2 metabolic mismatch demand ischemia. PERTINENT PROCEDURES: 1. Catheterization with stent placement, SVG to PDA on June 11. Echo shows EF of 25%. 2. BNP improved from 3000 to 737. He has a LifeVest upon discharge. He is on Entresto. DISCHARGE MEDICATIONS: 1. Flomax 0.4 mg at bedtime. 2. Potassium chloride 20 mEq daily. 3. DuoNeb q.6 p.r.n. 4. Proscar 5 mg twice a day. 5. Coreg 12.5 twice a day. 6. Lipitor 80 mg at bedtime. 7. Demadex 20 mg twice a day. 8. Spironolactone 25 mg daily. 9. Entresto 49/51 tablet 2 tablets twice a day. 10. Folic acid 1 tablet daily. 11. Plavix 75 mg daily. 12. Aspirin 81 mg daily. PHYSICAL EXAMINATION: VITAL SIGNS: On the day of discharge, temperature is 98.8, pulse 68, blood pressure is 147/90, saturating 100% on room air. GENERAL: The patient is alert, oriented. He is sitting in the chair, comfortable. Niece at bedside. Discharge plan discussed with them. The patient will be going to the rehab today. CARDIOVASCULAR: Regular rate and rhythm without murmurs, rubs, or gallops. LUNGS: Clear. EXTREMITIES: His lower extremity edema much much improved since I have known him a couple of weeks ago. NEUROLOGICAL: No focal deficit. He does have significant hard of hearing. CONSULTANTS: Dr. Henriquez, Dr. Mota, Dr. Stover, and Dr. Rupesh Rosas along with academic program specialist. HOSPITAL COURSE: This is a 79-year-old male presented initially with anasarca and acute on chronic systolic congestive heart failure exacerbation and reduced ejection fraction of 25% to 30% and underlying history of chronic systolic heart failure. He was initially diuresed significantly. Due to his poor ejection fraction, he was started on milrinone. He has undergone catheterization and had a stent placement. He is also requiring milrinone as well as pressors during the time of diuresis. His renal function remained stable with creatinine around 0.8 during these last 5 days. He is hemodynamically stable to be discharged to the rehab hospital. He has a LifeVest now. He is expected to follow up with the following specialities. DISCHARGE INSTRUCTIONS: Activity as tolerated. Healthy heart diet. Follow up with PCP in 1 week. Follow up with Dr. Stover or Dr. Mota in 2 to 3 weeks. Follow up with CHF Clinic with Mrs. Coates in 1 or 2 weeks. TIME SPENT: Discharge time took over 35 minutes. Job ID: [id number] MTDD
--- NOTE | 2020-06-19 16:42 | EKG ---
Test Reason : Blood Pressure : / mmHG Vent. Rate : 065 BPM Atrial Rate : 065 BPM P-R Int : 174 ms QRS Dur : 108 ms QT Int : 400 ms P-R-T Axes : 019 -65 144 degrees QTc Int : 416 ms Normal sinus rhythm Left axis deviation Pulmonary disease pattern Incomplete right bundle branch block Nonspecific T wave abnormality Abnormal ECG Confirmed by MARTHA DURAN DO ([id number]), supervising editor news reel DOROTHY SUNG ([id number]) on 06/19/2020 4:42:12 PM Referred By: Confirmed By:MARTHA DURAN DO
== END 2020-06-15 16:05 | DRG 246 ==
LOC: ERS 20:11 → 2NO 23:27 → IMCU/EMU 06-05 18:40
PROVIDERS: ADMIT Internal Medicine; ATTEND Internal Medicine
PROC: 0T9B70Z Drainage of Bladder with Drainage Device, Via Natural or Artificial Opening (ICD-10-PCS; 2020-06-02)
PROC: 027035Z Dilation of Coronary Artery, One Artery with Two Drug-eluting Intraluminal Devices, Percutaneous Approach (ICD-10-PCS; principal; 2020-06-11)
PROC: 02C03ZZ Extirpation of Matter from Coronary Artery, One Artery, Percutaneous Approach (ICD-10-PCS; 2020-06-11)
PROC: 4A023N7 Measurement of Cardiac Sampling and Pressure, Left Heart, Percutaneous Approach (ICD-10-PCS; 2020-06-11)
PROC: B2151ZZ Fluoroscopy of Left Heart using Low Osmolar Contrast (ICD-10-PCS; 2020-06-11)
PROC: B2131ZZ Fluoroscopy of Multiple Coronary Artery Bypass Grafts using Low Osmolar Contrast (ICD-10-PCS; 2020-06-11)
DX: I13.0 Hypertensive heart and chronic kidney disease with heart failure and stage 1 through stage 4 chronic kidney disease, or unspecified chronic kidney disease (principal); I21.A1 Myocardial infarction type 2; I50.43 Acute on chronic combined systolic (congestive) and diastolic (congestive) heart failure; N17.9 Acute kidney failure, unspecified; E87.3 Alkalosis; N39.0 Urinary tract infection, site not specified; E87.1 Hypo-osmolality and hyponatremia; Z51.5 Encounter for palliative care; Z20.828 Contact with and (suspected) exposure to other viral communicable diseases; E78.5 Hyperlipidemia, unspecified; I35.0 Nonrheumatic aortic (valve) stenosis; I25.10 Atherosclerotic heart disease of native coronary artery without angina pectoris; M10.9 Gout, unspecified; N40.1 Benign prostatic hyperplasia with lower urinary tract symptoms; R33.8 Other retention of urine; N18.30 Chronic kidney disease, stage 3 unspecified; F17.210 Nicotine dependence, cigarettes, uncomplicated; I25.5 Ischemic cardiomyopathy; D72.829 Elevated white blood cell count, unspecified; E86.1 Hypovolemia; I83.12 Varicose veins of left lower extremity with inflammation; B96.89 Other specified bacterial agents as the cause of diseases classified elsewhere; R09.02 Hypoxemia; D63.1 Anemia in chronic kidney disease; N35.919 Unspecified urethral stricture, male, unspecified site; I48.91 Unspecified atrial fibrillation; R21 Rash and other nonspecific skin eruption; E87.6 Hypokalemia; B35.4 Tinea corporis; D69.6 Thrombocytopenia, unspecified; Z79.82 Long term (current) use of aspirin; Z88.5 Allergy status to narcotic agent; Z79.899 Other long term (current) drug therapy; Z91.14 Patient's other noncompliance with medication regimen; Z95.1 Presence of aortocoronary bypass graft
CPT/HCPCS: 36415; 71045; 80048; 80053; 80061; 81001; 81003; 81015; 82553; 82607; 82746; 83735; 83880; 84133; 84134; 84156; 84300; 84484; 85025; 85347; 85610; 85730; 86850; 86900; 86901; 87077; 87086; 87186; 87635; 92937; 93005; 93010; 93306; 93455; 96374; 99152; 99153; C1874; C9604; J0696; J1250; J1644; J1940; J2001; J2250; J2260; J2405; J3010; J3475; J3490; J7030; P9047; Q9967; U0003

== ENCOUNTER 2020-09-06 17:29 | Inpatient (IN) | payer MEDICARE ==
[2020-09-06] MEDS ORDERED: Furosemide 100 MG/10 ML VIAL ONE (17:48)
--- NOTE | 2020-09-06 18:03 | RAD ---
RADIOGRAPH CHEST 1 VIEW: DATE: 09/06/2020 TIME: 5:56 PM HISTORY: 79-year-old male with dyspnea, cough, and fluid overload COMPARISON: 06/14/2020 FINDINGS: There has been increase in volume of small right pleural effusion, and possible increase in volume of small left pleural effusion. New effacement of bilateral hemidiaphragmatic shadows. Mild haziness in bilateral mid and lower lung zones. Sternotomy wires. No pneumothorax. IMPRESSION: Interval increase in pleural effusions
[2020-09-06 18:09] LABS: #Eosinphils 0.1 thou/uL (0.0-0.7); #Lymphocytes 0.7 thou/uL (1.20-3.40); #Monocytes 0.9 thou/uL (0.11-0.59); #Neutrophils 8.4 thou/uL (1.40-6.50); %Basophils 0.1 % (0.0-1.0); %Eosinophils 0.8 % (0.0-10.0); %Monocytes 8.7 % (0.0-10.0); %Neutrophils 83.5 % (42.0-75.0); Hemoglobin 12.3 g/dL (14.0-18.0); Mean Corpuscular HGB CONC 32.3 g/dL (32.0-36.0); Mean Corpuscular Hemoglobin 33.1 pg (27.0-31.0); Platelet Count 174 thou/uL (130-400); RBC Distribution Width 14.6 % (11.5-14.5); Red Blood Cell (RBC) Count 3.71 mill/uL (4.70-6.10); White Blood Cell (WBC) Count 10.1 thou/uL (4.8-10.8)
[2020-09-06 18:36] LABS: ALT (SGPT) 39 U/L (8-55); AST (SGOT) 37 U/L (5-34); Albumin 3.2 g/dL (3.4-4.8); Alkaline Phosphatase 157 U/L (40-110); Anion Gap 15 mmol/L (10-20); BUN (Urea Nitrogen) 25 mg/dL (8.4-25.7); Calc. Creatinine Clearance 0 mL/min (70-130); Calcium 8.4 mg/dL (7.8-10.44); Carbon Dioxide 24 mmol/L (23-31); Chloride 103 mmol/L (98-107); Globulin 2.7 g/dL (2.4-3.5); Glucose 98 mg/dL (83-110); Potassium 4.8 mmol/L (3.5-5.1); Protein, Total 5.9 g/dL (5.8-8.1); Sodium 137 mmol/L (136-145)
[2020-09-06 18:59] LABS: CKMB 3.2 ng/mL (0-6.6)
--- NOTE | 2020-09-06 19:55 | PDOC.HHP ---
Hospitalist HPI - History of Present Illness dyspnea History of Present Illness: This is an 79-year-old male patient you have a history of CHF with reduced ejection fraction, atrial fibrillation, hypertension, CKD, ND status post CABG, lung granuloma who presents with increasing swelling and worsening shortness of breath. Of note patient was admitted here and discharged on 06/15/2020 after being managed for CHF exacerbation. EF at the time was about 20%. Patient was brought in by his niece who were not at the bedside at the time of my evaluation. He is hard of hearing answers history was difficult to take from him. Apparently he was driving out to his relatives and got lost on the way. When they found him they noted he had left home without his medications. Patient actually told me he had run out of medication for a few weeks. They noted his legs were swelling and weeping with worsening shortness of breath and says he brought him here for further evaluation. At presentation his blood pressure was 200/120, initial pulse was 75, respiratory rate 18, temperature 97.6 saturation 99 on room air. His labs were significant for BNP of 10,963 from a baseline of about 400 on his last admission 3 months ago. Troponin was 0.055, renal function was within normal limits. Hemoglobin was 12.3, platelets 174 and WBC 10.1. Chest x-ray was concerning for interval increasing bilateral pleural effusion. He was started on Nitro-Bid, aspirin and given 80 mg of Lasix prior to hospitalist team consulted for admission. Patient noted he felt better with time of my evaluation. Hospitalist ROS - Review of Systems Constitutional: reports: weakness, malaise. denies: fever, chills, sweats Respiratory: reports: shortness of breath, SOB with excertion. denies: cough, hemoptysis Cardiovascular: reports: edema. denies: chest pain, palpitations, orthopnea Gastrointestinal: denies: nausea, vomiting, abdominal pain Genitourinary: denies: dysuria, frequency, incontinence All other systems reviewed; all pertinent +/- noted in HPI/Subj - Medication Medications: Medications: Currently refer to ambulatory order list Allergies: Morphine Hospitalist History - Past Medical History Other Medical History: CHF with reduced ejection fraction, hypertension, lung granuloma, CAD status post CABG. - Past Surgical History Other Surgical History: CABG, abdominal surgery - Family History Family History: reports: no pertinent history - Social History Living Situation: Alone Activity level: uses cane/walker - Exam General Appearance: awake alert General - other findings: Hard of hearing, Eye: PERRL, anicteric sclera ENT: normocephalic atraumatic, no oropharyngeal lesions, moist mucosa Neck: supple, symmetric, no thyromegaly, JVD Heart: RRR, no murmur, no gallops, no rubs Respiratory - other findings: Reduced air entry bilaterally, no rhonchi wheezes or rales Gastrointestinal: soft, non-tender Gastrointestinal - other findings: Full, surgical scar, tinea-like lesion on lower abdominal wall. Extremities: no cyanosis, no clubbing, 2+ LE edema Extremities - other findings: Superficial wounds on both lower extremities. Bilateral rashes on both leg Neurological - other findings: Generalized weakness, hearing deficits bilaterally Psychiatric: normal affect, A&O x 3 Hospitalist Results - Labs Result Diagrams: 09/06/20 18:01 09/06/20 18:01 Lab results: WBC 10.1 thou/uL (4.8-10.8) 09/06/20 18: Hgb 12.3 g/dL (14.0-18.0) L 09/06/20 18: Hct 38.0 % (42.0-52.0) L 09/06/20 18: MCV 102.0 fL (78.0-98.0) H 09/06/20 18:01 Plt Count 174 thou/uL (130-400) 09/06/20 18: Neutrophils % 83.5 % (42.0-75.0) H 09/06/20 18: Sodium 137 mmol/L (136-145) 09/06/20 18: Potassium 4.8 mmol/L (3.5-5.1) 09/06/20 18: Chloride 103 mmol/L (98-107) 09/06/20 18: Carbon Dioxide 24 mmol/L (23-31) 09/06/20 18: BUN 25 mg/dL (8.4-25.7) 09/06/20 18: Creatinine 1.27 mg/dL (0.7-1.3) 09/06/20 18: Glucose 98 mg/dL (83-110) 09/06/20 18:01 Calcium 8.4 mg/dL (7.8-10.44) 09/06/20 18:01 Total Bilirubin 1.0 mg/dL (0.2-1.2) 09/06/20 18:01 AST 37 U/L (5-34) H 09/06/20 18:01 ALT 39 U/L (8-55) 09/06/20 18:01 Alkaline Phosphatase 157 U/L (40-110) H 09/06/20 18:01 CK-MB (CK-2) 3.2 ng/mL (0-6.6) 09/06/20 18: Troponin I 0.055 ng/mL (< 0.028) H 09/06/20 18: B-Natriuretic Peptide 27829.9 pg/mL (0-100) H 09/06/20 18: Serum Total Protein 5.9 g/dL (5.8-8.1) 09/06/20 18: Albumin 3.2 g/dL (3.4-4.8) L 09/06/20 18: Hospitalist H&P A/P - Plan Plan: A/P 79-year-old male patient with a complicated cardiac history including ND, CHF with reduced EF presenting with worsening shortness of breath and anasarca. Concerning for severe CHF exacerbation. CHF exacerbation Started on diuresis with Lasix We will continue diuresis, monitor electrolytes Daily weights and low-sodium diet Telemetry Cardiology evaluation in a.m. Hypertensive emergency Systolic blood pressure was as high as 200s with diastolic also as high as 120s. BP 183/98 today time of my evaluationimproving with treatment Associated with acute heart failure exacerbation We will continue diuresing Blood pressure control. Hydralazine/clonidine and home blood pressure medications Close blood pressure monitoring. Elevated troponin Troponin was 0.055 however this is around baseline We will monitor Abnormal liver enzymes Alkaline phosphatase is 155 AST slightly increased at 37 This likely secondary to heart failure exacerbation Monitor liver enzymes. Fungal skin infection This appears extensive likely tenia We will start fluconazole Appreciate ID input Hypertension Monitor BP CAD Continue home medications. History of atrial fibrillation Not on anticoagulation We will monitor on telemetry. Possible cognitive impairment. Patient got lost when driving We will monitor closely Fall letter cognitive evaluation. Medication nonadherence VT prophylaxisLovenox CODE STATUSfull code
[2020-09-06 20:43] LABS: Troponin I 0.065 ng/mL (< 0.028)
[2020-09-06] MEDS ORDERED: Aspirin 325 MG TAB ONE (20:46)
[2020-09-06] MEDS ORDERED: hydrALAZINE 20 MG/ML VIAL SLOW IVP PRN ×2 (21:01→21:13)
[2020-09-06] MEDS ORDERED: Aspirin Chewable 81 MG TAB ONE (21:01)
[2020-09-06] MEDS ORDERED: Nitroglycerin 2% Ointment 1 INCH/1 GM Packet ONE (21:01)
--- NOTE | 2020-09-06 21:12 | PDOC.FMACP ---
Advance Care Planning - Note Summary: Advanced Care Planning was discussed. The diagnosis, prognosis and goals of care were discussed. Surrogate decision-maker is his niece. She is DPOA. Patient is DNR
[2020-09-06] MEDS: Sacubitril 49 MG/Valsartan 51 MG TABLET PO SCH (22:55)
[2020-09-07 01:26] LABS: Troponin I 0.052 ng/mL (< 0.028)
[2020-09-07 05:20] LABS: #Eosinphils 0.1 thou/uL (0.0-0.7); #Lymphocytes 0.7 thou/uL (1.20-3.40); #Monocytes 0.8 thou/uL (0.11-0.59); %Basophils 0.4 % (0.0-1.0); %Eosinophils 1.6 % (0.0-10.0); %Lymphocytes 10.3 % (21.0-51.0); %Monocytes 12.4 % (0.0-10.0); %Neutrophils 75.3 % (42.0-75.0); Mean Corpuscular HGB CONC 32.7 g/dL (32.0-36.0); Mean Corpuscular Hemoglobin 33.5 pg (27.0-31.0); Mean Platelet Volume 8.1 fL (7.4-10.4); Platelet Count 133 thou/uL (130-400); RBC Distribution Width 14.6 % (11.5-14.5); Red Blood Cell (RBC) Count 3.29 mill/uL (4.70-6.10); White Blood Cell (WBC) Count 6.7 thou/uL (4.8-10.8)
[2020-09-07 05:44] LABS: Anion Gap 16 mmol/L (10-20); BUN (Urea Nitrogen) 27 mg/dL (8.4-25.7); Calc. Creatinine Clearance 68 mL/min (70-130); Calcium 7.7 mg/dL (7.8-10.44); Carbon Dioxide 20 mmol/L (23-31); Chloride 104 mmol/L (98-107); Glucose 99 mg/dL (83-110); Potassium 5.3 mmol/L (3.5-5.1); Sodium 135 mmol/L (136-145)
[2020-09-07] MEDS: Furosemide 40 MG/4 ML VIAL SLOW IVP SCH ×2 (05:55→13:11)
[2020-09-07] MEDS: Aspirin 81 mg Enteric Coated Tablet PO SCH (08:52)
[2020-09-07] MEDS: Enoxaparin Sodium 40 MG/0.4 ML SYRINGE SC SCH (08:52)
[2020-09-07] MEDS: Clopidogrel Bisulfate 75 MG TAB PO SCH (08:52)
[2020-09-07] MEDS: Sacubitril 49 MG/Valsartan 51 MG TABLET PO SCH ×2 (08:53→20:54)
--- NOTE | 2020-09-07 10:37 | PDOC.HOSPP ---
- Subjective Encounter Date: 09/07/20 Encounter Time: 10:36 Subjective: No overnight events. Patient reports his breathing feels improved. Still complains of significant edema. Denies chest pain, palpitations, abdominal pain. Chart and medications reviewed. - Objective Vital Signs & Weight: Vital Signs (12 hours) Temp Pulse Resp BP Pulse Ox 09/07/20 07:55 97 09/07/20 07:28 97.5 F L 55 L 22 H 199/91 H 09/07/20 04:00 97.9 F 57 L 20 137/78 96 09/07/20 00:00 172/74 H Weight Weight 208 lb 8 oz Result Diagrams: 09/07/20 04:19 09/07/20 04:19 Hospitalist ROS - Review of Systems Constitutional: denies: fever, chills, sweats, weakness, malaise, other Eyes: denies: vision change ENT: denies: ear pain, ear discharge, nose pain, nose discharge, nose congestion, mouth pain, mouth swelling, throat pain, throat swelling, other Respiratory: reports: SOB with excertion. denies: cough, dry, shortness of breath, hemoptysis, pleuritic pain, sputum, wheezing, other Cardiovascular: denies: chest pain, palpitations, orthopnea, paroxysmal noc. dyspnea, edema, light headedness, other Gastrointestinal: denies: nausea, vomiting, abdominal pain, diarrhea, constipation, melena, hematochezia, other Genitourinary: denies: dysuria, frequency, incontinence, hematuria, retention, other Musculoskeletal: denies: neck pain, shoulder pain, arm pain, back pain, hand pain, leg pain, foot pain, other Skin: reports: rash Neurological: denies: weakness, numbness, incoordination, change in speech, confusion, seizures, other - Medication Medications: Active Medications Generic Name Dose Route Start Last Admin Trade Name Freq PRN Reason Stop Dose Admin Aspirin 81 mg 09/07/20 09:00 09/07/20 08:52 Aspirin 81 Mg Enteric Coated Tablet PO 81 mg DAILY NATASHA Administration Clopidogrel Bisulfate 75 mg 09/07/20 09:00 09/07/20 08:52 Clopidogrel Bisulfate 75 Mg Tab PO 75 mg DAILY NATASHA Administration Enoxaparin Sodium 40 mg 09/07/20 09:00 09/07/20 08:52 Enoxaparin Sodium 40 Mg/0.4 Ml Syringe SC 40 mg 0900 NATASHA Administration Furosemide 40 mg 09/07/20 06:00 09/07/20 05:55 Furosemide 40 Mg/4 Ml Vial SLOW IVP 40 mg 0600,1400 NATASHA Administration Sacubitril/Valsartan 2 tab 09/06/20 21:00 09/07/20 08:53 Sacubitril 49 Mg/Valsartan 51 Mg Tablet PO 2 tab BID NATASHA Administration - Exam General Appearance: NAD, awake alert General - other findings: Hard of hearing Eye: PERRL, anicteric sclera ENT: normocephalic atraumatic, no oropharyngeal lesions, moist mucosa Neck: supple, symmetric, JVD Heart: RRR, no murmur, no gallops, no rubs, normal peripheral pulses Respiratory - other findings: Crackles at bases Gastrointestinal: soft, non-tender, non-distended, normal bowel sounds, no palpable masses, no hepatomegaly, no splenomegaly, no bruit Extremities: 2+ LE edema Extremities - other findings: Pitting edema to upper extremities Skin: normal turgor, no lesions, no rashes Neurological: cranial nerve grossly intact, normal sensation to touch, no weakness, no focal deficits, no new deficit Musculoskeletal: normal tone, normal strength, no muscle wasting Psychiatric: normal affect, normal behavior, A&O x 3 Hosp A/P - Plan 79-year-old male patient with a complicated cardiac history including MD, CHF with reduced EF presenting with worsening shortness of breath and anasarca. Concerning for severe CHF exacerbation. Acute CHF Exacerbation Hx of CHF with EF of 20-25% from May. P/w increased dyspnea. No O2 requirement. Crackles and severely edematous on exam. Started on IV lasix. Patient has not been taking his medications for the past two months due to financial issues and inability to obtain refills. Plan: -IV lasix 40 mg BID -Continue entresto, BB, statin -Telemetry -Monitor weights, I&Os, low sodium diet -Cardiology consult,reccs appreciated Hypertensive Emergency Systolic blood pressure was as high as 200s with diastolic also as high as 120s. Improving to 180s. Will continue with IV hydralazine and restart home BP medications. Plan: -IV hydralazine PRN -Restart home entresto, coreg Elevated troponin Troponin was 0.055 however this is around baseline. Likely small trop leak 2/2 CHF exacerbation. Repeat troponins have stays low around 0.05. No chest pain. Plan: -Continue to monitor for new symptoms -Telemetry monitoring Elevated LFTs Alkaline phosphatase is 155 AST slightly increased at 37 This likely secondary to heart failure exacerbation Monitor liver enzymes. Hyperkalemia K 5.3 this am. Will repeat to confirm. Tinea Corporis This appears extensive likely tenia. Will start on topical antifungal. History of CAD Stent placed in June, on ASA, plavix. Will continue these and restart home medications. Stable. Cardiology consult. History of atrial fibrillation Not on anticoagulation We will monitor on telemetry. VT prophylaxisLovenox CODE STATUSfull code Case discussed with Dr. Tran.
[2020-09-07 10:43] LABS: SARS-CoV-2 MS2 Positive; SARS-CoV-2 N Gene Negative; SARS-CoV-2 S Gene Negative; SARS-CoV-2 by NAA Not Detected (NotDetected); SARS-CoV-2 orf1ab Negative
[2020-09-07 11:18] LABS: Anion Gap 15 mmol/L (10-20); BUN (Urea Nitrogen) 26 mg/dL (8.4-25.7); Calc. Creatinine Clearance 62 mL/min (70-130); Calcium 8.2 mg/dL (7.8-10.44); Carbon Dioxide 28 mmol/L (23-31); Glucose 92 mg/dL (83-110); Potassium 3.8 mmol/L (3.5-5.1); Sodium 139 mmol/L (136-145)
[2020-09-07 11:54] LABS: Chloride 100 mmol/L (98-107)
--- NOTE | 2020-09-07 17:34 | CON ---
DATE OF CONSULTATION: HISTORY OF PRESENT ILLNESS: The patient is an 79-year-old gentleman with a history of cardiomyopathy, who presents with increasing dyspnea and developed altered mental status. The patient has a history of ischemic cardiomyopathy and , underwent a cardiac catheterization in May 2002. He subsequently underwent coronary artery bypass surgery. The patient underwent an EP evaluation, and it was decided that he should first be placed on medical therapy. The patient has been doing reasonably well until recently, he apparently stopped taking some of his medications and drove to a family member. The patient became confused,and did not bring any of his medications. The patient denied having any chest discomfort. PAST MEDICAL HISTORY: 1. Cardiomyopathy. 2. Coronary artery disease. 3. Hypertension. 4. Dyslipidemia. 5. BPH. PAST SURGICAL HISTORY: Coronary artery bypass graft surgery. SOCIAL HISTORY: Smokes cigars. ALLERGIES: MORPHINE. FAMILY HISTORY: Strong family history of coronary artery disease. MEDICATIONS: Unknown to the patient. REVIEW OF SYSTEMS: Ten-point system otherwise unremarkable. No history of easy bruising or bleeding. PHYSICAL EXAMINATION: GENERAL: This is an obese gentleman, in no acute distress. VITAL SIGNS: Blood pressure 194/82. NECK: Showed no jugular venous distention. LUNGS: Clear to auscultation. HEART: Regular rate and rhythm with a normal S1 and S2. A 2/6 holosystolic murmur. ABDOMEN: Distended. EXTREMITIES: Show severe bilateral edema. VASCULAR: Radial pulses were 2+. LABORATORY RESULTS: Sodium 139, potassium 3.8, chloride 100, bicarbonate 28, BUN 26, creatinine 1.2. Troponin 0.052. White blood cell count 6.7, hemoglobin 11.0, hematocrit 33.7, and his platelets are 133. EKG normal sinus rhythm, low-voltage QRS, nonspecific T-wave abnormality. IMPRESSION: 1. Congestive heart failure. 2. History of coronary artery bypass surgery. 3. Ischemic cardiomyopathy. 4. Hypertension, poorly controlled. 5. History of postoperative atrial fibrillation. 6. Altered mental status. PLAN: This gentleman presents with severe congestive heart failure. It is unclear if he has been taking his medications. The patient is being treated with IV Lasix. The patient will be restarted on his medications. We would recommend adding spironolactone. We will follow this patient with you through his hospitalization. Job ID: [id number] [facility]
[2020-09-07] MEDS: Carvedilol 6.25 MG TAB PO SCH (20:53)
[2020-09-07] MEDS: Miconazole 2% Vaginal Cream 45 GM TUBE TOP SCH (20:54)
[2020-09-07] MEDS: Atorvastatin Calcium 40 MG TAB PO SCH (20:54)
[2020-09-07] MEDS ORDERED: FLU VACC QS2020-21(65YR UP)/PF 240 MCG/0.7 ML SYRINGE IM ONE (21:00)
[2020-09-07] MEDS ORDERED: Miconazole 2% Cream 30 GM TUBE TOP SCH (21:00)
--- NOTE | 2020-09-07 21:23 | CON ---
DATE OF CONSULTATION: 09/07/2020 REASON: Skin rash. HISTORY OF PRESENT ILLNESS: An 79-year-old who has a history of hypertension, hyperlipidemia, and ischemic cardiomyopathy as well as aortic stenosis, has had previous bypass graft surgery, who was admitted in December 2018 with a final diagnosis of acute hypoxic respiratory failure requiring noninvasive positive pressure ventilation and systolic and diastolic heart failure and xlg-UB-gyapsbm elevation DC. In June 2020, he was admitted with the same problems. He also had a diagnosis of urethral stricture requiring Thomas catheter placement by urologist. He was discharged on Flomax, potassium chloride, DuoNeb, Proscar, Coreg, Lipitor, Demodex, spironolactone, Entresto, folic acid, Plavix, and aspirin. The patient [place] [address] [facility]. He lives by himself. Does not have anybody looking over him. He presented on , brought by his niece. Apparently, he drove to her house about 5 hours away yesterday, did not take his medications with him, and he was more dyspneic, and she basically drove him all the way back here and dropped him at the emergency room. He was having some cough and dyspnea. No fever. No abdominal pain or diarrhea. No genitourinary symptoms. He was having those skin eruptions for the past few weeks, although his memory is very poor and the timing of this condition is not clear. Most of those lesions are not pruritic and they developed over a period of time, localized mostly in lower extremities but also in the abdominal area. MEDICAL HISTORY: Hyperlipidemia, hypertension, ischemic cardiomyopathy with bypass graft surgery, some abdominal intervention, unclear which. SOCIAL HISTORY: He is a never smoker. No alcoholic beverage use. 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 ALLERGIES: THERE IS A HISTORY OF ALLERGY TO MORPHINE. CURRENT MEDICATIONS: 1. Aspirin. 2. Lipitor. 3. Coreg. 4. Plavix. 5. Lovenox. 6. Lasix. 7. Entresto. 8. Spironolactone. PHYSICAL EXAMINATION: VITAL SIGNS: The temperature has been normal. Blood pressure 190/80, heart rate 60, respiratory rate 18, O2 saturation 100. SKIN: Shows those annular erythematous lesions spreading from small papular lesions towards those centimeter wide annular lesions in the lower extremities in the lower abdomen. They have this erythematous border and somewhat scaly in some areas but not in others. The central part of those lesions is clear. He is incontinent. There is no lymphadenopathy. HEENT: Ocular movements conjugate. Oral cavity with still quite a few teeth in place with moderate decay. NECK: Supple. Some jugular vein distention. LUNGS: With faint crackles at the bases. Symmetric breath sounds, otherwise, no wheezing. S1, S2 without obvious murmurs. Regular rate. No S3 or S4. ABDOMEN: Not distended. No ascites. No organomegaly. No bladder distention. EXTREMITIES: There is 3+ edema in lower extremities at least, maybe 4+. No evidence of joint inflammatory process noted. Pulses are 1+ in dorsalis pedis. Plantar response flexor is awake. He has severe hearing impairment which makes it difficult to communicate with the patient. Has quite significant memory impairment as well. He knows he is in the hospital but that is the extent of his orientation. LABORATORY DATA: White cell count 10.1, hemoglobin 12, MCV 102, platelets 174 with 82% neutrophils and sodium 135, creatinine 1.16. Troponin 0.055 and AST 37, ALT 39, alkaline phosphatase 157, albumin 3.2. SARS-CoV-2 PCR negative. IMAGING: We have a chest x-ray from admission with interval increase in pleural effusions, cardiomegaly. ASSESSMENT: 1. Ischemic cardiomyopathy with decompensated congestive heart failure, volume overload. 2. Chronic recurrent annular lesions in the skin, mostly in lower extremities. 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 It is a basically a chronic reactive form of annular erythema with delicate scale behind the advancing edge of the polycyclic lesions. There is a variety of conditions that can be associated with this presentation including fungal infection such as Tinea corporis, internal malignancy, adverse reaction to medications, certain hematological disorders, so at this point, we will submit scrapings for fungal cultures to rule out Tinea corporis. If that is negative, then he may need a CT of abdomen and chest and interrogation about his medications to see if it could be associated with it. His vitamin B12 was normal. His folate was a little bit low. May want to check his trace minerals, vitamin C, vitamin B complex levels, copper as well. Job ID: [id number] [facility]
[2020-09-08 04:39] LABS: #Eosinphils 0.1 thou/uL (0.0-0.7); #Lymphocytes 0.5 thou/uL (1.20-3.40); #Monocytes 0.8 thou/uL (0.11-0.59); #Neutrophils 7.2 thou/uL (1.40-6.50); %Eosinophils 0.8 % (0.0-10.0); %Lymphocytes 6.1 % (21.0-51.0); %Monocytes 9.7 % (0.0-10.0); %Neutrophils 83.5 % (42.0-75.0); Mean Corpuscular HGB CONC 32.3 g/dL (32.0-36.0); Mean Corpuscular Hemoglobin 32.9 pg (27.0-31.0); Platelet Count 138 thou/uL (130-400); RBC Distribution Width 14.6 % (11.5-14.5); Red Blood Cell (RBC) Count 3.34 mill/uL (4.70-6.10); White Blood Cell (WBC) Count 8.6 thou/uL (4.8-10.8)
[2020-09-08 05:01] LABS: Anion Gap 13 mmol/L (10-20); BUN (Urea Nitrogen) 23 mg/dL (8.4-25.7); Calc. Creatinine Clearance 70 mL/min (70-130); Calcium 7.6 mg/dL (7.8-10.44); Carbon Dioxide 27 mmol/L (23-31); Chloride 101 mmol/L (98-107); Glucose 89 mg/dL (83-110); Potassium 3.6 mmol/L (3.5-5.1); Sodium 137 mmol/L (136-145)
[2020-09-08] MEDS: Furosemide 40 MG/4 ML VIAL SLOW IVP SCH (05:58)
[2020-09-08] MEDS ORDERED: Spironolactone 25 MG TAB PO SCH ×3 (08:00→09:15)
[2020-09-08] MEDS: Aspirin 81 mg Enteric Coated Tablet PO SCH (08:09)
[2020-09-08] MEDS: Miconazole 2% Vaginal Cream 45 GM TUBE TOP SCH ×2 (08:10→20:57)
[2020-09-08] MEDS: Clopidogrel Bisulfate 75 MG TAB PO SCH (08:10)
[2020-09-08] MEDS: Enoxaparin Sodium 40 MG/0.4 ML SYRINGE SC SCH (08:10)
[2020-09-08] MEDS: Sacubitril 49 MG/Valsartan 51 MG TABLET PO SCH ×2 (08:10→20:57)
[2020-09-08] MEDS: Carvedilol 6.25 MG TAB PO SCH ×2 (08:10→20:57)
[2020-09-08] MEDS ORDERED: Furosemide 40 MG/4 ML VIAL SLOW IVP SCH (09:05)
[2020-09-08] MEDS ORDERED: Furosemide 100 MG/10 ML VIAL SLOW IVP SCH (09:15)
--- NOTE | 2020-09-08 13:12 | PDOC.HOSPP ---
- Subjective Encounter Date: 09/08/20 Encounter Time: 13:10 Subjective: Mr. Rao was seen today in follow-up of CHF exacerbation. He is feeling and breathing better. - Objective Vital Signs & Weight: Vital Signs (12 hours) Temp Pulse Pulse Pulse Resp BP BP 09/08/20 09:27 65 75 182/78 H 166/72 H 09/08/20 08:05 97.6 F 60 18 09/08/20 03:20 97.7 F 54 L 16 BP Pulse Ox 09/08/20 09:27 09/08/20 08:05 159/71 H 98 09/08/20 03:20 132/60 Weight Weight 193 lb 7 oz I&O: 09/07/20 09/08/20 09/09/20 06:59 06:59 06:59 Intake Total 720 Output Total 700 Balance 20 Result Diagrams: 09/08/20 04:11 09/08/20 04:11 Hospitalist ROS - Medication Medications: Active Medications Generic Name Dose Route Start Last Admin Trade Name Freq PRN Reason Stop Dose Admin Aspirin 81 mg 09/07/20 09:00 09/08/20 08:09 Aspirin 81 Mg Enteric Coated Tablet PO 81 mg DAILY NATASHA Administration Atorvastatin Calcium 80 mg 09/07/20 21:00 09/07/20 20:54 Atorvastatin Calcium 40 Mg Tab PO 80 mg HS NATASHA Administration Carvedilol 12.5 mg 09/07/20 21:00 09/08/20 08:10 Carvedilol 6.25 Mg Tab PO 12.5 mg BID NATASHA Administration Enoxaparin Sodium 40 mg 09/07/20 09:00 09/08/20 08:10 Enoxaparin Sodium 40 Mg/0.4 Ml Syringe SC 40 mg 0900 NATASHA Administration Hydralazine HCl 10 mg 09/06/20 21:13 09/07/20 13:11 Hydralazine 20 Mg/Ml Vial SLOW IVP 10 mg Q4H PRN Administration Hypertension Miconazole Nitrate 1 gm 09/07/20 21:00 09/08/20 08:10 Miconazole 2% Vaginal Cream 45 Gm Tube TOP 1 applic BID NATASHA Administration Sacubitril/Valsartan 2 tab 09/06/20 21:00 09/08/20 08:10 Sacubitril 49 Mg/Valsartan 51 Mg Tablet PO 2 tab BID NATASHA Administration Sodium Chloride 10 ml 09/07/20 21:00 09/08/20 08:11 Flush - Normal Saline 10 Ml Syringe IVF 10 ml Q12HR NATASHA Administration - Exam Eye: PERRL, anicteric sclera Heart: RRR, no murmur, no gallops, no rubs, normal peripheral pulses Respiratory: no wheezes, no ronchi, rales (at both bases) Gastrointestinal: soft, non-tender, non-distended, normal bowel sounds, no palpable masses, no hepatomegaly Extremities: 2+ LE edema (+ mild erythema, and scaling raised annular rash noted) Hosp A/P (1) Dyslipidemia Code(s): E78.5 - HYPERLIPIDEMIA, UNSPECIFIED Status: Chronic (2) Hypertension Code(s): I10 - ESSENTIAL (PRIMARY) HYPERTENSION Status: Chronic (3) Acute on chronic systolic heart failure Code(s): I50.23 - ACUTE ON CHRONIC SYSTOLIC (CONGESTIVE) HEART FAILURE Status: Acute (4) Rash Code(s): R21 - RASH AND OTHER NONSPECIFIC SKIN ERUPTION Status: Acute - Plan * Acute on chronic systolic heart failure-her EF has improved. His daughter who is at the bedside informs me that the patient had run out of medications, and did not have any refills available. He was out of medications a few days which may have led to the current exacerbation * Lasix and Spironolactone dose have been increased * HTN- blood pressure is a bit labile- will monitor- continue the current regimen for now * Annular rash- ID assessment noted. This may be fungal, and scrapings have been sent. Drug eruption, and underlying malignancy are also possibilities. If the skin scrapings are negative for fungus, then consider CT scan of the chest abdomen pelvis to rule out malignancy * Case management consult for Home Health evaluation- for chronic disease management, and help with administering medications
[2020-09-08] MEDS: Furosemide 100 MG/10 ML VIAL SLOW IVP SCH (14:51)
--- NOTE | 2020-09-08 18:34 | CON ---
DATE OF CONSULTATION: 09/08/2020 REASON FOR CONSULTATION: Difficult Thomas catheter placement. HISTORY OF PRESENT ILLNESS: Mr. Rao is an 79-year-old male, recently seen Dr. Ospina in-house for similar consultation for urinary retention. Previous urologic records reviewed, in which Dr. Ospina was consulted for PVR 400 mL, nursing staff unable to place Thomas catheter; therefore, urologic consultation was obtained. I reviewed his consult, which demonstrated no evidence of urethral stricture of concern, Thomas catheter was able to be passed, the difficulty for nursing staff has been due to edema preputial as he is admitted for CHF exacerbation. It appears the patient also was not on his BPH medications supposedly. The patient resting comfortably. He has been incontinent. Hard of hearing. PAST MEDICAL HISTORY: CHF, atrial fibrillation, hypertension, hyperlipidemia, aortic stenosis, and history of [place]. SURGICAL HISTORY: Cardiac bypass, abdominal surgery of unclear etiology. FAMILY HISTORY: He is a poor historian, he reports no pertinent history. SOCIAL HISTORY: He lives alone, ambulatory with rolling walker, cane. ALLERGIES: ALLERGIC TO MORPHINE. CURRENT MEDICATIONS: Include: 1. Aspirin. 2. Lipitor. 3. Coreg. 4. Plavix. 5. Lovenox. 6. Proscar. 7. Lasix 80 mg b.i.d. 8. Hydralazine. 10. Entresto. 11. Aldactone. 12. Flomax. REVIEW OF SYSTEMS: 10-point review of systems as above, otherwise noncontributory. The patient has been dribbling urine per nursing staff. PVR by nursing staff 400 to 500 mL. PHYSICAL EXAMINATION: VITAL SIGNS: Stable. 97.6, 68, 16, 98, 158/72. 700 in and 700 out. He has been incontinent, unable to obtain strict I's and O's. GENERAL: The patient is in no acute distress. HEENT: Grossly unremarkable. HEART: Regular rate. LUNGS: Intermittent wheeze. ABDOMEN: Morbidly obese. There are changes consistent with open heart surgery, midline laparotomy incision, morbid obesity. No rigidity. No rebound. There is diffuse maculopapular rash, in which Dr. Pride has been consulted. EXTREMITIES: Gross pitting edema bilaterally, and consistent with anasarca. There is pitting edema to the level of his thighs. : Consistent with anasarca picture. There is gross preputial edema, scrotal hydrocele pitting consistent with fluid overload. Testes are difficult to palpate. Digital rectal exam demonstrates prostate greater than 40 g with no discrete nodularity. NEUROLOGIC: No gross focal deficits. Sensation appears to be intact. PSYCHIATRIC: Appears appropriate, normal affect, cooperative to physical exam. skin: Diffuse maculopapular rash mostly in lower trunk, lower ext PERTINENT LABORATORY DATA: White count 8, hemoglobin 11, platelets 138. Renal function stable. Creatinine 1.0. He is COVID negative. BEDSIDE PROCEDURE: The patient's genital area was formally prepped with Betadine and iodine. As he has significant preputial edema, it is very difficult to reduce his foreskin. Treating his preputial edema as if he has paraphimosis, manual compression of the preputial edema was performed. Subsequently, able to manipulate foreskin, able to visualize glans meatus. A 16-Kiswahili Coude subsequently was passed to the level of the bladder without difficulty, 10 mL insufflated, and 500 mL of clear dilute urine obtained. This was secured to [employer]Lock. Clear dilute urine is obtained. Although no difficulty in the urethra, prostate region, he does have mild meatal stenosis requiring some manipulation to pass more proximally IMPRESSION AND PLAN: 1. Mr. Rao is an 79-year-old male, admitted for congestive heart failure exacerbation. 2. Urinary retention, likely multifactorial. 3. BPH. Continue dual medical therapy. 4. phimosis, mild meatal stenosis difficult Thomas catheter placement due to significant preputial edema consistent with anasarca on fluid overload. Thomas catheter is successfully placed at bedside. Catheter itself is not difficult to place, it is mostly his foreskin does not issue, which we were able to place uneventfully. Continue indwelling Thomas catheter, dual medical therapy for BPH. Dr. Ospina will resume his care tomorrow. Would recommend elective circumcision versus dorsal slit. Job ID: [id number] [facility]
[2020-09-08] MEDS: Atorvastatin Calcium 40 MG TAB PO SCH (20:57)
[2020-09-09] MEDS: Furosemide 100 MG/10 ML VIAL SLOW IVP SCH ×2 (04:36→14:51)
[2020-09-09 05:10] LABS: #Eosinphils 0.1 thou/uL (0.0-0.7); #Lymphocytes 0.6 thou/uL (1.20-3.40); #Monocytes 0.9 thou/uL (0.11-0.59); #Neutrophils 6.4 thou/uL (1.40-6.50); %Basophils 0.2 % (0.0-1.0); %Lymphocytes 7.9 % (21.0-51.0); %Monocytes 11.7 % (0.0-10.0); %Neutrophils 79.2 % (42.0-75.0); Hemoglobin 11.3 g/dL (14.0-18.0); Mean Corpuscular HGB CONC 34.3 g/dL (32.0-36.0); Platelet Count 129 thou/uL (130-400); RBC Distribution Width 14.4 % (11.5-14.5); Red Blood Cell (RBC) Count 3.22 mill/uL (4.70-6.10)
[2020-09-09 05:32] LABS: Anion Gap 11 mmol/L (10-20); BUN (Urea Nitrogen) 26 mg/dL (8.4-25.7); Calc. Creatinine Clearance 64 mL/min (70-130); Calcium 7.6 mg/dL (7.8-10.44); Carbon Dioxide 31 mmol/L (23-31); Chloride 97 mmol/L (98-107); Glucose 88 mg/dL (83-110); Potassium 3.4 mmol/L (3.5-5.1); Sodium 136 mmol/L (136-145)
[2020-09-09] MEDS: Tamsulosin HCl 0.4 MG CAP PO SCH (08:09)
[2020-09-09] MEDS: Aspirin 81 mg Enteric Coated Tablet PO SCH (08:09)
[2020-09-09] MEDS: Sacubitril 49 MG/Valsartan 51 MG TABLET PO SCH ×2 (08:09→20:42)
[2020-09-09] MEDS: Finasteride 5 MG TAB PO SCH (08:09)
[2020-09-09] MEDS: Enoxaparin Sodium 40 MG/0.4 ML SYRINGE SC SCH (08:10)
[2020-09-09] MEDS: Carvedilol 6.25 MG TAB PO SCH ×2 (08:10→20:41)
[2020-09-09] MEDS: Potassium Chloride 10 MEQ TAB PO SCH (08:10)
[2020-09-09] MEDS: Spironolactone 25 MG TAB PO SCH (08:10)
[2020-09-09] MEDS: Clopidogrel Bisulfate 75 MG TAB PO SCH (08:10)
[2020-09-09] MEDS: Miconazole 2% Vaginal Cream 45 GM TUBE TOP SCH ×2 (08:17→20:42)
--- NOTE | 2020-09-09 09:19 | PDOC.HOSPP ---
- Subjective Encounter Date: 09/09/20 Encounter Time: 10:00 Subjective: Patient hard of hearing. Reports marked improvement in edema. No other complaints. - Objective Vital Signs & Weight: Vital Signs (12 hours) Temp Pulse Resp BP Pulse Ox 09/09/20 08:15 97.6 F 59 L 20 169/75 H 98 09/09/20 04:00 98.7 F 55 L 16 175/71 H 95 Weight Weight 186 lb 9.6 oz I&O: 09/08/20 09/09/20 09/10/20 06:59 06:59 06:59 Intake Total 720 1380 120 Output Total 700 7750 1300 Balance 90 -0440 -9696 Result Diagrams: 09/09/20 04:09 09/09/20 04:09 Hospitalist ROS - Review of Systems Constitutional: denies: fever, chills Respiratory: denies: cough, shortness of breath Cardiovascular: reports: edema. denies: chest pain, palpitations Gastrointestinal: denies: nausea, vomiting, abdominal pain - Medication Medications: Active Medications Generic Name Dose Route Start Last Admin Trade Name Freq PRN Reason Stop Dose Admin Aspirin 81 mg 09/07/20 09:00 09/09/20 08:09 Aspirin 81 Mg Enteric Coated Tablet PO 81 mg DAILY NATASHA Administration Atorvastatin Calcium 80 mg 09/07/20 21:00 09/08/20 20:57 Atorvastatin Calcium 40 Mg Tab PO 80 mg HS NATASHA Administration Carvedilol 12.5 mg 09/07/20 21:00 09/09/20 08:10 Carvedilol 6.25 Mg Tab PO 12.5 mg BID NATASHA Administration Clopidogrel Bisulfate 75 mg 09/09/20 09:00 09/09/20 08:10 Clopidogrel Bisulfate 75 Mg Tab PO 75 mg DAILY NATASHA Administration Enoxaparin Sodium 40 mg 09/07/20 09:00 09/09/20 08:10 Enoxaparin Sodium 40 Mg/0.4 Ml Syringe SC 40 mg 0900 NATASHA Administration Finasteride 5 mg 09/09/20 09:00 09/09/20 08:09 Finasteride 5 Mg Tab PO 5 mg DAILY NATASHA Administration Furosemide 80 mg 09/08/20 14:00 09/09/20 04:36 Furosemide 100 Mg/10 Ml Vial SLOW IVP 80 mg 0600,1400 NATASHA Administration Hydralazine HCl 10 mg 09/06/20 21:13 09/07/20 13:11 Hydralazine 20 Mg/Ml Vial SLOW IVP 10 mg Q4H PRN Administration Hypertension Miconazole Nitrate 1 gm 09/07/20 21:00 09/09/20 08:17 Miconazole 2% Vaginal Cream 45 Gm Tube TOP 1 applic BID NATASHA Administration Potassium Chloride 10 meq 09/09/20 09:00 09/09/20 08:10 Potassium Chloride 10 Meq Tab PO 10 meq DAILY NATASHA Administration Sacubitril/Valsartan 2 tab 09/06/20 21:00 09/09/20 08:09 Sacubitril 49 Mg/Valsartan 51 Mg Tablet PO 2 tab BID NATASHA Administration Sodium Chloride 10 ml 09/07/20 21:00 09/08/20 20:57 Flush - Normal Saline 10 Ml Syringe IVF 10 ml Q12HR NATASHA Administration Spironolactone 50 mg 09/09/20 08:00 09/09/20 08:10 Spironolactone 25 Mg Tab PO 50 mg QAM-WM NATASHA Administration Tamsulosin HCl 0.4 mg 09/09/20 09:00 09/09/20 08:09 Tamsulosin Hcl 0.4 Mg Cap PO 0.4 mg DAILY NATASHA Administration - Exam General Appearance: NAD, awake alert ENT: moist mucosa Heart: RRR, no murmur, no gallops, no rubs Respiratory: CTAB, no wheezes, no rales, no ronchi Gastrointestinal: soft, non-tender, non-distended, normal bowel sounds Extremities: 1+ LE edema Psychiatric: normal affect, normal behavior Hosp A/P - Plan (1) Dyslipidemia Code(s): E78.5 - HYPERLIPIDEMIA, UNSPECIFIED Status: Chronic (2) Hypertension Code(s): I10 - ESSENTIAL (PRIMARY) HYPERTENSION Status: Chronic (3) Acute on chronic systolic heart failure Code(s): I50.23 - ACUTE ON CHRONIC SYSTOLIC (CONGESTIVE) HEART FAILURE Status: Acute (4) Rash Code(s): R21 - RASH AND OTHER NONSPECIFIC SKIN ERUPTION Status: Acute - Plan * Acute on chronic systolic heart failure-her EF has improved. His daughter gave history that the patient had run out of medications, and did not have any refills available. He was out of medications a few days which may have led to the current exacerbation. Diuresing very well currently. * Lasix and Spironolactone dose have been increased, potassium a bit low today, restarting home potassium, watch closely on Spironolactone. * HTN- blood pressure is a bit labile- will monitor- continue the current regimen for now * Annular rash- ID assessment noted. This may be fungal, and scrapings have been sent. Drug eruption, and underlying malignancy are also possibilities. If the skin scrapings are negative for fungus, then consider CT scan of the chest abdomen pelvis to rule out malignancy * BPH with urinary retention- oleary placed by urology, sees Dr. Ospina typically. * Case management consult for Home Health evaluation- for chronic disease management, and help with administering medications
[2020-09-09] MEDS: Atorvastatin Calcium 40 MG TAB PO SCH (20:42)
[2020-09-10] MEDS: Furosemide 100 MG/10 ML VIAL SLOW IVP SCH ×2 (04:23→14:33)
[2020-09-10 04:55] LABS: #Eosinphils 0.1 thou/uL (0.0-0.7); #Lymphocytes 0.8 thou/uL (1.20-3.40); #Monocytes 0.9 thou/uL (0.11-0.59); #Neutrophils 5.3 thou/uL (1.40-6.50); %Basophils 0.4 % (0.0-1.0); %Eosinophils 1.2 % (0.0-10.0); %Lymphocytes 11.5 % (21.0-51.0); %Neutrophils 73.9 % (42.0-75.0); Hemoglobin 11.5 g/dL (14.0-18.0); Mean Corpuscular HGB CONC 33.4 g/dL (32.0-36.0); Mean Corpuscular Hemoglobin 33.7 pg (27.0-31.0); Platelet Count 135 thou/uL (130-400); RBC Distribution Width 14.3 % (11.5-14.5); White Blood Cell (WBC) Count 7.2 thou/uL (4.8-10.8)
[2020-09-10 05:17] LABS: Anion Gap 11 mmol/L (10-20); BUN (Urea Nitrogen) 25 mg/dL (8.4-25.7); Calc. Creatinine Clearance 67 mL/min (70-130); Carbon Dioxide 32 mmol/L (23-31); Chloride 96 mmol/L (98-107); Potassium 3.4 mmol/L (3.5-5.1); Sodium 136 mmol/L (136-145)
[2020-09-10 05:18] LABS: Calcium 7.7 mg/dL (7.8-10.44); Glucose 84 mg/dL (83-110)
--- NOTE | 2020-09-10 07:26 | PDOC.HOSPP ---
- Subjective Encounter Date: 09/10/20 Encounter Time: 10:00 Subjective: Patient without complaints. Edema continuing to improve. - Objective Vital Signs & Weight: Vital Signs (12 hours) Temp Pulse Resp BP BP Pulse Ox 09/10/20 04:00 98.7 F 61 16 175/74 H 95 09/09/20 20:41 196/88 H 09/09/20 20:00 98.1 F 72 18 128/62 96 Weight Weight 176 lb 6.4 oz I&O: 09/09/20 09/10/20 09/11/20 06:59 06:59 06:59 Intake Total 1380 720 Output Total 7734 1659 Balance -3444 -9416 Result Diagrams: 09/10/20 04:19 09/10/20 04:19 Hospitalist ROS - Review of Systems Constitutional: denies: fever, chills Respiratory: denies: cough, shortness of breath Cardiovascular: denies: chest pain, palpitations Gastrointestinal: denies: nausea, vomiting, abdominal pain - Medication Medications: Active Medications Generic Name Dose Route Start Last Admin Trade Name Booq PRN Reason Stop Dose Admin Aspirin 81 mg 09/07/20 09:00 09/09/20 08:09 Aspirin 81 Mg Enteric Coated Tablet PO 81 mg DAILY NATASHA Administration Atorvastatin Calcium 80 mg 09/07/20 21:00 09/09/20 20:42 Atorvastatin Calcium 40 Mg Tab PO 80 mg HS NATASHA Administration Carvedilol 12.5 mg 09/07/20 21:00 09/09/20 20:41 Carvedilol 6.25 Mg Tab PO 12.5 mg BID NATASHA Administration Clopidogrel Bisulfate 75 mg 09/09/20 09:00 09/09/20 08:10 Clopidogrel Bisulfate 75 Mg Tab PO 75 mg DAILY NATASHA Administration Enoxaparin Sodium 40 mg 09/07/20 09:00 09/09/20 08:10 Enoxaparin Sodium 40 Mg/0.4 Ml Syringe SC 40 mg 0900 NATASHA Administration Finasteride 5 mg 09/09/20 09:00 09/09/20 08:09 Finasteride 5 Mg Tab PO 5 mg DAILY NATASHA Administration Furosemide 80 mg 09/08/20 14:00 09/10/20 04:23 Furosemide 100 Mg/10 Ml Vial SLOW IVP 80 mg 0600,1400 NATASHA Administration Hydralazine HCl 10 mg 09/06/20 21:13 09/07/20 13:11 Hydralazine 20 Mg/Ml Vial SLOW IVP 10 mg Q4H PRN Administration Hypertension Miconazole Nitrate 1 gm 09/07/20 21:00 09/09/20 20:42 Miconazole 2% Vaginal Cream 45 Gm Tube TOP 1 applic BID NATASHA Administration Potassium Chloride 10 meq 09/09/20 09:00 09/09/20 08:10 Potassium Chloride 10 Meq Tab PO 10 meq DAILY NATASHA Administration Sacubitril/Valsartan 2 tab 09/06/20 21:00 09/09/20 20:42 Sacubitril 49 Mg/Valsartan 51 Mg Tablet PO 2 tab BID NATASHA Administration Sodium Chloride 10 ml 09/07/20 21:00 09/09/20 20:42 Flush - Normal Saline 10 Ml Syringe IVF 10 ml Q12HR NATASHA Administration Spironolactone 50 mg 09/09/20 08:00 09/09/20 08:10 Spironolactone 25 Mg Tab PO 50 mg QAM-WM NATASHA Administration Tamsulosin HCl 0.4 mg 09/09/20 09:00 09/09/20 08:09 Tamsulosin Hcl 0.4 Mg Cap PO 0.4 mg DAILY NATASHA Administration - Exam General Appearance: NAD, awake alert ENT: moist mucosa Heart: RRR, no murmur, no gallops, no rubs Respiratory: CTAB, no wheezes, no rales, no ronchi Gastrointestinal: soft, non-tender, non-distended, normal bowel sounds Extremities - other findings: trace edema RLE, none on left Psychiatric: normal affect, normal behavior Hosp A/P - Plan (1) Dyslipidemia Code(s): E78.5 - HYPERLIPIDEMIA, UNSPECIFIED Status: Chronic (2) Hypertension Code(s): I10 - ESSENTIAL (PRIMARY) HYPERTENSION Status: Chronic (3) Acute on chronic systolic heart failure Code(s): I50.23 - ACUTE ON CHRONIC SYSTOLIC (CONGESTIVE) HEART FAILURE Status: Acute (4) Rash Code(s): R21 - RASH AND OTHER NONSPECIFIC SKIN ERUPTION Status: Acute - Plan * Acute on chronic systolic heart failure-her EF has improved. His daughter gave history that the patient had run out of medications, and did not have any refills available. He was out of medications a few days which may have led to the current exacerbation. Diuresing very well currently. * Lasix and Spironolactone dose have been increased, potassium still a bit low today, restarted home potassium and will give an extra dose today. * HTN- blood pressure is a bit labile, still running pretty high, will add a small dose of hydralazine * Annular rash- ID assessment noted. This may be fungal, and scrapings have been sent. Drug eruption, and underlying malignancy are also possibilities. If the skin scrapings are negative for fungus, then consider CT scan of the chest abdomen pelvis to rule out malignancy * BPH with urinary retention- oleary placed by urology, sees Dr. Ospina typically. * Case management consult for Home Health evaluation- for chronic disease management, and help with administering medications * Can discharge home when ok with cardiology.
[2020-09-10] MEDS ORDERED: Potassium Bicarbonate/Cit Ac 20 MEQ TAB PO SCH (07:30)
[2020-09-10] MEDS: Sacubitril 49 MG/Valsartan 51 MG TABLET PO SCH ×2 (08:47→19:58)
[2020-09-10] MEDS: Spironolactone 25 MG TAB PO SCH (08:47)
[2020-09-10] MEDS: Finasteride 5 MG TAB PO SCH (08:48)
[2020-09-10] MEDS: hydrALAZINE 25 MG TAB PO SCH ×3 (08:48→19:58)
[2020-09-10] MEDS: Tamsulosin HCl 0.4 MG CAP PO SCH (08:48)
[2020-09-10] MEDS: Potassium Chloride 10 MEQ TAB PO SCH (08:49)
[2020-09-10] MEDS: Clopidogrel Bisulfate 75 MG TAB PO SCH (08:49)
[2020-09-10] MEDS: Enoxaparin Sodium 40 MG/0.4 ML SYRINGE SC SCH (08:49)
[2020-09-10] MEDS: Aspirin 81 mg Enteric Coated Tablet PO SCH (08:50)
[2020-09-10] MEDS: Carvedilol 6.25 MG TAB PO SCH ×2 (08:50→19:58)
[2020-09-10] MEDS: Miconazole 2% Vaginal Cream 45 GM TUBE TOP SCH ×2 (08:56→19:58)
[2020-09-10] MEDS: Atorvastatin Calcium 40 MG TAB PO SCH (19:57)
[2020-09-11] MEDS: Furosemide 100 MG/10 ML VIAL SLOW IVP SCH (04:23)
--- NOTE | 2020-09-11 08:10 | PDOC.HOSPP ---
- Subjective Encounter Date: 09/11/20 Encounter Time: 10:00 Subjective: Patient without complaint. Pulse was a bit low yesterday so carvedilol held, but able to give this AM. - Objective Vital Signs & Weight: Vital Signs (12 hours) Temp Pulse Resp BP Pulse Ox 09/11/20 07:47 95 09/11/20 07:46 97.5 F L 60 18 163/71 H 95 09/11/20 04:00 98.1 F 82 18 145/68 H 98 Weight Weight 166 lb 1.6 oz I&O: 09/10/20 09/11/20 09/12/20 06:59 06:59 06:59 Intake Total 720 2608 Output Total 2014 9472 [facility] -6941 -7141 Result Diagrams: 09/10/20 04:19 09/10/20 04:19 Hospitalist ROS - Review of Systems Constitutional: denies: fever, chills Respiratory: denies: cough, shortness of breath Cardiovascular: denies: chest pain, palpitations Gastrointestinal: denies: nausea, vomiting, abdominal pain - Medication Medications: Active Medications Generic Name Dose Route Start Last Admin Trade Name Freq PRN Reason Stop Dose Admin Aspirin 81 mg 09/07/20 09:00 09/10/20 08:50 Aspirin 81 Mg Enteric Coated Tablet PO 81 mg DAILY NATASHA Administration Atorvastatin Calcium 80 mg 09/07/20 21:00 09/10/20 19:57 Atorvastatin Calcium 40 Mg Tab PO 80 mg HS NATASHA Administration Carvedilol 12.5 mg 09/07/20 21:00 09/10/20 19:58 Carvedilol 6.25 Mg Tab PO 12.5 mg BID NATASHA Administration Clopidogrel Bisulfate 75 mg 09/09/20 09:00 09/10/20 08:49 Clopidogrel Bisulfate 75 Mg Tab PO 75 mg DAILY NATASHA Administration Enoxaparin Sodium 40 mg 09/07/20 09:00 09/10/20 08:49 Enoxaparin Sodium 40 Mg/0.4 Ml Syringe SC 40 mg 0900 NATASHA Administration Finasteride 5 mg 09/09/20 09:00 09/10/20 08:48 Finasteride 5 Mg Tab PO 5 mg DAILY NATASHA Administration Furosemide 80 mg 09/08/20 14:00 09/11/20 04:23 Furosemide 100 Mg/10 Ml Vial SLOW IVP 80 mg 0600,1400 NATASHA Administration Hydralazine HCl 10 mg 09/06/20 21:13 09/07/20 13:11 Hydralazine 20 Mg/Ml Vial SLOW IVP 10 mg Q4H PRN Administration Hypertension Hydralazine HCl 25 mg 09/10/20 09:00 09/10/20 19:58 Hydralazine 25 Mg Tab PO 25 mg TID NATASHA Administration Miconazole Nitrate 1 gm 09/07/20 21:00 09/10/20 19:58 Miconazole 2% Vaginal Cream 45 Gm Tube TOP 1 applic BID NATASHA Administration Potassium Chloride 10 meq 09/09/20 09:00 09/10/20 08:49 Potassium Chloride 10 Meq Tab PO 10 meq DAILY NATASHA Administration Sacubitril/Valsartan 2 tab 09/06/20 21:00 09/10/20 19:58 Sacubitril 49 Mg/Valsartan 51 Mg Tablet PO 2 tab BID NATASHA Administration Sodium Chloride 10 ml 09/07/20 21:00 09/10/20 19:59 Flush - Normal Saline 10 Ml Syringe IVF 10 ml Q12HR NATASHA Administration Sodium Chloride 10 ml 09/07/20 10:45 09/10/20 14:33 Flush - Normal Saline 10 Ml Syringe IVF 10 ml PRN PRN Administration Saline Flush Spironolactone 50 mg 09/09/20 08:00 09/10/20 08:47 Spironolactone 25 Mg Tab PO 50 mg QAM-WM NATASHA Administration Tamsulosin HCl 0.4 mg 09/09/20 09:00 09/10/20 08:48 Tamsulosin Hcl 0.4 Mg Cap PO 0.4 mg DAILY NATASHA Administration - Exam General Appearance: NAD, awake alert ENT: moist mucosa Heart: RRR, no murmur, no gallops, no rubs Respiratory: CTAB, no wheezes, no rales, no ronchi Gastrointestinal: soft, non-tender, non-distended, normal bowel sounds Extremities - other findings: trace edema R>L LE Psychiatric: normal affect, normal behavior Hosp A/P - Plan (1) Dyslipidemia Code(s): E78.5 - HYPERLIPIDEMIA, UNSPECIFIED Status: Chronic (2) Hypertension Code(s): I10 - ESSENTIAL (PRIMARY) HYPERTENSION Status: Chronic (3) Acute on chronic systolic heart failure Code(s): I50.23 - ACUTE ON CHRONIC SYSTOLIC (CONGESTIVE) HEART FAILURE Status: Acute (4) Rash Code(s): R21 - RASH AND OTHER NONSPECIFIC SKIN ERUPTION Status: Acute - Plan * Acute on chronic systolic heart failure-her EF has improved. His daughter gave history that the patient had run out of medications, and did not have any refills available. He was out of medications a few days which may have led to the current exacerbation. Diuresing very well currently. * Lasix and Spironolactone dose have been increased, potassium was still a bit low, restarted home potassium and will give an extra dose, recheck this morning. * HTN- blood pressure is a bit labile, improved with hydralazine * Annular rash- ID assessment noted. This may be fungal, and scrapings have been sent. Drug eruption, and underlying malignancy are also possibilities. If the skin scrapings are negative for fungus, then consider CT scan of the chest abdomen pelvis to rule out malignancy * BPH with urinary retention- oleary placed by urology, sees Dr. Bhavesh valerio. * Case management consult for Home Health evaluation- for chronic disease management, and help with administering medications * Can discharge home when ok with cardiology.
[2020-09-11] MEDS: Potassium Chloride 10 MEQ TAB PO SCH (09:26)
[2020-09-11] MEDS: hydrALAZINE 25 MG TAB PO SCH ×3 (09:26→20:51)
[2020-09-11] MEDS: Tamsulosin HCl 0.4 MG CAP PO SCH (09:28)
[2020-09-11] MEDS: Carvedilol 6.25 MG TAB PO SCH ×2 (09:28→20:50)
[2020-09-11] MEDS: Sacubitril 49 MG/Valsartan 51 MG TABLET PO SCH ×2 (09:29→20:50)
[2020-09-11] MEDS: Finasteride 5 MG TAB PO SCH ×2 (09:29→09:30)
[2020-09-11] MEDS: Aspirin 81 mg Enteric Coated Tablet PO SCH (09:29)
[2020-09-11] MEDS: Spironolactone 25 MG TAB PO SCH (09:30)
[2020-09-11] MEDS: Clopidogrel Bisulfate 75 MG TAB PO SCH (09:30)
[2020-09-11] MEDS: Enoxaparin Sodium 40 MG/0.4 ML SYRINGE SC SCH (09:31)
[2020-09-11] MEDS: Miconazole 2% Vaginal Cream 45 GM TUBE TOP SCH ×2 (09:38→20:52)
[2020-09-11] MEDS ORDERED: Sodium Chloride 0.9% 500 ML IV SCH (11:15)
[2020-09-11 14:35] LABS: Anion Gap 12 mmol/L (10-20); BUN (Urea Nitrogen) 31 mg/dL (8.4-25.7); Calc. Creatinine Clearance 56 mL/min (70-130); Carbon Dioxide 34 mmol/L (23-31); Chloride 92 mmol/L (98-107); Glucose 149 mg/dL (83-110); Potassium 3.9 mmol/L (3.5-5.1); Sodium 134 mmol/L (136-145)
[2020-09-11] MEDS: Atorvastatin Calcium 40 MG TAB PO SCH (20:50)
[2020-09-12 05:23] LABS: Anion Gap 11 mmol/L (10-20); BUN (Urea Nitrogen) 29 mg/dL (8.4-25.7); Calc. Creatinine Clearance 68 mL/min (70-130); Calcium 7.8 mg/dL (7.8-10.44); Carbon Dioxide 30 mmol/L (23-31); Chloride 95 mmol/L (98-107); Glucose 80 mg/dL (83-110); Potassium 3.7 mmol/L (3.5-5.1); Sodium 132 mmol/L (136-145)
--- NOTE | 2020-09-12 07:35 | PDOC.HOSPP ---
- Subjective Encounter Date: 09/12/20 Encounter Time: 09:00 Subjective: Patient without complaints. Ambulating well with cane in the hallways with PT. Edema further improved. No further low BP spells. - Objective Vital Signs & Weight: Vital Signs (12 hours) Temp Pulse Resp BP BP Pulse Ox 09/12/20 04:00 97.3 F L 58 L 16 165/70 H 97 09/12/20 00:00 112/61 09/11/20 20:51 61 140/61 09/11/20 20:50 140/61 09/11/20 20:00 97.5 F L 60 200 H 140/61 97 Weight Weight 160 lb I&O: 09/11/20 09/12/20 09/13/20 06:59 06:59 06:59 Intake Total 2608 3030 Output Total 9452 3600 Balance -6867 -570 Result Diagrams: 09/10/20 04:19 09/12/20 04:42 Hospitalist ROS - Review of Systems Constitutional: denies: fever, chills Respiratory: denies: cough, shortness of breath Cardiovascular: denies: chest pain, palpitations Gastrointestinal: denies: nausea, vomiting, abdominal pain - Medication Medications: Active Medications Generic Name Dose Route Start Last Admin Trade Name Freq PRN Reason Stop Dose Admin Aspirin 81 mg 09/07/20 09:00 09/11/20 09:29 Aspirin 81 Mg Enteric Coated Tablet PO 81 mg DAILY NATASHA Administration Atorvastatin Calcium 80 mg 09/07/20 21:00 09/11/20 20:50 Atorvastatin Calcium 40 Mg Tab PO 80 mg HS NATASHA Administration Carvedilol 12.5 mg 09/07/20 21:00 09/11/20 20:50 Carvedilol 6.25 Mg Tab PO 12.5 mg BID NATASHA Administration Clopidogrel Bisulfate 75 mg 09/09/20 09:00 09/11/20 09:30 Clopidogrel Bisulfate 75 Mg Tab PO 75 mg DAILY NATASHA Administration Enoxaparin Sodium 40 mg 09/07/20 09:00 09/11/20 09:31 Enoxaparin Sodium 40 Mg/0.4 Ml Syringe SC 40 mg 0900 NATASHA Administration Finasteride 5 mg 09/09/20 09:00 09/11/20 09:30 Finasteride 5 Mg Tab PO 5 mg DAILY NATASHA Administration Hydralazine HCl 10 mg 09/06/20:13 09/07/20 13:11 Hydralazine 20 Mg/Ml Vial SLOW IVP 10 mg Q4H PRN Administration Hypertension Hydralazine HCl 25 mg 09/10/20 09:00 09/11/20 20:51 Hydralazine 25 Mg Tab PO 25 mg TID NATASHA Administration Miconazole Nitrate 1 gm 09/07/20 21:00 09/11/20 20:52 Miconazole 2% Vaginal Cream 45 Gm Tube TOP 1 applic BID NATASHA Administration Potassium Chloride 10 meq 09/09/20 09:00 09/11/20 09:26 Potassium Chloride 10 Meq Tab PO 10 meq DAILY NATASHA Administration Sacubitril/Valsartan 2 tab 09/06/20 21:00 09/11/20 20:50 Sacubitril 49 Mg/Valsartan 51 Mg Tablet PO 2 tab BID NATASHA Administration Sodium Chloride 10 ml 09/07/20 21:00 09/11/20 20:52 Flush - Normal Saline 10 Ml Syringe IVF 10 ml Q12HR NATASHA Administration Sodium Chloride 10 ml 09/07/20 10:45 09/10/20 14:33 Flush - Normal Saline 10 Ml Syringe IVF 10 ml PRN PRN Administration Saline Flush Spironolactone 50 mg 09/09/20 08:00 09/11/20 09:30 Spironolactone 25 Mg Tab PO 50 mg QAM-WM NATASHA Administration Tamsulosin HCl 0.4 mg 09/09/20 09:00 09/11/20 09:28 Tamsulosin Hcl 0.4 Mg Cap PO 0.4 mg DAILY NATASHA Administration - Exam General Appearance: NAD, awake alert ENT: moist mucosa Heart: RRR, no murmur, no gallops, no rubs Respiratory: CTAB, no wheezes, no rales, no ronchi Respiratory - other findings: some secretions in back of throat, patient able to clear with coughing Gastrointestinal: soft, non-tender, non-distended, normal bowel sounds Extremities - other findings: trace edema bilateral shins, improved further Psychiatric: normal affect, normal behavior Hosp A/P - Plan (1) Dyslipidemia Code(s): E78.5 - HYPERLIPIDEMIA, UNSPECIFIED Status: Chronic (2) Hypertension Code(s): I10 - ESSENTIAL (PRIMARY) HYPERTENSION Status: Chronic (3) Acute on chronic systolic heart failure Code(s): I50.23 - ACUTE ON CHRONIC SYSTOLIC (CONGESTIVE) HEART FAILURE Status: Acute (4) Rash Code(s): R21 - RASH AND OTHER NONSPECIFIC SKIN ERUPTION Status: Acute - Plan * Acute on chronic systolic heart failure-her EF has improved. His daughter gave history that the patient had run out of medications, and did not have any refills available. He was out of medications a few days which may have led to the current exacerbation. Diuresing very well currently. * Lasix and Spironolactone dose have been increased, potassium was still a bit low, restarted home potassium and will give an extra dose, recheck this morn ing. * HTN- blood pressure is a bit labile, improved with hydralazine, then dropped yesterday so d/c'd Lasix, back up this AM * Annular rash- ID assessment noted. This may be fungal, and scrapings have been sent. Drug eruption, and underlying malignancy are also possibilities. If the skin scrapings are negative for fungus, then consider CT scan of the chest abdomen pelvis to rule out malignancy * BPH with urinary retention- oleary placed by urology, sees Dr. Ospina typically. * Case management consult for Home Health evaluation- for chronic disease management, and help with administering medications * Can discharge home today. Concerned about him being able to manage the oleary catheter at home. Now that edema improved will try off the catheter and make sure he can void well. Patient lives by himself. His niece lives in [place]. She is considering eventually having him come live with her.
[2020-09-12] MEDS: Enoxaparin Sodium 40 MG/0.4 ML SYRINGE SC SCH (08:45)
[2020-09-12] MEDS: Sacubitril 49 MG/Valsartan 51 MG TABLET PO SCH ×2 (08:45→21:02)
[2020-09-12] MEDS: Carvedilol 6.25 MG TAB PO SCH ×2 (08:46→21:03)
[2020-09-12] MEDS: Aspirin 81 mg Enteric Coated Tablet PO SCH (08:46)
[2020-09-12] MEDS: Spironolactone 25 MG TAB PO SCH (08:46)
[2020-09-12] MEDS: Tamsulosin HCl 0.4 MG CAP PO SCH (08:46)
[2020-09-12] MEDS: hydrALAZINE 25 MG TAB PO SCH ×3 (08:46→21:02)
[2020-09-12] MEDS: Finasteride 5 MG TAB PO SCH (08:47)
[2020-09-12] MEDS: Potassium Chloride 10 MEQ TAB PO SCH (08:47)
[2020-09-12] MEDS: Clopidogrel Bisulfate 75 MG TAB PO SCH (08:53)
[2020-09-12] MEDS: Miconazole 2% Vaginal Cream 45 GM TUBE TOP SCH ×2 (08:54→21:04)
[2020-09-12 11:26] VITALS: BMI 25.0
--- NOTE | 2020-09-12 13:43 | RAD ---
FRONTAL RADIOGRAPH CHEST: 09/12/20 COMPARISON: 09/06/20. HISTORY: Bilateral pleural effusions. FINDINGS: Midline sternotomy wires are present. There is stable prominence of the cardiac silhouette. There is hazy pleural and parenchymal opacity within the lung bases, right greater than left which has improve d bilaterally when compared to the 09/06/20 exam. There is pulmonary vascular prominence and perihila r interstitial prominence which has also improved since the prior exam. IMPRESSION:[ Persistent nonspecific pleural and parenchymal opacity within the lung bases, right greater than left , improved. Findings suggest improving pulmonary edema. Superimposed infection or aspiration in the l bakari bases cannot be excluded. Follow-up imaging following treatment to document resolution advised. POS: [facility]
[2020-09-12] MEDS ORDERED: Furosemide 20 MG TAB PO SCH (14:00)
[2020-09-12] MEDS ORDERED: Furosemide 40 MG TAB PO SCH (14:00)
--- NOTE | 2020-09-12 16:39 | PQF ---
CLINICAL DOCUMENTATION CLARIFICATION FORM: Dear Dr. Wu Date / Time: 09/12/20 1627 Please exercise your independent, professional judgment in responding to the clarification form. Clinical indicators are provided on the bottom of this form for your review Please check appropriate box(es): [ ] CKD 3 [ ] CKD 2 [ ] Other diagnosis [ ] Unable to determine In addition, please specify Present on Admission (POA): [ ] Yes [ ] No [ ] Unable to determine National Kidney [employer] Guidelines for CKD Staging Stage I Kidney damage with normal or increased GFR GFR > 90 Stage II Kidney damage with mildly decreased GFR GFR 60-89 Stage III Kidney damage with moderately decreased GFR GFR 30-59 Stage IV Kidney damage with severely decreased GFR GFR 16-29 Stage V Kidney failure GFR<15 ESRD End Stage Renal Disease On dialysis To be completed by CDI/Coding staff for physician review: Clinical Indicators - Signs / Symptoms / Labs Results and Location in Medical Record GFR 55-78 Lab Results 09/06/20-09/12/20 Risk Factors Results and Location in Medical Record PMH of CKD, HTN, CHF Attending H&P on 09/06/20 Treatments Results and Location in Medical Record Daily BMP Physician Orders 09/06/20-09/12/20 CDS/Weld Engineer Signature: Ashley Zaman Phone #: [phone] Date/Time: 09/12/20 1634 This is a permanent part of the Medical Record [facility]
[2020-09-12] MEDS ORDERED: Atorvastatin Calcium 40 MG TAB PO SCH (21:00)
[2020-09-12] MEDS ORDERED: Non-Formulary Item 1 EACH (Atorvastatin Calcium [Atorvastatin Calcium] 80 MG Tablet) PO SCH (21:00)
[2020-09-12] MEDS: Atorvastatin Calcium 40 MG TAB PO SCH (21:03)
[2020-09-13] MEDS ORDERED: Furosemide 40 MG TAB PO SCH (07:30)
[2020-09-13 07:53] VITALS: TEMP 97.5
[2020-09-13] MEDS ORDERED: Spironolactone 25 MG TAB PO SCH (09:00)
[2020-09-13] MEDS: Sacubitril 49 MG/Valsartan 51 MG TABLET PO SCH (09:23)
[2020-09-13] MEDS: Carvedilol 6.25 MG TAB PO SCH (09:23)
[2020-09-13] MEDS: Enoxaparin Sodium 40 MG/0.4 ML SYRINGE SC SCH (09:23)
[2020-09-13] MEDS: Spironolactone 25 MG TAB PO SCH (09:24)
[2020-09-13] MEDS: Clopidogrel Bisulfate 75 MG TAB PO SCH (09:24)
[2020-09-13] MEDS: Tamsulosin HCl 0.4 MG CAP PO SCH (09:24)
[2020-09-13] MEDS: Aspirin 81 mg Enteric Coated Tablet PO SCH (09:24)
[2020-09-13] MEDS: Finasteride 5 MG TAB PO SCH (09:24)
[2020-09-13] MEDS: hydrALAZINE 25 MG TAB PO SCH (09:24)
[2020-09-13] MEDS: Potassium Chloride 10 MEQ TAB PO SCH (09:24)
[2020-09-13] MEDS: Miconazole 2% Vaginal Cream 45 GM TUBE TOP SCH (09:25)
[2020-09-13 09:30] VITALS: BP 156/69
--- NOTE | 2020-09-14 14:52 | EKG ---
Test Reason : Blood Pressure : / mmHG Vent. Rate : 074 BPM Atrial Rate : 074 BPM P-R Int : 162 ms QRS Dur : 096 ms QT Int : 370 ms P-R-T Axes : -05 -63 119 degrees QTc Int : 410 ms Normal sinus rhythm Left axis deviation Low voltage QRS Cannot rule out Anterior infarct , age undetermined Abnormal ECG No change from 05/30/2020 Confirmed by ADELSO PEREZ DO ([id number]), editor news AUGUSTINA HINSON ([id number]) on 09/14/2020 2:52:21 PM Referred By: Confirmed By:ADELSO PEREZ DO
--- NOTE | 2020-09-15 21:25 | PQF ---
CLINICAL DOCUMENTATION CLARIFICATION FORM: Dear : Carlitos Correa Date / Time: 09/15/2020 Please exercise your independent, professional judgment in responding to the clarification form. Clinical indicators are provided on the bottom of this form for your review Please check appropriate box(es): AMI TYPE: [ ] Type 1 PA (NSTEMI) [ ] Type 2 PA (T2MI) secondary to heart failure [ X ] Demand ischemia without PA [ ] Other diagnosis [ ] Unable to determine In addition, please specify: Present on Admission (POA): [ X ] Yes [ ] No [ ] Unable to determine Physician Signature: Date/Time: For continuity of documentation, please document condition throughout progress notes and discharge summary. Thank You. To be completed by CDI/Coding staff for physician review: Present Clinical Indicators - Signs / Symptoms / Labs Results and Location in Medical Record [X] CK-MB 3.2, BNP 22819.9, Troponin I 0.055; 0.065; 0.052 Laboratory 09/06 [X] Echocardiogram: EF 40-45% Procedure 09/08 DR Medellin [X] BP 200/120, Pulse 71, Resp 22, Temp 97.9 Vital signs 09/06 [X] Presents with increasing swelling and worsening SOB H&P p1 09/06 Dr Wu [X] CHF exacerbation H&P p4 09/06 Dr Wu [X] HTN Emergency H&P p4 09/06 Dr Wu [X] gElevated troponin H&P p4 09/06 Dr Wu [X] gLikley small trop leak 2/2 CHF exacerbation HPN p4 09/11 Dr Blanco Present Risk Factors Results and Location in Medical Record [X] 79 year-old Male H&P p1 09/06 Dr Wu [X] HTN H&P p1 09/06 Dr Wu [X] CHF with reduced EF H&P p1 09/06 Dr Wu [X] CKD H&P p1 09/06 Dr Wu [X] Hx of PA H&P p1 09/06 Dr Wu [X] CAD s/p CABG H&P p1 09/06 Dr Wu Present Treatments Results and Location in Medical Record [X] Aspirin 325 mg oral NOV 22 [X] IV Plavix 75 mg oral NOV 22 [X] IV Lasix 80 mg NOV 22 [X] Nitroglycerin oitment NOV 22 [X] IVF NS 1L NOV 22 [X] Cardiology consult Consult Dr Medellin 09/07 [X] Monitor troponin H&P p4 09/06 Dr Wu [X] Blood pressure controlling H&P p4 09/06 Dr Wu CDS/Card Boxer Signature: Melanie Bowens Jacobkristijamir Phone #: ext [phone] Date/Time: 09/15/202122 This is a permanent part of the Medical Record [facility]
--- NOTE | 2020-09-16 08:46 | DIS ---
DATE OF ADMISSION: 09/06/2020 DATE OF DISCHARGE: 09/13/2020 PRIMARY CARE PROVIDER: Blake Osullivan MD. DISCHARGE DIAGNOSES: Acute on chronic systolic heart failure, worsening of stage 3 chronic kidney disease, unstable angina, hypertension, dyslipidemia. DISCHARGE MEDICATIONS: 1. Aspirin 81 mg a day. 2. Hydralazine 25 mg three times a day. 3. Flomax 0.4 mg a day. 4. Spironolactone 50 mg a day. 5. Entresto 97/103 b.i.d. 6. Potassium chloride 10 mEq a day. 7. Lasix 40 mg p.o. b.i.d. 8. Proscar 5 mg a day. 9. Plavix 75 mg a day. 10. Coreg 12.5 mg p.o. b.i.d. 11. Atorvastatin 80 mg a day. ALLERGIES: TO MORPHINE. CODE STATUS: Full. PENDING AT TIME OF DISCHARGE: Nothing. DIET: Heart healthy. HOSPITAL COURSE: The patient admitted through the [facility] to the Hospitalist Service. Consultations obtained with Dr. Carlos Medellin, Cardiology; Dr. Renan Pride, Infectious Disease. Procedures done, none. On admission, presented with increasing swelling, shortness of breath. He had been discharged on 06/15/2020 from our hospital after exacerbation of heart failure. He stated he had run out of his medications. Blood pressure on admission 200/120, pulse 75. BNP was in excess of 10,000. He was given nitro-bid and 80 mg of Lasix in the emergency room. Admitting white count 10.1, hemoglobin 12.3, platelet count 174,000. Sodium 137, potassium 4.8, BUN 25, creatinine 1.27, blood sugar 98. His chest x-ray showed pulmonary vascular congestion with bilateral pleural effusions and postsurgical changes. The patient was treated with 80 mg of IV Lasix initially, was eventually transitioned to p.o. Lasix. His Coreg, Plavix, aspirin, finasteride, statin, Entresto, spironolactone, etc., were continued. The patient's weight decreased from 208 pounds on admission to 160 pounds at discharge, a very significant diuresis. His CBC was stable through his hospital stay. Initial creatinine was 1.27, at time of discharge creatinine was 0.93. Electrolytes balanced. Echocardiogram was done, showed an EF of 40% to 45% with diastolic dysfunction. Consultation with Dr. Pride suggested a fungal infection of the skin. He was placed on miconazole topical for that. At the time of discharge, his chest is clear, had a regular rate and rhythm. No murmurs. He is being discharged home with followup with home health on a fluid-restricted heart healthy diet. He apparently has family who are out of state who are making arrangements to take him to live with them. He will be seen by cardiac rehab outpatient in 3 days. Follow up with Dr. Blake Osullivan. Job ID: [id number]
== END 2020-09-13 11:38 | disposition home health service (06) | DRG 291 ==
LOC: ERS 17:29 → 2NO 19:45
PROVIDERS: ADMIT Student in an Organized Health Care Education/Training Program; ATTEND Internal Medicine
PROC: 0T9B70Z Drainage of Bladder with Drainage Device, Via Natural or Artificial Opening (ICD-10-PCS; principal; 2020-09-08)
DX: I13.0 Hypertensive heart and chronic kidney disease with heart failure and stage 1 through stage 4 chronic kidney disease, or unspecified chronic kidney disease (principal); I50.23 Acute on chronic systolic (congestive) heart failure; I16.1 Hypertensive emergency; I24.8 Other forms of acute ischemic heart disease; Z20.822 Contact with and (suspected) exposure to COVID-19; E78.5 Hyperlipidemia, unspecified; I48.91 Unspecified atrial fibrillation; B35.4 Tinea corporis; R94.5 Abnormal results of liver function studies; R79.89 Other specified abnormal findings of blood chemistry; I25.5 Ischemic cardiomyopathy; F17.290 Nicotine dependence, other tobacco product, uncomplicated; I25.110 Atherosclerotic heart disease of native coronary artery with unstable angina pectoris; I08.3 Combined rheumatic disorders of mitral, aortic and tricuspid valves; N40.1 Benign prostatic hyperplasia with lower urinary tract symptoms; N18.30 Chronic kidney disease, stage 3 unspecified; R33.8 Other retention of urine; N47.1 Phimosis; Z28.21 Immunization not carried out because of patient refusal; I25.2 Old myocardial infarction; Z95.1 Presence of aortocoronary bypass graft; Z88.5 Allergy status to narcotic agent; Z79.899 Other long term (current) drug therapy; Z79.82 Long term (current) use of aspirin
CPT/HCPCS: 36415; 71045; 80048; 80053; 82180; 82525; 82553; 83880; 84484; 84590; 85025; 87102; 87635; 93005; 93306; 93798; 96374; 97139; J0360; J1650; J1940; U0003